=== PATIENT | male | born 1970 | race Caucasian/White ===

== ENCOUNTER 2023-04-01 13:10 | Outpatient (REF) | payer MEDICARE, MEDICAID, SELFPAY ==
[2023-04-01 17:03] LABS: Basophils Percent Auto 0.5 % (0.2-2.0); Eosinophils Absolute Auto 0.5 10^3/uL (0.0-0.7); Eosinophils Percent Auto 8.7 % (0.9-7.0); Hematocrit 44.9 % (42.0-54.0); Hemoglobin 14.5 g/dL (14.0-18.0); Immature Granulocytes Abs Auto 0.01 10^3/uL (0.00-0.03); Immature Granulocytes Pct Auto 0.2 % (0.0-0.5); Lymphocytes Absolute Auto 1.6 10^3/uL (1.2-3.8); Lymphocytes Percent Auto 27.5 % (20.5-60.0); Mean Corpuscular HGB Conc 32.3 g/dL (29.9-35.2); Mean Corpuscular Hemoglobin 29.4 pg (25.9-34.0); Mean Corpuscular Volume 90.9 fL (80.0-94.0); Mean Platelet Volume 11.6 fL (9.5-13.5); Monocytes Absolute Auto 0.4 10^3/uL (0.3-0.8); Monocytes Percent Auto 6.2 % (1.7-12.0); Neutrophils Absolute Auto 3.2 10^3/uL (1.4-6.5); Neutrophils Percent Auto 56.9 % (43.0-75.0); Platelet Count 260 10^3/uL (150-450); Red Blood Count 4.94 10^6/uL (4.70-6.10); Red Cell Distribution Width 13.2 % (11.0-15.0); White Blood Count 5.6 10^3/uL (4.0-11.0)
[2023-04-01 17:04] LABS: C Reactive Protein 0.5 mg/dL (<=1.0); Estimated GFR (African America >60 (>=60); Estimated GFR (Non-African Ame >60 (>=60)
[2023-04-01 17:08] LABS: Erythrocyte Sedimentation Rate 28 mm/hr (<=20)
== END 2023-04-01 13:11 ==
LOC: LAB 13:10
PROVIDERS: PCP Family Medicine
DX: M46.22 Osteomyelitis of vertebra, cervical region (principal); Z79.2 Long term (current) use of antibiotics
CPT/HCPCS: 36415; 82565; 85025; 85652; 86140

== ENCOUNTER 2023-04-08 16:26 | Outpatient (REF) | payer MEDICARE, MEDICAID, SELFPAY ==
[2023-04-08 16:42] LABS: Basophils Percent Auto 0.6 % (0.2-2.0); Eosinophils Absolute Auto 0.3 10^3/uL (0.0-0.7); Eosinophils Percent Auto 4.4 % (0.9-7.0); Hematocrit 41.4 % (42.0-54.0); Hemoglobin 13.7 g/dL (14.0-18.0); Immature Granulocytes Abs Auto 0.02 10^3/uL (0.00-0.03); Immature Granulocytes Pct Auto 0.3 % (0.0-0.5); Lymphocytes Absolute Auto 1.8 10^3/uL (1.2-3.8); Lymphocytes Percent Auto 28.3 % (20.5-60.0); Mean Corpuscular HGB Conc 33.1 g/dL (29.9-35.2); Mean Corpuscular Hemoglobin 29.8 pg (25.9-34.0); Mean Platelet Volume 11.6 fL (9.5-13.5); Monocytes Absolute Auto 0.5 10^3/uL (0.3-0.8); Monocytes Percent Auto 8.5 % (1.7-12.0); Neutrophils Absolute Auto 3.7 10^3/uL (1.4-6.5); Neutrophils Percent Auto 57.9 % (43.0-75.0); Platelet Count 253 10^3/uL (150-450); Red Cell Distribution Width 13.5 % (11.0-15.0); White Blood Count 6.3 10^3/uL (4.0-11.0)
[2023-04-08 16:48] LABS: Erythrocyte Sedimentation Rate 38 mm/hr (<=20)
[2023-04-08 16:50] LABS: C Reactive Protein 0.5 mg/dL (<=1.0); Estimated GFR (African America >60 (>=60); Estimated GFR (Non-African Ame >60 (>=60)
== END 2023-04-08 16:27 ==
LOC: LAB 16:26
PROVIDERS: PCP Family Medicine
DX: M46.22 Osteomyelitis of vertebra, cervical region (principal); Z79.2 Long term (current) use of antibiotics
CPT/HCPCS: 36415; 82565; 85025; 85652; 86140

== ENCOUNTER 2023-07-17 13:29 | Outpatient (OUT) | payer MEDICARE, MEDICAID, SELFPAY ==
--- NOTE | 2023-07-17 13:33 | CT_ITS ---
[address] [address] Patient Name: JOSE HALL MRN: [id number] date: 1970 Sex: M Assigned Patient Location: CT Current Patient Location: Accession/Order Number: [id number] Exam Date: 07/17/2023 13:38 Report Date: 07/18/2023 07:26 At the request of: TRISTON SINGER Procedure: CT lung screening low-dose EXAM: CT lung screening low-dose HISTORY: Cigarette Nicotine Dependence Without Complication EXAMINATION: CT lung screening low-dose HISTORY: Cigarette Nicotine Dependence Without Complication COMPARISON: No relevant comparison available. TECHNIQUE: Axial, Coronal, and Sagittal images were created without the administration of IV contrast material. Dose reduction techniques were achieved by using automated exposure control and/or adjustment of mA and/or kV according to patient size and/or use of iterative reconstruction technique. FINDINGS: LUNGS: Within the right upper lobe near the level of hilum is a collection of approximately 4 tiny 3 mm size nodules with slight haziness of the adjacent parenchyma. PLEURA: No mass, effusion, or pneumothorax. VASCULATURE: No abnormality. CESAR: No mass or pathologic adenopathy. MEDIASTINUM: No mass or pathologic adenopathy. CARDIAC: No enlargement, pericardial thickening, or significant calcification. AORTA: No aneurysm or dissection. CHEST WALL: No mass or axillary adenopathy BONES: No bone lesion or fracture. LIMITED ABDOMEN: No suspicious findings. Limited images of the upper abdomen. OTHER: Negative. CT/CT lung screening low-dose IMPRESSION: 1. Lung-RADS Category 3- Probably benign. Probably benign finding(s)- short term follow up suggested; includes nodules with a low likelihood of becoming a clinically active cancer. Six month LDCT. COMPARISON: None. TECHNIQUE: FINDINGS: IMPRESSION: Electronically authenticated by: MELANIE FOFANA Date: 07/18/2023 07:26
== END 2023-07-17 13:30 | disposition home or self-care (01) ==
LOC: CT 13:29
PROVIDERS: PCP Internal Medicine; Visit Provider Internal Medicine
DX: F17.210 Nicotine dependence, cigarettes, uncomplicated (principal)
CPT/HCPCS: 71271

== ENCOUNTER 2024-02-17 13:42 | Outpatient (OUT) | payer MEDICARE, SELFPAY ==
--- NOTE | 2024-02-17 13:49 | CT_ITS ---
[address] [address] Patient Name: JOSE HALL MRN: [id number] date: 1970 Sex: M Assigned Patient Location: CT Current Patient Location: Accession/Order Number: [id number] Exam Date: 02/17/2024 13:55 Report Date: 02/18/2024 05:55 At the request of: ARNOLD DEL REAL Procedure: CT chest wo con EXAMINATION: CT chest wo con HISTORY: Pulmonary Nodules R91.8 COMPARISON: CT LUNG CANCER SCREENING 07/17/2023 TECHNIQUE: Multi-planar CT images were obtained without and/or with IV contrast as indicated by examination type. Axial, Coronal, and Sagittal images. Dose reduction techniques were achieved by using automated exposure control and/or adjustment of mA and/or kV according to patient size and/or use of iterative reconstruction technique. FINDINGS: LUNGS: A few 3 mm nodules scattered within the lungs, stable. Clearing of previously seen right upper lobe/perihilar nodules and haziness of the parenchyma. No new nodules. PLEURA: No mass, effusion, or pneumothorax. VASCULATURE: No abnormality. CESAR: No mass or adenopathy. MEDIASTINUM: No mass or adenopathy. CARDIAC: No enlargement, pericardial thickening, or significant calcification. AORTA: No aneurysm or dissection. CHEST WALL: No mass or axillary adenopathy. BONES: No bone lesion or fracture. LIMITED ABDOMEN: No suspicious findings Limited images of the upper abdomen. OTHER: Negative. CT/CT chest wo con IMPRESSION: 1. Interval clearing of the suspicious nodules/haziness within right upper lobe perihilar region. 2. Stable appearance of a few 3 mm nodules scattered within the lungs; not overtly suspicious. Consider follow-up CT chest in one year to document stability. Electronically authenticated by: MELANIE FOFANA Date: 02/18/2024 05:55
== END 2024-02-17 13:43 | disposition home or self-care (01) ==
LOC: CT 13:43
PROVIDERS: PCP Internal Medicine; Visit Provider Internal Medicine
DX: R91.8 Other nonspecific abnormal finding of lung field (principal)
CPT/HCPCS: 71250

== ENCOUNTER 2025-01-14 15:07 | Outpatient (OUT) | payer OTHER, SELFPAY ==
--- NOTE | 2025-01-14 15:13 | CT_ITS ---
[address] [address] Patient Name: JOSE HALL MRN: [id number] date: 1970 Sex: M Assigned Patient Location: CT Current Patient Location: CT Accession/Order Number: [id number] Exam Date: 01/14/2025 16:50 Report Date: 01/14/2025 16:53 At the request of: TRISTON SINGER Procedure: CT lung screening low-dose CT CHEST WITHOUT CONTRAST, LOW DOSE SCREENING: CLINICAL DATA: A 54-year old current smoker COMPARISON: None TECHNIQUE: Noncontrast axial CT scan images of the chest were obtained under the low dose screening CT protocol. Coronal and sagittal reconstructed images were also submitted. FINDINGS: Mediastinum : Suboptimal evaluation due to low-dose technique. Thoracic aorta appears normal in caliber. Pulmonary trunk appears nondilated. No pericardial effusion. No lymphadenopathy. The esophagus is grossly unremarkable. Lungs: No focal consolidation, pneumothorax or pleural effusion. Trachea and distal airways appear patent. Diffuse bronchial wall thickening. No suspicious noncalcified pulmonary nodule or mass. Upper abdomen: No acute findings. Bony thorax and chest wall: Soft tissues surrounding the chest wall demonstrate no acute findings. Osseous structures demonstrate degenerative change. CT/CT lung screening low-dose IMPRESSION: NO SUSPICIOUS PULMONARY NODULE ON TODAY'S STUDY. LUNG - RADS Version 1.0 Assessment: Category 1, Negative (No nodules and definitely benign nodules). Management: Continue annual lung screening with LDCT in 12 months. Impression dictated by: Santi Wu Jr., D.O.01/14/2025 4:53 PM Dictation Location: [employer] [employer] Electronically authenticated by: [id number] Y Date: 01/14/2025 16:53
== END 2025-01-14 15:08 | disposition home or self-care (01) ==
LOC: CT 15:09
PROVIDERS: PCP Internal Medicine; Visit Provider Internal Medicine
DX: Z00.00 Encounter for general adult medical examination without abnormal findings (principal); Z87.891 Personal history of nicotine dependence
CPT/HCPCS: 71271

== ENCOUNTER 2025-02-25 21:00 | Observation (INO) | payer OTHER, SELFPAY ==
[2025-02-25] VITALS (17 sets, daily range): BP systolic 112–145; BP diastolic 62–107; PULSE 85–106; TEMP 36.9; O2SAT 91–96; BMI 38.8; BMI 40.2
--- NOTE | 2025-02-25 21:12 | PC.NURSE ---
left arm fro uper arm to hand red swollen and warm to touch, no scratches or open areas to extremity.
--- NOTE | 2025-02-25 21:23 | PC.NURSE ---
complains of left arm swelling onset 2 or 3 days, denies any recent injury, falls, or trauma to cause this swelling. this patient does recall doing yard work 2 or 3 days ago
[2025-02-25] MEDS: ACETAMINOPHEN 325 MG TABLET 650 MG PO (21:29)
--- NOTE | 2025-02-25 21:30 | ED.EXTPRO1 ---
HPI - Extremity Problem General Chief complaint: Extremity Problem, Nontraumatic Stated complaint: PAINFUL AND SWELLING ARM, FEVER Time Seen by Provider: 02/25/25 21:02 Source: patient Mode of arrival: walk-in History of Present Illness HPI Narrative: This 54-year-old male, smoker who is morbidly obese and has a history of diabetes and admits to medication noncompliance presents for evaluation of pain and swelling to the left upper extremity. The patient states that he was sleeping on his couch last Saturday and rolled off of the couch. He does not feel that he injured himself at that time, later that day he went outside and was doing yard work in which he was laying on the ground in the dirt. He thinks he may have scraped his elbow where he has a large callus. Since then he has developed redness and swelling to the medial upper arm that extends down into the forearm associated with swelling and chills. He has not taken his temperature to document a fever. He denies that he feels confused and his corroborates that he has not altered. He states he has not had any appetite today. He has not had any vomiting or diarrhea. He denies any chest pain or shortness of breath. He has chronic lower extremity swelling which is unchanged. Last Tetanus was one year ago Related Data Home Medications ?Medication ?Instructions ?Recorded ?Confirmed gabapentin 600 mg tablet 1,200 mg PO QPM 02/25/25 02/25/25 gabapentin 600 mg tablet 600 mg PO QAM 02/25/25 02/25/25 Allergies Allergy/AdvReac Type Severity Reaction Status Date / Time No Known Drug Allergies Allergy Verified 02/25/25 21:08 Review of Systems ROS Status of ROS 10 or more systems reviewed and unremarkable except as noted in history and below [facility] Social History Little interest or pleasure in doing things: not at all Feeling down, depressed, or hopeless: not at all Exam Narrative Exam Narrative: Vital signs and Nursing Notes reviewed: Patient is afebrile, tachycardic with pulse of 106, blood pressure stable at 130/82, he has not hypoxic with pulse ox of 96% on room air General: Awake, alert, oriented, obese male, no acute distress, lying comfortably on the stretcher HEENT: Normocephalic atraumatic, mucous membranes are dry, no swelling of the tongue, uvula pharyngeal soft tissues Neck: Supple, no meningeal signs, no anterior or posterior cervical lymphadenopathy Chest: Lungs are clear to auscultation with good air entry, there is no wheezing rhonchi or rales appreciated no accessory muscle use, patient is speaking in complete sentences-no chest wall tenderness to palpation CVS: Regular rate and rhythm S1-S2, no murmurs rubs or gallops, pulses are brisk and equal bilaterally ABD: Soft, nondistended, nontender, no rebound guarding or rigidity, bowel sounds are normal, no pulsatile masses appreciated Extremities: There is erythema and tenderness to the medial aspect of the left upper arm, this is not circumferential but does extend down somewhat into the forearm with less redness but moderate swelling. There are several small abrasions on the left forearm and a large callus overlying the left elbow. There is no sign of abscess. Fingers are warm and sensate. Radial pulses brisk. Brachial pulse is brisk. I do not appreciate any significant left, axillary lymphadenopathy. Skin: Redness and swelling to the left upper extremity as described above. Neuro: No focal deficits Constitutional Vital Signs, click to edit/add: Last Vital Signs Temp 98.4 F 02/25/25 21:04 Pulse 99 H 02/25/25 23:10 Resp 15 02/25/25 23:10 BP 145/107 H 02/25/25 23:00 Pulse Ox 94 L 02/25/25 23:10 O2 Del Method Room Air 02/25/25 21:04 Course Vital Signs Vital signs: Vital Signs Temperature 98.4 F 02/25/25 21:04 Pulse Rate 106 H 02/25/25 21:04 Respiratory Rate 18 02/25/25 21:04 Blood Pressure 130/82 02/25/25 21:04 Pulse Oximetry 96 02/25/25 21:04 Oxygen Delivery Method Room Air 02/25/25 21:04 Temperature 98.4 F 02/25/25 21:04 Pulse Rate 99 H 02/25/25 23:10 Respiratory Rate 15 02/25/25 23:10 Blood Pressure 145/107 H 02/25/25 23:00 Pulse Oximetry 94 L 02/25/25 23:10 Oxygen Delivery Method Room Air 02/25/25 21:04 MDM - Extremity (Nontraumatic) MDM Narrative Medical decision making narrative: This 54-year-old male with a history of type 2 diabetes who admits to medical noncompliance and morbid obesity is brought to the emergency department by family member for evaluation of redness and swelling to the left upper extremity. The patient states that he rolled off the couch on Saturday but does not feel that he injured himself at that time. He then went out and did some yard work and was lying on the ground pulling weeds. Since that time he has developed a large area of redness and swelling of the medial aspect of his left upper arm that extends onto his left forearm. His hand is warm and sensate, he has normal pulses, there is no crepitus or sign of compartment syndrome. He does have a large callus overlying his left elbow and some very superficial abrasions of the left forearm. His last tetanus shot was 1 year ago. He has had some chills but did not take his temperature or have a documented fever here. He does appear to be somewhat altered to me but the patient does not feel that he is altered and his family member states he is at his normal baseline mental status. A septic workup was ordered. An IV was established and he was medicated with IV fluids, Tylenol, IV vancomycin and IV Zosyn. Ultrasound of the left upper extremity shows soft tissue edema in the antecubital fossa region with no DVT in the left upper extremity. His white count is elevated at 15.1. He has a normal lactic acid at 1.6. Glucose is elevated at 177 but the remainder of his electrolytes and kidney function is normal. On reevaluation he is feeling much better and stated that he was very hungry after not having eaten earlier in the day. He was given a snack and Gatorade which he tolerated without difficulty. He has remained hemodynamically stable in the emergency department. The case was discussed with the hospitalist and he is excepted for admission to [facility]. Lab Data Labs: Lab Results 02/25/25 Range/Units 21:10 WBC 15.1 H (4.0-11.0) 10^3/uL RBC 5.10 (4.70-6.10) 10^6/uL Hgb 15.8 (14.0-18.0) g/dL Hct 47.0 (42.0-54.0) % MCV 92.2 (80.0-94.0) fL MCH 31.0 (25.9-34.0) pg MCHC 33.6 (29.9-35.2) g/dL RDW 12.0 (11.0-15.0) % Plt Count 203 (150-450) 10^3/uL MPV 11.8 (9.5-13.5) fL Neut % (Auto) 76.3 H (43.0-75.0) % Lymph % (Auto) 14.5 L (20.5-60.0) % Ponce % (Auto) 7.9 (1.7-12.0) % Eos % (Auto) 0.7 L (0.9-7.0) % Baso % (Auto) 0.3 (0.2-2.0) % Neut # (Auto) 11.5 H (1.4-6.5) 10^3/uL Lymph # (Auto) 2.2 (1.2-3.8) 10^3/uL Ponce # (Auto) 1.2 H (0.3-0.8) 10^3/uL Eos # (Auto) 0.1 (0.0-0.7) 10^3/uL Baso # (Auto) 0.0 (0.0-0.1) 10^3/uL Abs Immat Gran (auto) 0.05 H (0.00-0.03) 10^3/uL Imm/Tot Granulo (auto) 0.3 (0.0-0.5) % Sodium 133 L (136-145) mmol/L Potassium 4.1 (3.5-5.1) mmol/L Chloride 94 L (98-107) mmol/L Carbon Dioxide 31.1 (21.0-32.0) mmol/L Anion Gap 12.0 BUN 15.0 (7.0-18.0) mg/dL Creatinine 1.04 (0.70-1.30) mg/dL Est GFR ( Amer) >60 (>=60 mL/min/1.73m^2) Est GFR (Non-Af Amer) >60 (>=60 mL/min/1.73m^2) BUN/Creatinine Ratio 14.4 Glucose 177 H (74-106) mg/dL Lactate 1.6 (0.4-2.0) mmol/L Calcium 9.0 (8.5-10.1) mg/dL Total Bilirubin 0.8 (0.2-1.0) mg/dL AST 21 (15-37) U/L ALT 30 (16-63) U/L Alkaline Phosphatase 107 (46-116) U/L Troponin I High Sens 5.1 (4.0-76.1) pg/mL NT-Pro-B Natriuret Pep 43.0 (<=900.0) pg/mL Total Protein 6.9 (6.4-8.2) g/dL Albumin 3.6 (3.4-5.0) g/dL Globulin 3.3 g/dL Albumin/Globulin Ratio 1.1 Discharge Plan Discharge Chief Complaint: Extremity Problem, Nontraumatic Clinical Impression: Cellulitis of left upper extremity Patient Disposition: Admitted As Inpatient Time of Disposition Decision: 23:43 Condition: Fair
--- NOTE | 2025-02-25 21:34 | ECG_ITS ---
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 Measurements Intervals Jay Rate: 90 P: 69 SD: 172 QRS: 81 QRSD: 102 T: 56 QT: 348 QTc: 395 Interpretive Statements 1100 Sinus rhythm 9110 normal ECG Compared to ECG 02/25/2025 22:23:04 No significant changes Electronically Signed On 02-26-2025 18:41:53 EDT by BIRGIT QUINN M.D.
[2025-02-25 21:41] LABS: Basophils Percent Auto 0.3 % (0.2-2.0); Eosinophils Absolute Auto 0.1 10^3/uL (0.0-0.7); Eosinophils Percent Auto 0.7 % (0.9-7.0); Hemoglobin 15.8 g/dL (14.0-18.0); Immature Granulocytes Abs Auto 0.05 10^3/uL (0.00-0.03); Immature Granulocytes Pct Auto 0.3 % (0.0-0.5); Lymphocytes Absolute Auto 2.2 10^3/uL (1.2-3.8); Lymphocytes Percent Auto 14.5 % (20.5-60.0); Mean Corpuscular HGB Conc 33.6 g/dL (29.9-35.2); Mean Corpuscular Volume 92.2 fL (80.0-94.0); Mean Platelet Volume 11.8 fL (9.5-13.5); Monocytes Absolute Auto 1.2 10^3/uL (0.3-0.8); Monocytes Percent Auto 7.9 % (1.7-12.0); Neutrophils Absolute Auto 11.5 10^3/uL (1.4-6.5); Neutrophils Percent Auto 76.3 % (43.0-75.0); Platelet Count 203 10^3/uL (150-450); White Blood Count 15.1 10^3/uL (4.0-11.0)
[2025-02-25 21:43] LABS: Lactate/Lactic Acid 1.6 mmol/L (0.4-2.0)
[2025-02-25] MEDS: LACTATED RINGER S 684 ML IV (21:44)
[2025-02-25 21:52] LABS: Alanine Aminotransferase 30 U/L (16-63); Albumin Globulin Ratio 1.1; Albumin Level 3.6 g/dL (3.4-5.0); Alkaline Phosphatase 107 U/L (46-116); Aspartate Amino Transferase 21 U/L (15-37); BUN Creatinine Ratio 14.4; Bilirubin Total 0.8 mg/dL (0.2-1.0); Carbon Dioxide 31.1 mmol/L (21.0-32.0); Chloride 94 mmol/L (98-107); Estimated GFR (African America >60 (>=60 mL/min/1.73m^2); Estimated GFR (Non-African Ame >60 (>=60 mL/min/1.73m^2); Globulin 3.3 g/dL; Glucose 177 mg/dL (74-106); Potassium 4.1 mmol/L (3.5-5.1); Sodium 133 mmol/L (136-145); Total Protein 6.9 g/dL (6.4-8.2); Troponin I High Sensitivity 5.1 pg/mL (4.0-76.1)
[2025-02-25] MEDS: PIPERACILLIN SODIUM/TAZOBACTAM 3.375 GM in 0.9 % SODIUM CHLORIDE 50 ML IV (21:56)
[2025-02-25] MEDS: VANCOMYCIN HCL 1,500 MG in 0.9 % SODIUM CHLORIDE 500 ML 250 MG IV (22:33)
--- NOTE | 2025-02-25 23:09 | PC.NURSE ---
this patient awake and alert talking on his cell phone, sitting upright on the bed this patient voices no concerns and shoows no signs of distress
[2025-02-25 23:53] LABS: Estimated Average Glucose 143 mg/dL; Glycohemoglobin A1C 6.6 % (4.5-6.2)
[2025-02-26] VITALS (8 sets, daily range): BP systolic 119–134; BP diastolic 83–89; PULSE 65–100; TEMP 36.4–36.8; O2SAT 91–95
[2025-02-26] MEDS: 0.9 % SODIUM CHLORIDE 1,000 ML 125 ML IV ×2 (00:32→08:39)
[2025-02-26] MEDS: ENOXAPARIN SODIUM 40 MG/0.4 ML SYRINGE SUBQ ×2 (00:32→08:40)
[2025-02-26 06:19] LABS: Basophils Percent Auto 0.2 % (0.2-2.0); Eosinophils Absolute Auto 0.1 10^3/uL (0.0-0.7); Eosinophils Percent Auto 1.1 % (0.9-7.0); Hematocrit 47.4 % (42.0-54.0); Hemoglobin 15.2 g/dL (14.0-18.0); Immature Granulocytes Abs Auto 0.05 10^3/uL (0.00-0.03); Immature Granulocytes Pct Auto 0.4 % (0.0-0.5); Lymphocytes Absolute Auto 2.4 10^3/uL (1.2-3.8); Lymphocytes Percent Auto 18.6 % (20.5-60.0); Mean Corpuscular HGB Conc 32.1 g/dL (29.9-35.2); Mean Corpuscular Hemoglobin 30.2 pg (25.9-34.0); Mean Platelet Volume 11.5 fL (9.5-13.5); Monocytes Absolute Auto 1.3 10^3/uL (0.3-0.8); Monocytes Percent Auto 9.8 % (1.7-12.0); Neutrophils Percent Auto 69.9 % (43.0-75.0); Platelet Count 191 10^3/uL (150-450); Red Blood Count 5.04 10^6/uL (4.70-6.10); Red Cell Distribution Width 11.9 % (11.0-15.0); White Blood Count 12.8 10^3/uL (4.0-11.0)
[2025-02-26 06:34] LABS: Alanine Aminotransferase 28 U/L (16-63); Albumin Globulin Ratio 0.8; Albumin Level 3.3 g/dL (3.4-5.0); Alkaline Phosphatase 101 U/L (46-116); Anion Gap 9.1; Aspartate Amino Transferase 20 U/L (15-37); BUN Creatinine Ratio 13.3; Bilirubin Total 0.8 mg/dL (0.2-1.0); Calcium 9.2 mg/dL (8.5-10.1); Carbon Dioxide 31.8 mmol/L (21.0-32.0); Chloride 96 mmol/L (98-107); Estimated GFR (African America >60 (>=60 mL/min/1.73m^2); Estimated GFR (Non-African Ame >60 (>=60 mL/min/1.73m^2); Glucose 140 mg/dL (74-106); Potassium 3.9 mmol/L (3.5-5.1); Sodium 133 mmol/L (136-145); Total Protein 7.3 g/dL (6.4-8.2)
[2025-02-26 07:59] LABS: Glucometer 155 mg/dL (74-106)
[2025-02-26] MEDS: PIPERACILLIN SODIUM/TAZOBACTAM 3.375 GM in 0.9 % SODIUM CHLORIDE 50 ML IV (08:42)
--- NOTE | 2025-02-26 09:34 | CM.NOTE ---
Rounds made with Dr. Greer. Dr. Greer reviews plan of care. Mr. Cabrera verbalizes understanding.
--- NOTE | 2025-02-26 10:27 | PM.HP ---
HPI H&P: HPI History of Present Illness Chief complaint: UE CELLULITIS Narrative: HPI and Hospital course: 54-year-old male with past medical history of morbid obesity, presented to the ED with 3-day history of left upper extremity swelling, erythema, tenderness. Patient recalls falling over 3 days ago and sustaining a small abrasion around his elbow area. Patient denies fever, chills. Workup in ED was concerning for sepsis with tachycardia, tachypnea and leukocytosis noted upon arrival for which patient was given aggressive IV hydration and started on broad-spectrum antibiotic with IV vancomycin and IV Zosyn. Left upper extremity cellulitis was marked so that it can be followed up for improvement/response to antibiotic and earlier today when I evaluated him, erythema/swelling and pain had considerably improved overnight IV antibiotics. His hemodynamics are also improved with improvement in leukocytosis. Patient is medically stable for discharge and will be discharged home on oral Bactrim and Augmentin. Patient was educated on worrisome signs and symptoms and was instructed to return to ED if you develop worsening erythema/pain or persistent fever. Patient will need to follow-up with PCP in 1 to 2 weeks. Discharge diagnosis: Sepsis secondary to left upper extremity cellulitis Discharge disposition: Home Discharge status: Stable Opioid HPI Opioid Management Most Recent Pain and Opioid Data: Last Pain Scale 2 Today, 01:33 Last Pain Assessment Today, 00:51 Last MAR Pain Assessment 02/25/25, 21:29 Last ORT Total Score 0 02/25/25, 23:43 Last ORT Risk Category Low Risk 02/25/25, 23:43 Review of Systems ROS Status of ROS 10 or more systems reviewed and unremarkable except as noted in history and below [facility] Medical History (Updated 02/26/25 @ 10:30 by Shaikh Zoey MD) Morbid obesity ?E66.01 - Morbid (severe) obesity due to excess calories (ICD-10) SOFIYA (obstructive sleep apnea) ?G47.33 - Obstructive sleep apnea (adult) (pediatric) (ICD-10) Hypercholesteremia ?E78.00 - Pure hypercholesterolemia, unspecified (ICD-10) Diabetes mellitus ?E11.9 - Type 2 diabetes mellitus without complications (ICD-10) Hypertension ?I10 - Essential (primary) hypertension (ICD-10) Family History (Updated 02/26/25 @ 00:15 by Erica Walker RN) Mother Cancer Grandfather Atrial fibrillation Hypercholesteremia Diabetes Grandmother Atrial fibrillation Hypercholesteremia Grandfather No problems noted. Social History (Updated 02/26/25 @ 00:15 by Erica Walker RN) Within the past year, how often did you have a drink containing alcohol: monthly or less Within the past year, how often did you have six or more drinks on one occasion: never Smoking status: Current every day smoker Non-prescribed substance use: denies use Known occupational exposures/hazards: No Highest level of school completed/degree received: high school graduate Do you want help with school or training: No In a typical week, how many times do you talk on the telephone with family, friends, or neighbors: 3 or more times per week How often do you get together with friends or relatives: once per week How often do you attend bahai or scientology services: never Little interest or pleasure in doing things: not at all Feeling down, depressed, or hopeless: not at all Feel stressed/tense/nervous/anxious/difficulty sleeping: only a little Life stressors: other Life stressor details: Due to disability, difficulty making decisions: No Meds Home Medications and Allergies Home Medications ?Medication ?Instructions ?Recorded ?Confirmed ?Type gabapentin 600 mg tablet 1,200 mg PO QPM 02/25/25 02/25/25 History gabapentin 600 mg tablet 600 mg PO QAM 02/25/25 02/25/25 History amoxicillin 875 mg-potassium 1 tab PO BID #10 tabs 02/26/25 Rx clavulanate 125 mg tablet sulfamethoxazole 400 1 tab PO BID 10 days #20 tabs 02/26/25 Rx mg-trimethoprim 80 mg tablet (Bactrim) Allergies Allergy/AdvReac Type Severity Reaction Status Date / Time No Known Drug Allergies Allergy Verified 02/25/25 21:08 Exam Constitutional Vital Signs, click to edit/add: Last Vital Signs Temp 98.3 F 02/26/25 08:00 Pulse 92 H 02/26/25 09:49 Resp 20 02/26/25 08:00 BP 127/89 02/26/25 08:00 Pulse Ox 94 L 02/26/25 08:00 O2 Del Method Nasal Cannula 02/26/25 08:00 O2 Flow Rate 2 02/26/25 08:00 Documenting provider has reviewed patient's vital signs: yes Common normals: no apparent distress and oriented x3 General appearance: cooperative Nutritional appearance: obese HENMT Common normals: normocephalic and head/scalp atraumatic Head and scalp: normocephalic and atraumatic Eye Common normals: conjunctivae normal and no scleral icterus Conjunctiva: conjunctiva(e) normal Respiratory Common normals: normal respiratory effort and clear to auscultation bilaterally Effort & inspection: able to speak in complete sentences Auscultation: clear to auscultation bilaterally Cardio Common normals: regular rate, S1 normal heart sound and S2 normal heart sound Rate: regular rate Heart sounds: S1 normal and S2 normal GI Common normals: Normal to inspection, nondistended, normoactive bowel sounds present, soft to palpation, non-tender and no hepatosplenomegaly Palpation: soft and no hepatosplenomegaly Extremity Other: REENA - erythema/tenderness noted with swelling. Significantly improved overnight with IV abx Neuro Common normals: oriented x3, moves all extremities and no focal motor deficits Psych Common normals: mental status grossly normal, denies hallucinations, denies homicidal ideation and denies suicidal ideation Results Labs Labs: Short CBC 02/25/25 02/26/25 Range/Units 21:10 06:01 WBC 15.1 H 12.8 H (4.0-11.0) 10^3/uL Hgb 15.8 15.2 (14.0-18.0) g/dL Hct 47.0 47.4 (42.0-54.0) % Plt Count 203 191 (150-450) 10^3/uL BMP 02/25/25 02/26/25 21:10 06:01 Sodium 133 L 133 L Potassium 4.1 3.9 Chloride 94 L 96 L Carbon Dioxide 31.1 31.8 BUN 15.0 13.0 Creatinine 1.04 0.98 Glucose 177 H 140 H Calcium 9.0 9.2 Liver Function 02/25/25 02/26/25 Range/Units 21:10 06:01 Total Bilirubin 0.8 0.8 (0.2-1.0) mg/dL AST 21 20 (15-37) U/L ALT 30 28 (16-63) U/L Alkaline Phosphatase 107 101 (46-116) U/L Albumin 3.6 3.3 L (3.4-5.0) g/dL Assessment and Plan Assessment and Plan (1) Sepsis: Assessment and Plan: Met sepsis criteria with leukocytosis/tachycardia and tachypnea upon arrival. Received aggressive IV hydration. Secondary to left upper extremity cellulitis. Stable hemodynamics this morning with improvement in leukocytosis. Was treated with IV vancomycin and Zosyn. Cultures negative so far. Will discharge on oral Bactrim and Augmentin. Qualifiers: Sepsis type: sepsis due to unspecified organism Sepsis acute organ dysfunction status: without acute organ dysfunction Qualified Code(s): A41.9 - Sepsis, unspecified organism (2) Cellulitis of left upper extremity: Assessment and Plan: No evidence of DVT on. Considerably improved overnight with IV antibiotics. Will discharge on oral Bactrim and Augmentin. (3) SOFIYA (obstructive sleep apnea): Assessment and Plan: Patient uses oxygen at night (4) Morbid obesity: Assessment and Plan: Morbidly obese. Recommended weight loss and lifestyle modifications.
--- NOTE | 2025-02-26 10:31 | SWNOTE1 ---
Medicare Outpatient Observation Notice reviewed and discussed with patient. Pt. verbalized understanding and signed the form. Original given to patient and copy placed in patient?s chart. SW did ask if pt had any questions about his discharge, pt voiced no.
[2025-02-27 06:27] LABS: A. calcoaceticus-baumannii Cpx NOT DETECTED (NOT DETECTE); Bacteroides fragilis NOT DETECTED (NOT DETECTE); Candida albicans NOT DETECTED (NOT DETECTE); Candida auris NOT DETECTED (NOT DETECTE); Candida glabrata NOT DETECTED (NOT DETECTE); Candida krusei NOT DETECTED (NOT DETECTE); Enterobacter cloacae complex NOT DETECTED (NOT DETECTE); Enterobacterales NOT DETECTED (NOT DETECTE); Enterococcus faecalis NOT DETECTED (NOT DETECTE); Enterococcus faecium NOT DETECTED (NOT DETECTE); Haemophilus influenzae NOT DETECTED (NOT DETECTE); Klebsiella aerogenes NOT DETECTED (NOT DETECTE); Klebsiella pneumoniae group NOT DETECTED (NOT DETECTE); Listeria monocytogenes NOT DETECTED (NOT DETECTE); Neisseria meningitidis NOT DETECTED (NOT DETECTE); Proteus spp. NOT DETECTED (NOT DETECTE); Pseudomonas aeruginosa NOT DETECTED (NOT DETECTE); Salmonella spp. NOT DETECTED (NOT DETECTE); Serratia marcescens NOT DETECTED (NOT DETECTE); Staphylococcus epidermidis NOT DETECTED (NOT DETECTE); Staphylococcus lugdunensis NOT DETECTED (NOT DETECTE); Staphylococcus spp. NOT DETECTED (NOT DETECTE); Stenotrophomonas maltophilia NOT DETECTED (NOT DETECTE); Streptococcus agalactiae NOT DETECTED (NOT DETECTE); Streptococcus pneumoniae NOT DETECTED (NOT DETECTE); Streptococcus pyogenes NOT DETECTED (NOT DETECTE); Streptococcus spp. NOT DETECTED (NOT DETECTE)
[2025-02-27 06:28] LABS: Candida parapsilosis NOT DETECTED (NOT DETECTE); Candida tropicalis NOT DETECTED (NOT DETECTE); Cryptococcus neoformans/gattii NOT DETECTED (NOT DETECTE)
[2025-02-27 09:12] LABS: Source BLOOD
--- NOTE | 2025-03-01 14:21 | CM.DCFOLLOWU ---
1st attempt 03/01/25, no answer
--- NOTE | 2025-03-04 14:29 | CM.DCFOLLOWU ---
3rd attempt 03/04/25, no answer
== END 2025-02-26 12:30 | disposition home or self-care (01) ==
LOC: ER 21:56 → MS 23:43
PROVIDERS: Registered Nurse; Admitting Provider Internal Medicine; Emergency Provider Emergency Medicine; PCP Internal Medicine; Visit Provider Internal Medicine
DX: A41.9 Sepsis, unspecified organism (principal); L03.114 Cellulitis of left upper limb; E66.01 Morbid (severe) obesity due to excess calories; Z68.41 Body mass index [BMI] 40.0-44.9, adult; F17.200 Nicotine dependence, unspecified, uncomplicated; G47.33 Obstructive sleep apnea (adult) (pediatric); E11.9 Type 2 diabetes mellitus without complications; Z91.148 Patient's other noncompliance with medication regimen for other reason; R22.32 Localized swelling, mass and lump, left upper limb
CPT/HCPCS: 36415; 80053; 83036; 83605; 83880; 84484; 85025; 87040; 87077; 87150; 93005; 93971; 96365; 96366; 96367; 96372; 99285; G0378; J1650; J2543; J3370

== ENCOUNTER 2025-09-06 11:22 | Outpatient (OUT) | payer OTHER, SELFPAY ==
--- OUTSIDE RECORDS SUMMARY | 2025-09-06 11:35 | XMS_ITS | CCD ---
Author Organization [facility] Care Team Providers Care Sales Administration Specialist Name Role Phone GIGI LANDIS Admitting Unavailable GIGI LANDIS Attending Unavailable COURTNEY JACKSON Referring Unavailable SELF, REFERRED Primary Care Unavailable MD [place] Emergency Provider [phone] MD Courtney Jackson Primary Care Provider [phone] DELANO NEWBERRY Referring Unavailable SATINDER, ESTELLAIN Admitting Unavailable FITO PERRY Consulting Unavailable BANDAR PAUL Attending Unavailable COURTNEY JACKSON Primary Care Unavailable JACKIE BROWN Consulting Unavailable DO Renetta Ashton Emergency Provider ERVIN NOVA Consulting Unavailable MANUEL Wasserman, DR VALDEZ Primary Care Unavailable ROHITH Wasserman, DELANO Admitting Unavailable DELANO WEAVER Attending Unavailable MELANIE LARA Consulting Unavailable JUVENTINO COOK Consulting Unavailable ROHITH ., DELANO Consulting Unavailable NINA ROLDAN Consulting Unavailable MANUEL ., DR VALDEZ Admitting Unavailable HOY ., DR VALDEZ Attending Unavailable HOY ., DR VALDEZ Consulting Unavailable HOY ., DR VALDEZ Primary Care Unavailable HOY ., DR VALDEZ Admitting Unavailable HOY ., DR VALDEZ Attending Unavailable HOY ., DR VALDEZ Consulting Unavailable HOY ., DR VALDEZ Primary Care Unavailable GANGAY ., DR VALDEZ Admitting Unavailable HOY ., DR VALDEZ Attending Unavailable GANGAY ., DR VALDEZ Primary Care Unavailable DR MELANIE FOFANA Consulting Unavailable MANUEL ., DR VALDEZ Primary Care Unavailable ALLI SOSA Admitting Unavailable ALLI SOSA Attending Unavailable ALLI SOSA Consulting Unavailable ALLI SOSA Admitting Unavailable CARMEL WEBB Consulting Unavailable MANUEL Wasserman, DR VALDEZ Primary Care Unavailable ALLI SOSA Attending Unavailable ALLI SOSA Consulting Unavailable Courtney Jackson MD Primary Care Provider [phone] MARKIE OLSEN Referring COURTNEY Gilmore Primary Care Unavailable MARKIE OLSEN Referring COURTNEY Gilmore Primary Care Unavailable Courtney Jackson MD Primary Care Provider [phone] CRISTIANO JONES Primary Care Physician James Du Attending Unavailable Cristiano Jones MD Primary Care Provider Poli Fisher DO Emergency Provider Cristiano Jones II Primary Care Provider [phone] Ravinder Pritchett DO Attending Provider [phone] Ravinder Pritchett DO Admit Provider Jose RN, Ebonie Other Provider Unavailable Linsey RN, Ambika Other Provider Unavailable Darrell RN, Gila Other Provider Unavailable Jesús RN, Zena Other Provider Unavailable Johnnie RN, Hetal Other Provider Unavailable Deborah Mathews MD Other Provider Yfn Forrest DO Other Provider Tino Banks MD Other Provider Tom Bernstein DO Other Provider Jennifer BOYKIN, Dane Other Provider Natalya Orozco MD Other Provider Paddy Mcdermott DO Other Provider Jordan Jones MD Other Provider Unavailable Martha Wilson APRN Other Provider Preet Nice MD Other Provider Clement Goncalves MD Other Provider Mayuri Valdes MD Other Provider Michelle Alvarez MD Other Provider Paddy Bennett DO Other Provider [phone] Mali Berg MD Other Provider Minesh Noe MD Other Provider Cl FLIGHT OPERATIONS ENGINEER-C, Carmel J Other Provider Azar CHAMORRO, Anastasia Triplett Other Provider Unavailable Martin BOYKIN, Modesto Child Other Provider Edwardo Vazquez MD Other Provider Harshal BOYKIN, Rolando Other Provider Madhu BOYKIN, Carolyn Other Provider Unavailable Vu Munoz MD Other Provider Eladia Bhat DO Other Provider Chris DOFadi Other Provider Yasmin Sarah APRN Other Provider Cas Padilla DO Other Provider Elan BOYKIN, Richard Triplett Other Provider Kaylin Pena APRN Other Provider Kirsty Mancilla APRN Other Provider Efrain BOYKIN, Nika Other Provider Cristiano Owens MD Other Provider Darell Grvoe DO Other Provider Nuno DO Yabrenna Other Provider Harshal BOYKIN, Alfie Henry Other Provider Humberto Delvalle MD Other Provider Ghada Pedersen APRN Other Provider Mike BOYKIN, Tami Other Provider Glenna BOYKIN, Santiago Other Provider Santi Lu MD Other Provider Jordan Gottlieb MD Other Provider Paul BOYKIN, Yusuf Other Provider Alyssa RN, Katie Other Provider Unavailable Cristiano Jones II Primary Care Provider Mayuri Valdes MD Other Provider Unavailable JONES, CRISTIANO B Attending Unavailable JONES, CRISTIANO B Attending Unavailable JONES, CRISTIANO B Attending Unavailable JONES, CRISTIANO B Attending Unavailable JONES, CRISTIANO B Attending Unavailable KATHE ALLEN Attending Unavailable JONES, CRISTIANO B Attending Unavailable JONES, CRISTIANO B Attending Unavailable JONSE, CRISTIANO B Attending Unavailable Jones, Cristiano Primary Care Unavailable Yarely, Ravinder A Admitting Unavailable Yarely, Ravinder A Attending Unavailable Jones, Cristiano Primary Care Unavailable Yarely, Ravinder A Admitting Unavailable Yarely, Ravinder A Attending Unavailable Yarely, Ravinder A Admitting Unavailable Yarely, Ravinder A Attending Unavailable Jones, Cristiano Primary Care Unavailable Jones, Cristiano Primary Care Unavailable Yarely, Ravinder A Admitting Unavailable Yarely, Ravinder A Attending Unavailable Jones, Cristiano Primary Care Unavailable Yarely, Ravinder A Admitting Unavailable Yarely, Ravinder A Attending Unavailable Ebonie Garcia Consulting Unavailable Ambika Stiles Consulting Unavailable Gila Ramírez Consulting Unavailable Zena Espinosa Consulting Unavailable Hetal Blair Consulting Unavailable Deborah Mathews Consulting Unavailable Yfn Forrest Consulting Unavailable Tino Banks Consulting Unavailable Tom Bernstein Consulting UnavailDane Vickers Consulting Unavailable Natalya Orozco Consulting Unavailable Paddy Mcdermott Consulting Unavailable Jordan Jones Consulting Unavailable Martha Wilson Consulting UnavailPreet Small Consulting Unavailable Clement Goncalves Consulting Unavailable Mayuri Valdes Consulting Unavailable Michelle Alvarez Consulting Unavailable Paddy Bennett Consulting Unavailable Mali Berg Consulting Unavailable Minesh Noe Consulting Unavailable Carmel Smallwood Consulting Unavailable Anastasia Askew Consulting Unavailable Modesto Salazar Consulting UnavailEdwardo Henry Consulting Unavailable Rolando Caputo Consulting Unavailable Carolyn Leung Consulting Unavailable Vu Munoz Consulting Unavailable Eladia Bhat Consulting Unavailable Fadi Perez Consulting Unavailable Yasmin Sarah Consulting Unavailable Cas Padilla Consulting Unavailable TramaineomaRichard lemus Consulting Unavailable Kaylin Pena Consulting Unavailable Kirsty Mancilla Consulting Unavailable Alahmad Alaa Consulting Unavailable Cristiano Owens Consulting Unavailable Darell Grove Consulting Unavailable Loc Reina Consulting Unavailable Alfie Caputo Consulting Unavailable Humberto Delvalle Consulting Ghada Bedoya Consulting Unavailable Tami Mckeon Consulting Unavailable Santiago Manzanares Unavailable Santi Lu Consulting Unavailable Jordan Gottlieb Consulting Unavailable Yusuf Miller Consulting Unavailable Katie Shah Consulting Unavailable Poli Fisher Attending Unavailable Cristiano Jones Primary Care Unavailable Poli Fisher Admitting Unavailable Allergies Allergy ClassificationReported Allergen(s)Allergy TypeDate of OnsetReaction(s) Facility (1 source)No Known Medication Allergies; Translations: [No Known Medication Allergies]Propensity to adverse reactions (disorder)[facility] Medications Current Medications MedicationDrug Class(es)DatesSig (Normalized)Sig (Original)acetaminophen 325 mg oral tablet (20 sources)Start: 52-60-5844yqcw 2 tablets by mouth every six hours acetaminophen (Tylenol) 325 MG tablet Take 650 mg by mouth every 6 (six) hours 03/13/2023 Activealbuterol 0.83 mg/ml inhalation solution (20 sources)beta2-Adrenergic AgonistStart: 06-10-2025 End: 05-87-6830gbpvfggnj (2.5 MG/3ML) 0.083% nebulizer solution Indications: Panlobular emphysema (HCC) Take 3 mL (2.5 mg) by nebulization 4 (four) times a day as needed for wheezing or shortness of breath 150 mL 06/10/2026 ActiveStart: 04-15-2024 End: 93-80-6183wojx 2 puff(s) by inhalation every four hours for wheezing albuterol HFA 90 mcg/act inhaler Indications: Chronic obstructive pulmonary disease, unspecified COPD type (HCC) Inhale 2 puffs every 4 (four) hours if needed for wheezing or shortness of breath 18 g3 03/29/2025 ActiveStart: 39-39-9577Fexkvxyej Sulfate 90 mcg/actuation HFA aerosol inhaler Active 90 MCG INHALATION Four times daily asneeded for Shortness Of Breath February 07, 2023 11:00pmtake 2 puff(s) by inhalation every six hours as needed for wheezing albuterol sulfate HFA (PROVENTIL;VENTOLIN;PROAIR) 108 (90 Base) MCG/ACT inhaler Inhale 2 puffs intothe lungs every 6 hours as needed for Wheezing 0 Active amitriptyline hydrochloride 100 mg oral tablet (20 sources)Tricyclic AntidepressantStart: 09-23-2024 End: 17-85-3353oihy 1 tablet by mouth at bedtimeamitriptyline (Elavil) 100 MG tablet Indications: Moderate episode of recurrent major depressive disorder (HCC) Take 1 tablet (100 mg) by mouth at bedtime 90 tablet 3 06/10/2025 Active aspirin 81 mg delayed release oral tablet (20 sources)Platelet Aggregation Inhibitor, Nonsteroidal Anti-inflammatory Drug Start: 16-82-2326rsaq 1 tablet by mouth twice dailyAspirin 81 mg Tablet,Delayed Release (Dr/Ec) Active 81 MG PO Twice daily 60 September 26, 2024 12:00am ASPIRIN 81 PO Take by mouth 0 Activebaclofen 20 mg oral tablet (3 sources)gamma-Aminobutyric Acid-ergic AgonistStart: 03-02-2023 End: 92-31-3772rysi 1 tablet by mouth in the morning, then take 1 tablet by mouth in the evening, then take 1 tablet by mouth at bedtimebaclofen (Lioresal) 20 MG tablet Take 20 mg by mouth in the morning and 20 mg in the evening and 20 mg before bedtime. 03/02/2023 09/14/2024 DiscontinuedBlood Glucose Monitoring Suppl (ONE TOUCH ULTRA 2) w/Device kit (20 sources)Start: 78-15-1793Fdngy Glucose Monitoring Suppl (ONE TOUCH ULTRA 2) w/Device kit Indications: Type 2 diabetes mellitus with diabetic neuropathy, without long-term current use of insulin ([facility]) 1 each by In Vitro routeDaily 1 kit 03/25/2025 ActiveStart: 71-25-7563Xqesy Glucose Monitoring Suppl (ONE TOUCH ULTRA 2) w/Device kit Indications: Type 2 diabetes mellitus with diabetic neuropathy, without long-term current use of insulin ([facility]) 1 each by In Vitro route Daily 1 kit 03/25/2025 ActiveStart: 03-19-2023 End: 63-54-3472Cjtaf Glucose Monitoring Suppl (ONE TOUCH ULTRA 2) w/Device kit USE TO TEST BLOOD SUGAR DAILY DIRECTED 03/19/2023 03/25/2025 Discontinued (Reorder)Start: 43-02-7372Jxdyi Glucose Monitoring Suppl (ONE TOUCH ULTRA 2) w/Device kit USE TO TEST BLOOD SUGAR DAILY DIRECTED 03/19/2023 Ekfwkl29 actuat budesonide 0.08 mg/actuat / formoterol fumarate 0.0045 mg/actuat metered dose inhaler (20 sources)Corticosteroid, beta2-Adrenergic AgonistStart: 03-25-2025 End: 11-73-3021udmy 1-2 puff(s) by inhalation every four hours for wheezing budesonide-formoterol (Symbicort) 80-4.5 MCG/ACT inhaler Indications: Chronic obstructive pulmonarydisease, unspecified COPD type (HCC) Inhale 1-2 puffs every 4 (four) hours if needed for wheezing or shortness of breath 10.2 g 11 03/29/2025 06/02/2025 DiscontinuedStart: 03-25-2025 End: 89-26-4085zbkr 2 puff(s) by inhalation in the morningbudesonide-formoterol (Symbicort) 160-4.5 MCG/ACT inhaler Indications: Chronic obstructive pulmonary disease, unspecified COPD type (CMS/HCC) Inhale 2 puffs in the morning and 2 puffs before bedtime.Rinse mouth with water after use to reduce aftertaste and incidence of candidiasis. Do not swallow.10.2 g 5 03/25/2025 03/25/2025 DiscontinuedStart: 10-03-2023 End: 56-54-8089euuf 2 puff(s) by inhalation in the morningbudesonide-formoterol (Symbicort) 160-4.5 MCG/ACT inhaler Indications: Chronic obstructive pulmonary disease, unspecified COPD type (CMS/HCC) Inhale 2 puffs in the morning and 2 puffs before bedtime.Rinse mouth with water after use to reduce aftertaste and incidence of candidiasis. Do not swallow.. 10/03/2023 03/25/2025 Discontinued (Reorder)take 2 puff(s) by inhalation twice dailybudesonide-formoterol (SYMBICORT) 160-4.5 MCG/ACT AERO Inhale 2 puffs into the lungs 2 times daily 0 Gowkkb406 actuat budesonide 0.16 mg/actuat / formoterol fumarate 0.0048 mg/actuat / glycopyrrolate 0.009 mg/actuat metered dose inhaler (5 sources)Corticosteroid, beta2-Adrenergic AgonistStart: 21-59-8489hrvq 2 puff(s) by inhalation in the kpdlhbfRfejcfw-Krguuorelsw-Quzikgzvev (Breztri Aerosphere) 160-9-4.8 MCG/ACT aerosol Indications: Panlobular emphysema (HCC) Inhale 2 puffs in the morning and 2 puffs before bedtime. 10.7 g 5 06/10/2025 ActivebuPROPion hydrochloride 75 mg oral tablet (20 sources)Aminoketone End: 93-49-9376pwlp 1 tablet by mouth in the morning, then take 1 tablet by mouth in the evening, then take 1 tablet by mouth at bedtimebuPROPion (Wellbutrin) 75 MG tablet Take 1 tablet by mouth in the morning and 1 tablet in the evening and 1 tablet before bedtime. 07/05/2025 Discontinuedcephalexin 500 mg oral capsule (5 sources)Cephalosporin AntibacterialStart: 06-10-2025 End: 12-02-5829ejyi 1 capsule by mouth in the morning, then take 1 capsule by mouth in the evening, then take 1 capsule by mouth at bedtimecephalexin (Keflex) 500 MG capsule Indications: Cellulitis of left lower leg Take 1 capsule (500 mg) by mouth in the morning and 1 capsule (500 mg) in the evening and 1 capsule (500 mg) before bedtime. Do all this for 7 days. 21 capsule 06/10/2025 06/17/2025 ActiveStart: 03-26-2025 End: 80-23-2953efol 1 capsule by mouth in the morningcephalexin (Keflex) 500 MG capsule Indications: Folliculitis Take 1 capsule (500 mg) by mouth in the morning and 1 capsule (500 mg) before bedtime. Do all this for 10 days. 20 capsule 03/26/2025 04/05/2025 Activeciprofloxacin 250 mg oral tablet (2 sources)Quinolone AntimicrobialStart: 07-05-2025 End: 05-18-5178srjb 1 tablet by mouth in the morningciprofloxacin (Cipro) 250 MG tablet Indications: Acute cystitis without hematuria Take 1 tablet (250 mg) by mouth in the morning and 1 tablet (250 mg) before bedtime. Do all this for 5 days. 10 tablet 07/05/2025 07/10/2025 Activecitalopram 20 mg oral tablet (3 sources)Serotonin Reuptake Inhibitor End: 00-68-0752zqbc 1 tablet by mouth once dailycitalopram (CeleXA) 20 MG tablet Take 1 tablet every day by oral route for 30 days. 09/14/2024 Discontinued cyclobenzaprine hydrochloride 5 mg oral tablet (3 sources)Muscle RelaxantStart: 03-13-2023 End: 35-37-1444fthdsukyzqriqgv (Flexeril) 5 MG tablet 03/13/2023 09/14/2024 Discontinueddiclofenac sodium 75 mg delayed release oral tablet (20 sources)Nonsteroidal Anti-inflammatory DrugStart: 02-08-2023 End: 06-72-8835xvig 1 tablet by mouth in the morningdiclofenac (Voltaren) 75 MG EC tablet Take 75 mg by mouth in the morning and 75 mg before bedtime. 0 06/15/2023 Activedicloxacillin 500 mg oral capsule (3 sources)Penicillin-class Antibacterial End: 04-21-2452nvdilyvovivmf (Dynapen) 500 MG capsule Take 500 mg by mouth in the morning and 500 mg at noon and 500 mg in the evening and 500 mg before bedtime. 09/14/2024 DiscontinuedDULoxetine 60 mg delayed release oral capsule (11 sources)Serotonin and Norepinephrine Reuptake InhibitorStart: 02-08-2023 End: 93-73-9435uruo 1 capsule by mouth twice dailyDuloxetine 60 mg capsule,delayed release(DR/EC) Active 60 MG PO Twice daily February 07, 2023 11:00pmfenofibrate 145 mg oral tablet (3 sources)Peroxisome Proliferator Receptor alpha AgonistStart: 07-16-2024 End: 35-94-3311emyv 1 tablet by mouth in the morningfenofibrate (Tricor) 145 MG tablet Indications: Hypertriglyceridemia (CMS/HCC) TAKE 1 TABLET (145 MG) BY MOUTH IN THE MORNING 90 tablet 3 07/16/2024 09/14/2024 DiscontinuedFLUoxetine 20 mg oral capsule (20 sources)Serotonin Reuptake InhibitorStart: 12-07-2024 End: 96-70-9261ouzw 1 capsule by mouth once dailyFLUoxetine (PROzac) 20 MG capsule Indications: Moderate episode of recurrent major depressive disorder (HCC) Take 1 capsule (20 mg) by mouth Daily 30 capsule 5 01/04/2025 Active furosemide 40 mg oral tablet (20 sources)Loop DiureticStart: 02-08-2023 End: 83-91-2995vbyc 1 tablet by mouth once dailyfurosemide (Lasix) 40 MG tablet Indications: Leg edema Take 1 tablet (40 mg) by mouth Daily 90 tablet 3 03/25/2025 Activegabapentin 600 mg oral tablet (20 sources)Anti-epileptic AgentStart: 02-08-2023 End: 16-11-3199fito 1 tablet by mouth once daily, then take 1 tablet by mouth once daily in the morning, then take2 tablets by mouth once daily at bedtime gabapentin (Neurontin) 600 MG tablet Indications: Lumbar radiculopathy Take 1 tablet (600 mg) by mouth Daily 1 tablet QAM and 2 tablets QHS 270 tablet 3 03/25/2025 ActiveStart: 02-08-2023 End: 62-05-6358btqi 2 tablets by mouth once daily at bedtimeGabapentin 600 mg Tablet Discontinued 1200 MG PO Daily at bedtime February 07, 2023 11:00pm 2023 10:23amStart: 93-03-2816cuyk 1200 mg by mouth once daily at bedtimeGabapentin Active 1200 MG PO Daily at bedtime February 08, 2023 12:00am hydroCHLOROthiazide 12.5 mg / lisinopril 10 mg oral tablet (20 sources)Thiazide Diuretic, Angiotensin Converting Enzyme InhibitorStart: 83-28-9355alkp 2 tablets by mouth once daily in the morninglisinopril- hydroCHLOROthiazide 10-12.5 MG tablet Indications: Essential hypertension, benign TAKE 2TABLETS BY MOUTH EVERY MORNING 180 tablet 3 07/16/2024 Active ibuprofen 800 mg oral tablet (20 sources)Nonsteroidal Anti-inflammatory DrugStart: 36-50-8586lkyx 1 tablet by mouth in the morning, then take 1 tablet by mouth in the evening, then take 1 tablet by mouth at bedtimeibuprofen 800 MG tablet Indications: Lumbar radiculopathy Take 1 tablet (800 mg) by mouth in the morning and 1 tablet (800 mg) in the evening and 1 tablet (800 mg) before bedtime. 300 tablet 2 03/29/2025 ActiveStart: 10-07-2024 End: 57-53-3195isrn 0.5 tablet by mouth at bedtimeibuprofen 800 MG tablet Indications: Lumbar radiculopathy TAKE 1/2 TABLET BY MOUTH IN THE MORNING,AT NOON,IN THE EVENING,AND BEFORE BEDTIME 100 tablet 2 10/07/2024 03/29/2025 Discontinued (Reorder)Start: 33-72-9855nhujwatbo 800 MG tablet Indications: Lumbar radiculopathy Take 0.5 tablets (400 mg) by mouth in themorning and 0.5 tablets (400 mg) at noon and 0.5 tablets (400 mg) in the evening and 0.5 tablets (400 mg) before bedtime. 100 tablet 2 04/15/2024 ActiveStart: 02-08-2023 End: 84-79-8720aqxu 1 tablet by mouth four times daily as neededIbuprofen 800 mg tablet Active 800 MG PO Four times daily as needed December 21, 2024 11:16amtake 1 tablet by mouth every eight hours as needed for painibuprofen (ADVIL;MOTRIN) 800 MG tablet Take 1 tablet by mouth every 8 hours as needed for Pain 0 Active lansoprazole 30 mg delayed release oral capsule (3 sources)Proton Pump Inhibitor End: 38-97-5805qcho 1 capsule by mouth once dailylansoprazole (Prevacid) [address] capsule Take 1 capsule every day by oral route for 30 days. 09/14/2024 DiscontinuedmetFORMIN hydrochloride 500 mg oral tablet (20 sources)BiguanideStart: 07-16-2024 End: 67-93-0135gqal 1 tablet by mouth in the morningmetFORMIN (Glucophage) 500 MG tablet Indications: Type 2 diabetes mellitus with diabetic neuropathy, without long-term current use of insulin (HCC) Take 1 tablet (500 mg) by mouth in the morning and 1 tablet (500 mg) in the evening. Take with meals. 180 tablet 3 03/25/2025 ActiveStart: 50-74-1066yzdo 1 tablet by mouth twice daily at mealtimemetFORMIN (GLUCOPHAGE) 500 MG tablet Take 1 tablet by mouth 2 times daily (with meals) 60 tablet 3 02/06/2023 Activemethocarbamol 500 mg oral tablet (1 source)Muscle RelaxantStart: 05-01-2023 End: 14-83-5965pwyj 1 tablet by mouth three times dailyRobaxin 500 mg Tab 500 mg = 1 tab(s), Oral, TID, X 3 day(s), # 9 tab(s), Refills(s) 0 Start Date: 05/01/23 Stop Date: 05/04/23 Status: Orderedmetoprolol tartrate 50 mg oral tablet (20 sources)beta-Adrenergic BlockerStart: 38-98-0469vjdy 1 tablet by mouth at bedtimemetoprolol tartrate (Lopressor) 50 MG tablet Indications: Essential hypertension, benign TAKE 1 TABLET (50 MG) BY MOUTH IN THE MORNING AND BEFORE BEDTIME 180 tablet 3 07/16/2024 Activenaproxen 500 mg oral tablet (1 source)Nonsteroidal Anti-inflammatory DrugStart: 74-73-0562yvjg 1 tablet by mouth twice daily as needed for painNaprosyn 500 mg Tab 500 mg = 1 tab(s), Oral, BID, PRN for pain, # 20 tab(s), Refills(s) 0 Start Date: 05/01/23 Status: Ordered Ozempic, 0.25 or 0.5 MG/DOSE, 2 MG/3ML solution pen-injector (5 sources)Start: 09-15-2024 End: 32-24-4798eopmqz 0.5 mg by subcutaneous injection every weekOzempic, 0.25 or 0.5 MG/DOSE, 2 MG/3ML solution pen-injector INJECT 0.5MG SUBCUTANEOUSLY ONCE A WEEK 09/15/2024 12/07/2024 Discontinued (Reorder)Start: 24-03-8191hkjncd 0.5 mg by subcutaneous injection every weekOzempic, 0.25 or 0.5 MG/DOSE, 2 MG/3ML solution pen-injector INJECT 0.5MG SUBCUTANEOUSLY ONCE A WEEK 09/15/2024 Active1 mg dose 1.5 ml semaglutide 1.34 mg/ml pen injector (8 sources)Start: 66-35-4634onpxoe 1 mg by subcutaneous injection every week Semaglutide 1 mg/dose (2 mg/1.5 mL) pen injector Active 1 MG SUBCUT every week September 23, 2024 12:00amStart: 02-13-2024 End: 18-25-3021ddwtpd 0.5 mg by subcutaneous injection every weeksemaglutide (Ozempic) 2 MG/1.5ML solution pen-injector Indications: Type 2 diabetes mellitus with diabetic neuropathy, without long-term current use of insulin (CMS/HCC) Inject 0.5 mg under the skin 1 (one) time per week 1 each 02/13/2024 10/15/2024 Discontinued (Other)Semaglutide 1 mg/dose (2 mg/1.5 mL) pen injector (2 sources)Start: 45-33-3176qkopci 1 mg by subcutaneous injection every week Semaglutide 1 mg/dose (2 mg/1.5 mL) pen injector Active 1 MG SUBCUT every week September 23, 2024 12:00amSemaglutide,0.25 or 0.5MG/DOS, (Ozempic, 0.25 or 0.5 MG/DOSE,) 2 MG/3ML solution pen-injector (18 sources)Start: 01-04-2025 End: 64-15-6657Ugnatrghfop,0.25 or 0.5MG/DOS, (Ozempic, 0.25 or 0.5 MG/DOSE,) 2 MG/3ML solution pen-injector Indications: Type 2 diabetes mellitus with diabetic neuropathy, without long-term current use of insulin (HCC) Inject 0.5 mg as directed 1 (one) time per week 3 mL 01/04/2025 06/02/2025 Discontinued (Cost of medication)Start: 16-50-8373Bjyrrghpdxp,0.25 or 0.5MG/DOS, (Ozempic, 0.25 or 0.5 MG/DOSE,) 2 MG/3ML solution pen-injector Indications: Type 2 diabetes mellitus with diabetic neuropathy, without long-term current use of insulin ( HCC) Inject 0.5 mg as directed 1 (one) time per week 3 mL 01/04/2025 Active Start: 11-57-3487Jfbrgqlcwoq,0.25 or 0.5MG/DOS, (Ozempic, 0.25 or 0.5 MG/DOSE,) 2 MG/3ML solution pen-injector Indications: Type 2 diabetes mellitus with diabetic neuropathy, without long-term current use of insulin (CMS/HCC) Inject 0.5 mg as directed 1 (one) time per week 3 mL 01/04/2025 ActiveStart: 12-07-2024 End: 24-90-8015Nzwojklyaus,0.25 or 0.5MG/DOS, (Ozempic, 0.25 or 0.5 MG/DOSE,) 2 MG/3ML solution pen-injector Indications: Type 2 diabetes mellitus with diabetic neuropathy, without long-term current use of insulin (CMS/HCC) Inject 0.5 mg as directed 1 (one) time per week 3 mL 12/07/2024 01/04/2025 Discontinued (Reorder)Start: 60-59-7883Gblzzapjwno,0.25 or 0.5MG/DOS, (Ozempic, 0.25 or 0.5 MG/DOSE,) 2 MG/3ML solution pen-injector Indications: Type 2 diabetes mellitus with diabetic neuropathy, without long-term current use of insulin (CMS/HCC) Inject 0.5 mg as directed 1 (one) time per week 3 mL 12/07/2024 Active spironolactone 50 mg oral tablet (6 sources)Aldosterone AntagonistStart: 82-03-0904cohr 1 tablet by mouth once dailySpironolactone 50 mg tablet Active 50 MG PO Daily February 07, 2023 11:00pm tiZANidine 4 mg oral tablet (3 sources)Central alpha-2 Adrenergic AgonistStart: 02-11-2023 End: 72-44-6712fzdc 2 tablets by mouth once daily in the evening as needed tiZANidine (Zanaflex) 4 MG tablet TAKE 2 TABLETS BY MOUTH EVERY EVENING NEEDED 02/11/2023 09/14/2024 Discontinued Completed/Discontinued Medications MedicationDrug Class(es)DatesSig (Normalized)Sig (Original)acetaminophen 325 mg / HYDROcodone bitartrate 5 mg oral tablet (6 sources)Opioid AgonistStart: 02-08-2023 End: 23-80-6181dpse 1 tablet by mouth every four to six hours as needed for pain Hydrocodone-Acetaminophen 5-325 mg tablet Discontinued 1 - 2 TAB PO EVERY 4-6 HOURS as needed for pain 09 03February 08, 2023 September 23, 2024 10:23am acetaminophen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 MINERALIZATION: Adequate XR/XR knee RT 3V - NOT FOR ER USE IMPRESSION: Stable postsurgical changes. Impression dictated by: Giorgi Cabrera M.D.10/16/2024 3:03 PM Dictation Location: [place] [address] Transcribed By: [facility] 10/16/24 1503 Dictated By: Giorgi Cabrera DO 10/16/24 1501 Signed By: 10/16/24 1503NormH[facility] Physician GroupArterial Blood Gason 09-26-2024 ABG Base Excess4.0 mmol/LHigh-3.0-3.0[facility] Physician GroupComment on above:Performed By: #### HS TROP #### [facility] [address] [place] [address] USAABG Frac Inspired O240%NormalThe [facility] Physician Group Comment on above:Performed By: #### HS TROP #### [facility] [address] [place] [address] USAABG Oxygen Content9.6 mmol/LNormal6.6-9.7The [facility] Physician GroupComment on above:Performed By: #### HS TROP #### [place] [address] USAABG Oxygen Qbrldhrjqy61.6 %Vfqgld33.0-100.0The [facility] Physician GroupComment on above:Performed By: #### HS TROP #### [place] [address] USAABG ANP917.9 mm[Hg]Off scale high35.0-45.0The [facility] Physician GroupComment on above:Performed By: #### HS TROP #### [place] [address] USAABG PH7.29Low7.35-7.45The [facility] Physician GroupComment on above:Performed By: #### HS TROP #### [place] [address] USAABG PU7942.4 mm[Hg]Off scale high80.0-100.0[facility] Physician GroupComment on above:Performed By: #### HS TROP #### [place] [address] USARespiratory CriticalNemours [facility] Phys[facility] Comment on above:Result Comment: Critical Value called on: 09/26/2024 at 05:28 PERFORMED BY: [place] [address] PATHOLOGIST WELDING MACHINE OPERATOR GAS CHARO FATIMA M.D.Performed By: #### HS TROP #### [place] [address] USAVBG Draw SiteRight RadialNoWake Forest Baptist [facility] Physician GroupComment on above:Performed By: #### HS TROP #### [place] [address] USAArterial Blood GasOrdered By: Ravinder Pritchett on 09-26-2024 CO2 [Moles/Vol]35.4 mmol/LHigh23.0-27.0[facility] Medical CenterComment on above:Performed By: #### HS TROP #### [place] [address] USAHCO3 (Bld) [Moles/Vol]33.2 mmol/LHigh23.0-29.0[facility] Medical CenterComment on above:Performed By: #### HS TROP #### [place] [address] USABasic Metabolic Panelon 98-49-5300Krwdr gap [Moles/Vol] 11.8 mmol/LNormal6.0-15.0The [facility] Physician GroupComment on above:Performed By: #### HS TROP #### [place] [address] USACalcium [Mass/Vol]9.1 mg/dLNormal8.6-10.3The [facility] Physician GroupComment on above:Performed By: #### HS TROP #### [place] [address] USAChloride [Moles/Vol]93 mmol/AEib65-681Icd [facility] Physician GroupComment on above:Performed By: #### HS TROP #### [place] [address] USACO2 [Moles/Vol]36.4 mmol/LHigh21.0-31.0The [facility] Physician GroupComment on above:Performed By: #### HS TROP #### [place] [address] USACreatinine [Mass/Vol]1.16 mg/dLNormal0.70-1.30The [facility] Physician GroupComment on above:Performed By: #### HS TROP #### [place] [address] USACreatinine Clr Calc Yxwqkqvs34.28NormalThe [facility] Physician GroupComment on above:Result Comment: PERFORMED BY: [place] [address] PATHOLOGIST WELDING MACHINE OPERATOR GAS CHARO FATIMA M.D.Performed By: #### HS TROP #### [place] [address] USAGFR/1.73 sq M.predicted MDRD (S/P/Bld) [Vol rate/Area] mL/min/{1.73_m2}NormalThe [facility] Physician GroupComment on above:Performed By: #### HS TROP #### [facility] [address] [place] [id number] USAGlucose [Mass/Vol]135 mg/wWNdpu08-525Bba [facility] Physician GroupComment on above:Result Comment: Random Glucose Reference Range is dependent on time and content of last meal. Glucose of more than 200 mg/dL in a nonstressed, ambulatory subject supports the diagnosis of Diabetes Mellitus. ADA recommended reference rangePerformed By: #### HS TROP #### [facility] [address] [place] [address] USAPotassium [Moles/Vol]4.2 mmol/LNormal3.5-5.1The [facility] Physician GroupComment on above:Performed By: #### HS TROP #### [facility] [address] [place] [address] USASodium [Moles/Vol]137 mmol/TYstxjo086-768Ndu [facility] Physician GroupComment on above:Performed By: #### HS TROP #### [facility] [address] [place] [id number] USAUrea nitrogen [Mass/Vol]35 mg/dLHigh7-25The [facility] Physician GroupComment on above:Performed By: #### HS TROP #### [facility] [address] [place] [address] USABasophils Auto (Bld) [#/Vol]Ordered By: Ravinder Pritchett on 69-08-5388Zpchmlkqo (Bld) [#/Vol]Automated basophil count0.0-0.2FRegency Hospital ToledoBasophils/100 WBC Auto (Bld)Ordered By: Ravinder Pritchett on 33-42-6678Ammmdirgi/100 WBC (Bld)Automated basophil %.[facility] Medical CenterCalcium [Mass/volume] in Serum or PlasmaOrdered By: Ravinder Pritchett on 72-30-3079Tbvyoyg [Mass/Vol]Calcium [Mass/volume] in Serum or Plasma8.6-10.3 [facility] Medical CenterCarbon dioxide, total [Moles/volume] in Serum or PlasmaOrdered By: Ravinder Pritchett on 13-79-4192QZ2 [Moles/Vol]Carbon dioxide, total [Moles/volume] in Serum or YirdgeQzji47.0-31.0[facility] Medical CenterChloride [Moles/volume] in Serum or PlasmaOrdered By: Ravinder Pritchett on 17-67-0020Ldepebkh [Moles/Vol]Chloride [Moles/volume] in Serum or PlasmaLow 98-107[facility] Medical CenterComplete Blood Count Auto Diffon 52-54-9919Fwmnsazgs (Bld) [#/Vol]0.0 10*3/uLNormal0.0-0.2The [facility] Physician GroupComment on above:Result Comment: PERFORMED BY: [place] [address] PATHOLOGIST WELDING MACHINE OPERATOR GAS CHARO FATIMA M.D.Performed By: #### HS TROP #### [place] [address] USABasophils/100 WBC (Bld)0.5 %Normal.The [facility] Physician GroupComment on above:Performed By: #### HS TROP #### [facility] [address] [place] [address] USAEosinophils (Bld) [#/Vol]0.3 10*3/uLNormal0.0-0.45The [facility] Physician GroupComment on above:Performed By: #### HS TROP #### [place] [address] USAEosinophils/100 WBC (Bld)2.6 %Normal.The [facility] Physician GroupComment on above:Performed By: #### HS TROP #### [place] [address] USAErythrocyte distribution width (RBC) [Ratio]12.5 %Normal 12.0-14.8The [facility] Physician GroupComment on above:Performed By: #### HS TROP #### [place] [address] USAHematocrit (Bld) [Volume fraction]44.1 %Oymxsd21.8-50.0The [facility] Physician GroupComment on above:Performed By: #### HS TROP #### [place] [address] USAHemoglobin (Bld) [Mass/Vol]14.9 g/mROdyevs84.0-17.0The [facility] Physician GroupComment on above:Performed By: #### HS TROP #### [place] [address] USALymphocytes (Bld) [#/Vol]2.9 10*3/uLNormal1.00-4.8The [facility] Physician GroupComment on above:Performed By: #### HS TROP #### [place] [address] USALymphocytes/100 WBC (Bld)27.6 %Normal.The [facility] Physician GroupComment on above:Performed By: #### HS TROP #### [place] [address] USAMCH (RBC) [Entitic mass]31.6 dfBlbgnl14.5-35.2The [facility] Physician GroupComment on above:Performed By: #### HS TROP #### [place] [address] USAMCV (RBC) [Entitic vol]93.6 jBKsuvhq43.5-101The [facility] Physician GroupComment on above:Performed By: #### HS TROP #### [place] [address] USAMean Corpuscular HGB Conc33.8 g/wVFmgsua23.5-35.6The [facility] Physician GroupComment on above:Performed By: #### HS TROP #### [place] [address] USAMonocytes (Bld) [#/Vol]0.8 10*3/uLNormal0.0-0.8The [facility] Physician GroupComment on above:Performed By: #### HS TROP #### [place] [address] USAMonocytes/100 WBC (Bld)7.1 %Normal.The [facility] Physician GroupComment on above:Performed By: #### HS TROP #### [facility] [address] [place] [address] USANeutrophils (Bld) [#/Vol]6.6 10*3/uLNormal1.8-7.7The [facility] Physician GroupComment on above:Performed By: #### HS TROP #### [place] [address] USANeutrophils/100 WBC (Bld)62.2 %Normal.The [facility] Physician GroupComment on above:Performed By: #### HS TROP #### [place] [address] USANRBC%0.1 /100{WBC}Normal0-0.5The [facility] Comment on above:Performed By: #### HS TROP #### [place] [address] USAPlatelet mean volume (Bld) [Entitic vol]10.0 fLNormal 6.6-10.1The [facility] Physician GroupComment on above:Performed By: #### HS TROP #### [place] [address] USAPlatelets (Bld) [#/Vol]182 10*3/oRRuoaff849-791Kpn [facility] Physician GroupComment on above:Performed By: #### HS TROP #### [place] [address] USARBC (Bld) [#/Vol]4.71 10*6/uLNormal3.90-5.60The [facility] Physician GroupComment on above:Performed By: #### HS TROP #### [place] [address] USAWBC (Bld) [#/Vol]10.6 10*3/uLHigh4.1-10.5The [facility] Physician GroupComment on above:Performed By: #### HS TROP #### [place] [address] USACreatinine [Mass/volume] in Serum or PlasmaOrdered By: Ravinder Pritchett on 24-49-9402Fkeijkkqwb [Mass/Vol]Creatinine [Mass/volume] in Serum or Plasma0.70-1.30[facility] Medical CenterEosinophils Auto (Bld) [#/Vol]Ordered By: Ravinder Pritchett on 26-08-4299Bctiqzvltzn (Bld) [#/Vol]Automated eosinophil count0.0-0.45[facility] Medical CenterEosinophils/100 WBC Auto (Bld)Ordered By: Ravinder Pritchett on 79-53-4011Enjdpnvyrzz/100 WBC (Bld) Automated eosinophil %.[facility] Medical CenterErythrocyte distribution width Auto (RBC) [Ratio]Ordered By: Ravinder Pritchett on 02-55-5059Puksjsugcwi distribution width (RBC) [Ratio]Erythrocyte distribution width [Ratio] by Automated count12.0-14.8[facility] Medical CenterGlucose [Mass/volume] in Serum or PlasmaOrdered By: Ravinder Pritchett on 12-18-6737Rujlowt [Mass/Vol] Glucose [Mass/volume] in Serum or JmtxuhAggh89-397WjoqmtascMetrohealth Main Campus Medical CenterComment on above:ADA recommended reference rangeRandom Glucose Reference Range is dependent on time and content of last meal. Glucose of more than 200 mg/dL in a nonstressed, ambulatory subject supports the diagnosisof Diabetes Mellitus.Hematocrit Auto (Bld) [Volume fraction]Ordered By: Ravinder Pritchett on 70-12-8348Ywiiczfjyr (Bld) [Volume fraction]Hematocrit [Volume Fraction] of Blood by Automated count38.8-50.0[facility] Medical CenterHemoglobin [Mass/volume] in BloodOrdered By: Ravinder Pritchett on 05-16-7995Gzwurmnown (Bld) [Mass/Vol]Hemoglobin [Mass/volume] in Blood13.0-17.0[facility] Medical CenterLeukocytes [#/volume] corrected for nucleated erythrocytes in Blood by Automated counOrdered By: Ravinder Pritchett on 47-29-2900VLK corrected for nucl RBC Auto (Bld) [#/Vol]Leukocytes [#/volume] corrected for nucleated erythrocytes in Blood by Automated counHigh4.1-10.5FRegency Hospital ToledoLymphocytes Auto (Bld) [#/Vol]Ordered By: Ravinder Pritchett on 42-21-9862Vriytjxhsbx (Bld) [#/Vol]Lymphocytes [#/volume] in Blood by Automated count1.00-4.8[facility] Medical CenterLymphocytes/100 WBC Auto (Bld)Ordered By: Ravinder Pritchett on 96-28-4624Wuyeryrslfg/100 WBC (Bld)Lymphocytes/100 leukocytes in Blood by Automated count.[facility] Medical CenterMCH Auto (RBC) [Entitic mass] Ordered By: Ravinder Pritchett on 78-48-9446UDW (RBC) [Entitic mass]MCH [Entitic mass] by Automated count27.5-35.2FRegency Hospital ToledoMCHC Auto (RBC) [Mass/Vol]Ordered By: Ravinder Pritchett on 22-92-8923MBWI (RBC) [Mass/Vol]MCHC [Mass/volume] by Automated count32.5-35.6FRegency Hospital ToledoMCV Auto (RBC) [Entitic vol]Ordered By: Ravinder Pritchett on 91-63-2032LMO (RBC) [Entitic vol]MCV [Entitic volume] by Automated count83.5-101[facility] Medical CenterMonocytes Auto (Bld) [#/Vol]Ordered By: Ravinder Pritchett on 65-16-2824Vufkoqfia (Bld) [#/Vol]Automated blood monocyte count0.0-0.8[facility] Medical CenterMonocytes/100 WBC Auto (Bld)Ordered By: Ravinder Pritchett on 29-46-3103Nhjlobrcz/100 WBC (Bld)Automated monocyte %.[facility] Medical CenterNeutrophils Auto (Bld) [#/Vol]Ordered By: Ravinder Pritchett on 09-26-2024 Neutrophils (Bld) [#/Vol]Neutrophils [#/volume] in Blood by Automated count 1.8-7.7FRegency Hospital ToledoNeutrophils/100 WBC Auto (Bld)Ordered By: Ravinder Pritchett on 78-48-5706Jupichaxeoa/100 WBC (Bld)Automated neutrophil %. [facility] CenterNo Panel InformationOrdered By: Ravinder Pritchett on 03-72-9758Ozbjfphkz GFR (CKD-EPI)> 60.0 mL/MinMetrohealth Main Campus Medical CenterPharmacy Creatinine Clearance (Chem91.28[facility] Arterial Blood Base Excess4.0 mmol/LHigh-3.0-3.0[facility] Medical CenterArterial Blood Oxygen Content9.6 mmol/L6.6-9.7FRegency Hospital ToledoArterial Blood Oxygen Nppgdcxqrz12.6 %95.0-100.0[facility] Medical CenterArterial Blood Partial Pressure CO270.9 mm[Hg]Critically high35.0-45.0 [facility] CenterArterial Blood Partial Pressure O2132.4 mm[Hg] Critically high80.0-100.0[facility] Medical CenterArterial Blood pH7.29 Low7.35-7.45[facility] Medical CenterBlood Gas Critical ValueSee comment [facility] Medical CenterComment on above:Critical Value called on: 09/26/2024 at 05:28Blood Gas Sample SiteRight radialMetrohealth Main Campus Medical CenterFiO240% %[facility] Medical CenterNucleated erythrocytes [Presence] in Blood by Automated countOrdered By: Ravinder Pritchett on 09-26-2024 Nucleated RBC Auto Ql (Bld)Nucleated erythrocytes [Presence] in Blood by Automated count0-0.5FRegency Hospital ToledoPlatelet mean volume Auto (Bld) [Entitic vol]Ordered By: Ravinder Pritchett on 99-57-9886Jjoonjqd mean volume (Bld) [Entitic vol]Platelet mean volume [Entitic volume] in Blood by Automated count6.6-10.1FRegency Hospital ToledoPlatelets Auto (Bld) [#/Vol] Ordered By: Ravinder Pritchett on 15-55-2816Djufyevyi (Bld) [#/Vol]Platelets [#/volume] in Blood by Automated ulmze310-765EwhjemccaMetrohealth Main Campus Medical Center Potassium [Moles/volume] in Serum or PlasmaOrdered By: Ravinder Pritchett on 93-86-3730Tjowznytl [Moles/Vol]Potassium [Moles/volume] in Serum or Plasma 3.5-5.1FRegency Hospital ToledoRBC Auto (Bld) [#/Vol]Ordered By: Ravinder Pritchett on 31-42-4485RBL (Bld) [#/Vol]Erythrocytes [#/volume] in Blood by Automated count3.90-5.60[facility] Hospital at Southwoodserum or plasma anion gap determinationOrdered By: Ravinder Pritchett on 12-78-2983Fkayq gap [Moles/Vol] Serum or plasma anion gap determination6.0-15.0[facility] Sodium [Moles/volume] in Serum or PlasmaOrdered By: Ravinder Pritchett on 09-26-2024 Sodium [Moles/Vol]Sodium [Moles/volume] in Serum or Xmetgp470-964AwtpfgnmfMetrohealth Main Campus Medical CenterUrea nitrogen [Mass/volume] in Serum or PlasmaOrdered By: Ravinder Pritchett on 50-65-0615Bmex nitrogen [Mass/Vol]Urea nitrogen [Mass/volume] in Serum or PlasmaHigh7-25[facility] Medical CenterWBC Auto (Bld) [#/Vol]Ordered By: Ravinder Pritchett on 91-38-8511AJU (Bld) [#/Vol]Leukocytes [#/volume] in Blood by Automated countHigh4.1-10.5FRegency Hospital ToledoArterial Blood Gason 10-70-2526VLS Base Excess4.4 mmol/LHigh-3.0-3.0The [facility] Physician GroupComment on above:Performed By: #### ABG #### Point of Care testing ,ABG Frac Inspired O221 %NormalThe [facility] Physician GroupComment on above: Performed By: #### ABG #### Point of Care testing ,ABG Oxygen Content8.9 mmol/LNormal6.6-9.7The [facility] Physician GroupComment on above:Performed By: #### ABG #### Point of Care testing ,ABG Oxygen Gjhqvrkmvn47.1 %Low95.0-100.0The [facility] Physician GroupComment on above:Performed By: #### ABG #### Point of Care testing ,ABG VBO204.9 mm[Hg]Off scale high35.0-45.0The [facility] Physician GroupComment on above:Performed By: #### ABG #### Point of Care testing ,ABG PH7.34Low7.35-7.45The [facility] Physician GroupComment on above:Performed By: #### ABG #### Point of Care testing ,ABG PO251.5 mm[Hg]Low80.0-100.0The [facility] Physician GroupComment on above: Performed By: #### ABG #### Point of Care testing ,CO2 [Moles/Vol]34.3 mmol/LHigh23.0-27.0The [facility] Physician GroupComment on above:Performed By: #### ABG #### Point of Care testing ,HCO3 (Bld) [Moles/Vol]32.4 mmol/LHigh23.0-29.0[facility]ician Group Comment on above:Performed By: #### ABG #### Point of Care testing ,Respiratory CriticalNemours Children's Clinic Hospital Physician GroupComment on above:Result Comment: Critical Value called on: 09/25/2024 at 17:00 PERFORMED BY: [address] [place] [address] PATHOLOGIST WELDING MACHINE OPERATOR GAS CHARO FATIMA M.D.Performed By: #### ABG #### Point of Care testing ,VBG Draw SiteRight RadialNemours Children's Clinic Hospital Physician GroupComment on above: Performed By: #### ABG #### Point of Care testing ,ABG Base Excess1.9 mmol/LNormal-3.0-3.0[facility] Physician GroupComment on above:Performed By: #### HS TROP #### [place] [address] USAABG Frac Inspired O221 %NormalThe [facility] Physician GroupComment on above:Performed By: #### HS TROP #### [place] [address] USAABG Oxygen Content8.7 mmol/LNormal6.6-9.7The [facility] Physician GroupComment on above:Performed By: #### HS TROP #### [facility] [address] [place] [address] USAABG Oxygen Pgayypgypi71.8 %Low95.0-100.0[facility] Physician GroupComment on above:Performed By: #### HS TROP #### [place] [address] USAABG SXC682.4 mm[Hg]Off scale high35.0-45.0[facility] Physician GroupComment on above:Performed By: #### HS TROP #### [place] [address] USAABG PH7.30Low7.35-7.45[facility] Physician GroupComment on above:Performed By: #### HS TROP #### [place] [address] USAABG PO254.7 mm[Hg]Low80.0-100.0[facility] Physician GroupComment on above:Performed By: #### HS TROP #### [place] [address] USACO2 [Moles/Vol]32.4 mmol/LHigh23.0-27.0[facility] Physician GroupComment on above:Performed By: #### HS TROP #### [place] [address] USAHCO3 (Bld) [Moles/Vol]30.4 mmol/LHigh23.0-29.0[facility] Physician GroupComment on above:Performed By: #### HS TROP #### [place] [address] USARespiratory [facility]ician [facility] Comment on above:Result Comment: Critical Value called on: 09/25/2024 at 00:32 PERFORMED BY: [place] [address] PATHOLOGIST WELDING MACHINE OPERATOR GAS CHARO FATIMA M.D.Performed By: #### HS TROP #### [place] [address] USAVBG Draw SiteLeft RadialNemours Children's Clinic Hospital Physician GroupComment on above:Performed By: #### HS TROP #### [place] [address] USABasic Metabolic Panelon 05-79-8489Fueav gap [Moles/Vol] 14.0 mmol/LNormal6.0-15.0[facility] Physician GroupComment on above:Performed By: #### HS TROP #### [facility] [address] [place] [address] USACalcium [Mass/Vol]9.5 mg/dLNormal8.6-10.3The [facility] Physician GroupComment on above:Performed By: #### HS TROP #### [facility] [address] [place] [address] USAChloride [Moles/Vol]96 mmol/LYkh48-017Axc [facility] Physician GroupComment on above:Performed By: #### HS TROP #### [place] [address] USACO2 [Moles/Vol]32.0 mmol/LHigh21.0-31.0The [facility] Physician GroupComment on above:Performed By: #### HS TROP #### [place] [address] USACreatinine [Mass/Vol]1.12 mg/dLNormal0.70-1.30The [facility] Physician GroupComment on above:Performed By: #### HS TROP #### [place] [address] USACreatinine Clr Calc Wpqrekwf22.89NormalThe [facility] Physician GroupComment on above:Result Comment: PERFORMED BY: [place] [address] PATHOLOGIST WELDING MACHINE OPERATOR GAS CHARO FATIMA M.D.Performed By: #### HS TROP #### [place] [address] USAGFR/1.73 sq M.predicted MDRD (S/P/Bld) [Vol rate/Area] mL/min/{1.73_m2}NormalThe [facility] Physician GroupComment on above:Performed By: #### HS TROP #### [place] [address] USAGlucose [Mass/Vol]191 mg/dEEnwq25-298Csm [facility] Physician GroupComment on above:Result Comment: Random Glucose Reference Range is dependent on time and content of last meal. Glucose of more than 200 mg/dL in a nonstressed, ambulatory subject supports the diagnosis of Diabetes Mellitus. ADA recommended reference rangePerformed By: #### HS TROP #### [place] [address] USAPotassium [Moles/Vol]6.0 mmol/LHigh3.5-5.1The [facility] Physician GroupComment on above:Performed By: #### HS TROP #### [place] [address] USASodium [Moles/Vol]136 mmol/GNfegdo929-919Lbj [facility] Physician GroupComment on above:Performed By: #### HS TROP #### [place] [address] USAUrea nitrogen [Mass/Vol]21 mg/dLNormal7-25The [facility] Physician GroupComment on above:Performed By: #### HS TROP #### [place] [address] USAComplete Blood Count Auto Diffon 60-82-9914Tpnhnfsjq (Bld) [#/Vol]0.0 10*3/uLNormal0.0-0.2The [facility] Physician GroupComment on above: Result Comment: PERFORMED BY: [place] [address] PATHOLOGIST WELDING MACHINE OPERATOR GAS CHARO FATIMA M.D.Performed By: #### HS TROP #### [place] [address] USABasophils/100 WBC (Bld)0.4 %Normal.The [facility] Physician GroupComment on above:Performed By: #### HS TROP #### [place] [address] USAEosinophils (Bld) [#/Vol]0.0 10*3/uLNormal0.0-0.45The [facility] Physician GroupComment on above:Performed By: #### HS TROP #### [place] [address] USAEosinophils/100 WBC (Bld)0.1 %Normal.The [facility] Physician GroupComment on above:Performed By: #### HS TROP #### [place] [address] USAErythrocyte distribution width (RBC) [Ratio]12.8 %Normal 12.0-14.8The [facility] Physician GroupComment on above:Performed By: #### HS TROP #### [place] [address] USAHematocrit (Bld) [Volume fraction]47.6 %Nczobv49.8-50.0The [facility] Physician GroupComment on above:Performed By: #### HS TROP #### [place] [address] USAHemoglobin (Bld) [Mass/Vol]15.8 g/jAWnwicf67.0-17.0The [facility] Physician GroupComment on above:Performed By: #### HS TROP #### [place] [address] USALymphocytes (Bld) [#/Vol]0.8 10*3/uLLow1.00-4.8The [facility] Physician GroupComment on above:Performed By: #### HS TROP #### [place] [id number] USALymphocytes/100 WBC (Bld)8.0 %Normal.The [facility] Physician GroupComment on above:Performed By: #### HS TROP #### [place] [id number] USAMCH (RBC) [Entitic mass]30.9 mmXwpsih11.5-35.2The [facility] Physician GroupComment on above:Performed By: #### HS TROP #### [place] [address] USAMCV (RBC) [Entitic vol]92.9 iZWuzhlw03.5-101The [facility] Physician GroupComment on above:Performed By: #### HS TROP #### [facility] [address] [place] [address] USAMean Corpuscular HGB Conc33.3 g/jZMxbcck78.5-35.6The [facility] Physician GroupComment on above:Performed By: #### HS TROP #### [facility] [address] [place] [address] USAMonocytes (Bld) [#/Vol]0.5 10*3/uLNormal0.0-0.8The [facility] Physician GroupComment on above:Performed By: #### HS TROP #### [facility] [address] [place] [address] USAMonocytes/100 WBC (Bld)4.4 %Normal.The [facility] Physician GroupComment on above:Performed By: #### HS TROP #### [facility] [address] [place] [address] USANeutrophils (Bld) [#/Vol]9.2 10*3/uLHigh1.8-7.7The [facility] Physician GroupComment on above:Performed By: #### HS TROP #### [facility] [address] [place] [address] USANeutrophils/100 WBC (Bld)87.1 %Normal.The [facility] Physician GroupComment on above:Performed By: #### HS TROP #### [facility] [address] [place] [address] USANRBC%0.0 /100{WBC}Normal0-0.5The [facility]ician Group Comment on above:Performed By: #### HS TROP #### [facility] [address] [place] [address] USAPlatelet mean volume (Bld) [Entitic vol]10.1 fLNormal 6.6-10.1The [facility] Physician GroupComment on above:Performed By: #### HS TROP #### [facility] [address] [place] [address] USAPlatelets (Bld) [#/Vol]194 10*3/dIMlfuxb901-946Jwe [facility] Physician GroupComment on above:Performed By: #### HS TROP #### [facility] [address] [place] [address] USARBC (Bld) [#/Vol]5.12 10*6/uLNormal3.90-5.60The [facility] Physician GroupComment on above:Performed By: #### HS TROP #### [facility] [address] [place] [address] USAWBC (Bld) [#/Vol]10.5 10*3/uLNormal4.1-10.5The [facility] Physician GroupComment on above:Performed By: #### HS TROP #### [facility] [address] [place], [place] [id number] USAECG 12 lead ECGon 39-32-0483MYF 12 lead ECGMAGRUDER HOSPITAL Main [place] [address] [place] [address] Electrocardiograph Report Signed Patient: Jose Cabrera III MR#: [id number] 832 : 1970 Acct:[id number] Age/Sex: 54 / M ADM Date: 09/24/24 Loc: Room: [address] [place] [address] Type: DIS INOo Attending Dr: Ravinder Pritchett DO Ordering Provider: Ravinder Pritchett DO Date of Service: 09/25/2404/13/801 ECG/ECG 12 lead ECG: previously taken Copies to: Test Reason : Blood Pressure : */* mmHG Vent. Rate : 95 BPM Atrial Rate : 95 BPM P-R Int : 180 ms QRS Dur : 106 ms QT Int : 352 ms P-R-T Axes : 48 47 41 degrees QTcB Int : 442 ms Normal sinus rhythm Normal ECG When compared with ECG of 25-Sep-2024 07:13, (Unconfirmed) Minimal criteria for Anterior infarct are no longer present T wave inversion no longer evident in Inferior leads Confirmed by GIANCARLO MOSCOSO MD (Caryn) on 09/28/2024 12:02:05 PM Referred By: Electronically Signed By: GIANCARLO MOSCOSO MD Transcribed By: MUS Signed By Giancarlo Moscoso MD 1 11/29/[address] [place] [address] Physician GroupECG 12 lead ECGMAGRUDER HOSPITAL Main [place] [id number] Electrocardiograph Report Signed Patient: Jose Cabrera III MR#: [id number] 832 : 1970 Acct:[id number] Age/Sex: 54 / M ADM Date: 09/24/24 Loc: 4N Room: [address] [place] [address] Type: DIS INOo Attending Dr: Ravinder Pritchett DO Ordering Provider: Tami Mckeon MD Date of Service: 09/25/2404/13/638 ECG/ECG 12 lead ECG: high potassium Copies to: Test Reason : Blood Pressure : */* mmHG Vent. Rate : 92 BPM Atrial Rate : 92 BPM P-R Int : 196 ms QRS Dur : 96 ms QT Int : 354 ms P-R-T Axes : 6 4 7 degrees QTcB Int : 437 ms Normal sinus rhythm Abnormal ECG Confirmed by Yasmin Wiseman ([id number]) on 09/27/2024 10:49:28 PM Referred By: Electronically Signed By: Yasmin Wiseman Transcribed By: MUS Signed By Yasmin Wiseman MD [address] [place] [address] Physician GroupECH echo transthoracicon 02-28-4325SYI echo transthoracicMAGRUDER HOSPITAL Main [place] [id number] Echocardiogram Signed Patient: Jose Cabrera III MR#: [id number] 832 : 1970 Acct:[id number] Age/Sex: 54 / M ADM Date: 09/24/24 Loc: 4N Room: [address] [place] [address] Type: ADM INOo Attending Dr: Ravinder Pritchett DO Ordering Provider: Tami Mckeon MD Date of Service: 09/24/2403/13/1959 ECH/ECH echo transthoracic: chf exacerbation Copies to: MD Tami Fong MD BSA: 2.3 m2 BP: 138/89 mmHg HR: 75 Reason For Study: chf exacerbation History: Hx ND, HTN, emphysema, DM, COPD, apnea Interpretation Summary Ejection Fraction = 60-65%. The left ventricular wall motion is normal. Mild concentric left ventricular hypertrophy. There is left ventricular diastolic dysfunction. The right ventricle is moderately dilated. The right ventricular systolic function is mildly reduced. The left atrium appears mildly dilated. There is trace tricuspid regurgitation. Right ventricular systolic pressure is elevated at 30-40mmHg. Right ventricular systolic pressure is consistent with mild pulmonary hypertension. There is no comparison study available. Procedure/Quality: A two-dimensional transthoracic echocardiogram with color flow, Doppler and injection of contrast agent Definity was performed. The study was technically good in quality. Left Ventricle: The left ventricular size is normal. Mild concentric left ventricular hypertrophy. Ejection Fraction = 60-65%. There is left ventricular diastolic dysfunction. The left ventricular wall motion is normal. Left Atrium: The left atrium appears mildly dilated. Right Atrium: The right atrium appears normal in size. Right Ventricle: The right ventricle is moderately dilated. The right ventricular systolic function is mildly reduced. Aortic Valve: The aortic valve is normal in structure. No hemodynamically significant valvular aortic stenosis. No aortic regurgitation is present. Mitral Valve: The mitral valve is normal in structure. No significant mitral valve stenosis. There is no mitral regurgitation noted. Tricuspid Valve: The tricuspid valve is normal in structure. There is trace tricuspid regurgitation. Right ventricular systolic pressure is elevated at 30-40mmHg. Right ventricular systolic pressure is consistent with mild pulmonary hypertension. Pulmonic Valve: The pulmonic valve is not well visualized. No significant pulmonic regurgitation. Arteries: The aortic root is normal size. Pericardium/Pleura: No pericardial effusion seen. IVC/Hepatic Veins: The inferior vena cava is normal in size, with a normal collapsibility index. Measurements with Normals IVSd: 1.2 cm (0.7-1.1 cm)LVIDd: 5.1 cm (3.7-5.4 cm) LVPWd: 1.4 cm (0.7-1.1 cm)LVIDs: 3.2 cm (2.3-3.6 cm) LA dimension: 4.4 cm (2.3-4.0 cm)Ao root diam: 3.4 cm(2.0-3.6 cm) asc Aorta Diam: 3.6 cm(2.1-3.4cm) Doppler with Normals RVSP(TR): 40.5 mmHg (18-35mmHg) LV V1 max: 109.0 cm/sec (0.7-1.7m/s)MV E max saran: 126.0 cm/sec(0.8-1.3m/s) MV A max saran: 82.6 cm/sec(0.0-0.0m/s) MV E/A: 1.5 (<1.5) MMode/2D Measurements Calculations RVDd: 4.3 cm FS: 37.3 % Ao root area: LVOT diam: 2.0 cm TAPSE: 2.6 cm EDV(Teich): 9.1 cm2 LVOT area: 3.1 cm2 RV S Saran: 123.8 ml 12.6 cm/sec ESV(Teich): 41.0 ml EF(Teich): 66.9 % __ LVLd ap4: 9.4 cm SV(MOD-sp4): LAV(MOD-sp4): LA A2 area: 18.2 cm2 EDV(MOD-sp4): 89.4 ml 82.8 ml 187.0 ml LAV(MOD-sp2): LA A4 area: 25.0 cm2 LVLs ap4: 8.2 cm 50.0 ml LA length (vol): ESV(MOD-sp4): 6.2 cm 97.6 ml LA vol: 62.5 ml EF(MOD-sp4): 47.8 % LA vol index: 27.4 ml/m2 Doppler Measurements Calculations MV dec time: E/E' lat: 16.3 MV dec slope: Ao V2 max: 0.16 sec E/E' med: 16.8 138.0 cm/sec 796.0 cm/sec2 Ao max P.6 mmHg Ao mean P.0 mmHg Ao V2 mean: 102.0 cm/sec Ao V2 VTI: 25.3 cm BRI(I,D): 2.5 cm2 BRI(V,D): 2.5 cm2 __ LV V1 max PG: TV max PG: TR max saran: 4.8 mmHg 32.0 mmHg 285.0 cm/sec LV V1 mean PG: TR max P.5 mmHg 3.0 mmHg RAP systole: 8.0 mmHg LV V1 mean: 80.5 cm/sec LV V1 VTI: 20.2 cm Transcribed By: LANA Performed At: 09/25/24 1115 Signed By: Yasmin Wiseman MD 09/25/24 1525[facility] Physician [facility] HospitalNo Panel InformationOrdered By: Ravinder Pritchett on 19-11-0517Ourqxn Delivery Device Nasal cannulaMetrohealth Main Campus Medical CenterVenous Blood Base Excess2.7 mmol/L -3.0-3.0[facility] Medical CenterVenous Blood Oxygen Content6.4 mmol/L Low6.6-9.7FRegency Hospital ToledoVenous Blood Oxygen Dfukkqtozh98.3 % Low73.0-76.0[facility] Medical CenterVenous Blood Partial Pressure CO2 68.8 mm[Hg]High38.0-50.0[facility] Medical CenterVenous Blood Partial Pressure O232.7 mm[Hg]Low35.0-45.0[facility] Medical CenterVenous Blood pH7.28Low7.32-7.43[facility] Medical CenterPhosphate [Mass/volume] in Serum or PlasmaOrdered By: Santiago Manzanares on 44-63-1758Vjhgtvkss [Mass/Vol] Phosphate [Mass/volume] in Serum or Plasma2.5-4.5FRegency Hospital ToledoPhosphoruson 71-71-6736Ezdgzhhan [Mass/Vol]4.3 mg/dLNormal2.5-4.5The [facility] Physician [facility] HospitalComment on above:Result Comment: PERFORMED BY: [facility] [address] [facility] [place] [address] PATHOLOGIST WELDING MACHINE OPERATOR GAS CHARO FATIMA M.D.Performed By: #### PHOS #### [facility] [address] [place] [address] USAPotassiumon 71-36-0428Iysiflmpp [Moles/Vol]4.8 mmol/L Normal3.5-5.1The [facility] Physician GroupComment on above:Result Comment: PERFORMED BY: [place] [address] PATHOLOGIST WELDING MACHINE OPERATOR GAS CHARO FATIMA M.D.Performed By: #### PHOS #### [place] [address] USAVenous Blood GasOrdered By: Ravinder Pritchett on 54-99-3359GR0 [Moles/Vol]33.9 mmol/LHigh24.0-29.0[facility] Medical CenterComment on above:Performed By: #### VBG #### Point of Care testing ,HCO3 (Bld) [Moles/Vol]31.8 mmol/LHigh23.0-29.0[facility] Comment on above:Performed By: #### VBG #### Point of Care testing ,Venous Blood Gason 26-90-1803Onvbjt DeviceNasal CannulaNoWake Forest [facility] Hospital Physician GroupComment on above:Performed By: #### VBG #### Point of Care testing ,Respiratory CriticalNoWake Forest Baptist Health Davie Hospital Physician GroupComment on above:Result Comment: Critical Value called on: 09/25/2024 at 12:44 PERFORMED BY: [place] [address] PATHOLOGIST WELDING MACHINE OPERATOR GAS CHARO FATIMA M.D.Performed By: #### VBG #### Point of Care testing ,VBG Base Excess2.7 mmol/LNormal-3.0-3.0The [facility] Physician GroupComment on above:Performed By: #### VBG #### Point of Care testing ,VBG Draw SiteVenousNoWake Forest Baptist Health Davie Hospital Physician GroupComment on above: Performed By: #### VBG #### Point of Care testing ,VBG Frac Inspired O240 %NormalThe [facility] Physician GroupComment on above: Performed By: #### VBG #### Point of Care testing ,VBG O2 Content6.4 mmol/LLow6.6-9.7The [facility] Physician GroupComment on above:Performed By: #### VBG #### Point of Care testing ,VBG Oxygen Ccwdnlhvzo82.3 %Low73.0-76.0The [facility] Physician GroupComment on above:Performed By: #### VBG #### Point of Care testing ,VBG BFE558.8 mm[Hg]High38.0-50.0The [facility] Physician GroupComment on above: Performed By: #### VBG #### Point of Care testing ,VBG PH Venous PH7.28Low7.32-7.43The [facility] Physician GroupComment on above: Performed By: #### VBG #### Point of Care testing ,VBG PO232.7 mm[Hg]Low35.0-45.0The [facility] Physician GroupComment on above: Performed By: #### VBG #### Point of Care testing ,Alanine aminotransferase [Enzymatic activity/volume] in Serum or PlasmaOrdered By: Tami Mckeon on 32-05-2897EPI [Catalytic activity/Vol]Alanine aminotransferase [Enzymatic activity/volume] in Serum or Plasma7-52[facility] Medical CenterAlbumin [Mass/volume] in Serum or Plasma by Bromocresol green (BCG) dye binding methoOrdered By: Tami Mckeon on 37-05-8658Pmvkafy BCG dye [Mass/Vol]Albumin [Mass/volume] in Serum or Plasma by Bromocresol green (BCG) dye binding metho3.5-5.7FRegency Hospital ToledoAlkaline phosphatase [Enzymatic activity/volume] in Serum or PlasmaOrdered By: Tami Mckeon 57-12-7323XFM [Catalytic activity/Vol]Alkaline phosphatase [Enzymatic activity/volume] in Serum or Kwhwss41-412EmjbvkmiiMetrohealth Main Campus Medical Center Aspartate aminotransferase [Enzymatic activity/volume] in Serum or PlasmaOrdered By: Tami Mckeon 94-55-6462QBT [Catalytic activity/Vol]Aspartate aminotransferase [Enzymatic activity/volume] in Serum or Bpbewf60-39MasgsuojrMetrohealth Main Campus Medical CenterBilirubin.total [Mass/volume] in Serum or PlasmaOrdered By: Tami Mckeon 76-27-0537Wglwjxoqv [Mass/Vol]Bilirubin.total [Mass/volume] in Serum or Plasma0.3-1.0[facility] Medical CenterComplete Blood Count Auto Diffon 12-52-5187Liudmpavm (Bld) [#/Vol]0.0 10*3/uLNormal0.0-0.2The [facility] Physician GroupComment on above:Result Comment: PERFORMED BY: [place] [address] PATHOLOGIST WELDING MACHINE OPERATOR GAS CHARO FATIMA M.D.Performed By: #### CBC, CMP #### [place] [address] USABasophils/100 WBC (Bld)0.3 %Normal.The [facility] Physician GroupComment on above:Performed By: #### CBC, CMP #### [place] [address] USAEosinophils (Bld) [#/Vol]0.1 10*3/uLNormal0.0-0.45The [facility] Physician GroupComment on above:Performed By: #### CBC, CMP #### [place] [address] USAEosinophils/100 WBC (Bld)0.7 %Normal.The [facility] Physician GroupComment on above:Performed By: #### CBC, CMP #### [place] [address] USAErythrocyte distribution width (RBC) [Ratio]12.7 %Normal 12.0-14.8The [facility] Physician GroupComment on above:Performed By: #### CBC, CMP #### [place] [address] USAHematocrit (Bld) [Volume fraction]46.6 %Hjpqum83.8-50.0The [facility] Physician GroupComment on above:Performed By: #### CBC, CMP #### [place] [address] USAHemoglobin (Bld) [Mass/Vol]15.4 g/mOIkmknn96.0-17.0The [facility] Physician GroupComment on above:Performed By: #### CBC, CMP #### [facility] [address] [place] [address] USALymphocytes (Bld) [#/Vol]0.6 10*3/uLLow1.00-4.8The [facility] Physician GroupComment on above:Performed By: #### CBC, CMP #### [place] [address] USALymphocytes/100 WBC (Bld)7.8 %Normal.The [facility] Physician GroupComment on above:Performed By: #### CBC, CMP #### [place] [address] USAMCH (RBC) [Entitic mass]30.9 jvZpafch02.5-35.2The [facility] Physician GroupComment on above:Performed By: #### CBC, CMP #### [place] [address] USAMCV (RBC) [Entitic vol]93.4 jARxokbe60.5-101The [facility] Physician GroupComment on above:Performed By: #### CBC, CMP #### [place] [address] USAMean Corpuscular HGB Conc33.1 g/iVLlotth89.5-35.6The [facility] Physician GroupComment on above:Performed By: #### CBC, CMP #### [place] [address] USAMonocytes (Bld) [#/Vol]0.2 10*3/uLNormal0.0-0.8The [facility] Physician GroupComment on above:Performed By: #### CBC, CMP #### [place] [address] USAMonocytes/100 WBC (Bld)2.2 %Normal.The [facility] Physician GroupComment on above:Performed By: #### CBC, CMP #### [place] [address] USANeutrophils (Bld) [#/Vol]7.3 10*3/uLNormal1.8-7.7The [facility] Physician GroupComment on above:Performed By: #### CBC, CMP #### [facility] [address] [place] [address] USANeutrophils/100 WBC (Bld)89.0 %Normal.The [facility] Physician GroupComment on above:Performed By: #### CBC, CMP #### [facility] [address] [place] [address] USANRBC%0.0 /100{WBC}Normal0-0.5The [facility] Physician Group Comment on above:Performed By: #### CBC, CMP #### [facility] [address] [place] [address] USAPlatelet mean volume (Bld) [Entitic vol]9.8 fLNormal 6.6-10.1The [facility] Physician GroupComment on above:Performed By: #### CBC, CMP #### [place] [address] USAPlatelets (Bld) [#/Vol]173 10*3/aMDmaqog609-212Lnq [facility] Physician GroupComment on above:Performed By: #### CBC, CMP #### [place] [address] USARBC (Bld) [#/Vol]4.99 10*6/uLNormal3.90-5.60The [facility] Physician GroupComment on above:Performed By: #### CBC, CMP #### [place] [address] USAWBC (Bld) [#/Vol]8.2 10*3/uLNormal4.1-10.5The [facility] Physician GroupComment on above:Performed By: #### CBC, CMP #### [place] [address] USAComprehensive Metabolic Panelon 62-53-7659Tozocww [Mass/Vol]4.0 g/dLNormal3.5-5.7The [facility] Physician GroupComment on above: Performed By: #### CBC, CMP #### [place] [address] USAAlbumin/Globulin [Mass ratio]1.5 {ratio}NormalThe [facility] Physician GroupComment on above:Performed By: #### CBC, CMP #### [place] [address] USAALP [Catalytic activity/Vol]73 U/NApgaom83-178Nuh [facility] Physician GroupComment on above:Performed By: #### CBC, CMP #### [place] [address] USAALT [Catalytic activity/Vol]13 U/LNormal7-52The [facility] Physician GroupComment on above:Performed By: #### CBC, CMP #### [place] [address] USAAnion gap [Moles/Vol]9.6 mmol/LNormal6.0-15.0The [facility] Physician GroupComment on above:Performed By: #### CBC, CMP #### [place] [address] USAAST [Catalytic activity/Vol]15 U/IJgkhvo48-21Psq [facility] Physician GroupComment on above:Performed By: #### CBC, CMP #### [place] [address] USABilirubin [Mass/Vol]0.3 mg/dLNormal0.3-1.0The [facility] Physician GroupComment on above:Performed By: #### CBC, CMP #### [place] [address] USACalcium [Mass/Vol]9.1 mg/dLNormal8.6-10.3The [facility] Physician GroupComment on above:Performed By: #### CBC, CMP #### [place] [address] USAChloride [Moles/Vol]97 mmol/NHwr30-384Ukj [facility] Physician GroupComment on above:Performed By: #### CBC, CMP #### [facility] [address] [place] [address] USACO2 [Moles/Vol]34.6 mmol/LHigh21.0-31.0The [facility] Physician GroupComment on above:Performed By: #### CBC, CMP #### [place] [address] USACreatinine [Mass/Vol]1.06 mg/dLNormal0.70-1.30The [facility] Physician GroupComment on above:Performed By: #### CBC, CMP #### [place] [address] USACreatinine Clr Calc Pjgcsoyc70.09NormHCA Florida Putnam Hospital Physician GroupComment on above:Result Comment: PERFORMED BY: [place] [address] PATHOLOGIST WELDING MACHINE OPERATOR GAS CHARO FATIMA M.D.Performed By: #### CBC, CMP #### [place] [address] USAGFR/1.73 sq M.predicted MDRD (S/P/Bld) [Vol rate/Area] mL/min/{1.73_m2}NormalThe [facility] Physician GroupComment on above:Performed By: #### CBC, CMP #### [place] [address] USAGlobulin (S) [Mass/Vol]2.7 g/dLMahnomen Health CenterComment on above:Performed By: #### CBC, CMP #### [place] [address] USAGlucose [Mass/Vol]190 mg/cVJgvh37-427Wux [facility] Physician GroupComment on above:Result Comment: Random Glucose Reference Range is dependent on time and content of last meal. Glucose of more than 200 mg/dL in a nonstressed, ambulatory subject supports the diagnosis of Diabetes Mellitus. ADA recommended reference rangePerformed By: #### CBC, CMP #### [place] [address] USAPotassium [Moles/Vol]5.2 mmol/LHigh3.5-5.1The [facility] Physician GroupComment on above:Performed By: #### CBC, CMP #### [facility] [address] [place] [address] USAProtein [Mass/Vol]6.7 g/dLNormal6.4-8.9The [facility] Physician GroupComment on above:Performed By: #### CBC, CMP #### [facility] [address] [place] [address] USASodium [Moles/Vol]136 mmol/EAmbiit016-786Xel [facility] Physician GroupComment on above:Performed By: #### CBC, CMP #### [facility] [address] [place] [id number] USAUrea nitrogen [Mass/Vol]17 mg/dLNormal7-25The [facility] Physician GroupComment on above:Performed By: #### CBC, CMP #### [facility] [address] [place] [id number] USAECG 12 lead ECGon 95-77-9248OZA 12 lead ECGMAGRUDER HOSPITAL Main [place] [address] [place] [address] Electrocardiograph Report Signed Patient: Jose Cabrera III MR#: [id number] 832 : 1970 Acct:[id number] Age/Sex: 54 / M ADM Date: 09/24/24 Loc: Room: [address] [place] [address] Type: DIS INOo Attending Dr: Ravinder Pritchett DO Ordering Provider: Tami Mckeon MD Date of Service: 09/24/2403/13/1961 ECG/ECG 12 lead ECG: episode of respiratory distress Copies to: Test Reason : Blood Pressure : */* mmHG Vent. Rate : 90 BPM Atrial Rate : 90 BPM P-R Int : 184 ms QRS Dur : 104 ms QT Int : 366 ms P-R-T Axes : 40 44 40 degrees QTcB Int : 447 ms Normal sinus rhythm Incomplete right bundle branch block Borderline ECG Confirmed by Yasmin Wiseman ([id number]) on 09/26/2024 7:33:53 PM Referred By: Electronically Signed By: Yasmin Wiseman Transcribed By: MUS Signed By Yasmin Wiseman MD 4 1932[facility] Physician GroupGlobulin Calc (S) [Mass/Vol]Ordered By: Tami Mckeon on 30-27-3828Wexlrncz (S) [Mass/Vol]Serum globulin measurement by calculation (mass/volume)[facility] Medical CenterGlucose Glucometer (dC) [Mass/Vol]Ordered By: Ravinder Pritchett on 55-80-5020Ghlqayf [Mass/Vol] Capillary blood glucose measurement by glucometer (mass/volume)[facility] Medical CenterComment on above:Random Glucose Reference Range is dependent on time and content of last meal. Glucose of more than 200 mg/dL in a nonstressed, ambulatory subject supports the diagnosis of Diabetes Mellitus. Glucose Poct Glucometerson 53-90-8306Bdvtysk [Mass/Vol]188 mg/dLNoWake Forest [facility] Physician GroupComment on above:Result Comment: Random Glucose Reference Range is dependent on time and content of last meal. Glucose of more than 200 mg/dL in a nonstressed, ambulatory subject supports the diagnosis of Diabetes Mellitus. PERFORMED BY: [place] [address] PATHOLOGIST WELDING MACHINE OPERATOR GAS CHARO FATIMA M.D.Performed By: #### GLULS #### Point of Care testing ,Ofgqggb3Xpu3: Cleaned MeterNoWake Forest [facility]ie Hospital Physician GroupComment on above: Performed By: #### HS TROP #### [facility] [address] [place] [address] IEDPtclxtu1YPKZ NOTIFY /BoogieWake Forest Baptist Health Davie Hospital Physician GroupComment on above:Result Comment: PERFORMED BY: [place] [address] PATHOLOGIST WELDING MACHINE OPERATOR GAS CHARO FATIMA M.D.Performed By: #### HS TROP #### [facility] [address] [place] [address] USAGlucose [Mass/Vol]145 mg/dLNoWake Forest [facility] Hospital Physician GroupComment on above:Result Comment: Random Glucose Reference Range is dependent on time and content of last meal. Glucose of more than 200 mg/dL in a nonstressed, ambulatory subject supports the diagnosis of Diabetes Mellitus.Performed By: #### HS TROP #### [facility] [address] [place] [address] USANo Panel InformationOrdered By: Ravinder Pritchett on 42-22-7782Keeybfi Glucose #[address]/[facility] HospitalBedside Glucose CommentGlu2: cleaned meterMetrohealth Main Campus Medical CenterProtein [Mass/volume] in Serum or PlasmaOrdered By: Tami Mckeon on 02-30-5666Ehnrdcq [Mass/Vol]Protein [Mass/volume] in Serum or Plasma6.4-8.9 [facility]woodserum or plasma albumin/globulin mass ratio Ordered By: Tami Mcekon on 91-13-3484Tnovyou/Globulin [Mass ratio]Serum or plasma albumin/globulin mass ratioMetrohealth Main Campus Medical CenterTroponin I High Sensitivityon 12-48-2235Xmyubnkw I High Sensitivity3.7 pg/mLNormal0.0-20.0 [facility] Physician GroupComment on above:Result Comment: PERFORMED BY: [place] [address] PATHOLOGIST WELDING MACHINE OPERATOR GAS CHARO FATIMA M.D.Performed By: #### HS TROP #### [facility] [address] [place] [address] USATroponin I.cardiac [Mass/volume] in Serum or Plasma by Detection limit <= 0.01 ng/Ordered By: Tami Mckeon on 73-26-5772Mqtebowt I.cardiac DL <= 0.01 ng/mL [Mass/Vol]Troponin I.cardiac [Mass/volume] in Serum or Plasma by Detection limit <= 0.01 ng/0.0-20.0[facility] Medical CenterXR chest 1V portableon 77-24-4535XK chest 1V portableMAGRUDER [place] [address] XRay Report Signed Patient: Jose Cabrera III MR#: [id number] 832 : 1970 Acct:[id number] Age/Sex: 54 / M ADM Date: 09/24/24 Loc: [place] Room: Type: [facility] Attending Dr: Ravinder Pritcehtt DO Copies to: DO Tami Patel MD Ordering Provider: Tami Mckeon MD Date of Service: 09/24/24 XR/XR chest 1V portable: Desaturation while in PACU XR chest 1V portable 09/24/2024 4:43 PM SIGNS AND SYMPTOMS: O2 desaturation PROTOCOL: Frontal radiograph of the chest COMPARISON: 03/04/2023 FINDINGS: The trachea is midline. There is cardiomegaly. There is perihilar vascular prominence and interstitial prominence with hazy airspace opacities. The ET tube and enteric tube have been removed. The bony thorax is intact. XR/XR chest 1V portable IMPRESSION: Findings suggest congestive heart failure with pulmonary edema. Impression dictated by: Lorenza Quan M.D.09/24/2024 5:13 PM Dictation Location: [place] [address] Transcribed By: [facility] 09/24/241712 Dictated By: Lorenza Quan II, MD 09/24/241709 Signed By: 09/24/24 [facility] HospitalNem[facility] Physician GroupXR knee RT 2Von 06-40-1219CI knee RT 2VMAGRUDER HOSPITAL [place] [address] [place] [address] XRay Report Signed Patient: Jose Cabrera III MR#: [id number] 832 : 1970 Acct:[id number] Age/Sex: 54 / M ADM Date: 09/24/24 Loc: N Room: [address] [place] [address] [place]: [facility] Dr: Ravinder Pritchett DO Copies to: Ravinder Pritchett DO Ordering Provider: Ravinder Pritchett DO Date of Service: 09/24/24 XR/XR knee RT 2V: Total or partial knee, do in PACU XR knee RT 2V 09/24/2024 7:34 AM SIGNS AND SYMPTOMS: Status post hardware fixation of lateral tibial plateau fracture, follow-up PROTOCOL: Frontal and lateral radiographs of the right knee COMPARISON: 09/20/2024 FINDINGS: There is screw fixation of the previous lateral tibial plateau fracture. No hardware complication or malalignment. XR/XR knee RT 2V IMPRESSION: There is screw fixation of the previous lateral tibial plateau fracture. No hardware complication or malalignment. Impression dictated by: Lorenza Quan M.D.09/24/2024 10:03 PM Dictation Location: [facility]IO-PC-17 Transcribed By: [facility] 09/24/242202 Dictated By: Lorenza Quan II, MD 09/24/242201 Signed By: 09/24/242202[facility] Physician GroupXR knee RT 2VMAGRUDER HOSPITAL [place] [address] [place] [address] XRay Report Signed Patient: Jose Cabrera III MR#: [id number] 832 : 1970 Acct:[id number] Age/Sex: 54 / M ADM Date: 09/24/24 Loc: Room: [address] [place] [address] Type: [facility] Attending Dr: Ravinder Pritchett DO Copies to: Ravinder Pritchett DO Ordering Provider: Ravinder Pritchett DO Date of Service: 09/24/24 XR/XR knee RT 2V: . XR knee RT 2V 09/24/2024 3:00 PM SIGNS AND SYMPTOMS: Hardware fixation right tibial plateau PROTOCOL: Intraoperative views of the right knee COMPARISON: 09/20/2024 FINDINGS: Intraoperative views demonstrate screw fixation of the known lateral tibial plateau fracture. Cumulative Air Kerma in mGy: 2.18 mGy XR/XR knee RT 2V IMPRESSION: Intraoperative views demonstrate screw fixation of the known lateral tibial plateau fracture. Impression dictated by: Lorenza Quan M.D.09/24/2024 8:56 PM Dictation Location: RADIO-PC-17 Transcribed By: [facility] 09/24/242055 Dictated By: Lorenza Quan II, MD 09/24/242054 Signed By: 09/24/242055[facility] Physician GroupXR ankle RT min 3V*on 09-23-2024 XR ankle RT min 3V*[facility] [address] [place] [address] XRay Report Signed Patient: Jose Cabrera III MR#: [id number] 832 : 1970 Acct:[id number] Age/Sex: 54 / M ADM Date: 09/23/24 Loc: [facility] [place] Room: Type: [facility] Attending Dr: Ravinder Pritchett DO Copies to: Ravinder Pritchett DO Ordering Provider: Ravinder Pritchett DO Date of Service: 09/23/24 XR/XR ankle RT min 3V*: M25.571 - Pain in right ankle and joints of right foot 3 views right ankle plain film COMPARISON: None HISTORY: Continued right knee and ankle pain ACUTE FINDINGS: None DEGENERATIVE CHANGE: Unremarkable SOFT TISSUE FINDINGS: Soft tissue swelling JOINT EFFUSION: None POSTOP CHANGES: None BONE MINERALIZATION: Adequate XR/XR ankle RT min 3V* IMPRESSION: Soft tissue swelling Impression dictated by: Giorgi Cabrera M.D.09/23/2024 4:01 PM Dictation Location: [place] [address] Transcribed By: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 [id number], [id number] #### [facility] [address] [place], [place] [address]ZV Spine Cervical w/o Contraston 80-52-8436PZ Spine Cervical w/o ContrastExam Date/Time: 05/01/2023 23:06 EDT Reason for Exam: Neck trauma, midline tenderness;Other (please specify) Report IMPRESSION: NO EVIDENCE OF ACUTE FRACTURE OR SUBLUXATION OF THE CERVICAL SPINE. CERVICAL SPONDYLOSIS AT C5-6 AND C6-7. CLINICAL HISTORY: Neck trauma, midline tenderness COMPARISON: NONE. FINDINGS: CT scan of the cervical spine was done without intravenous injection of contrast. There is no loss of cervical lordosis, possibly secondary to muscle spasm. There is ACDF at C3-C4 without evidence of hardware failure. There is a mild to moderate cervical spondylosis at C3 5-6 and C6-C7. Prevertebral soft tissues are unremarkable. There are no acute fracture or subluxation seen. All CT scans at this facility use dose modulation, iterative reconstruction, and/or weight based dosing when appropriate to reduce radiation dose to as low as reasonably achievable. Ordering Provider: James Du FINAL REPORT Dictated: 05/02/2023 7:15 am Vic Berkowitz M.D. Signed (Electronic Signature): 05/02/2023 7:15 am Signed by: Vic Berkowitz M.D. Transcribed by: PAL Technologist: JohnSelect [facility] CincinnatiDischarge Instructionson 01-03-3813Okhzojxhe Instructions [id number]:127NormalSelect Specialty Hospital - [facility]emsak[facility] Clinical Summaryon [id number] Clinical Summary [place] [id number] ED Clinical Summary Person Information Name: SURESH CABRERA/[facility] Age: 52 Years : 1970 Sex: Male Language: Martiniquais PCP: CRISTIANO JONES MD Marital Status: Single Phone: [phone] Visit Id: Visit Reason: Post surgical problem; Neck pain; NECK PAIN/ARM PAIN ( BROKEN NECK APPROX 6-8 WKS AGO) Speciality: Acuity: 3 Enc Type: Emergency Med Service: Emergency Arrival: 05/01/2023 20:59:53 Discharge: 05/01/2023 23:41:52 LOS: 000 02:42 Checkin: 05/01/2023 20:59:53 Checkout: 05/01/2023 23:41:52 Dispo Type: Home (Routine DC) EVENTS: Event Name Event Status Request Date/Time Start Date/Time Complete Date/Time Arrive Complete 05/01/2023 20:59:53 05/01/2023 20:59:53 05/01/2023 20:59:53 Document Home Meds Request 05/01/2023 20:59:53 Triage Complete 05/01/2023 20:59:53 05/01/2023 21:09:50 05/01/2023 21:09:50 Pending Labs Complete 05/01/2023 21:10:28 05/01/2023 21:45:01 Lab Complete 05/01/2023 21:10:28 05/01/2023 21:45:01 Pending Labs Complete 05/01/2023 21:31:30 05/01/2023 21:31:30 05/01/2023 21:45:02 Lab Complete 05/01/2023 21:31:30 05/01/2023 21:31:30 05/01/2023 21:45:02 Pending Labs Complete 05/01/2023 21:37:06 05/01/2023 21:37:06 05/01/2023 21:37:12 Lab Complete 05/01/2023 21:37:06 05/01/2023 21:37:06 05/01/2023 21:37:12 Pending Labs Complete 05/01/2023 21:38:09 05/01/2023 21:38:09 05/01/2023 21:38:09 Pending Labs Complete 05/01/2023 21:38:32 05/01/2023 21:38:32 05/01/2023 21:38:32 Possible SIRS Request 05/01/2023 21:50:26 Pending Labs Complete 05/01/2023 22:09:20 05/01/2023 22:09:20 05/01/2023 22:09:43 Pending Labs Complete 05/01/2023 22:10:22 05/01/2023 22:10:22 05/01/2023 22:26:59 Lab Complete 05/01/2023 22:10:22 05/01/2023 22:10:22 05/01/2023 22:26:59 Pending Labs Complete 05/01/2023 22:10:44 05/01/2023 22:10:44 05/01/2023 22:18:37 Bed Assign Complete 05/01/2023 22:36:05 05/01/2023 22:36:05 05/01/2023 22:36:05 Dr Exam Complete 05/01/2023 22:36:05 05/01/2023 22:44:56 05/01/2023 22:44:56 RN Exam Request 05/01/2023 22:36:06 Registration Complete 05/01/2023 22:44:56 05/01/2023 23:09:43 05/01/2023 23:09:43 CT Complete 05/01/2023 22:52:49 05/01/2023 22:56:36 05/01/2023 23:06:01 Reg Complete Request 05/01/2023 23:09:43 Discharge Complete 05/01/2023 23:36:18 05/01/2023 23:41:57 05/01/2023 23:41:57 Transfer Complete 05/01/2023 23:41:57 05/01/2023 23:41:57 05/01/2023 23:41:57 ADDRESS: [address] [place] [phone] PHYS DOC NOTES: MEDICAL INFORMATION: Prescriptions Given: New Medications Printed Prescriptions methocarbamol (Robaxin 500 mg Tab) 1 Tablets By Mouth 3 times a day for 3 Days. Refills: 0. naproxen (Naprosyn 500 mg Tab) 1 Tablets By Mouth 2 times a day as needed for pain. Refills: 0. PATIENT EDUCATION INFORMATION: Instructions: Musculoskeletal Pain Follow up: With: Address: When: CRISTIANO JONES [address] [place] [address] [place] [address] Business (7) In 3 days 05/04/2023 Comments: You can take the Naprosyn, Robaxin as prescribed as needed for pain. Please follow-up with your primary care doctor in the next 2 to 3 days for further evaluation management. Please follow-up with Dr. Allen for further care. Return to the ED for any new or worsening symptoms. DIAGNOSIS: Neck painNormalFisher César Medical CenterED Note-Nursingon 23-22-8277SK Note-Nursingpt given d/c instructions by Raysa KEITH. pt walked self ambulatory to waiting room in stable condition.[facility] just brought back to room 12 from the waiting room. pt arrived to ed from home via private car with his friend c/o left neck pain after having spinal surgery a couple of months ago. pt states he has hx of infection after the surgery as well. pt stateshe feels pain on and off since the surgery but the last couple of days the pain has increased. pt has no swelling on redness on assessment. pt denies SOB or trouble swallowing. VSS.[facility] CenterED Note-Physicianon [id number] Note-PhysicianBasic Information Time Seen: James Du DO 05/01/2023 22:44 Chief Complaint pt c\o increased neck pain x3 days, NKI. states had surgery on neck 3 months ago and developed boneinfection History of Present Illness Patient is a 52-year-old male with past medical history of a cervical spine fracture secondary to an osteomyelitis presenting to the ED for evaluation of neck pain. Patient states he has had increasing neck pain for the last 2 to 3 days, particularly on the left side of his neck. Patient states 3 to 4 months ago had a cervical spine fusion performed for cervical spine fracture. Patient denies anyfevers, chills, nausea, vomiting. Patient denies any falls or trauma. Review of Systems A 10 point review of systems is negative except as noted above. Medical and Surgical History: Reviewed and noted Social history: Lives at home Tobacco: Denies Physical Exam Vitals & Measurements T: 36.7 ?C(Oral) HR: 100(Peripheral) RR: 18 BP: 103/66 SpO2: 100% HT: 172 cm WT: 107.4 kg BMI: 36.3 General: Well developed, non toxic appearing, no acute distress HEENT: Head atraumatic, Mucosa moist, hearing grossly normal Neck: No JVD, tracheal deviation, paraspinal muscular tenderness noted of the left cervical spine, no midline spinal tenderness or deformities Cardiac: Regular rate, rhythm, no murmurs, or gallops, 2+ radial pulses Respiratory: Lungs clear to auscultation B/L, normal respiratory effort Abdomen: Soft non tender, no rebound or guarding, no peritoneal signs Extremities: No edema noted in the LE B/L, no tenderness to palpation Neurologic: Alert and oriented, speech clear Skin: No rashes or lesions Psych: Appropriate mood and behavior Medical Decision Making MEDICAL DECISION MAKING Number and Complexity of Problems Differential Diagnosis: [] [facility] Data External documents reviewed: [] My EKG interpretation: [] My CT interpretation: [] My X-ray interpretation: [] My Ultrasound interpretation: [] Decision rules/scores evaluated: [] Discussed with: [] Treatment and Disposition ED Course: Patient is a 52-year-old male presenting to the ED for evaluation of neck pain. Patient nontoxic and on arrival, no acute distress. Due to his history basic laboratory evaluation is obtained shows slight leukocytosis of 12.8 however ESR and CRP are negative. CT imaging was obtained whichshows no acute process there is some straightening of the normal cervical lordosis. Due to this I do believe he likely has muscle spasm. He is given a prescription for Naprosyn, Robaxin. He is to follow-up with his spine surgeon for further evaluation management. He is to return to the ED for any new or worsening symptoms. Shared decision making: [] Code status: [] Assessment/Plan Neck pain (M54.2: Cervicalgia) Orders: methocarbamol, 500 mg = 1 tab(s), Oral, TID, X 3 day(s), # 9 tab(s), Refills(s) 0 naproxen, 500 mg = 1 tab(s), Oral, BID, PRN for pain, # 20 tab(s), Refills(s) 0 Add on Test Automated Diff Basic Metabolic Panel C-Reactive Protein CBC w/ Auto Diff CT Spine Cervical w/o Contrast eGFR Extra Blue Tube Extra SST Tube Sedimentation Rate Automated Disposition Plan Discharge Prescription List Prescriptions Naprosyn 500 mg Tab, 500 mg= 1 tab(s), Oral, BID, PRN Robaxin 500 mg Tab, 500 mg= 1 tab(s), Oral, TID Follow-up With When Contact Information CRISTIANO JONES In 3 days 05/04/[address] [place] [id number] [facility](1) Additional Instructions: You can take the Naprosyn, Robaxin as prescribed as needed for pain. Please follow-up with your primary care doctor in the next 2 to 3 days for further evaluation management.Please follow-up with Dr. Allen for further care. Return to the ED for any new or worsening symptoms. Patient Education Musculoskeletal Pain Problem List/Past Medical History Ongoing No qualifying data Historical No qualifying data Medications Inpatient No active inpatient medications Home Naprosyn 500 mg Tab, 500 mg= 1 tab(s), Oral, BID, PRN Robaxin 500 mg Tab, 500 mg= 1 tab(s), Oral, TID Allergies No Known Medication Allergies Lab Results WBC: 12.8 E9/L High (05/01/23 21:28:00) RBC: 5 E12/L (05/01/23 21:28:00) HGB: 15.2 gm/dL (05/01/23 21:28:00) Hct: 44.7 % (05/01/23 21:28:00) MCV: 90 fL (05/01/23 21:28:00) MCH: 30.7 pg (05/01/23:28:00) MCHC: 34.1 gm/dL (05/01/23 21:28:00) RDW: 14.6 % High (05/01/23 21:28:00) Platelet: 245 E9/L (05/01/23 21:28:00) MPV: 9.3 fL (05/01/23:28:00) Neutro Auto: 68.3 % (05/01/23 21:28:00) Lymph Auto: 21.2 % (05/01/23::) [place] Auto: 7.9 % (05/01/23::) Eos Auto: 2 % (05/01/23::) Basophil Auto: 0.6 % (05/01/23::00) Neutro Absolute: 8.7 E9/L High (05/01/23 21:28:00) Lymph Absolute: 2.7 E9/L (05/01/23 21:28:00) [place] Absolute: 1 E9/L (05/01/23 21:28:00) Eos Absolute: 0.3 E9/L (05/01/23:28:00) Basophil Abso (more content not included)...[facility] Comment on above:Result Comment: Electronically Signed By: James Du DO.br\Date and Time Signed: 05/01/23 23:38 EDTED Patient Education Noteon [id number] Patient Education NoteOrthopedics Musculoskeletal Pain Musculoskeletal pain refers to aches and pains in your bones, joints, muscles, and the tissues thatsurround them. This pain can occur in any part of the body. It can last for a short time (acute) ora long time (chronic). A physical exam, lab tests, and imaging studies may be done to find the cause of your musculoskeletal pain. Follow these instructions at home: Lifestyle ? Try to control or lower your stress levels. Stress increases muscle tension and can worsen musculoskeletal pain. It is important to recognize when you are anxious or stressed and learn ways to manage it. This may include: ? Meditation or yoga. ? Cognitive or behavioral therapy. ? Acupuncture or massage therapy. ? You may continue all activities unless the activities cause more pain. When the pain gets better,slowly resume your normal activities. Gradually increase the intensity and duration of your activities or exercise. Managing pain, stiffness, and swelling ? Treatment may include medicines for pain and inflammation that are taken by mouth or applied to the skin. Take uetz-hlx-agvqnfh and prescription medicines only as told by your health care provider. ? When your pain is severe, bed rest may be helpful. Lie or sit in any position that is comfortable, but get out of bed and walk around at least every couple of hours. ? If directed, apply heat to the affected area as often as told by your health care provider. Use the heat source that your health care provider recommends, such as a moist heat pack or a heating pad. ? Place a towel between your skin and the heat source. ? Leave the heat on for 20?30 minutes. ? Remove the heat if your skin turns bright red. This is especially important if you are unable to feel pain, heat, or cold. You may have a greater risk of getting burned. ? If directed, put ice on the painful area. To do this: ? Put ice in a plastic bag. ? Place a towel between your skin and the bag. ? Leave the ice on for 20 minutes, 2?3 times a day. ? Remove the ice if your skin turns bright red. This is very important. If you cannot feel pain, heat, or cold, you have a greater risk of damage to the area. General instructions ? Your health care provider may recommend that you see a physical therapist. This person can help you come up with a safe exercise program. ? If told by your health care provider, do physical therapy exercises to improve movement and strength in the affected area. ? Keep all follow-up visits. This is important. This includes any physical therapy visits. Contact a health care provider if: ? Your pain gets worse. ? Medicines do not help ease your pain. ? You cannot use the part of your body that hurts, such as your arm, leg, or neck. ? You have trouble sleeping. ? You have trouble doing your normal activities. Get help right away if: ? You have a new injury and your pain is worse or different. ? You feel numb or you have tingling in the painful area. Summary ? Musculoskeletal pain refers to aches and pains in your bones, joints, muscles, and the tissues that surround them. ? This pain can occur in any part of the body. ? Your health care provider may recommend that you see a physical therapist. This person can help you come up with a safe exercise program. Do any exercises as told by your physical therapist. ? Lower your stress level. Stress can worsen musculoskeletal pain. Ways to lower stress may includemeditation, yoga, cognitive or behavioral therapy, acupuncture, and massage therapy. This information is not intended to replace advice given to you by your health care provider. Make sure you discuss any questions you have with your health care provider. Document Revised: 02/09/2021 Document Reviewed: 01/18/2021 Elsevier Patient Education ? 2022 [employer] ED Patient Summaryon [id number] Patient Summary [place] [id number] Patient Discharge Instructions Person Information Name: SURESH CABRERA Age: 52 Years Arrival Date: 05/01/2023 20:59:53 Discharge Diagnosis: Neck pain Primary Care Physician: CRISTIANO JONES MD Provider Information Primary Provider: James Du DO Advanced Clinical Nurse Manager:None The exam and treatment you received in the Emergency Department were for an urgent problem and are not intended as complete care. It is important that you follow up with a doctor, nurse practitioner,or physician?s family medicine physician assistant for ongoing care. If your symptoms become worse or you do not improve as expected and you are unable to reach your usual health care provider, you should return to the Emergency Department. We are available 24 hours a day. SURESH CABRERA has been given the following list of patient education materials, prescriptions and follow-up instructions: Follow-up Instructions: With: Address: When: CRISTIANO JONES [address] [place] [phone] Business (1) In 3 days 05/04/2023 Comments: You can take the Naprosyn, Robaxin as prescribed as needed for pain. Please follow-up with your primary care doctor in the next 2 to 3 days for further evaluation management. Please follow-up with Dr. Allen for further care. Return to the ED for any new or worsening symptoms. In the event that this physician does not participate in your insurance network, please consult with your insurance company to find a nearby participating provider. Patient Education Materials: Musculoskeletal Pain A MESSAGE TO ALL PATIENTS REGARDING OPIOIDS PRESCRIPTION OPIOIDS: WHAT YOU NEED TO KNOW Prescription opioids can be used to help relieve iciiqdwr-yk-nkcpbs pain and are often prescribed following a surgery or injury, or for certain health conditions. These medications can be an important part of the treatment but also come with serious risks. It is important to work with your healthcare provider to make sure you are getting the safest, most effective care. WHAT ARE THE RISKS AND SIDE EFFECTS OF OPIOID USE? Prescription opioids carry serious risks of addiction and overdose, especially with prolonged use. An opioid overdose, often marked by slowed breathing, can cause sudden . The use of prescription opioids can have a number of side effects as well, even when taken as directed: ? Tolerance?meaning you might need to take more of the medication for the same pain relief ? Physical dependence?meaning you have symptoms of withdrawal when a medication is stopped ? Increased sensitivity to pain ? Constipation ? Nausea, vomiting, and dry mouth ? Sleepiness and dizziness ? Confusion ? Depression ? Low levels of testosterone that can result in lower sex drive, energy, and strength ? Itching and sweating RISKS ARE GREATER WITH: ? History of drug misuse, substance use disorder, or overdose ? Mental health conditions (such as depression or anxiety) ? Sleep apnea ? Older age (65 years and older) ? Avoid alcohol while taking prescription opioids. Also, unless specifically advised by your health care provider, medications to avoid include: ? Benzodiazepines (such as Xanax or Valium) ? Muscle relaxants (such as Soma or Flexeril) ? Hypnotics (such as Ambien or Lunesta) ? Other prescription opioids KNOW YOUR OPTIONS Talk to your health care provider about ways to manage your pain that don?t involve prescription opioids. Some of these options may actually work better and have fewer risks and side effects. Optionsmay include: ? Pain relievers such as acetaminophen, ibuprofen, and naproxen ? Some medication that are also used for depression or seizures ? Physical therapy and exercise ? Cognitive behavioral therapy, a psychological, goal-directed approach, in which patients learn how to modify physical, behavioral, and emotional triggers of pain and stress. IF YOU ARE PRESCRIBED OPIOIDS FOR PAIN: ? Never take opioids in greater amounts or more often than prescribed. ? Follow up with your primary health care provider. o Work together to create a plan on how to manage your pain. o Talk about ways to help manage your pain that don?t involve prescription opioids. o Talk about any and all concerns and side effects. ? Help prevent misuse and abuse o Never sell or share prescription opioids. o Never use another person?s prescription opioids. ? Store prescription opioids in a secure place and out of reach of others (this may include visitors, children, friends, and family). ? Safely dispose of unused prescription opioids: Find your community drug take- back program or [employer] mail-back program, or flush them down the toilet, following guidance from the Food and Drug Administration (www.fda.gov/Drugs/ResourcesForYou). ? Visit www.cdc.gov/ (more content not included)...NormalSelect Medical Specialty Hospital - CincinnatiRAD - Preliminary Cat Scan Reporton 03-31-7802RHI - Preliminary Cat Scan [id number]#1.00CD:127NormalAvita Health System Bucyrus Hospitaled Rate Automatedon 23-98-7774Ptw Rate Automated9 mm/hrNormal0-19 [facility] - CincinnatiComment on above:Performed By: #### [id number], 7385883, 97676652, 6593696, 5313206, 2129385 #### [facility] [address], [place] [address]Rjaw Diffon 40-38-7727Owdrbwxuy/100 WBC (Bld)0.6 %Normal0.0-2.0 [facility] Hospital - CincinnatiComment on above:Order Comment: Order Added by Discern Expert.Performed By: #### [id number], 0523039, 02399986, 8915280, 4451806, 5224849 #### [facility] [address], [place] [address]Ehxrthmrc/Leukocytes Auto (Bld) [Pure # fraction]0.1 E9/LNormal 0.0-0.2FAultman Alliance Community HospitalComment on above:Order Comment: Order Added by Discern Expert.Performed By: #### [id number], 1217786, 85575879, 6161886, 0028033, 5399933 #### [facility] [address] [place] [address]Eefgzhgkyzt/100 WBC (Bld)2.0 %Normal0.0-8.0[facility] - CincinnatiComment on above:Order Comment: Order Added by Discern Expert.Performed By: #### [id number], 8897636, 94804007, 7660911, 8881582, 4500174 #### [facility] [address] [place] [address]Eywvxtppoei/Leukocytes Auto (Bld) [Pure # fraction]0.3 E9/L Normal0.0-0.5FAultman Alliance Community HospitalComment on above:Order Comment: Order Added by Discern Expert.Performed By: #### [id number], 2943197, 99267997, 9568580, 4781753, 2862992 #### [facility] [address] [place] [address]Fuulijgziju/100 WBC (Bld)21.2 %Jgemsz83.0-50.0[facility] Hospital - CincinnatiComment on above:Order Comment: Order Added by Discern Expert. Performed By: #### [id number], 2978033, 29734171, 1921866, 1607884, 2808758 #### [facility] [address] [place] [address]Isegapasuez/Leukocytes Auto (Bld) [Pure # fraction]2.7 E9/L Normal1.0-4.0[facility] - CincinnatiComment on above:Order Comment: Order Added by Discern Expert.Performed By: #### [id number], 6865916, 98978942, 4207150, 6466767, 9563774 #### [facility] [address] [place] [address]Yerspbdfn/100 WBC (Bld)7.9 %Normal4.0-14.0[facility] Hospital - CincinnatiComment on above:Order Comment: Order Added by Discern Expert.Performed By: #### [id number], 2739534, 91497009, 1621226, 1998628, 6419943 #### [facility] [address], [place] [address]Xitehmjsm/Leukocytes Auto (Bld) [Pure # fraction]1.0 E9/LNormal 0.2-1.0[facility] Hospital - CincinnatiComment on above:Order Comment: Order Added by Discern Expert.Performed By: #### 23832813, 9066329, 27028664, 2750327, 3263645, 0523425 #### [facility] [address], [place] [address]Ztkrpyzfiio/100 WBC (Bld)68.3 %Knorqv10.0-75.0[facility] Hospital - CincinnatiComment on above:Order Comment: Order Added by Discern Expert. Performed By: #### [id number], 9026503, 38655152, 8158947, 4937416, 6914827 #### [facility] [address], [place] [address]Lloizivuzns/Leukocytes Auto (Bld) [Pure # fraction]8.7 E9/LHigh 2.0-7.5FAultman Alliance Community HospitalComment on above:Order Comment: Order Added by Discern Expert.Performed By: #### 53543684, 8770126, 17771143, 8571885, 3876525, 8701203 #### [facility] [address], [place] [address]THPrm 23-46-9923Clkyulihzo [Mass/Vol]1.5 mg/dLHigh0.5-1.3FAultman Alliance Community HospitalComment on above:Performed By: #### 18460134, 2281853, 23074983, 1292167, 9847055, 1002401 #### [facility] [address], [place] [address]Tpyr nitrogen [Mass/Vol]26 mg/dLHigh5-21[facility] Hospital - CincinnatiComment on above:Performed By: #### 81863751, 5282694, 23832943, 0174875, 4164497, 9654929 #### [facility] [address], [place] [address]Sxab nitrogen/Creatinine [Mass ratio]17 No IgwmyZwprha23-79 [facility] Hospital - CincinnatiComment on above:Performed By: #### 63668963, 9502771, 88777726, 8052497, 1055720, 4860695 #### [facility] [address], [place] [address]Vcxqq gap [Moles/Vol]18 mmol/LHigh6-16[facility] Hospital - CincinnatiComment on above:Performed By: #### 30319241, 9078723, 59065552, 1095369, 1768886, 3922304 #### [facility] [address], [place] [address]Pbjnniy [Mass/Vol]9.9 mg/dLNormal8.9-11.1FAultman Alliance Community HospitalComment on above:Performed By: #### 87864078, 3357333, 59235147, 0322972, 7000311, 5555664 #### [facility] [address], [place] [address]Jzfxgvsy [Moles/Vol]92 mmol/BUka647-568BcvsldSelect Medical Specialty Hospital - CincinnatiComment on above:Performed By: #### 74230804, 3924952, 42030172, 1775488, 6084293, 1696539 #### [facility] [address], [place] [address]GE5 [Moles/Vol]30 mmol/ZVgwvrq26-57KcgilhSelect Medical Specialty Hospital - Cincinnati Comment on above:Performed By: #### 89005472, 6132960, 77298025, 8747419, 5105681, 6876411 #### [facility] [address], [place] [address]Toorcsj [Mass/Vol]168 mg/wALimbos87-121LceybuSelect Medical Specialty Hospital - CincinnatiComment on above:Result Comment: If this glucose result represents a fasting glucose, interpretation should refer tothe following reference range: 55-99 mg/dLPerformed By: #### 99696064, 1863934, 23061162, 2639872, 3379067, 5859106 #### [facility] [address], [place] [address]Kpfdqketa [Moles/Vol]4.6 mmol/LNormal3.5-5.3FAultman Alliance Community HospitalComment on above:Performed By: #### 46511854, 2180335, 66952388, 5854197, 4530595, 4483111 #### [facility] [address], [place] [address]Itilig [Moles/Vol]135 mmol/KNoqydq630-811UzablcSelect Medical Specialty Hospital - CincinnatiComment on above:Performed By: #### 79630417, 8533969, 62499428, 4588357, 6939472, 7062651 #### [facility] [address], [place] [address]LQF w/ Auto Diffon 87-58-2017Cwxxkxdugrp distribution width (RBC) [Ratio]14.6 %High10.9-14.2FAultman Alliance Community HospitalComment on above: Performed By: #### 96642186, 8063147, 82800728, 0897209, 2053146, 2659618 #### [facility] [address], [place] [address]Wcadsonhzd (Bld) [Volume fraction]44.7 %Gdzbsp51.7-49.0[facility] Hospital - CincinnatiComment on above:Performed By: #### 18089271, 0426202, 90627780, 1906625, 3465244, 0063972 #### [facility] [address], [place] [address]Jxywsxzgoi (Bld) [Mass/Vol]15.2 g/vUUjdozr62.5-17.5FAultman Alliance Community HospitalComment on above:Performed By: #### 89272387, 4356103, 57548128, 4701382, 8730779, 4983403 #### [facility] [address] [place] [address] (RBC) [Entitic mass]30.7 ipXhbnxo03.0-34.0[facility] - CincinnatiComment on above:Performed By: #### 39413067, 4226554, 51154646, 8177881, 1804443, 8078540 #### [facility] [address] [place] [address] (RBC) [Mass/Vol]34.1 g/sORmcblu69.4-36.0[facility] Hospital - CincinnatiComment on above:Performed By: #### 44587353, 9178790, 48371908, 8895134, 6813870, 7733731 #### [facility] [address] [place], [place] [address]V (RBC) [Entitic vol]90.0 nTUdckno66.0-100.0[facility] Hospital - CincinnatiComment on above:Performed By: #### 84051454, 8588288, 49127735, 5334288, 6378530, 1576147 #### [facility] [address] [place] [address]Pxsojfiq mean volume (Bld) [Entitic vol]9.3 fLNormal6.4-10.8 [facility] - CincinnatiComment on above:Performed By: #### 59106278, 8581935, 12943811, 1307277, 1272408, 0008711 #### [facility] [address] [place] [address]Hkuscjfam (Bld) [#/Vol]245.0 E9/EBumckt502.0-500.0[facility] - CincinnatiComment on above:Performed By: #### 24560687, 4991998, 58114551, 6160348, 4193062, 1981823 #### [facility] [address] [place] [address]CYV (Bld) [#/Vol]5.0 E12/LNormal4.3-5.9[facility] - CincinnatiComment on above:Performed By: #### 55407077, 4024772, 33509042, 9679370, 5136714, 3039907 #### [facility] [address], [place] [address]LRP corrected for nucl RBC Auto (Bld) [#/Vol]12.8 E9/LHigh 4.0-11.0[facility] - CincinnatiComment on above:Performed By: #### 13487290, 7950280, 39549097, 4060973, 5161279, 8693310 #### [facility] [address], [place] [address]QNUKBYZHADanqhal By: SYSTEM SYSTEM on 00-08-5531Pdfhw gap [Moles/Vol]18 mmol/LHigh6 - 16 mEq/LFTMC RemisolCalcium [Mass/Vol]9.9 mg/dL Normal8.9 - 11.1 mg/dLFT RemisolChloride [Moles/Vol]92 mmol/DDpq687 - 111 mmol/LFTMC RemisolCO2 [Moles/Vol]30 mmol/DUigtwc20 - 31 mmol/LFTMC Remisol Creatinine [Mass/Vol]1.5 mg/dLHigh0.5 - 1.3 mg/dLFTMC RemisolCRP [Mass/Vol]1.6 mg/dLNormal<=1.9mg/dLFTMC RemisolGFR/1.73 sq M.predicted among non-blacks MDRD (S/P/Bld) [Vol rate/Area]55 mL/min/1.73 m2Low>=59mL/min/1.73 m2[facility] Chem S Glucose [Mass/Vol]168 mg/nQSqfqqm74 - 199 mg/dLFTMC RemisolPotassium [Moles/Vol] 4.6 mmol/LNormal3.5 - 5.3 mmol/LFTMC RemisolSodium [Moles/Vol]135 mmol/LNormal 135 - 145 mmol/LFTMC RemisolUrea nitrogen [Mass/Vol]26 mg/dLHigh5 - 21 mg/dLHILLCREST MEDICAL [facility] RemisolUrea nitrogen/Creatinine [Mass ratio]17 mg/zmEzstxf10 - 20FT Remisol Consent for Treatmenton [id number] for Treatment [id number]:127[facility] CenterHEMATOLOGYOrdered By: SYSTEM SYSTEM on 84-42-0471Xaazxjmou/100 WBC (Bld) 0.6 %Normal0.0 - 2.0 %[facility] HemeAutoSSBasophils/Leukocytes Auto (Bld) [Pure # fraction]0.1 E9/LNormal0.0 - 0.2 E9/LFTMC HemeAutoSSEosinophils/100 WBC (Bld)2.0 %Normal0.0 - 8.0 %[facility] HemeAutoSSEosinophils/Leukocytes Auto (Bld) [Pure # fraction]0.3 E9/LNormal0.0 - 0.5 E9/LFTMC HemeAutoSSLymphocytes/100 WBC (Bld) 21.2 %Mwumjq53.0 - 50.0 %[facility] HemeAutoSSLymphocytes/Leukocytes Auto (Bld) [Pure # fraction]2.7 E9/LNormal1.0 - 4.0 E9/LFTMC HemeAutoSSMonocytes/100 WBC (Bld)7.9 %Normal4.0 - 14.0 %[facility] HemeAutoSSMonocytes/Leukocytes Auto (Bld) [Pure # fraction]1.0 E9/LNormal0.2 - 1.0 E9/LFTMC HemeAutoSSNeutrophils/100 WBC (Bld) 68.3 %Dqpzdk99.0 - 75.0 %[facility] HemeAutoSSNeutrophils/Leukocytes Auto (Bld) [Pure # fraction]8.7 E9/LHigh2.0 - 7.5 E9/LFTMC HemeAutoSSHEMATOLOGYOrdered By: Tova Bowie on 11-28-2133Zflxhtzswkp distribution width (RBC) [Ratio]14.6 % High10.9 - 14.2 %[facility] HemeAutoSSHematocrit (Bld) [Volume fraction]44.7 %Normal 37.7 - 49.0 %[facility] HemeAutoSSHemoglobin (Bld) [Mass/Vol]15.2 g/wUJqiumw81.5 - 17.5 gm/dLFTMC HemeAutoSSMCH (RBC) [Entitic mass]30.7 wvLmbnvw94.0 - 34.0 pgFTMC HemeAutoSSMCHC (RBC) [Mass/Vol]34.1 g/cAPujoqz74.4 - 36.0 gm/dLFTMC HemeAutoSS MCV (RBC) [Entitic vol]90.0 fZTnbmip20.0 - 100.0 fLFTMC HemeAutoSSPlatelet mean volume (Bld) [Entitic vol]9.3 fLNormal6.4 - 10.8 fLFTMC HemeAutoSSPlatelets (Bld) [#/Vol]245.0 E9/QBzbltx469.0 - 500.0 E9/LFTMC HemeAutoSSRBC (Bld) [#/Vol] 5.0 E12/LNormal4.3 - 5.9 E12/LFTMC HemeAutoSSSed Rate Automated9 mm/hNormal0 - 19 mm/hrFTMC HemeAutoSSWBC corrected for nucl RBC Auto (Bld) [#/Vol]12.8 E9/L High4.0 - 11.0 E9/LFTMC HemeAutoSSeGFRon 35-20-5964EWO/1.73 sq M.predicted among non-blacks MDRD (S/P/Bld) [Vol rate/Area]55 mL/min/1.73 m2Low>=59[facility] - CincinnatiComment on above:Order Comment: Order added by Discern Expert. Result Comment: Chronic kidney disease could be indicated at eGFR's of less than 60 mL/min/1.73m2. Kidney failure is indicated at less than 15 mL/min/1.73m2. Performed By: #### [id number], 7646829, 04896253, 3029836, 8160329, 6047944 #### [facility] [address], [place] [address]I-Ndqwpsoa Proteinon 05-72-0573OZD [Mass/Vol]13.8 mg/LHigh 0.0-5.0Mer Burlington HospitalComment on above:Performed By: #### CRP, CREG, CDP, SED #### [facility] [address] [place] [address] Framing Machine Tender: MARGO Mena High sensitivity method [Mass/Vol]13.8 mg/L High0.0 - 5.0 mg/LBON WRIGHT-PATTERSON MEDICAL CENTERInterpretation and review of laboratory resultsAbnormalBON SECOURS HEALTH SYSTEMCBC with Auto Differentialon 29-86-9731Qxqvclgym (Bld) [#/Vol]0.05 10*3/uLBON WR[facility] Basophils/100 WBC (Bld)1 %0 - 2 %[facility] HEALTH SYSTEMEosinophils (Bld) [#/Vol]0.39 10*3/uLBON WRIGHT-PATTERSON MEDICAL CENTEREosinophils/100 WBC (Bld)6 %High1 - 4 %[facility] HEALTH SYSTEMErythrocyte distribution width (RBC) [Ratio]13.0 %11.8 - 14.4 %[facility] HEALTH SYSTEMHematocrit (Bld) [Volume fraction]42.2 %40.7 - 50.3 %[facility]ALTH SYSTEMHemoglobin (Bld) [Mass/Vol]13.9 g/dL13.0 - 17.0 g/dLBON WRIGHT-PATTERSON MEDICAL CENTERImmature granulocytes (Bld) [#/Vol][facility] CENTERImmature granulocytes/100 WBC (Bld)0 %0B[facility] Interpretation and review of laboratory resultsAbnormHenrico Doctors' [facility] Lymphocytes/100 WBC (Bld)25 %24 - 43 %[facility] HEALTH SYSTEMLymphocytes/100 WBC (Bld)1.63 %[facility] (RBC) [Entitic mass]30.0 pg25.2 - 33.5 pgDOMINION HOSPITALHC (RBC) [Mass/Vol]32.9 g/dL28.4 - 34.8 g/dLBON DAYTON VA MEDICAL CENTERV (RBC) [Entitic vol]90.9 fL82.6 - 102.9 fLBON SECOURS HEALTH SYSTEMMonocytes/100 WBC (Bld)6 %3 - 12 %[facility] Monocytes/100 WBC (Bld)0.42 %[facility]ALTH SYSTEMNeutrophils/100 WBC (Bld)62 %36 - 65 %[facility] HEALTH SYSTEMNRBC Automated0.00.0 per 100 WBCBON SECOURS HEALTH SYSTEMPlatelet mean volume (Bld) [Entitic vol]11.4 fL8.1 - 13.5 fLBON WRIGHT-PATTERSON MEDICAL CENTERPlatelets (Bld) [#/Vol]271 10*3/uLBON [facility] RBC (Bld) [#/Vol]4.64 10*6/uL4.21 - 5.77 m/uLBON SECOURS HEALTH SYSTEMSegmented neutrophils/100 WBC (Bld)4.12 %[facility] HEALTH SYSTEMWBC other (Bld) [#/Vol] 6.6BON BLACK HILL[facility] SURGERY CENTERCBC with Diffon 03-25-2023 Abs. Basophil0.05 k/uLNormal0.00-0.20[facility] HospitalComment on above: Performed By: #### CRP, CREG, CDP, SED #### [address] [place] [address] Framing Machine Tender: Cayetano Mena.Imm.Granulocyte<0.35Clgyii3.00-0.30[facility] HospitalComment on above:Performed By: #### CRP, CREG, CDP, SED #### [address] [place] [address] Framing Machine Tender: Cayetano Mena.Neutrophil (Seg)4.12 k/uLNormal1.50-8.10[facility] HospitalComment on above:Performed By: #### CRP, CREG, CDP, SED #### [address] [place] [address] Framing Machine Tender: Gold Duncan MDBasophils/100 WBC (Bld)1 %Normal0-2[facility] HospitalComment on above:Performed By: #### CRP, CREG, CDP, SED #### [address] [place], [place] [address] Framing Machine Tender: Gold Duncan MDEosinophils (Bld) [#/Vol]0.39 10*3/uLNormal 0.00-0.44[facility] HospitalComment on above:Performed By: #### CRP, CREG, CDP, SED #### [address] [place], [place] [address] Framing Machine Tender: Gold Duncan MDEosinophils/100 WBC (Bld)6 %High1-4[facility] HospitalComment on above:Performed By: #### CRP, CREG, CDP, SED #### [address] [place] [address] Framing Machine Tender: Gold Duncan MDErythrocyte distribution width (RBC) [Ratio]13.0 % Jmytna98.8-14.4MerSelect Medical Specialty Hospital - Cincinnati HospitalComment on above:Performed By: #### CRP, CREG, CDP, SED #### [address] [place] [address] Framing Machine Tender: Gold Duncan MDHematocrit (Bld) [Volume fraction]42.2 %Normal 40.7-50.3[facility] HospitalComment on above:Performed By: #### CRP, CREG, CDP, SED #### [address] [place], [place] [address] Framing Machine Tender: Gold Duncan MDHemoglobin (Bld) [Mass/Vol]13.9 g/dLNormal 13.0-17.0[facility] HospitalComment on above:Performed By: #### CRP, CREG, CDP, SED #### [address] [place], [facility]83 Framing Machine Tender: Gold Duncan MDImmature granulocytes/100 WBC (Bld)0 %Pmutlc3Caybj [facility]iffin HospitalComment on above:Performed By: #### CRP, CREG, CDP, SED #### [address] [place] [address] Framing Machine Tender: Gold Duncan MDLymphocytes (Bld) [#/Vol]1.63 10*3/uLNormal 1.10-3.70[facility] HospitalComment on above:Performed By: #### CRP, CREG, CDP, SED #### [address] [place], [place] [address] Framing Machine Tender: Verna Menamphocytes/100 WBC (Bld)25 %Xqkebl81-46Crgvn [facility] HospitalComment on above:Performed By: #### CRP, CREG, CDP, SED #### [address] [place], [place] [address] Framing Machine Tender: KAREN Mena (RBC) [Entitic mass]30.0 gwLvzvwv37.2-33.5 [facility] HospitalComment on above:Performed By: #### CRP, CREG, CDP, SED #### [address] [place], [facility]83 Framing Machine Tender: KAREN MenaC (RBC) [Mass/Vol]32.9 g/jRZotdzl30.4-34.8[facility] HospitalComment on above:Performed By: #### CRP, CREG, CDP, SED #### [address] [place], [facility]83 Framing Machine Tender: VINNY Mena (RBC) [Entitic vol]90.9 iFDvrvng61.6-102.9 [facility] HospitalComment on above:Performed By: #### CRP, CREG, CDP, SED #### [address] [place], [facility]83 Framing Machine Tender: EDUIN Menaonocytes (Bld) [#/Vol]0.42 10*3/uLNormal0.10-1.20 [facility] HospitalComment on above:Performed By: #### CRP, CREG, CDP, SED #### [address] [place], [facility]83 Framing Machine Tender: EDUIN Menaonocytes/100 WBC (Bld)6 %Normal3-12[facility] HospitalComment on above:Performed By: #### CRP, CREG, CDP, SED #### [address] [place], [place] [address] Framing Machine Tender: Rio Menautrophil (Seg)62 %Siemep29-72MlefcProtestant Deaconess HospitalComment on above:Performed By: #### CRP, CREG, CDP, SED #### [address] [place], [place] [address] Framing Machine Tender: Gold Duncan MDNRBC Automated0.0 per 100 WBCNormal0.0[facility] HospitalComment on above:Performed By: #### CRP, CREG, CDP, SED #### [address] [place], [place] [address] Framing Machine Tender: Stacey Menatelet mean volume (Bld) [Entitic vol]11.4 fL Normal8.1-13.5[facility] HospitalComment on above:Performed By: #### CRP, CREG, CDP, SED #### [address] [place], [place] [address] Framing Machine Tender: ALVARADO Menalatelets (Bld) [#/Vol]271 10*3/rACtyeqg603-157 [facility] HospitalComment on above:Performed By: #### CRP, CREG, CDP, SED #### [address] [place], [place] [id number] Framing Machine Tender: LAST Mena (Bld) [#/Vol]4.64 10*6/uLNormal4.21-5.77[facility] HospitalComment on above:Performed By: #### CRP, CREG, CDP, SED #### [address] [address] [place], [facility]83 Framing Machine Tender: MARY Mena (Bld) [#/Vol]6.6 10*3/uLNormal3.5-11.3[facility] Administration Medical CenterComment on above:Performed By: #### CRP, CREG, CDP, SED #### [address] [place], [facility]83 Framing Machine Tender: DAVID Menareatinineon 98-38-2624Aqqjcdvjek [Mass/Vol]0.97 mg/dL0.70 - 1.20 mg/dLBON WRIGHT-PATTERSON MEDICAL CENTERGFR/1.73 sq M.predicted MDRD (S/P/Bld) [Vol rate/Area]- [facility] CENTERComhutzel women[facility] hospital on above: These results are not intended for use in patients <18 years of age. eGFR results are calculated without a race factor using the 2020 CKD-EPI equation. Careful clinical correlation is recommended, particularly when comparing to results calculated using previous equations. The CKD-EPI equation is less accurate in patients with extremes of muscle mass, extra-renal metabolism of creatine, excessive creatine ingestion, or following therapy that affects renal tubular secretion. Creatinine w/GFRon 14-07-4039Xmcosmskuf [Mass/Vol]0.97 mg/dLNormal0.70-1.20[facility] HospitalComment on above:Performed By: #### CRP, CREG, CDP, SED #### [address] [place] [address] Framing Machine Tender: Gold Duncan MDGFR/1.73 sq M.predicted among non-blacks MDRD (S/P/Bld) [Vol rate/Area]mL/min/{1.73_m2}Normal>60[facility] HospitalComment on above:Result Comment: These results are not intended for use in patients <18 years of age. eGFR results are calculated without a race factor using the 2020 CKD-EPI equation. Careful clinical correlation is recommended, particularly when comparing to results calculated using previous equations. The CKD-EPI equation is less accurate in patients with extremes of muscle mass, extra-renal metabolism of creatine, excessive creatine ingestion, or following therapy that affects renal tubular secretion.Performed By: #### CRP, CREG, CDP, SED #### [address] [place] [address] Framing Machine Tender: Jay Mena Panel Informationon 75-66-0718LWH WRIGHT-PATTERSON MEDICAL CENTERSedimentation Rateon 72-68-6125Kwurloobzdeby Rate42 mm/HrHigh0-20[facility] HospitalComment on above:Performed By: #### CRP, CREG, CDP, SED #### [address] [place] [address] Framing Machine Tender: PRAVEENA MenaR (Bld) [Velocity]42 mm/hHRappahannock General HospitalInterpretation and review of laboratory resultsAbnormalBON BLACK HILLS SURGERY CENTERC-Reactive Proteinon 05-36-1169HPD [Mass/Vol]11.6 mg/LHigh0.0-5.0[facility] HospitalComment on above:Performed By: #### SED, CREG, CDP, CRP #### [address] [place] [address] Framing Machine Tender: MARGO Mena High sensitivity method [Mass/Vol]11.6 mg/L High0.0 - 5.0 mg/LBON WRIGHT-PATTERSON MEDICAL CENTERCBC with Auto Differentialon 17-89-9726Naypmuibj (Bld) [#/Vol]0.05 10*3/uLBON WRIGHT-PATTERSON MEDICAL [facility]ENTER Basophils/100 WBC (Bld)1 %0 - 2 %[facility] HEALTHEosinophils (Bld) [#/Vol]0.32 10*3/uLBON SECOURS MERCY HEALTHEosinophils/100 WBC (Bld)4 %1 - 4 % [facility]ITALY HEALTHErythrocyte distribution width (RBC) [Ratio]12.6 %11.8 - 14.4 %[facility]ITALY HEALTHHematocrit (Bld) [Volume fraction]45.1 %40.7 - 50.3 %[facility]ITALY HEALTHHemoglobin (Bld) [Mass/Vol]15.0 g/dL13.0 - 17.0 g/dLBON SECOURS MERCY HEALTHImmature granulocytes (Bld) [#/Vol][facility]Y HEALTHImmature granulocytes/100 WBC (Bld)0 %0[facility] Lymphocytes/100 WBC (Bld)25 %24 - 43 %[facility]ICAL CENTERLymphocytes/100 WBC (Bld)2.26 %[facility]ITALH (RBC) [Entitic mass]30.1 pg25.2 - 33.5 pgBON SECOURS ADAMS COUNTY HOSPITALHC (RBC) [Mass/Vol]33.3 g/dL28.4 - 34.8 g/dLBON SECOURS ADAMS COUNTY HOSPITALV (RBC) [Entitic vol]90.6 fL82.6 - 102.9 fLBON SECOURS PRE[facility] HEALTHMonocytes/100 WBC (Bld)8 %3 - 12 %[facility] Monocytes/100 WBC (Bld)0.73 %[facility] HEALTHNeutrophils/100 WBC (Bld)62 %36 - 65 %[facility]ITALY HEALTHNRBC Automated0.00.0 per 100 WBCBON SECOURS BARNESVILLE HOSPITALY HEALTHPlatelet mean volume (Bld) [Entitic vol]12.2 fL8.1 - 13.5 fLBON SECOURS MERCY HEALTHPlatelets (Bld) [#/Vol]309 10*3/uLBON SECOURS [facility] HEALTH RBC (Bld) [#/Vol]4.98 10*6/uL4.21 - 5.77 m/uLBON SECOURS COSHOCTON REGIONAL MEDICAL CENTERSegmented neutrophils/100 WBC (Bld)5.84 %[facility]ITALY HEALTHWBC other (Bld) [#/Vol] 9.2BON [facility]-PATTER[facility] MEDICAL CENTERBON SECSUM[facility] with Diffon 03-19-2023 Abs. Basophil0.05 k/uLNormal0.00-0.20MerSelect [facility] - [facility] HospitalComment on above: Performed By: #### SED, CREG, CDP, CRP #### [address] [place], [place] [address] Framing Machine Tender: MDAbs. RajeshImm.Granulocyte<0.18Fppuru1.00-0.30MerSelect [facility] Specialty Hospital - [facility] HospitalComment on above:Performed By: #### SED, CREG, CDP, CRP #### [address] [place], [place] [address] Framing Machine Tender: Cayetano Mena.Neutrophil (Seg)5.84 k/uLNormal1.50-8.10MerSelect [facility]ty Hospital - [facility] HospitalComment on above:Performed By: #### SED, CREG, CDP, CRP #### [address] [place], [place] [address] Framing Machine Tender: Gold Duncan MDBasophils/100 WBC (Bld)1 %Normal0-2[facility]lington HospitalComment on above:Performed By: #### SED, CREG, CDP, CRP #### [address] [place], [place] [address] Framing Machine Tender: Gold Duncan MDEosinophils (Bld) [#/Vol]0.32 10*3/uLNormal 0.00-0.44MerSelect [facility] HospitalComment on above:Performed By: #### SED, CREG, CDP, CRP #### [address] [place], [place] [address] Framing Machine Tender: JOCELYN Menaosinophils/100 WBC (Bld)4 %Normal1-4MerSelect [facility] - [facility] HospitalComment on above:Performed By: #### SED, CREG, CDP, CRP #### [address] [place], [place] [address] Framing Machine Tender: Gold Duncan MDErythrocyte distribution width (RBC) [Ratio]12.6 % Zcrebu33.8-14.4[facility] HospitalComment on above:Performed By: #### SED, CREG, CDP, CRP #### [address] [place] [address] Framing Machine Tender: Gold Duncan MDHematocrit (Bld) [Volume fraction]45.1 %Normal 40.7-50.3[facility] Medical CenterComment on above:Performed By: #### SED, CREG, CDP, CRP #### [address] [place] [address] Framing Machine Tender: Gold Duncan MDHemoglobin (Bld) [Mass/Vol]15.0 g/dLNormal 13.0-17.0[facility] HospitalComment on above:Performed By: #### SED, CREG, CDP, CRP #### [address] [place] [address] Framing Machine Tender: Gold Duncan MDImmature granulocytes/100 WBC (Bld)0 %Xurmyz8PpxhkProtestant Deaconess HospitalComment on above:Performed By: #### SED, CREG, CDP, CRP #### [address] [place], [place] [address] Framing Machine Tender: Gold Duncan MDLymphocytes (Bld) [#/Vol]2.26 10*3/uLNormal 1.10-3.70[facility] HospitalComment on above:Performed By: #### SED, CREG, CDP, CRP #### [address] [place] [id number] Framing Machine Tender: Verna Menamphocytes/100 WBC (Bld)25 %Nlbfrt96-97TuxrsProtestant Deaconess HospitalComment on above:Performed By: #### SED, CREG, CDP, CRP #### [address] [place], [place] [address] Framing Machine Tender: EDUIN MenaCH (RBC) [Entitic mass]30.1 xdHtlkcv03.2-33.5 [facility] HospitalComment on above:Performed By: #### SED, CREG, CDP, CRP #### [address] [place], [place] [address] Framing Machine Tender: KAREN MenaC (RBC) [Mass/Vol]33.3 g/kOAdqzbc74.4-34.8[facility] HospitalComment on above:Performed By: #### SED, CREG, CDP, CRP #### [address] [place], [place] [address] Framing Machine Tender: EDUIN MenaCV (RBC) [Entitic vol]90.6 eGQiklmv74.6-102.9 [facility] HospitalComment on above:Performed By: #### SED, CREG, CDP, CRP #### [address] [place], [place] [address] Framing Machine Tender: EDUIN Menaonocytes (Bld) [#/Vol]0.73 10*3/uLNormal0.10-1.20 [facility] HospitalComment on above:Performed By: #### SED, CREG, CDP, CRP #### [address] [place], [facility]83 Framing Machine Tender: EDUIN Menaonocytes/100 WBC (Bld)8 %Normal3-12[facility] HospitalComment on above:Performed By: #### SED, CREG, CDP, CRP #### [address] [place], [facility]83 Framing Machine Tender: Gold Sturtz, MDNeutrophil (Seg)62 %Rpkyij45-63Rnzgo Tiffin HospitalComment on above:Performed By: #### SED, CREG, CDP, CRP #### [address] [place], [place] [address] Framing Machine Tender: Gold Duncan MDNRBC Automated0.0 per 100 WBCNormal0.0[facility] HospitalComment on above:Performed By: #### SED, CREG, CDP, CRP #### [address] [place], [facility]83 Framing Machine Tender: Oneida Mena mean volume (Bld) [Entitic vol]12.2 fL Normal8.1-13.5[facility] HospitalComment on above:Performed By: #### SED, CREG, CDP, CRP #### [address] [place], [place] [address] Framing Machine Tender: Zayra Mena (Bld) [#/Vol]309 10*3/yWSnjfsk516-315 [facility] HospitalComment on above:Performed By: #### SED, CREG, CDP, CRP #### [address] [place], [facility]83 Framing Machine Tender: LAST Mena (Bld) [#/Vol]4.98 10*6/uLNormal4.21-5.77[facility] HospitalComment on above:Performed By: #### SED, CREG, CDP, CRP #### [address] [place] [address] Framing Machine Tender: MARY Mena (Bld) [#/Vol]9.2 10*3/uLNormal3.5-11.3MMain Campus Medical Center HospitalComment on above:Performed By: #### SED, CREG, CDP, CRP #### [address] [place], [facility]83 Framing Machine Tender: DAVID Menareatinineon 35-25-6851Szzjgampef [Mass/Vol]1.24 mg/dLHigh0.70 - 1.20 mg/dLBON WRIGHT-PATTERSON MEDICAL CENTERGFR/1.73 sq M.predicted MDRD (S/P/Bld) [Vol rate/Area]- PINFBON WRIGHT-PATTERSON MEDICAL CENTERComhutzel women's hospital on above: These results are not intended for use in patients <18 years of age. eGFR results are calculated without a race factor using the 2020 CKD-EPI equation. Careful clinical correlation is recommended, particularly when comparing to results calculated using previous equations. The CKD-EPI equation is less accurate in patients with extremes of muscle mass, extra-renal metabolism of creatine, excessive creatine ingestion, or following therapy that affects renal tubular secretion. Creatinine w/GFRon 33-78-0016Tbnbsqothe [Mass/Vol]1.24 mg/dLHigh0.70-1.20[facility] HospitalComment on above:Performed By: #### SED, CREG, CDP, CRP #### [address] [place] [address] Framing Machine Tender: Gold Duncan MDGFR/1.73 sq M.predicted among non-blacks MDRD (S/P/Bld) [Vol rate/Area]mL/min/{1.73_m2}Normal>60[facility] HospitalComhutzel women's hospital on above:Result Comment: These results are not intended for use in patients <18 years of age. eGFR results are calculated without a race factor using the 2020 CKD-EPI equation. Careful clinical correlation is recommended, particularly when comparing to results calculated using previous equations. The CKD-EPI equation is less accurate in patients with extremes of muscle mass, extra-renal metabolism of creatine, excessive creatine ingestion, or following therapy that affects renal tubular secretion.Performed By: #### SED, CREG, CDP, CRP #### [address] [place] [address] Framing Machine Tender: Gold Duncan MDNo Panel Informationon 66-97-3959Yujctujympwokl and review of laboratory resultsAbnormalSENTARA NORFOLK [facility]ITAL MERCY HEALTHSedimentation Rateon 49-48-3685Ffpcgiqdtgnmg Rate46 mm/HrHigh0-20 [facility] HospitalComment on above:Performed By: #### SED, CREG, CDP, CRP #### [facility] [address] [place] [address] Framing Machine Tender: NIKHIL Mena (Bld) [Velocity]46 mm/hHRappahannock General HospitalInterpretation and review of laboratory resultsAbnormShenandoah Memorial HospitalAlanine aminotransferase [Enzymatic activity/volume] in Serum or PlasmaOrdered By: Rand Mobley on 58-64-8312KFM [Catalytic activity/Vol]17 U/L7-52[facility] CenterAlbumin [Mass/volume] in Serum or Plasma by Bromocresol green (BCG) dye binding metho Ordered By: Rand Valeraore on 88-26-1960Opxwcji BCG dye [Mass/Vol]3.7 g/dL 3.5-5.7FRegency Hospital ToledoAlkaline phosphatase [Enzymatic activity/volume] in Serum or PlasmaOrdered By: Rand Bullimore on 35-11-3188SNT [Catalytic activity/Vol]87 U/D85-873YhugnbtwjMetrohealth Main Campus Medical CenterAspartate aminotransferase [Enzymatic activity/volume] in Serum or PlasmaOrdered By: Rand Martinezimore on 81-98-2121KUN [Catalytic activity/Vol]15 U/U63-25FuwvhjtviMetrohealth Main Campus Medical CenterBasophils Auto (Bld) [#/Vol]Ordered By: Rand Martinezimore on 03-85-6056Widdjmxsf (Bld) [#/Vol]0.1 10*3/uL0.0-0.2FRegency Hospital ToledoBasophils/100 WBC Auto (Bld)Ordered By: Rand Valeraore on 03-04-2023 Basophils/100 WBC (Bld)0.6 %.[facility] Medical CenterBilirubin Test strip Ql (U)Ordered By: Renetta Ashton on 63-49-6814Utcnyejat Ql (U)Negative NegativeMetrohealth Main Campus Medical CenterBilirubin.total [Mass/volume] in Serum or PlasmaOrdered By: Rand Bullimore on 41-88-8888Hxmkmttjj [Mass/Vol]0.6 mg/dL 0.3-1.0[facility] CenterCalcium [Mass/volume] in Serum or Plasma Ordered By: Rand Bullimore on 37-42-3968Xafuotg [Mass/Vol]9.2 mg/dL8.6-10.3 [facility] CenterCarbon dioxide, total [Moles/volume] in Serum or PlasmaOrdered By: Rand Bullimore on 40-25-5287JD8 [Moles/Vol]35.3 mmol/L 21.0-31.0[facility] CenterChloride [Moles/volume] in Serum or PlasmaOrdered By: Rand Bullimore on 08-51-9305Yhsichoi [Moles/Vol]96 mmol/L 98-107[facility] CenterColor Auto (U)Ordered By: Renetta Ashton on 25-87-5198Ycjvy (U)YellowYellowMetrohealth Main Campus Medical Center Creatinine [Mass/volume] in Serum or PlasmaOrdered By: Rand Juanimore on 76-80-7989Uelsgyiptw [Mass/Vol]0.74 mg/dL0.70-1.30[facility] Medical CenterEosinophils Auto (Bld) [#/Vol]Ordered By: [facility] Bullimore on 03-04-2023 Eosinophils (Bld) [#/Vol]0.1 10*3/uL0.0-0.45[facility] Eosinophils/100 WBC Auto (Bld)Ordered By: Rand Bullimore on 03-04-2023 Eosinophils/100 WBC (Bld)0.7 %.[facility] Medical CenterErythrocyte distribution width Auto (RBC) [Ratio]Ordered By: Rand Bullimore on 03-04-2023 Erythrocyte distribution width (RBC) [Ratio]12.6 %12.0-14.8[facility] Medical CenterGlobulin Calc (S) [Mass/Vol]Ordered By: Rand Bullimore on 34-11-0231Sprknort (S) [Mass/Vol]3.6 g/dLMetrohealth Main Campus Medical Center Glucose [Mass/volume] in Serum or PlasmaOrdered By: Rand Mobley on 13-35-4386Dulgnfz [Mass/Vol]132 mg/hQ04-499PpafaccpeMetrohealth Main Campus Medical Center Comment on above:ADA recommended reference rangeRandom Glucose Reference Range is dependent on time and content of last meal. Glucose of more than 200 mg/dL in a nonstressed, ambulatory subject supports the diagnosisof Diabetes Mellitus. Hematocrit Auto (Bld) [Volume fraction]Ordered By: Rand Mobley on 66-09-0270Brrfjyvikl (Bld) [Volume fraction]41.5 %38.8-50.0[facility] Medical CenterHemoglobin [Mass/volume] in BloodOrdered By: Rand Mobley on 28-94-7448Gdxbrlsgve (Bld) [Mass/Vol]13.7 g/dL13.0-17.0[facility] Medical CenterKetones Auto test strip (U) [Mass/Vol]Ordered By: Renetta Ashton on 90-37-4703Pprniiw (U) [Mass/Vol]NegativeNegativeMetrohealth Main Campus Medical CenterLaboratory - Chemistry and Chemistry - challengeOrdered By: Renetta Ashton on 21-08-7491JO2 [Moles/Vol]31.7 mmol/L23.0-27.0[facility] Medical CenterHCO3 (Bld) [Moles/Vol]30.0 mmol/L23.0-29.0[facility] Medical CenterLeukocytes [#/volume] corrected for nucleated erythrocytes in Blood by Automated counOrdered By: Rand Mobley on 11-31-7922NNC corrected for nucl RBC Auto (Bld) [#/Vol]13.7 10*3/uL4.1-10.5FRegency Hospital ToledoLymphocytes Auto (Bld) [#/Vol]Ordered By: Rand Mobley on 03-04-2023 Lymphocytes (Bld) [#/Vol]2.3 10*3/uL1.00-4.8[facility] Lymphocytes/100 WBC Auto (Bld)Ordered By: Rand Mobley on 03-04-2023 Lymphocytes/100 WBC (Bld)16.5 %.[facility] Medical CenterMCH Auto (RBC) [Entitic mass]Ordered By: Rand Bullimore on 03-39-9327XVZ (RBC) [Entitic mass] 29.5 pg27.5-35.2FRegency Hospital ToledoMCHC Auto (RBC) [Mass/Vol] Ordered By: Rand Bullimore on 96-46-7165OODQ (RBC) [Mass/Vol]33.0 g/dL 32.5-35.6FRegency Hospital ToledoMCV Auto (RBC) [Entitic vol]Ordered By: Rand Bullimore on 40-41-6962OGU (RBC) [Entitic vol]89.3 fL83.5-101 [facility] CenterMonocyte distribution width [Entitic volume] in Blood by AutomatedOrdered By: Rand Bullimore on 90-01-1802Ntfrafre distribution width Auto (Bld) [Entitic vol]20.29 %0.00-20.00[facility] CenterComment on above:For adults in ED, MDW > 20.0 may be associated with a higher risk of sepsis during the first 12 hrs of hospital admission Monocytes Auto (Bld) [#/Vol]Ordered By: Rand Bullimore on 25-22-2258Biopdndga (Bld) [#/Vol]1.4 10*3/uL0.0-0.8[facility] CenterMonocytes/100 WBC Auto (Bld)Ordered By: Rand Bullimore on 56-20-5149Jhwrdbjuz/100 WBC (Bld) 10.0 %.[facility] Medical CenterNeutrophils Auto (Bld) [#/Vol]Ordered By: Rand Bullimore on 77-07-3416Lrgsrkatrvw (Bld) [#/Vol]9.9 10*3/uL1.8-7.7 [facility] CenterNeutrophils/100 WBC Auto (Bld)Ordered By: Rand Bullimore on 17-52-7170Xgrrtjoqlwd/100 WBC (Bld)72.2 %.[facility] Medical CenterNitrite Test strip Ql (U)Ordered By: Renetta Ashton on 00-96-3458Awotmaw Ql (U)NegativeNegativeMetrohealth Main Campus Medical CenterNo Panel InformationOrdered By: Renetta Ashton on 26-89-3190Prhmlvun Blood Base Excess2.9 mmol/L-3.0-3.0[facility] Medical CenterArterial Blood Oxygen Content8.9 mmol/L6.6-9.7FRegency Hospital ToledoArterial Blood Oxygen Ikxhxefumh94.5 %95.0-100.0[facility] Medical CenterArterial Blood Partial Pressure CO255.9 mm[Hg]35.0-45.0[facility] Arterial Blood Partial Pressure O2132.2 mm[Hg]80.0-100.0[facility] Medical CenterArterial Blood pH7.357.35-7.45[facility] Blood Gas Critical ValueSee commentMetrohealth Main Campus Medical CenterComment on above:Critical Value called on: 03/04/2023 at 18:49Blood Gas PEEP5 cmH2O [facility] CenterBlchippewa city montevideo hospital Gas Sample SiteRight heelMetrohealth Main Campus Medical CenterBlood Gas Set Respiration Ntup59EabnnxjozMetrohealth Main Campus Medical CenterBlood Gas Tidal Lgjpcx273 mLMetrohealth Main Campus Medical CenterBlood Gas Ventilator ModeAcMetrohealth Main Campus Medical CenterFiO260 %[facility] CenterNo Panel InformationOrdered By: Rand Mobley on 76-78-6202Xsennztay GFR (CKD-EPI)> 60.0 mL/MinMetrohealth Main Campus Medical Center Pharmacy Creatinine Clearance (Tals822.86[facility] Nucleated erythrocytes [Presence] in Blood by Automated countOrdered By: Rand Mobley on 12-34-8501Kpbteeiry RBC Auto Ql (Bld)0.1 /100{WBC}0-0.5FRegency Hospital ToledoPlatelet adequacy [Presence] in Blood by Light microscopy Ordered By: Rand Mobley on 79-83-0690Gvsqcdvjl LM Ql (Bld)NormalNoal [facility] Medical CenterPlatelet mean volume Auto (Bld) [Entitic vol] Ordered By: Rand Mobley on 20-41-7400Lbzsrfhn mean volume (Bld) [Entitic vol]9.1 fL6.6-10.1FRegency Hospital ToledoPlatelet morphology finding [Identifier] in BloodOrdered By: Rand Mobley on 08-96-0154Opjhxeih morphology finding Nom (Bld)NormalNormalMetrohealth Main Campus [facility] Center Platelets Auto (Bld) [#/Vol]Ordered By: Rand Bullimore on 74-26-6887Pjihjafxp (Bld) [#/Vol]337 10*3/eM592-236NhkpurjukMetrohealth Main Campus Medical CenterPotassium [Moles/volume] in Serum or PlasmaOrdered By: Rand Bullimore on 03-04-2023 Potassium [Moles/Vol]3.5 mmol/L3.5-5.1FRegency Hospital ToledoProtein Auto test strip (U) [Mass/Vol]Ordered By: Renetta Ashton on 18-52-5736Picpbgd (U) [Mass/Vol]NegativeNegativeMetrohealth Main Campus Medical CenterProtein [Mass/volume] in Serum or PlasmaOrdered By: Rand Martinezimenrico on 03-04-2023 Protein [Mass/Vol]7.3 g/dL6.4-8.9[facility] Medical CenterRBC Auto (Bld) [#/Vol]Ordered By: Rand Bullimore on 08-54-8051XET (Bld) [#/Vol]4.65 10*6/uL 3.90-5.60[facility] Medical CenterRBC morphologyOrdered By: Rand Bullimore on 65-23-5625IXN morphology finding Nom (Bld)N/AFRegency Hospital ToledoRed blood cell stomatocyte detectionOrdered By: Rand Bullimore on 44-11-2156Kzcneygffptv LM Ql (Bld)SlightMetrohealth Main Campus Medical Center Serum or plasma albumin/globulin mass ratioOrdered By: Rand Bullimore on 59-73-8231Hpotjhb/Globulin [Mass ratio]1.0 {ratio}[facility] at Southwoodserum or plasma anion gap determinationOrdered By: Rand Bullimore on 07-03-2505Owegz gap [Moles/Vol]10.2 mmol/L6.0-15.0[facility] Hospital at Southwoodsodium [Moles/volume] in Serum or PlasmaOrdered By: Rand Bullimore on 03-90-3007Xljzbi [Moles/Vol]138 mmol/H671-869UoxicwcbtMetrohealth Main Campus Medical Center Specific gravity Auto test strip (U) [Rel density]Ordered By: Renetta Ashton on 40-45-5948Uykamoyl gravity (U) [Rel density]1.0081.001-1.030[facility] Medical CenterUrea nitrogen [Mass/volume] in Serum or PlasmaOrdered By: Rand Mobley on 58-12-5855Hfvn nitrogen [Mass/Vol]10 mg/dL7-25[facility] CenterUrine clarity by refractometry automatedOrdered By: Renetta Ashton on 91-89-3448Dswonjh Refractometry automated (U)ClearClear [facility] CenterUrine glucose measurement by automated test strip (mass/volume)Ordered By: Renetta Ashton on 83-58-9860Gzijnpj Auto test strip (U) [Mass/Vol]Normal mg/dLNoProtestant HospitalUrine hemoglobin detection by automated test stripOrdered By: Renetta Ashton on 62-38-2388Jqvufivrnj Auto test strip Ql (U)NegativeNegOhioHealth Van Wert HospitalUrine leukocyte esterase detection by automated test stripOrdered By: Renetta Ashton on 23-93-5012Ijmmcdpag esterase Auto test strip Ql (U) NegativeNegOhioHealth Van Wert HospitalUrobilinogen Auto test strip (U) [Mass/Vol]Ordered By: Renetta Ashton on 94-89-7692Knlbenmapocl (U) [Mass/Vol]Normal mg/dLGeorgetown Behavioral HospitalWBC Auto (Bld) [#/Vol]Ordered By: Rand Mobley on 90-66-0539NVH (Bld) [#/Vol]13.7 10*3/uL 4.1-10.5FRegency Hospital ToledopH Auto test strip (U)Ordered By: Renetta Ashton on 64-01-2238pE (U)7.5 [pH]5.0-9.0[facility] Medical CenterCARDIAC LORENZA ADMITon 80-29-2476UV [Catalytic activity/Vol]60 U/LNormal 39-308The [facility] HospitalComment on above:Performed By: #### CMADM, CMP #### [facility] [address] [place] [place] [address] [address] Dannie Almaraz.MB [Mass/Vol]1.47 ng/mLNormal<=3.60[facility] Comment on above:Performed By: #### CMADM, CMP #### [facility] [address] [place] [address] Dr. Dannie GoodmanHSTROP4.7 pg/mLNormal4.0-76.1[facility] HospitalComment on above:Result Comment: CUT-OFF POINTS HAVE BEEN ESTABLISHED BASED ON THE FOURTH UNIVERSAL DEFINITIONS OF MYOCARDIAL INFARCTION. THE UPPER REFERENCE LIMIT (URL) OF TROPONIN, DEFINED THE 99TH PERCENTILE OF cTnI DISTRIBUTION IN A REFERENCE POPULATION, HAS BEEN CONFIRMED THE DECISION THRESHOLD FOR ND DIAGNOSIS.Performed By: #### CMADM, CMP #### [facility] [address] [place] [address] Dr. Dannie GoodmanMYO44 ng/vNDrixpb19-56RgeMercy Health Kings Mills HospitalComment on above: Performed By: #### CMADM, CMP #### [facility] [address] [place] [address] Dr. Dannie Foster AUTO DIFFon [id number] #0.0 103/ulNormal0.0-0.1The [facility] HospitalComment on above:Performed By: #### SEDR #### [facility] [address] [place] [address] Dr. Dannie GoodmanBasophils/100 WBC (Bld)0.2 %Normal0.2-2.0[facility] Comment on above:Performed By: #### SEDR #### [facility] [address] [place] [address] Dr. Dannie Acosta #0.3 103/ulNormal0.0-0.7The [facility] HospitalComment on above: Performed By: #### SEDR #### [facility] [address] [place] [address] Dr. Dannie Shortosinophils/100 WBC (Bld)4.2 %Normal0.9-7.0[facility] Comment on above:Performed By: #### SEDR #### [facility] [address] [place] [address] Dr. Dannie Shortrythrocyte distribution width (RBC) [Ratio]11.7 %Scqntv82.0-15.0 [facility] HospitalComment on above:Performed By: #### SEDR #### [facility] [address] [place] [address] Dr. Dannie GoodmanHematocrit (Bld) [Volume fraction]39.5 %Critically low42.0-54.0 The [facility] HospitalComment on above:Performed By: #### SEDR #### [facility] [address] [place] [address] Dr. Dannie GoodmanHemoglobin (Bld) [Mass/Vol]12.8 g/dLCritically low14.0-18.0The [facility] HospitalComment on above:Performed By: #### SEDR #### [facility] [address] [place] [address] Dr. Dannie Sarmiento #0.02 10e3/ulNormal0.00-0.03The [facility] HospitalComment on above:Performed By: #### SEDR #### [facility] [address] [place] [address] Dr. Dannie Sarmiento %0.2 %Normal0.0-0.5The [facility] HospitalComment on above: Performed By: #### SEDR #### [facility] [address] [place] [address] Dr. Dannie Castillo #2.3 103/ulNormal1.2-3.8The [facility] HospitalComment on above:Performed By: #### SEDR #### [facility] [address] [place] [address] Dr. Dannie Avendañohocytes/100 WBC (Bld)28.0 %Eedhhl02.5-60.0The [facility] HospitalComment on above:Performed By: #### SEDR #### [facility] [address] [place] [address] Dr. Dannie McgillUAL DIFF REQNONormalThe [facility] HospitalComment on above: Performed By: #### SEDR #### [facility] [address] [place] [address] Dr. Dannie Willard (RBC) [Entitic mass]29.7 wqVbwmbj81.9-34.0The [facility] HospitalComment on above:Performed By: #### SEDR #### [facility] [address] [place] [address] Dr. Dannie Aguilar (RBC) [Mass/Vol]32.4 g/qMIomzta05.9-35.2The [facility] HospitalComment on above:Performed By: #### SEDR #### [facility] [address] [place] [address] Dr. Dannie AguilarV (RBC) [Entitic vol]91.6 sSExmrhw48.0-94.0The [facility] HospitalComment on above:Performed By: #### SEDR #### [facility] [address] [place] [address] Dr. Dannie Mohr #0.9 103/ulCritically high0.3-0.8The [facility] Comment on above:Performed By: #### SEDR #### [facility] [address] [place] [address] Dr. Dannie Da Silvaocytes/100 WBC (Bld)10.8 %Normal1.7-12.0The [facility] Comment on above:Performed By: #### SEDR #### [facility] [address] [place] [address] Dr. Dannie Herrera #4.6 103/ulNormal1.4-6.5The [facility] HospitalComment on above:Performed By: #### SEDR #### [facility] [address] [place] [address] Dr. Dannie Waldroputrophils/100 WBC (Bld)56.6 %Doonaf97.0-75.0The [facility] HospitalComment on above:Performed By: #### SEDR #### [facility] [address] [place] [address] Dr. Dannie Hendersonlet mean volume (Bld) [Entitic vol]11.0 fLNormal9.5-13.5The [facility] HospitalComment on above:Performed By: #### SEDR #### [facility] [address] [place] [address] Dr. Dannie GoodmanPLT246 103/hnWuqcln082-308Rmb [facility] HospitalComment on above: Performed By: #### SEDR #### [facility] [address] [place] [address] Dr. Dannie GoodmanRBC4.31 106/ulCritically low4.70-6.10The [facility] HospitalComment on above:Performed By: #### SEDR #### [facility] [address] [place] [address] Dr. Dannie GoodmanWBC8.1 103/ulNormal4.0-11.0The [facility] HospitalComment on above: Performed By: #### SEDR #### [facility] [address] [place] [address] Dr. Dannie GoodmanLACTATE/LACTIC ACIDon 30-79-1238Eyrquwa [Moles/Vol]1.1 mmol/L Normal0.4-2.0The [facility] HospitalComment on above:Performed By: #### LACT #### [facility] [address] [place] [address] Dr. Dannie GoodmanPROF 14(COMP METB)on 87-92-0349Skbiquo [Mass/Vol]2.7 g/dL Critically low3.4-5.0The [facility] HospitalComment on above:Performed By: #### CMADM, CMP #### [facility] [address] [place] [address] Dr. Dannie GoodmanAlbumin/Globulin [Mass ratio]0.6 {ratio}NormalThe [facility] HospitalComhutzel women's hospital on above:Performed By: #### CMADM, CMP #### [facility] [address] [place] [address] Dr. Dannie GallowayP [Catalytic activity/Vol]90 U/OKdenpb54-340Ldf [facility] HospitalComment on above:Performed By: #### CMADM, CMP #### [facility] [address] [place] [address] Dr. Dannie Sanhcez [Catalytic activity/Vol]21 U/ALqvrpu53-86Qnk [facility] HospitalComment on above:Performed By: #### CMADM, CMP #### [facility] [address] [address] [address] Dannie Fajardoon gap [Moles/Vol]8.9 mmol/LNormalThe [facility] HospitalComment on above:Performed By: #### CMADM, CMP #### [facility] [address] [address] [address] Dannie GoodmanAST [Catalytic activity/Vol]20 U/BErufqb64-99Gdl [facility] HospitalComment on above:Performed By: #### CMADM, CMP #### [facility] [address] [place] [address] Dr. Dannie GoodmanBilirubin [Mass/Vol]0.3 mg/dLNormal0.2-1.0[facility] Comment on above:Performed By: #### CMADM, CMP #### [facility] [address] [place] [address] Dr. Dannie GoodmanCalcium [Mass/Vol]8.8 mg/dLNormal8.5-10.1The [facility] Comment on above:Performed By: #### CMADM, CMP #### [facility] [address] [place] [address] Dr. Dannie GodomanChloride [Moles/Vol]98 mmol/IUdaqbg53-992TanMer[facility] Comment on above:Performed By: #### CMADM, CMP #### [facility] [address] [place] [address] Dr. Dannie GoodmanCO2 [Moles/Vol]29.4 mmol/MMfvkav74.0-32.0The [facility] Comment on above:Performed By: #### CMADM, CMP #### [facility] [address] [place] [address] Dr. Dannie GoodmanCreatinine [Mass/Vol]0.81 mg/dLNormal0.70-1.30The [facility] HospitalComment on above:Performed By: #### CMADM, CMP #### [facility] [address] [place] [address] Dr. Dannie ShortGFR-AF SPANISH>60Normal>=60The [facility] HospitalComment on above:Performed By: #### CMADM, CMP #### [facility] [address] [place] [address] Dr. Dannie ShortGFR-NON AF SPANISH>60Normal>=60The [facility] HospitalComment on above:Performed By: #### CMADM, CMP #### [facility] [address] [place] [address] Dr. Dannie GoodmanGlobulin (S) [Mass/Vol]4.3 g/dLNormalThe [facility] HospitalComment on above:Performed By: #### CMADM, CMP #### [facility] [address] [place] [address] Dr. Dannie GoodmanGlucose [Mass/Vol]134 mg/dLCritically bicq29-386Mtw [facility] HospitalComment on above:Performed By: #### CMADM, CMP #### [facility] [address] [place] [address] Dr. Dannie GoodmanPotassium [Moles/Vol]3.3 mmol/LCritically low3.5-5.1The [facility] HospitalComment on above:Performed By: #### CMADM, CMP #### [facility] [address] [place] [address] Dr. Dannie GoodmanProtein [Mass/Vol]7.0 g/dLNormal6.4-8.2The [facility] Comment on above:Performed By: #### CMADM, CMP #### [facility] [address] [place] [address] Dr. Dannie GoodmanSodium [Moles/Vol]133 mmol/LCritically igl512-825Gmj [facility] HospitalComment on above:Performed By: #### CMADM, CMP #### [facility] [address] [place] [address] Dr. Dannie GoodmanUrea nitrogen [Mass/Vol]11.0 mg/dLNormal7.0-18.0The [facility] HospitalComment on above:Performed By: #### CMADM, CMP #### [facility] [address] [address] [address] Dannie GoodmanUrea nitrogen/Creatinine [Mass ratio]13.6 mg/mgNoProMedica Memorial HospitalComment on above:Performed By: #### SINDHU, CMP #### [facility] [address] [place] [address] Dr. Dannie GoodmanXR CHEST 1 Von [id number] CHEST 1 VEXAMINATION: XR CHEST 1 V HISTORY: COUGH COMPARISON: XR chest 02/03/2023 FINDINGS: LUNGS: No significant pulmonary parenchymal abnormalities. VASCULATURE: No increased pulmonary vasculature. PLEURA: No pneumothorax, effusion, or pleural thickening. CARDIAC: No cardiomegaly or cardiac silhouette abnormality. MEDIASTINUM: No visible mass or adenopathy. BONES: No fracture or visible bone lesion. OTHER: Negative. IMPRESSION: 1. Examination is slightly limited by patient body habitus and portable technique. 2. No appreciable acute cardiopulmonary process. Electronically authenticated by: MELANIE FOFANA Date: 2023-03-02 05:14[facility] AUTO DIFFon [id number] #0.1 103/ulNormal0.0-0.1The [facility] HospitalComment on above:Performed By: #### SINDHU, CMP #### [facility] [address] [place] [address] Dr. Dannie GoodmanBasophils/100 WBC (Bld)0.3 %Normal0.2-2.0The [facility] Comment on above:Performed By: #### SINDHU, CMP #### [facility] [address] [address] [address] Dannie Acosta #0.1 103/ulNormal0.0-0.7The [facility] HospitalComment on above: Performed By: #### SINDHU, CMP #### [facility] [address] [address] [address] Dannie Shortosinophils/100 WBC (Bld)0.8 %Critically low0.9-7.0The [facility] HospitalComment on above:Performed By: #### SINDHU, CMP #### [facility] [address] [address] [address] Dannie Shortrythrocyte distribution width (RBC) [Ratio]11.7 %Qfdktr16.0-15.0 The [facility] HospitalComment on above:Performed By: #### CMADM, CMP #### [facility] [address] [address] [address] Dannie GoodmanHematocrit (Bld) [Volume fraction]50.9 %Rrjeas84.0-54.0The [facility] HospitalComment on above:Performed By: #### CMADM, CMP #### [facility] [address] [address] [address] Dannie GoodmanHemoglobin (Bld) [Mass/Vol]17.1 g/kAAwapwv83.0-18.0The [facility] HospitalComment on above:Performed By: #### CMADM, CMP #### [facility] [address] [address] [address] Dannie Sarmiento #0.06 10e3/ulCritically high0.00-0.03The [facility] Comment on above:Performed By: #### CMADM, CMP #### [facility] [address] [address] [address] Dannie Sarmiento %0.4 %Normal0.0-0.5The [facility] HospitalComment on above: Performed By: #### CMADM, CMP #### [facility] [address] [address] [address] Dannie Castillo #3.7 103/ulNormal1.2-3.8The [facility] HospitalComment on above:Performed By: #### CMADM, CMP #### [facility] [address] [place] [address] Dr. Dannie Avendañohocytes/100 WBC (Bld)25.6 %Clxulx69.5-60.0The [facility] HospitalComment on above:Performed By: #### CMADM, CMP #### [facility] [address] [address] [address] Dannie McgillUAL DIFF REQNONormalThe [facility] HospitalComment on above: Performed By: #### CMADM, CMP #### [facility] [address] [place] [address] Dr. Dannie Aguilar (RBC) [Entitic mass]30.0 dvKbttrb66.9-34.0The [facility] HospitalComment on above:Performed By: #### CMADM, CMP #### [facility] [address] [place] [address] Dr. Dannie Aguilar (RBC) [Mass/Vol]33.6 g/qANaypcg63.9-35.2The [facility] HospitalComment on above:Performed By: #### CMADM, CMP #### [facility] [address] [place] [address] Dr. Dannie Anderson (RBC) [Entitic vol]89.3 pRWqncys96.0-94.0The [facility] HospitalComment on above:Performed By: #### CMADM, CMP #### [facility] [address] [place] [address] Dr. Dannie Mohr #1.2 103/ulCritically high0.3-0.8[facility] Comment on above:Performed By: #### CMADM, CMP #### [facility] [address] [place] [address] Dr. Dannie Da Silvaocytes/100 WBC (Bld)8.5 %Normal1.7-12.0[facility] Comment on above:Performed By: #### CMADM, CMP #### [facility] [address] [place] [address] Dr. Dannie Herrera #9.2 103/ulCritically high1.4-6.5Th[facility] Comment on above:Performed By: #### CMADM, CMP #### [facility] [address] [place] [address] Dr. Dannie Zimmermanophils/100 WBC (Bld)64.4 %Zxmkyy38.0-75.0The [facility] HospitalComment on above:Performed By: #### CMADM, CMP #### [facility] [address] [place] [address] Dr. Dannie Hendersonlet mean volume (Bld) [Entitic vol]11.0 fLNormal9.5-13.5The [facility] HospitalComment on above:Performed By: #### CMADM, CMP #### [facility] [address] [place] [address] Dr. Dannie GoodmanPLT354 103/fbCacbub395-183Ezz [facility] HospitalComment on above: Performed By: #### CMADM, CMP #### [facility] [address] [place] [address] Dr. Dannie GoodmanRBC5.70 106/ulNormal4.70-6.10The [facility] HospitalComment on above:Performed By: #### CMADM, CMP #### [facility] [address] [place] [address] Dr. Dannie GoodmanWBC14.3 103/ulCritically high4.0-11.0The [facility] HospitalComment on above:Performed By: #### CMADM, CMP #### [facility] [address] [place] [address] Dr. Dannie GoodmanGROUP A STREP CULTUREon 02-17-2023S. pyogenes Ag Ql (Unsp spec) Culture Observations: NEGATIVE FOR GROUP A STREPTOCOCCUS.NormalThe [facility] HospitalComment on above: Performed By: #### GRASTCX, SSCRN #### [facility] [address] [place] [address] Dr. Dannie GoodmanPROF 14(COMP METB)on 99-13-2591Yqpgfzg [Mass/Vol]3.9 g/dLNormal 3.4-5.0The [facility] HospitalComment on above:Performed By: #### SEDR #### [facility] [address] [place] [address] Dr. Dannie GoodmanAlbumin/Globulin [Mass ratio]0.8 {ratio}NormalThe [facility] HospitalComment on above:Performed By: #### SEDR #### [facility] [address] [place] [address] Dr. Yilan ChangALP [Catalytic activity/Vol]106 U/UDtevsg24-993Ike [facility] HospitalComment on above:Performed By: #### SEDR #### [facility] [address] [place] [address] Dr. Dannie GallowayT [Catalytic activity/Vol]49 U/CWuoaqp95-65Gmn [facility] HospitalComment on above:Performed By: #### SEDR #### [facility] [address] [place] [address] Dr. Dannie Fowler gap [Moles/Vol]13.6 mmol/LNormalThe [facility] Comment on above:Performed By: #### SEDR #### [facility] [address] [place] [address] Dr. Dannie GoodmanAST [Catalytic activity/Vol]30 U/BWadpdf85-96Lpv [facility] HospitalComment on above:Performed By: #### SEDR #### [facility] [address] [place] [address] Dr. Dannie GoodmanBilirubin [Mass/Vol]0.9 mg/dLNormal0.2-1.0The [facility] Comment on above:Performed By: #### SEDR #### [facility] [address] [place] [address] Dr. Dannie GoodmanCalcium [Mass/Vol]10.4 mg/dLCritically high8.5-10.1The [facility] HospitalComment on above:Performed By: #### SEDR #### [facility] [address] [place] [address] Dr. Dannie GoodmanChloride [Moles/Vol]92 mmol/LCritically aks63-009Ckn [facility] HospitalComment on above:Performed By: #### SEDR #### [facility] [address] [place] [address] Dr. Dannie GoodmanCO2 [Moles/Vol]32.1 mmol/LCritically high21.0-32.0The [facility] HospitalComment on above:Performed By: #### SEDR #### [facility] [address] [place] [address] Dr. Dannie GoodmanCreatinine [Mass/Vol]1.44 mg/dLCritically high0.70-1.30The [facility] HospitalComment on above:Performed By: #### SEDR #### [facility] [address] [place] [address] Dr. Dannie ShortGFR-AF SPANISH>60Normal>=60The [facility] HospitalComment on above:Performed By: #### SEDR #### [facility] [address] [place] [address] Dr. Dannie ShortGFR-NON AF CJLYFRTD64 mL/min/1.27b1Rtjsehyeau low>=60The [facility] HospitalComment on above:Performed By: #### SEDR #### [facility] [address] [place] [address] Dr. Dannie GoodmanGlobulin (S) [Mass/Vol]4.8 g/dLNormalThe [facility] HospitalComment on above:Performed By: #### SEDR #### [facility] [address] [place] [address] Dr. Dannie GoodmanGlucose [Mass/Vol]143 mg/dLCritically jquc86-611Xzx [facility] HospitalComment on above:Performed By: #### SEDR #### [facility] [address] [place] [address] Dr. Dannie GoodmanPotassium [Moles/Vol]3.7 mmol/LNormal3.5-5.1The [facility] Comment on above:Performed By: #### SEDR #### [facility] [address] [place] [address] Dr. Dannie GoodmanProtein [Mass/Vol]8.7 g/dLCritically high6.4-8.2The [facility] HospitalComment on above:Performed By: #### SEDR #### [facility] [address] [place] [address] Dr. Dannie GoodmanSodium [Moles/Vol]134 mmol/LCritically nts835-787Dwh [facility] HospitalComment on above:Performed By: #### SEDR #### [facility] [address] [place] [address] Dr. Yilan ChangUrea nitrogen [Mass/Vol]23.0 mg/dLCritically high7.0-18.0The [facility] Hospitalment on above:Performed By: #### SEDR #### [facility] [address] [address] [address] Dannie Kingston nitrogen/Creatinine [Mass ratio]16.0 mg/mgNormalThe [facility] HospitalComment on above:Performed By: #### SEDR #### [facility] [address] [address] [address] Dannie GoodmanRESPIRATORY PANEL PLUSon 63-13-1012CkgbmguzbzEiz detectedNormal NOT DETECTEDThe [facility] HospitalComment on above:Performed By: #### ABG #### [facility] [address] [place] [address] Dr. Dannie Spangler ParapertusisNot detectedNormalNOT DETECTEDThe [facility] HospitalComment on above:Performed By: #### ABG #### [facility] [address] [place] [address] Dr. Dannie Spangler PertussisNot detectedNormalNOT DETECTEDThe [facility] on above:Performed By: #### ABG #### [facility] [address] [place] [address] Dr. Dannie GoodmanChlamydia PneumoniaeNot detectedNormalNOT DETECTEDThe [facility] HospitalComhutzel women's hospital on above:Performed By: #### ABG #### [facility] [address] [place] [address] Dr. Dannie GoodmanCoronavirus 229ENot detectedNormalNOT DETECTEDThe [facility] HospitalComment on above:Performed By: #### ABG #### [facility] [address] [address] [address] Dannie GoodmanCoronavirus ULL9Xdq detectedNormalNOT DETECTEDThe [facility] HospitalComment on above:Performed By: #### ABG #### [facility] [address] [place] [address] Dr. Dannie GoodmanCoronavirus CD99Vtb detectedNormalNOT DETECTEDThe [facility] HospitalComment on above:Performed By: #### ABG #### [facility] [address] [address] [address] Dannie GoodmanCoronavirus TO51Nej detectedNormalNOT DETECTEDThe [facility] HospitalComment on above:Performed By: #### ABG #### [facility] [address] [address] [address] Dannie Perez A H1Not detectedNormalNOT DETECTEDThe [facility] Comment on above:Performed By: #### ABG #### [facility] [address] [address] [address] Dannie Perez A H1 2009Not detectedNormalNOT DETECTEDThe [facility] HospitalComhutzel women[facility] hospital on above:Performed By: #### ABG #### [facility] [address] [address] [address] Dannie Perez A H3Not detectedNormalNOT DETECTEDThe [facility] Comment on above:Performed By: #### ABG #### [facility] [address] [address] [address] Dannie Perez BNot detectedNormalNOT DETECTEDMer[facility] Comment on above:Performed By: #### ABG #### [facility] [address] [address] [address] Dannie AgostoapneumovirusNot detectedNormalNOT DETECTEDThe [facility] HospitalComhutzel women[facility] hospital on above:Performed By: #### ABG #### [facility] [address] [address] [address] Dannie Plaza. PneumoniaeNot detectedNormalNOT DETECTEDThe [facility] HospitalComhutzel women[facility] hospital on above:Performed By: #### ABG #### [facility] [address] [address] [address] Dannie Hernandez 1Not detectedNormalNOT DETECTEDThe [facility] HospitalComhutzel [facility] hospital on above:Performed By: #### ABG #### [facility] [address] [address] [address] Dannie Hernandez 2Not detectedNormalNOT DETECTEDThe [facility] HospitalComhutzel women[facility] hospital on above:Performed By: #### ABG #### [facility] [address] [place] [address] Dr. Dannie Hernandez 3Not detectedNormalNOT DETECTEDThe [facility] HospitalComment on above:Performed By: #### ABG #### [facility] [address] [place] [address] Dr. Dannie Hernandez 4Not detectedNormalNOT DETECTEDThe [facility] HospitalComment on above:Performed By: #### ABG #### [facility] [address] [place] [address] Dr. Dannie GoodmanRhelias/EnterovirusNot detectedNormalNOT DETECTEDThe [facility] HospitalComment on above:Performed By: #### ABG #### [facility] [address] [place] [address] Dr. Dannie Goddard Header 1RESPIRATORY PANEL: [facility]USESSouthern [facility] on above:Performed By: #### ABG #### [facility] [address] [place] [address] Dr. Dannie Goddard Header 2RESPIRATORY PANEL: BACTERIANoProMedica Memorial HospitalComment on above:Performed By: #### ABG #### [facility] [address] [place] [address] Dr. Dannie ChiangVNot detectedNormalNOT DETECTEDThe [facility] HospitalComhutzel women[facility] hospital on above:Performed By: #### ABG #### [facility] [address] [place] [address] Dr. Dannie Chan-CoV-2 (COVID-19) RNA ELSIE+probe Ql (Unsp spec)Not detected NormalNOT DETECTEDThe [facility] HospitalComhutzel women's hospital on above:Performed By: #### ABG #### [facility] [address] [place] [address] Dr. Dannie PizanoREPT SCREENon 37-20-7003GXUVJ SCREEN ANegativeNormalNEGATIVEThe [facility] HospitalComhutzel [facility] hospital on above:Performed By: #### GRASTCX, SSCRN #### [facility] [address] [place] [address] Dr. Dannie GoodmanActivated partial thromboplastin time (aPTT) in platelet poor plasma by coagulation aOrdered By: Paddy Land on 42-60-2431kCJK Coag (PPP) [Time]34.5 s25.1-36.5FRegency Hospital ToledoAlanine aminotransferase [Enzymatic activity/volume] in Serum or PlasmaOrdered By: Paddy Land on 02-02-7157MPR [Catalytic activity/Vol]35 U/L7-52[facility] CenterAlbumin [Mass/volume] in Serum or Plasma by Bromocresol green (BCG) dye binding methoOrdered By: Paddy Land on 10-22-7617Tuxwuzc BCG dye [Mass/Vol] 3.8 g/dL3.5-5.7FRegency Hospital ToledoAlkaline phosphatase [Enzymatic activity/volume] in Serum or PlasmaOrdered By: Paddy Land on 06-60-5814JZN [Catalytic activity/Vol]79 U/B17-978PfbxqkatdMetrohealth Main Campus Medical CenterAmmonia [Moles/volume] in PlasmaOrdered By: Paddy Land on 85-68-1921Fgthlgi (P) [Moles/Vol]52 umol/D27-19KgrbhyymcMetrohealth Main Campus Medical CenterAmphetamine Screen Ql (U)Ordered By: Paddy Land on 67-29-1925Pejphzleycqs Ql (U)NegativeNegative [facility] CenterAspartate aminotransferase [Enzymatic activity/volume] in Serum or PlasmaOrdered By: Paddy Land on 96-10-0811ZGQ [Catalytic activity/Vol]44 U/F44-62LnpzcehcmMetrohealth Main Campus Medical CenterBarbiturates [Presence] in Urine by Screen methodOrdered By: Paddy Land on 02-08-2023 Barbiturates Screen Ql (U)NegativeNegativeMetrohealth Main Campus Medical Center Basophils Auto (Bld) [#/Vol]Ordered By: Paddy Land on 02-23-5433Rlymwoyzb (Bld) [#/Vol]N/[facility] CenterBasophils/100 WBC Auto (Bld) Ordered By: Paddy Land on 90-42-3607Qynzkszax/100 WBC (Bld)N/[facility] CenterBasophils/100 WBC Manual cnt (Bld)Ordered By: Paddy Land on 10-63-4171Hfeebbqds/100 WBC (Bld)0 %0-2FRegency Hospital ToledoBenzodiazepines Screen Ql (U)Ordered By: Paddy Land on 02-08-2023 Benzodiazepines Ql (U)NegativeNegOhioHealth Van Wert Hospital Benzoylecgonine [Presence] in Urine by Screen methodOrdered By: Paddy Land on 31-58-9844Myzjvxoiwzpesze Screen Ql (U)NegativeNegOhioHealth Van Wert HospitalBilirubin Test strip Ql (U)Ordered By: Paddy Land on 32-90-8947Pidsqoysa Ql (U)NegativeNegativeMetrohealth Main Campus Medical Center Bilirubin.total [Mass/volume] in Serum or PlasmaOrdered By: Paddy Land on 53-27-6147Fciucorpv [Mass/Vol]0.5 mg/dL0.3-1.0[facility] Calcium [Mass/volume] in Serum or PlasmaOrdered By: Paddy Land on 02-08-2023 Calcium [Mass/Vol]8.8 mg/dL8.6-10.3FRegency Hospital ToledoCannabinoids [Presence] in Urine by Screen methodOrdered By: Paddy Land on 02-08-2023 Cannabinoids Screen Ql (U)NegativeNegOhioHealth Van Wert Hospital Comment on above:These are unconfirmed results and should not be used for legal purposes. Drug Cut-Off Concentration: AMPH 1000 ng/mL RUFUS 200 ng/mL EUGENIE 200 ng/mL COCM 300 ng/mL OP 300 ng/mL PCP 25 ng/mL THC 20 ng/mLCarbon dioxide, total [Moles/volume] in Serum or PlasmaOrdered By: Paddy Land on 02-21-0186GX5 [Moles/Vol]33.2 mmol/L21.0-31.0[facility] CenterChloride [Moles/volume] in Serum or PlasmaOrdered By: Paddy Land on 02-08-2023 Chloride [Moles/Vol]93 mmol/L94-986XpgsyytuzMetrohealth Main Campus Medical CenterColor Auto (U)Ordered By: Paddy Land on 14-69-6251Tfjsj (U)YellowYellowMetrohealth Main Campus Medical CenterCreatine kinase [Enzymatic activity/volume] in Serum or PlasmaOrdered By: Paddy Land on 64-59-9509JS [Catalytic activity/Vol]43 U/L 30-223[facility] CenterCreatinine [Mass/volume] in Serum or PlasmaOrdered By: Paddy Land on 48-71-5949Lwdkexcfox [Mass/Vol]0.66 mg/dL 0.70-1.30[facility] CenterEosinophils Auto (Bld) [#/Vol]Ordered By: Paddy Land on 27-10-6932Qzbpvutitjo (Bld) [#/Vol]N/[facility] CenterEosinophils/100 WBC Auto (Bld)Ordered By: Paddy Land on 87-54-1799Yginvivxypg/100 WBC (Bld)N/[facility] Eosinophils/100 WBC Manual cnt (Bld)Ordered By: Paddy Land on 02-08-2023 Eosinophils/100 WBC (Bld)3 %1-3FRegency Hospital ToledoErythrocyte distribution width Auto (RBC) [Ratio]Ordered By: Paddy Land on 02-08-2023 Erythrocyte distribution width (RBC) [Ratio]12.4 %12.0-14.8[facility] CenterGiant platelets/100 leukocytes [Ratio] in Blood by Manual count Ordered By: Paddy Land on 66-07-9934Krphl platelets/100 WBC Manual cnt (Bld) [Ratio]9 /100{WBC}[facility] Medical CenterGlobulin Calc (S) [Mass/Vol] Ordered By: Paddy Land on 43-13-1346Ouwtzlrn (S) [Mass/Vol]3.3 g/dLMetrohealth Main Campus Medical CenterGlucose [Mass/volume] in Serum or PlasmaOrdered By: Paddy Land on 07-97-6120Jjhdryx [Mass/Vol]99 mg/dA93-595LepmmsqylMetrohealth Main Campus Medical CenterComment on above:ADA recommended reference rangeRandom Glucose Reference Range is dependent on time and content of last meal. Glucose of more than 200 mg/dL in a nonstressed, ambulatory subject supports the diagnosisof Diabetes Mellitus.Hematocrit Auto (Bld) [Volume fraction]Ordered By: Paddy Land on 65-60-8367Jopgtueupd (Bld) [Volume fraction]44.8 %38.8-50.0[facility] CenterHemoglobin [Mass/volume] in BloodOrdered By: Paddy Land on 11-66-1011Qxjnzxolns (Bld) [Mass/Vol]14.8 g/dL13.0-17.0[facility] CenterKetones Auto test strip (U) [Mass/Vol]Ordered By: Paddy Land on 94-81-8276Ninhkfu (U) [Mass/Vol]NegativeNegativeMetrohealth Main Campus Medical CenterLaboratory - Chemistry and Chemistry - challengeOrdered By: Paddy Land on 22-71-2068ZA6 [Moles/Vol]36.5 mmol/L23.0-27.0[facility] CenterHCO3 (Bld) [Moles/Vol]34.8 mmol/L23.0-29.0[facility] CenterLaboratory - CoagulationOrdered By: Paddy Land on 71-55-6354HA Coag (PPP) [Time]12.6 s9.0-12.9[facility] Leukocytes [#/volume] corrected for nucleated erythrocytes in Blood by Automated counOrdered By: Paddy Land on 21-77-7204AAG corrected for nucl RBC Auto (Bld) [#/Vol]12.4 10*3/uL4.1-10.5FRegency Hospital ToledoLymphocytes Auto (Bld) [#/Vol]Ordered By: Paddy Land on 74-40-6255Tqoiptjvqgk (Bld) [#/Vol]N/[facility] CenterLymphocytes/100 WBC Auto (Bld)Ordered By: Paddy Land on 48-88-9875Uomeohulwdk/100 WBC (Bld)N/[facility] CenterLymphocytes/100 WBC Manual cnt (Bld)Ordered By: Paddy Land on 16-27-1699Kpafhrqibnb/100 WBC (Bld)18 %18-42[facility] Auto (RBC) [Entitic mass]Ordered By: Paddy Land on 10-62-2792BCR (RBC) [Entitic mass]29.9 pg27.5-35.2FRegency Hospital ToledoMCHC Auto (RBC) [Mass/Vol]Ordered By: Paddy Land on 47-46-7243IUZX (RBC) [Mass/Vol]33.1 g/dL 32.5-35.6FRegency Hospital ToledoMCV Auto (RBC) [Entitic vol]Ordered By: Paddy Land on 10-56-3280UZF (RBC) [Entitic vol]90.3 fL83.5-101[facility] CenterMonocyte distribution width [Entitic volume] in Blood by AutomatedOrdered By: Paddy Land on 43-78-7417Biivqwuk distribution width Auto (Bld) [Entitic vol]21.49 %0.00-20.00[facility] Comment on above:For adults in ED, MDW > 20.0 may be associated with a higher risk of sepsis during the first 12 hrs of hospital admissionMonocytes Auto (Bld) [#/Vol]Ordered By: Paddy Land on 39-24-4721Wqenrzzyt (Bld) [#/Vol]N/A [facility] CenterMonocytes/100 WBC Auto (Bld)Ordered By: Paddy Land on 18-37-7961Aesnpxkwu/100 WBC (Bld)N/[facility] Monocytes/100 WBC Manual cnt (Bld)Ordered By: Paddy Land on 02-08-2023 Monocytes/100 WBC (Bld)6 %2-11[facility] CenterNeutrophils Auto (Bld) [#/Vol]Ordered By: Paddy Land on 50-32-7706Fyrntxqjjwz (Bld) [#/Vol] NProMedica Defiance Regional HospitalNeutrophils/100 WBC Auto (Bld)Ordered By: Paddy Land on 03-85-2536Kwsbtmwdmdb/100 WBC (Bld)N/[facility] CenterNitrite Test strip Ql (U)Ordered By: Paddy Land on 02-08-2023 Nitrite Ql (U)NegativeNegativeMetrohealth Main Campus Medical CenterNo Panel InformationOrdered By: Paddy Land on 78-73-9611Ssmyozvy Blood Base Excess7.6 mmol/L-3.0-3.0[facility] CenterArterial Blood Oxygen Content8.9 mmol/L6.6-9.7FRegency Hospital ToledoArterial Blood Oxygen Saturation 90.9 %95.0-100.0[facility] CenterArterial Blood Partial Pressure CO257.8 mm[Hg]35.0-45.0[facility] CenterArterial Blood Partial Pressure O258.6 mm[Hg]80.0-100.0[facility] CenterArterial Blood pH7.407.35-7.45[facility] CenterBlood Gas Critical ValueSee commentMetrohealth Main Campus Medical CenterComment on above:Critical Value called on: 02/08/2023 at 17:09Blood Gas Sample SiteVenousMetrohealth Main Campus Medical CenterFiO221 %[facility] CenterEstimated GFR (CKD-EPI)> 60.0 mL/MinMetrohealth Main Campus Medical CenterPharmacy Creatinine Clearance (Rjci320.43 [facility] CenterNucleated erythrocytes [Presence] in Blood by Automated countOrdered By: Paddy Land on 31-38-9076Nwjklogml RBC Auto Ql (Bld)N/[facility] CenterOpiates [Presence] in Urine by Screen methodOrdered By: Paddy Land on 44-02-3555Omhcxch Screen Ql (U)Negative NegativeMetrohealth Main Campus Medical CenterPhencyclidine Screen Ql (U)Ordered By: Paddy Land on 67-68-7001Jywxqoaycpxun Ql (U)NegativeNegativeMetrohealth Main Campus Medical CenterPlatelet adequacy [Presence] in Blood by Light microscopy Ordered By: Paddy Land on 06-70-3889Emuxdqmot LM Ql (Bld)NormalNormal [facility] CenterPlatelet mean volume Auto (Bld) [Entitic vol] Ordered By: Paddy Land on 59-70-3915Mpacwcya mean volume (Bld) [Entitic vol] 9.7 fL6.6-10.1FRegency Hospital ToledoPlatelet morphology finding [Identifier] in BloodOrdered By: Paddy Land on 53-07-4179Nyamdwna morphology finding Nom (Bld)N/[facility] CenterPlatelet poor plasma international normalized ratio (INR) by coagulation assay (relatOrdered By: Paddy Land on 19-18-1495LVI Coag (PPP) [Relative time]1.1 {INR}[facility] CenterComment on above:INR Therapeutic Range A) Pre- and Peroperative OAT started two weeks before surgery. NOT HIP SURGERY: 1.5 - 2.5 HIP SURGERY: 2 - 3B) Primary and secondary prevention of venous THROMBOSIS: 2 - 3C) Active venous thrombosis, pulmonary embolismand prevention of recurrent venous thrombosis: 2 - 3D) Prevention of arterial thromboembolismincluding patients with mechanical heart valves: 3 - 4.5Platelets Auto (Bld) [#/Vol] Ordered By: Paddy Land on 06-79-4180Bahxpmqkz (Bld) [#/Vol]240 10*3/uL 150-450[facility] CenterPotassium [Moles/volume] in Serum or PlasmaOrdered By: Paddy Land on 19-17-9802Xesqiklzn [Moles/Vol]4.1 mmol/L 3.5-5.1FRegency Hospital ToledoProtein Auto test strip (U) [Mass/Vol] Ordered By: Paddy Land on 08-20-5695Vjcdgay (U) [Mass/Vol]NegativeNegative [facility] CenterProtein [Mass/volume] in Serum or PlasmaOrdered By: Paddy Land on 06-43-0643Mzhsihd [Mass/Vol]7.1 g/dL6.4-8.9[facility] CenterRBC Auto (Bld) [#/Vol]Ordered By: Paddy Land on 77-99-0055TZG (Bld) [#/Vol]4.96 10*6/uL3.90-5.60[facility] CenterRB morphologyOrdered By: Paddy Land on 21-36-4992WGF morphology finding Nom (Bld)NormalNormalThe Surgical Hospital at Southwoodsegmented neutrophils/100 WBC Manual cnt (Bld)Ordered By: Paddy Land on 02-08-2023 Segmented neutrophils/100 WBC (Bld)73 %50-70[facility] Serum or plasma albumin/globulin mass ratioOrdered By: Paddy Land on 58-73-7337Bgquxsb/Globulin [Mass ratio]1.2 {ratio}[facility] Hospital at Southwoodserum or plasma anion gap determinationOrdered By: Paddy Land on 58-31-2824Zveau gap [Moles/Vol]10.9 mmol/L6.0-15.0[facility] Hospital at Southwoodsodium [Moles/volume] in Serum or PlasmaOrdered By: Paddy Land on 90-91-8378Twtkep [Moles/Vol]133 mmol/W369-335AwchmwanxMetrohealth Main Campus Medical Center Specific gravity Auto test strip (U) [Rel density]Ordered By: Paddy Land on 64-56-8983Vnzsgsuk gravity (U) [Rel density]1.0201.001-1.030[facility] CenterThyrotropin [Units/volume] in Serum or PlasmaOrdered By: Paddy Land on 83-76-8043JRB Qn11.37 m[IU]/L0.45-5.33[facility] CenterThyroxine (T4) free [Mass/volume] in Serum or PlasmaOrdered By: Paddy Land on 05-15-5479Fvcz T4 [Mass/Vol]0.87 ng/dL0.61-1.12[facility] CenterTroponin I.cardiac [Mass/volume] in Serum or Plasma by Detection limit <= 0.01 ng/Ordered By: Paddy Land on 26-66-9079Daochfcr I.cardiac DL <= 0.01 ng/mL [Mass/Vol]5.2 pg/mL0.0-20.0[facility] CenterUrea nitrogen [Mass/volume] in Serum or PlasmaOrdered By: Paddy Land on 73-00-0616Riol nitrogen [Mass/Vol]19 mg/dL7-25[facility] Urine clarity by refractometry automatedOrdered By: Paddy Land on 02-08-2023 Clarity Refractometry automated (U)ClearCleD[facility] Urine glucose measurement by automated test strip (mass/volume)Ordered By: Paddy Land on 23-85-6901Xvqsnsd Auto test strip (U) [Mass/Vol]Normal mg/dL NormalMetrohealth Main Campus Medical CenterUrine hemoglobin detection by automated test stripOrdered By: Paddy Land on 67-82-9801Zncimqoboe Auto test strip Ql (U)NegativeNegativeMetrohealth Main Campus Medical CenterUrine leukocyte esterase detection by automated test stripOrdered By: Paddy Land on 02-08-2023 Leukocyte esterase Auto test strip Ql (U)NegativeNegOhioHealth Van Wert HospitalUrobilinogen Auto test strip (U) [Mass/Vol]Ordered By: Paddy Land on 18-46-0294Updhhfkgcfzy (U) [Mass/Vol]mg/dLNormalMetrohealth Main Campus Medical CenterWBC Auto (Bld) [#/Vol]Ordered By: Paddy Land on 39-30-4904GML (Bld) [#/Vol]12.4 10*3/uL4.1-10.5FRegency Hospital ToledopH Auto test strip (U)Ordered By: Paddy Land on 24-26-6866nH (U)7.0 [pH]5.0-9.0[facility] CenterCBCon 38-44-0454Pjesrbexxhp distribution width (RBC) [Ratio]12.1 %Apalzf34.8-14.4[facility] HospitalComment on above: Performed By: #### MG, CBC, RENP #### [facility] [address] [place] [address] Framing Machine Tender: Guzman Daugherty MDHematocrit (Bld) [Volume fraction]45.0 %Normal 40.7-50.3MSt. Mary Medical CenterComment on above:Performed By: #### MG, CBC, RENP #### [facility] [address] [place] [address] Framing Machine Tender: Guzman Daugherty MDHemoglobin (Bld) [Mass/Vol]14.4 g/dLNormal 13.0-17.0[facility] HospitalComment on above:Performed By: #### MG, CBC, RENP #### [facility] [address] [place] [address] Framing Machine Tender: EDUIN NorthCH (RBC) [Entitic mass]30.1 gvGrcmta38.2-33.5 [facility] HospitalComment on above:Performed By: #### MG, CBC, RENP #### [facility] [address] [place] [address] Framing Machine Tender: EDUIN NorthCHC (RBC) [Mass/Vol]32.0 g/tOYpannm70.4-34.8 [facility] HospitalComment on above:Performed By: #### MG, CBC, RENP #### [facility] [address] [place] [address] Framing Machine Tender: EDUIN NorthCV (RBC) [Entitic vol]93.9 pONaykqf54.6-102.9 [facility] HospitalComment on above:Performed By: #### MG, CBC, RENP #### [facility] [address] [place] [address] Framing Machine Tender: GARY North Automated0.0 per 100 WBCNormal0.0[facility] HospitalComment on above:Performed By: #### MG, CBC, RENP #### [facility] [address] [place] [address] Framing Machine Tender: Stacey Northtelet mean volume (Bld) [Entitic vol]11.2 fL Normal8.1-13.5[facility] HospitalComment on above:Performed By: #### MG, CBC, RENP #### [facility] [address] [place] [address] Framing Machine Tender: ALVARADO Northlatelets (Bld) [#/Vol]191 10*3/pORoiemh674-447 [facility] HospitalComment on above:Performed By: #### MG, CBC, RENP #### [facility] [address] [place] [address] Framing Machine Tender: PREMA NorthBC (Bld) [#/Vol]4.79 10*6/uLNormal4.21-5.77 [facility] HospitalComment on above:Performed By: #### MG, CBC, RENP #### [facility] [address] [place] [address] Framing Machine Tender: MACY NorthBC (Bld) [#/Vol]9.3 10*3/uLNormal3.5-11.3MSt. Mary Medical CenterComment on above:Performed By: #### MG, CBC, RENP #### [facility] [place], [place] [id number] Framing Machine Tender: GURDEEP North BLOODon 64-59-1490Kfeybywagpt examination of blood, cultureCulture Observations: POSITIVE RASHEL AND AERO BOTTLES 02/04/23 Culture Observations: BCID= S. AUREUS CALLED TO CULLEN HALL 02/04/23 @1104 BY DM Isolate 1 Staphylococcus aureus Growth of ORGANISM 1 Staphylococcus aureus ANTIBIOTIC M.I.C RX STATUS Beta-Lactamase Neg NEG F Cefoxitin Screen Neg NEG F Benzylpenicillin <=0.03 S F Oxacillin <=0.25 S F Gentamicin <=0.5 S F Ciprofloxacin <=0.5 S F Levofloxacin <=0.12 S F Moxifloxacin <=0.25 S F Erythromycin <=0.25 S F Clindamycin <=0.25 S F Quinupristin/Dalfopristin <=0.25 S F Linezolid 1 S F Vancomycin 1 S F Tetracycline <=1 S F Rifampicin <=0.5 S F Trimethoprim/Sulfamethoxazole <=10 S FNormalThe [facility] HospitalComment on above:Performed By: #### CMADM, CMP #### [facility] [address] [place] [address] Dr. Dannie Cartergnesiumon 43-48-2316Huxapodbn [Mass/Vol]2.3 mg/dLNormal1.6-2.6 [facility] HospitalComment on above:Performed By: #### MG, CBC, RENP #### [facility] CenterLookSharp (powering [employer]) [address] [place] [id number] Framing Machine Tender: Guzman Daugherty MDRenal Function Panelon 39-30-1109Cikxxnt [Mass/Vol]3.3 g/dLLow3.5-5.2MSt. Mary Medical CenterComment on above: Performed By: #### MG, CBC, RENP #### [facility] [address] [place] [address] [phone] Framing Machine Tender: Guzman Daugherty MDAnion gap [Moles/Vol]11 mmol/LNormal9-17[facility] HospitalComment on above:Performed By: #### MG, CBC, RENP #### [facility] CenterLookSharp (powering [employer]) [address] [place] [address] Framing Machine Tender: DAVID Northalcium [Mass/Vol]9.0 mg/dLNormal8.6-10.4[facility] HospitalComment on above:Performed By: #### MG, CBC, RENP #### [facility] [address] [place] [address] Framing Machine Tender: Guzman Daugherty MDChloride [Moles/Vol]94 mmol/ZFgf27-051KxinmWvumedicine Harrison Community HospitalComment on above:Performed By: #### MG, CBC, RENP #### [facility] CenterLookSharp (powering [employer]) [address] [place] [address] Framing Machine Tender: Guzman Daugherty MDCO2 [Moles/Vol]27 mmol/DOznwcw50-47JcaghWvumedicine Harrison Community HospitalComment on above:Performed By: #### MG, CBC, RENP #### [facility] [address] [place] [address] Framing Machine Tender: DAVID Northreatinine [Mass/Vol]0.70 mg/dLNormal0.70-1.20 [facility] HospitalComment on above:Performed By: #### MG, CBC, RENP #### [facility] [address] [place] [address] Framing Machine Tender: Guzman Daugherty MDGFR/1.73 sq M.predicted among non-blacks MDRD (S/P/Bld) [Vol rate/Area]mL/min/{1.73_m2}Normal>60[facility] HospitalComment on above:Result Comment: These results are not intended for use in patients <18 years of age. eGFR results are calculated without a race factor using the 2020 CKD-EPI equation. Careful clinical correlation is recommended, particularly when comparing to results calculated using previous equations. The CKD-EPI equation is less accurate in patients with extremes of muscle mass, extra-renal metabolism of creatine, excessive creatine ingestion, or following therapy that affects renal tubular secretion.Performed By: #### PHUONG HICKMAN, RENP #### [place] [address] Framing Machine Tender: Guzman Daugherty MDGlucose [Mass/Vol]132 mg/kIGyzb36-84EgumlSt. Mary Medical CenterComment on above:Performed By: #### PHUONG HICKMAN, RENP #### [place] [address] Framing Machine Tender: Becka Northsphoalexandria Inorg.3.8 mg/dLNormal2.5-4.5[facility] HospitalComment on above:Performed By: #### PHUONG HICKMAN, RENP #### [place] [address] Framing Machine Tender: ALVARADO Northotassium [Moles/Vol]4.4 mmol/LNormal3.7-5.3 [facility] HospitalComment on above:Performed By: #### PHUONG HICKMAN, RENP #### [place] [address] Framing Machine Tender: Guzman Daugherty MDSodium [Moles/Vol]132 mmol/YJjt947-305ZhdmoWvumedicine Harrison Community HospitalComment on above:Performed By: #### PHUONG HICKMAN, RENP #### [place] [address] Framing Machine Tender: Guzman Daugherty MDUrea nitrogen [Mass/Vol]22 mg/dLHigh6-20[facility] HospitalComment on above:Performed By: #### PHUONG IHCKMAN, RENP #### [address] [address] Framing Machine Tender: Vin North 22-77-1854OBD Coag (PPP) [Relative time]1.0 {INR}NormalWvumedicine Harrison Community HospitalComment on above:Result Comment: Therapeutic Range: Moderate Anticoagulant Intensity: INR = 2.0-3.0 High Anticoagulant Intensity: INR = 2.5-3.5Performed By: #### PT #### [facility] [address] [place] [address] Framing Machine Tender: GABO North Coag (PPP) [Time]13.3 xHybnln09.7-14.9[facility] HospitalComment on above:Performed By: #### PT #### [facility] [address] [place] [address] Framing Machine Tender: Cesar North Metab w/rfx MGon 34-46-2053Qdyvb gap [Moles/Vol]11 mmol/LNormal9-17[facility] HospitalComment on above: Performed By: #### GLYHGElza CDP, BMPX #### [facility] [address] [place] [address] Framing Machine Tender: DAVID Northalcium [Mass/Vol]9.4 mg/dLNormal8.6-10.4[facility] HospitalComment on above:Performed By: #### PEBBLES CDP, BMPX #### [facility] CenterLookSharp (powering [employer]) [address] [place] [phone] Framing Machine Tender: DAVID Northhloride [Moles/Vol]96 mmol/QLke76-683OqswxWvumedicine Harrison Community HospitalComment on above:Performed By: #### CHERELLEHGElza, CDP, BMPX #### [facility] [address] [place] [address] Framing Machine Tender: Guzman Daugherty MDCO2 [Moles/Vol]24 mmol/AJtwonf00-75GiuspWvumedicine Harrison Community HospitalComment on above:Performed By: #### CHERELLEHGElza, CDP, BMPX #### [facility] CenterLookSharp (powering [employer]) [address] [place] [address] Framing Machine Tender: DAVID Northreatinine [Mass/Vol]0.64 mg/dLLow0.70-1.20[facility] HospitalComment on above:Performed By: #### CHERELLEHGElza CDP, BMPX #### [place] [address] Framing Machine Tender: Guzman Daugherty MDGFR/1.73 sq M.predicted among non-blacks MDRD (S/P/Bld) [Vol rate/Area]mL/min/{1.73_m2}Normal>60[facility] HospitalComment on above:Result Comment: These results are not intended for use in patients <18 years of age. eGFR results are calculated without a race factor using the 2020 CKD-EPI equation. Careful clinical correlation is recommended, particularly when comparing to results calculated using previous equations. The CKD-EPI equation is less accurate in patients with extremes of muscle mass, extra-renal metabolism of creatine, excessive creatine ingestion, or following therapy that affects renal tubular secretion.Performed By: #### CHERELLEHGElza CDP, BMPX #### [facility] [address] [place] [address] Framing Machine Tender: Guzman Daugherty MDGlucose [Mass/Vol]274 mg/xPCjih15-31Al[place] Kindred HospitalComment on above:Performed By: #### CHERELLEHGElza CDP, BMPX #### [facility] CenterLookSharp (powering [employer]) [address] [place] [address] Framing Machine Tender: Guzman Daugherty MDPotassium [Moles/Vol]4.7 mmol/LNormal3.7-5.3 [facility] HospitalComment on above:Performed By: #### GLYHGB, CDP, BMPX #### [facility] [address] [place] [address] Framing Machine Tender: Guzman Daugherty MDSodium [Moles/Vol]131 mmol/BQgj551-107DelghWvumedicine Harrison Community HospitalComment on above:Performed By: #### GLYHGB, CDP, BMPX #### [facility] [address] [place] [address] Framing Machine Tender: Guzman Daugherty MDUrea nitrogen [Mass/Vol]13 mg/dLNormal6-20[facility] HospitalComment on above:Performed By: #### GLYHGB, CDP, BMPX #### [facility] [address] [place] [address] Framing Machine Tender: DAVID North with Diffon [id number]. Basophil<0.03 Normal0.00-0.20[facility] HospitalComment on above:Performed By: #### GLYHGElza, CDP, BMPX #### [facility] [address] [place] [address] Framing Machine Tender: Cayetano North. Eosinophil<0.29Oirasn5.00-0.44[facility] HospitalComment on above:Performed By: #### CHERELLEHGElza, CDP, BMPX #### [facility] [address] [place] [address] Framing Machine Tender: MDAbs. Mary AnneImm.Granulocyte0.07 k/uLNormal0.00-0.30[facility] HospitalComment on above:Performed By: #### CHERELLEHGElza, CDP, BMPX #### [facility] [address] [place] [address] Framing Machine Tender: Cayetano North.Neutrophil (Seg)11.87 k/uLHigh1.50-8.10[facility] HospitalComment on above:Performed By: #### GLYHGB, CDP, BMPX #### [facility] [address] [place] [address] Framing Machine Tender: Guzman Daugherty MDBasophils/100 WBC (Bld)0 %Normal0-2MercSanger General HospitalComment on above:Performed By: #### GLYHGB, CDP, BMPX #### [facility] [address] [address] Framing Machine Tender: Guzman Daugherty MDEosinophils/100 WBC (Bld)0 %Low1-4[facility] HospitalComment on above:Performed By: #### GLYHGB, CDP, BMPX #### [place] [address] Framing Machine Tender: Guzman Daugherty MDErythrocyte distribution width (RBC) [Ratio]11.9 %Sydgjl44.8-14.4[facility] HospitalComment on above:Performed By: #### GLYHGB, CDP, BMPX #### [place] [address] Framing Machine Tender: Guzman Daugherty MDHematocrit (Bld) [Volume fraction]45.1 %Normal 40.7-50.3M[address] hospitaly Kindred HospitalComment on above:Performed By: #### GLYHGElza, CDP, BMPX #### [place] [address] Framing Machine Tender: Guzman Daugherty MDHemoglobin (Bld) [Mass/Vol]14.5 g/dLNormal 13.0-17.0[facility] HospitalComment on above:Performed By: #### GLYHGB, CDP, BMPX #### [place] [address] Framing Machine Tender: Guzman Daugherty MDImmature granulocytes/100 WBC (Bld)1 %Rwum5ZfsxjWvumedicine Harrison Community HospitalComment on above:Performed By: #### GLYHGB, CDP, BMPX #### [place] [address] Framing Machine Tender: Guzman Daugherty MDLymphocytes (Bld) [#/Vol]0.82 10*3/uLLow 1.10-3.70[facility] HospitalComment on above:Performed By: #### GLYHGB, CDP, BMPX #### [facility] [address] [place] [address] Framing Machine Tender: Verna Northmphocytes/100 WBC (Bld)6 %Kvy60-97YrodbWvumedicine Harrison Community HospitalComment on above:Performed By: #### GLYHGB, CDP, BMPX #### [place] [address] Framing Machine Tender: EDUIN NorthCH (RBC) [Entitic mass]30.2 qnUasmjw53.2-33.5 [facility] HospitalComment on above:Performed By: #### GLYHGB, CDP, BMPX #### [place] [address] Framing Machine Tender: EDUIN NorthCHC (RBC) [Mass/Vol]32.2 g/xHKmfvrw76.4-34.8 [facility] HospitalComment on above:Performed By: #### GLYHGElza, CDP, BMPX #### [place] [address] Framing Machine Tender: EDUIN NorthCV (RBC) [Entitic vol]94.0 uQLxifcv47.6-102.9 [facility] HospitalComment on above:Performed By: #### GLYHGB, CDP, BMPX #### [facility] [address] [place] [address] Framing Machine Tender: EDUIN Northonocytes (Bld) [#/Vol]0.50 10*3/uLNormal 0.10-1.20[facility] HospitalComment on above:Performed By: #### GLYHGB, CDP, BMPX #### [facility] [address] [place] [address] Framing Machine Tender: EDUIN Northonocytes/100 WBC (Bld)4 %Normal3-12[facility] HospitalComment on above:Performed By: #### GLYHGB, CDP, BMPX #### [facility] [address] [place] [address] Framing Machine Tender: Ne Northophil (Seg)89 %Gptc71-53DppagWvumedicine Harrison Community HospitalComment on above:Performed By: #### GLYHGB, CDP, BMPX #### [facility] [address] [place] [address] Framing Machine Tender: Guzman Daugherty MDNRBC Automated0.0 per 100 WBCNormal0.0[facility] HospitalComment on above:Performed By: #### GLYHGB, CDP, BMPX #### [facility] [address] [place] [address] Framing Machine Tender: Stacey Northtesherman mean volume (Bld) [Entitic vol]11.7 fL Normal8.1-13.5[facility] HospitalComment on above:Performed By: #### GLYHGB, CDP, BMPX #### [facility] [address] [place] [address] Framing Machine Tender: ALVARADO Northlatelets (Bld) [#/Vol]160 10*3/gYShmrcn034-441 [facility] HospitalComment on above:Performed By: #### GLYHGB, CDP, BMPX #### [facility] [address] [place] [address] Framing Machine Tender: uGzman Daugherty MDRBC (Bld) [#/Vol]4.80 10*6/uLNormal4.21-5.77 [facility] HospitalComment on above:Performed By: #### GLYHGB, CDP, BMPX #### [facility] [address] [place] [address] Framing Machine Tender: MACY NorthBC (Bld) [#/Vol]13.3 10*3/uLHigh3.5-11.3[facility] Kindred HospitalComment on above:Performed By: #### GLYHGB, CDP, BMPX #### [facility] [address] [place] [address] Framing Machine Tender: ANTOINETTE North URINE PROFILEon 41-62-4041Ldknintra Ql (U) NegativeNormalNEGATIVEMercy Health Kings Mills HospitalComment on above:Performed By: #### ABG #### [facility] [address] [place] [address] Dr. Dannie GoodmanClarity (U)CLEARNormalCLEARMercy Health Kings Mills HospitalComment on above: Performed By: #### ABG #### [facility] [address] [place] [address] Dr. Dannie Chiang (U)YELLOWNormalYELLOWMercy Health Kings Mills HospitalComment on above: Performed By: #### ABG #### [facility] [address] [address] [address] Dannie Valdez micrscopic examination will be performed if indicated. NormalMercy Health Kings Mills HospitalComment on above:Performed By: #### ABG #### [facility] [address] [address] [address] Dannie GoodmanGlucose Ql (U)100 mg/dlAbnormalNEGThe [facility] Hospital Comment on above:Performed By: #### ABG #### [facility] [address] [address] [address] Dannie GoodmanHemoglobin Ql (U)NegativeNormalNEGThe [facility] Hospital Comment on above:Performed By: #### ABG #### [facility] [address] [address] [address] Dannie GoodmanKetones Ql (U)TRACEAbnormalNEGATIVEMercy Health Kings Mills HospitalComment on above:Performed By: #### ABG #### [facility] [address] [place] [address] Dr. Yilan ChangLEUKOCYTESNegativeNormalNEGATIVEThe [facility] HospitalComment on above:Performed By: #### ABG #### [facility] [address] [place] [address] Dr. Dannie GoodmanNitrite Ql (U)NegativeNormalNEGATIVEThe [facility] HospitalComment on above:Performed By: #### ABG #### [facility] [address] [place] [address] Dr. Dannie GoodmanpH (U)5.5 [pH]Normal5-9The [facility] HospitalComment on above: Performed By: #### ABG #### [facility] [address] [place] [address] Dr. Dannie GoodmanProtein (U) [Mass/Vol]30 mg/dLAbnormalNEGATIVE/ TRACEThe [facility] HospitalComment on above:Performed By: #### ABG #### [facility] [address] [place] [address] Dr. Dannie GoodmanSPEC GRAVITY1.013Efavbq5.005-<=1.025The [facility] HospitalComment on above:Performed By: #### ABG #### [facility] [address] [place] [address] Dr. Dannie Wolfe MICRO INDNOT INDICATEDNormalThe [facility] HospitalComment on above:Performed By: #### ABG #### [facility] [address] [place] [address] Dr. Dannie Pepebilinogen Qn (U)8 {Tanja'U}/dLAbnormal0.2 - 1.0The [facility] HospitalComment on above:Performed By: #### ABG #### [facility] [address] [place] [address] Dr. Dannie GoodmanHemoglobin A1Con 60-95-4353Wpgybqu [Mass/Vol]166 mg/dLNormalMerWashington HospitalComment on above:Result Comment: The ADA and AACC recommend providing the estimated average glucose result to permit better patient understanding of their HBA1c result.Performed By: #### GLYHGB, CDP, BMPX #### [address] [place] [address] Framing Machine Tender: Guzman Daugherty MDHbA1c (Bld) [Mass fraction]7.4 %High4.0-6.0[facility] HospitalComment on above:Performed By: #### GLYHGB, CDP, BMPX #### [address] [place], [place] [id number] Framing Machine Tender: Guzman Daugherty MDLACTATE/LACTIC ACIDon [id number] [Moles/Vol]0.8 mmol/LNormal0.4-2.0[facility] HospitalComment on above: Performed By: #### ABG #### [facility] [address] [address] [address] Dannie GoodmanXR CHEST 1 Von 62-03-7595UM CHEST 1 VEXAMINATION: XR CHEST 1 V, 02/03/2023 7:43 PM EDT HISTORY: SHORTNESS OF BREATH COMPARISON: None. TECHNIQUE: Chest x-ray: One view. FINDINGS: SUPPORT APPARATUS/POST-SURGICAL CHANGES: None. CARDIOMEDIASTINAL SILHOUETTE: Normal. AIRWAYS/LUNGS: Lung volumes are low. There is possible mild right basilar atelectasis or vascular crowding but there is no focal consolidation. PLEURAL SPACES: No pleural effusion or pneumothorax. BONES AND SOFT TISSUES: No acute abnormality. IMPRESSION: No acute cardiopulmonary process. Electronically authenticated by: MELANIE LARA Date: 2023-02-03 22:58[facility] HospitalBLOOD CULTURE ID PANELon 02-03-2023. baumanniiNot detected NormalNOT DETECTEDThe [facility] HospitalComhutzel women's hospital on above:Performed By: #### CMADM, CMP #### [facility] [address] [address] [address] Dannie Meyer fragilisNot detectedNormalNOT DETECTEDThe [facility] HospitalComhutzel women's hospital on above:Performed By: #### CMADM, CMP #### [facility] [address] [address] [address] Dannie GoodmanBCID CONTROLSPASSEDNormalThe Pradeep HospitalComment on above: Performed By: #### CMADM, CMP #### [facility] [address] [address] [address] Dannie AlmeidaBTHDBLOOD CULTURE BOTTLE [facility] CenterComhutzel women's hospital on above:Performed By: #### CMADM, CMP #### [facility] [address] [address] [address] Dannie AlmeidaEcwxuWTEFBY4BGCPUIFUFDMPN RESISTANCE GENESOur Lady of Mercy Hospital Comment on above:Performed By: #### CMADM, CMP #### [facility] [address] [address] [address] Dannie AlmeidaHD2SEE BELOWOur Lady of Mercy HospitalComhutzel women's hospital on above: Result Comment: Note: Antimicrobial resitance can occur via multiple mechanisms. A Not Detected result for the Film[employer] antomicrobial resistance gene assays does not indicate antimicrobial susceptibility. Subculturing is required for species identification and susceptibility testing of isolates.Performed By: #### CMADM, CMP #### [facility] [address] [place] [address] Dr. aDnnie AlmeidaMjukwGBCBHK7AvmzpogkKdecwxZmy [facility] HospitalComhutzel women's hospital on above: Performed By: #### CMADM, CMP #### [facility] [address] [place] [address] Dr. Dannie FinnAiyddPFQSRG8UkxbgepcWqsoqzDfo [facility] HospitalComhutzel women's hospital on above: Performed By: #### CMADM, CMP #### [facility] [address] [place] [address] Dr. Dannie FinnBzkfqYNILYB9SEWMLBjdhaoHujOur Lady of Mercy HospitalComhutzel women's hospital on above:Performed By: #### CMADM, CMP #### [facility] [address] [place] [address] Dr. Dannie Richards Set:Set 1NormalThe [facility] on above: Performed By: #### CMADM, CMP #### [facility] [address] [place] [address] Dr. Dannie Richards:AnaerobicOur Lady of Mercy HospitalComhutzel women's hospital on above: Performed By: #### CMADM, CMP #### [facility] [address] [address] [address] Dannie Jaramillo. neoformans/gattiiNot detectedNormalNOT DETECTEDThe [facility] HospitalComment on above:Performed By: #### CMADM, CMP #### [facility] [address] [address] [address] Dannie Perez albicansNot detectedNormalNOT DETECTEDThe [facility] HospitalComment on above:Performed By: #### CMADM, CMP #### [facility] [address] [address] [address] Dannie Perez aurisNot detectedNormalNOT DETECTEDThe [facility] Comment on above:Performed By: #### CMADM, CMP #### [facility] [address] [address] [address] Dannie Perez glabrataNot detectedNormalNOT DETECTEDThe [facility] HospitalComment on above:Performed By: #### CMADM, CMP #### [facility] [address] [address] [address] Dannie Perez KruseiNot detectedNormalNOT DETECTEDThe [facility] Comment on above:Performed By: #### CMADM, CMP #### [facility] [address] [address] [address] Dannie Perez ParapsilosisNot detectedNormalNOT DETECTEDThe [facility] HospitalComment on above:Performed By: #### CMADM, CMP #### [facility] [address] [address] [address] Dannie Perez TropicalisNot detectedNormalNOT DETECTEDThe [facility] HospitalComment on above:Performed By: #### CMADM, CMP #### [facility] [address] [address] [address] Dannie SchmidtX-M Resistant GeneNot ApplicableNormalNOT DETECTEDThe [facility] HospitalComment on above:Performed By: #### CMADM, CMP #### [facility] [address] [address] [address] Dannie Jenkins Cloacae complexNot detectedNormalNOT DETECTEDThe [facility] HospitalComment on above:Performed By: #### CMADM, CMP #### [facility] [address] [address] [address] Dannie Short. faecalisNot detectedNormalNOT DETECTEDThe [facility] Comment on above:Performed By: #### CMADM, CMP #### [facility] [address] [address] [address] Dannie Short. faeciumNot detectedNormalNOT DETECTEDThe [facility] Comment on above:Performed By: #### CMADM, CMP #### [facility] [address] [address] [address] Dannie WebererobacteriaceaeNot detectedNormalNOT DETECTEDThe [facility] HospitalComhutzel women's hospital on above:Performed By: #### CMADM, CMP #### [facility] [address] [address] [address] Dannie Roper coliNot detectedNormalNOT DETECTEDThe [facility] HospitalComment on above:Performed By: #### CMADM, CMP #### [facility] [address] [address] [address] Dannie Pelayo. influenzaeNot detectedNormalNOT DETECTEDThe [facility] Comment on above:Performed By: #### CMADM, CMP #### [facility] [address] [address] [address] Dannie Guthrie Resistant GeneNot ApplicableNormalNOT DETECTEDThe [facility] HospitalComment on above:Performed By: #### CMADM, CMP #### [facility] [address] [address] [address] Dannie Powell. oxytocaNot detectedNormalNOT DETECTEDThe [facility] Comment on above:Performed By: #### CMADM, CMP #### [facility] [address] [address] [address] Dannie Powell. pneumoniaeNot detectedNormalNOT DETECTEDThe [facility] Comment on above:Performed By: #### CMADM, CMP #### [facility] [address] [address] [address] Yilan ChangKlebsiella aerogenesNot detectedNormalNOT DETECTEDThe [facility] HospitalComhutzel women's hospital on above:Performed By: #### CMADM, CMP #### [facility] [address] [address] [address] Dannie Martin Resistant GeneNot ApplicableNormalNOT DETECTEDThe [facility] HospitalComhutzel women's hospital on above:Performed By: #### CMADM, CMP #### [facility] [address] [address] [address] Dannie Celestin. monocytogenesNot detectedNormalNOT DETECTEDThe [facility] HospitalComment on above:Performed By: #### CMADM, CMP #### [facility] [address] [address] [address] Dannie Aguilarr-1 Resistant GeneNot ApplicableNormalNOT DETECTEDThe [facility] HospitalComhutzel women's hospital on above:Performed By: #### CMADM, CMP #### [facility] [address] [address] [address] Dannie Spears/CNot ApplicableNormalNOT DETECTEDThe [facility] Comment on above:Performed By: #### CMADM, CMP #### [facility] [address] [address] [address] Dannie Spears/C MREJNot detectedNormalNOT DETECTEDThe [facility] Comment on above:Performed By: #### CMADM, CMP #### [facility] [address] [address] [address] Dannie Deng meningitidisNot detectedNormalNOT DETECTEDThe [facility] HospitalComhutzel women's hospital on above:Performed By: #### CMADM, CMP #### [facility] [address] [address] [address] Dannie Dong Resistant GeneNot ApplicableNormalNOT DETECTEDThe [facility] HospitalComhutzel women's hospital on above:Performed By: #### CMADM, CMP #### [facility] [address] [address] [address] Dannie GallagherGqkwmHtl-82-kvihMhw ApplicableNormalNOT DETECTEDMer[facility] Health [facility] Comment on above:Performed By: #### CMADM, CMP #### [facility] [address] [address] [address] Dannie GoodmanProteusNot detectedNormalNOT DETECTEDThe [facility] HospitalComment on above:Performed By: #### CMADM, CMP #### [facility] [address] [address] [address] Dannie Burch. aeruginosaNot detectedNormalNOT DETECTEDThe [facility] HospitalComment on above:Performed By: #### CMADM, CMP #### [facility] [address] [address] [address] Dannie Rodriguez. maltophiliaNot detectedNormalNOT DETECTEDThe [facility] Comment on above:Performed By: #### CMADM, CMP #### [facility] [address] [address] [address] Dannie GoodmanSalmonellaNot detectedNormalNOT DETECTEDThe [facility] Comment on above:Performed By: #### CMADM, CMP #### [facility] [address] [address] [address] Dannie Hernandez marcescensNot detectedNormalNOT DETECTEDThe [facility] HospitalComhutzel women's hospital on above:Performed By: #### CMADM, CMP #### [facility] [address] [address] [address] Dannie De Dios:R A/CNormalThe [facility] HospitalComhutzel women's hospital on above:Performed By: #### CMADM, CMP #### [facility] [address] [address] [address] Dannie Milner. aureusDetectedCritically abnormalNOT DETECTEDThe [facility] HospitalComhutzel women's hospital on above:Performed By: #### CMADM, CMP #### [facility] [address] [address] [address] Dannie Milner. epidermidisNot detectedNormalNOT DETECTEDThe [facility] HospitalComhutzel women's hospital on above:Performed By: #### CMADM, CMP #### [facility] [address] [address] [address] Dannie Milner[address] lugdunensisNot detectedNormalNOT DETECTEDThe [facility] HospitalComhutzel women's hospital on above:Performed By: #### CMADM, CMP #### [facility] [address] [address] [address] Dannie CoxococcusDetectedCritically abnormalNOT DETECTEDThe [facility] HospitalComment on above:Performed By: #### CMADM, CMP #### [facility] [address] [address] [address] Dannie Brody. agalactiaeNot detectedNormalNOT DETECTEDThe [facility] HospitalComment on above:Performed By: #### CMADM, CMP #### [facility] [address] [address] [address] Dannie Brody. pneumoniaeNot detectedNormalNOT DETECTEDThe [facility] HospitalComhutzel women's hospital on above:Performed By: #### CMADM, CMP #### [facility] [address] [address] [address] Dannie Brody[address] pyogenesNot detectedNormalNOT DETECTEDThe [facility] HospitalComhutzel women's hospital on above:Performed By: #### CMADM, CMP #### [facility] [address] [address] [address] Dannie BrodytococcusNot detectedNormalNOT DETECTEDThe [facility] Comment on above:Performed By: #### CMADM, CMP #### [facility] [address] [address] [address] Dannie Callejas Resist. GeneNot ApplicableNormalNOT DETECTEDThe [facility] HospitalComhutzel women's hospital on above:Performed By: #### CMADM, CMP #### [facility] [address] [address] [address] Dannie Brito Resistant GeneNot ApplicableNormalNOT DETECTEDThe [facility] HospitalComhutzel women's hospital on above:Performed By: #### CMADM, CMP #### [facility] [address] [address] [address] Dannie LARSEN BTYon MODENASAL CANNULANoProMedica Memorial HospitalComment on above:Performed By: #### ABG #### [facility] [address] [address] [address] Dannie Wilson TESTPositiveOur Lady of Mercy HospitalComment on above: Performed By: #### ABG #### [facility] [address] [address] [address] Dannie GoodmanBase excess Calc (Bld) [Moles/Vol]5.3 mmol/LCritically high -2.0-2.0The [facility] on above:Performed By: #### ABG #### [facility] [address] [address] [address] Dannie KulkarniP [facility] HospitalComhutzel women[facility] hospital on above: Performed By: #### ABG #### [facility] [address] [place] [address] Dr. Dannie GoodmanCPAPWooster Community Hospital on above:Performed By: #### ABG #### [facility] [address] [place] [address] Dr. Dannie GoodmanNzdjmUBR4IuefsgMpsWooster Community Hospital on above:Performed By: #### ABG #### [facility] [address] [address] [address] Dannie WrightO3 (Bld) [Moles/Vol]29.9 mmol/LCritically high22.0-26.0The [facility] on above:Performed By: #### ABG #### [facility] [address] [place] [address] Dr. Dannie GoodmanVadfyPSK8DbrjnnOncWooster Community Hospital on above:Performed By: #### ABG #### [facility] [address] [place] [address] Dr. Dannie GoodmanMINUTE VOLUMEOur Lady of Mercy HospitalComhutzel women's hospital on above: Performed By: #### ABG #### [facility] [address] [place] [address] Dr. Dannie GoodmanOxygen (Bld) [Partial pressure]63.9 mm[Hg]Critically low 80.0-100.0The [facility] on above:Performed By: #### ABG #### [facility] [address] [place] [address] Dr. Dannie GoodmanOxygen saturation in Blood93.7 %Critically low95.0-100.0The [facility] HospitalComh[facility] on above:Performed By: #### ABG #### [facility] [address] [address] [address] Dannie GoodmanPCO247.0 mmHgCritically high35.0-45.0The [facility] HospitalComment on above:Performed By: #### ABG #### [facility] [address] [place] [address] Dr. Dannie GoodmanCity HospitalComhutzel [facility] on above:Performed By: #### ABG #### [facility] [address] [place] [address] Dr. Dannie Huff (Bld)7.412 [pH]Normal7.350-7.450The [facility] HospitalComment on above:Performed By: #### ABG #### [facility] [address] [place] [address] Dr. Dannie BarrowPremier Health Miami [facility] SouthComhutzel women[facility] hospital on above:Performed By: #### ABG #### [facility] [address] [place] [address] Dr. Dannie GoodmanSumma Health on above:Performed By: #### ABG #### [facility] [address] [place] [address] Dr. Dannie Mauro [facility]Com[facility] on above: Performed By: #### ABG #### [facility] [address] [place] [address] Dr. Dannie MonteiroPremier Health Miami [facility] Hospital SouthComhutzel women[facility] hospital on above:Performed By: #### ABG #### [facility] [address] [place] [address] Dr. Dannie GoodmanHolzer HospitalComhutzel women's hospital on above:Performed By: #### ABG #### [facility] [address] [place] [address] Dr. Dannie GoodmanFostoria City HospitalComhutzel women's hospital on above:Performed By: #### ABG #### [facility] [address] [place] [address] Dr. Dannie Gooden 23-25-7457Hulvgwdwwde peptide B (Bld) [Mass/Vol]200.0 pg/mL Normal<=900.0The [facility] HospitalComment on above:Performed By: #### CMADM, CMP #### [facility] [address] [place] [address] Dr. Dannie Cha LORENZA ADMITon 27-19-7595LN [Catalytic activity/Vol]124 U/L Ssjqsl46-734Uuy [facility] HospitalComment on above:Performed By: #### CMADM, CMP #### [facility] [address] [place] [address] Dr. Dannie Almaraz.MB [Mass/Vol]0.51 ng/mLNormal<=3.60The [facility] Comment on above:Performed By: #### CMADM, CMP #### [facility] [address] [place] [address] Dr. Dannie AriasTROP9.5 pg/mLNormal4.0-76.1The [facility] HospitalComment on above:Result Comment: CUT-OFF POINTS HAVE BEEN ESTABLISHED BASED ON THE FOURTH UNIVERSAL DEFINITIONS OF MYOCARDIAL INFARCTION. THE UPPER REFERENCE LIMIT (URL) OF TROPONIN, DEFINED THE 99TH PERCENTILE OF cTnI DISTRIBUTION IN A REFERENCE POPULATION, HAS BEEN CONFIRMED THE DECISION THRESHOLD FOR ND DIAGNOSIS.Performed By: #### CMADM, CMP #### [facility] [address] [place] [address] Dr. Dannie ZamudioO56 ng/cABalwbp26-22Mqp [facility] HospitalComment on above: Performed By: #### CMADM, CMP #### [facility] [address] [place] [address] Dr. Dannie Foster AUTO DIFFon 64-21-6064AVSC #0.0 103/ulNormal0.0-0.1The [facility] HospitalComment on above:Performed By: #### SEDR #### [facility] [address] [place] [address] Dr. Yilan ChangBasophils/100 WBC (Bld)0.2 %Normal0.2-2.0The [facility] Comment on above:Performed By: #### SEDR #### [facility] [address] [place] [address] Dr. Dannie Acosta #0.0 103/ulNormal0.0-0.7The [facility] HospitalComment on above: Performed By: #### SEDR #### [facility] [address] [place] [address] Dr. Dannie Shortosinophils/100 WBC (Bld)0.2 %Critically low0.9-7.0The [facility] HospitalComment on above:Performed By: #### SEDR #### [facility] [address] [place] [address] Dr. Dannie Shortrythrocyte distribution width (RBC) [Ratio]12.1 %Jleove02.0-15.0 The [facility] HospitalComment on above:Performed By: #### SEDR #### [facility] [address] [place] [address] Dr. Dannie GoodmanHematocrit (Bld) [Volume fraction]44.9 %Zpkxfl44.0-54.0The [facility] HospitalComment on above:Performed By: #### SEDR #### [facility] [address] [place] [address] Dr. Dannie GoodmanHemoglobin (Bld) [Mass/Vol]15.0 g/cJRwfmsm69.0-18.0The [facility] HospitalComment on above:Performed By: #### SEDR #### [facility] [address] [place] [address] Dr. Dannie Sarmiento #0.07 10e3/ulCritically high0.00-0.03The [facility] Comment on above:Performed By: #### SEDR #### [facility] [address] [place] [address] Dr. Dannie Sarmiento %0.5 %Normal0.0-0.5The [facility] HospitalComment on above: Performed By: #### SEDR #### [facility] [address] [address] [address] Dannie Castillo #0.9 103/ulCritically low1.2-3.8ThTrumbull [facility] Comment on above:Performed By: #### SEDR #### [facility] [address] [place] [address] Dr. Dannie Gomphocytes/100 WBC (Bld)6.5 %Critically low20.5-60.0[facility] HospitalComment on above:Performed By: #### SEDR #### [facility] [address] [place] [address] Dr. Dannie Mendez DIFF REQNONormalThe [facility] HospitalComment on above: Performed By: #### SEDR #### [facility] [address] [place] [address] Dr. Dannie Aguilar (RBC) [Entitic mass]30.1 lpFmlxwk12.9-34.0The [facility] HospitalComment on above:Performed By: #### SEDR #### [facility] [address] [place] [address] Dr. Dannie Aguilar (RBC) [Mass/Vol]33.4 g/jVJujxyq36.9-35.2[facility] HospitalComment on above:Performed By: #### SEDR #### [facility] [address] [place] [address] Dr. Dannie Aguilar (RBC) [Entitic vol]90.2 sXSrdrro53.0-94.0The [facility] HospitalComment on above:Performed By: #### SEDR #### [facility] [address] [place] [address] Dr. Dannie Mohr #1.1 103/ulCritically high0.3-0.8ThTrumbull Regional Medical Center Comment on above:Performed By: #### SEDR #### [facility] [address] [place] [address] Dr. Dannie D aSilvaocytes/100 WBC (Bld)8.1 %Normal1.7-12.0[facility] Comment on above:Performed By: #### SEDR #### [facility] [address] [place] [address] Dr. Dannie Herrera #11.2 103/ulCritically high1.4-6.5The [facility] Comment on above:Performed By: #### SEDR #### [facility] [address] [place] [address] Dr. Dannie Waldroputrophils/100 WBC (Bld)84.5 %Critically high43.0-75.0The [facility] HospitalComment on above:Performed By: #### SEDR #### [facility] [address] [place] [address] Dr. Dannie Hendersonlet mean volume (Bld) [Entitic vol]11.6 fLNormal9.5-13.5The [facility] HospitalComment on above:Performed By: #### SEDR #### [facility] [address] [place] [address] Dr. Dannie GoodmanPLT181 103/guFiyodm900-363Uwa [facility] HospitalComment on above: Performed By: #### SEDR #### [facility] [address] [place] [address] Dr. Dannie GoodmanRBC4.98 106/ulNormal4.70-6.10The [facility] HospitalComment on above:Performed By: #### SEDR #### [facility] [address] [place] [address] Dr. Dannie GoodmanWBC13.3 103/ulCritically high4.0-11.0The [facility] HospitalComment on above:Performed By: #### SEDR #### [facility] [address] [place] [address] Dr. Dannie Vergara 54-38-8273XAN76.6 mg/dLCritically high<=1.0The [facility] HospitalComment on above:Result Comment: Previously reported as: 5.4 On 02/03/2023 20:42 By JAWPerformed By: #### CMADM, CMP #### [facility] [address] [place] [address] Dr. D[address] Schmidt NECK [address] WO W CONon 80-13-8362CH NECK ST WO W CONEXAMINATION: CT NECK ST WO W CON HISTORY: Pain COMPARISON: None. TECHNIQUE: Pre and postcontrast axial CT images obtained through the neck. Reconstructions obtained in the sagittal and coronal planes. Dose reduction techniques were achieved by using automated exposure control and/or adjustment of mA and/or kV according to patient size and/or use of iterative reconstruction technique. FINDINGS: Visualized intracranial contents are remarkable. Paranasal sinuses clear. Mastoid air cells clear. Skull base intact. Orbital contents normal. 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 Parotid glands unremarkable. Submandibular gland is normal. The tongue and floor of the mouth normal. Nasopharynx normal. There is some mucosal edema and enhancement in the oropharynx. There is some edema in the retropharyngeal space. No fluid collection in the retropharyngeal space. No abscess identified. Epiglottis appears normal. No laryngeal edema. Vocal cords are symmetric. No laryngeal mass. Thyroid gland normal. Trachea and visualized portion of the esophagus unremarkable. No lymphadenopathy in the neck. No neck masses. Moderate degenerative disc disease in the cervical spine at the C6-C7 level. No cervical spine fracture identified. No CT evidence of significant cervical spinal canal stenosis. There is some edema in the prevertebral space is more prominent toward the left side extending along the scalene muscles on the left side. Superior mediastinum unremarkable. Lung apices are clear. IMPRESSION: 1. Nonspecific swelling and edema in the retropharyngeal space as well as the prevertebral space. There is some edema and swelling along the scalene musculature, left greater the right. These findings may be inflammatory. There is no loculated fluid collection. No abscess. 2. No moderate degenerative disc disease at C6-C7. No CT evidence of discitis. No CT evidence of significant spinal canal stenosis. 3. There is some swelling and enhancement of the mucosa of the oropharynx. This may indicate pharyngitis. There is no abscess appreciated. Electronically authenticated by: JUVENTINO COOK Date: 2023-02-03 21:53[facility] HospitalCULTURE BLOODon 76-06-3282Dgjybjmnlfx examination of blood, cultureCulture Observations: POSITIVE ANAEROBE AND AEROBIC BOTTLE 02/04/23 Culture Observations: Please refer to accession #[id number] for susceptibilities. Isolate 1 Staphylococcus aureus Growth ofOur Lady of Mercy HospitalComment on above:Performed By: #### CMADM, CMP #### [facility] [address] [place] [address] Dr. Dannie GoodmanCovid-19 PCR ([facility])on 86-64-7959KSYS-CoV-2 (COVID-19) RNA ELSIE+probe Ql (Unsp spec)Not detectedNormalNOT DETECTEDThe [facility] Comment on above:Result Comment: This test is not yet approved or cleared by the [place] FDA. When there are no FDA-approved or cleared tests available, and other criteria are met, FDA can make tests available under an emergency access mechanism called an Emergency Use Authorization (EUA). The EUA for this test is supported by the [place] of Health and Human Service's (HHS's) declaration that circumstances exist to justify the emergency use of in vitro diagnostics for the detection and/or diagnosis of the virus that causes COVID- 19. This EUA will remain in effect (meaning this test can be used) for the duration of the COVID-19 declaration justifying emergency of IVDs, unless it is terminated or revoked by FDA (after which the test may no longer be used). When diagnostic testing is negative, the possibility of a false negative should be considered in the context of a patient's recent exposures and the presence of clinical signs and symptoms consistent with SARS-CoV-2.Performed By: #### ABG #### [facility] [address] [place] [address] Dr. Dannie GoodmanLACTATE/LACTIC ACIDon 09-39-9082Lpkfgof [Moles/Vol]1.5 mmol/L Normal0.4-2.0[facility] HospitalComment on above:Performed By: #### ABG #### [facility] [address] [place] [address] Dr. Dannie GoodmanPOINT OF CARE GLUCOSEon 14-48-4795Hdoqwzl [Mass/Vol]179 mg/dL Critically kcge67-934Giw [facility] HospitalComment on above:Performed By: #### ABG #### [facility] [address] [place] [address] Dr. Dannie Connors 14(COMP METB)on 65-08-2011Fzmnepj [Mass/Vol]3.5 g/dLNormal 3.4-5.0The [facility] on above:Performed By: #### CMADM, CMP #### [facility] [address] [address] [address] Dannie GoodmanAlbumin/Globulin [Mass ratio]1.0 {ratio}NormalThe [facility] HospitalComment on above:Performed By: #### CMADM, CMP #### [facility] [address] [address] [address] Dannie Taylor [Catalytic activity/Vol]110 U/XGthlep66-983Bmq [facility] Hospitalment on above:Performed By: #### CMADM, CMP #### [facility] [address] [address] [address] Dannie GallowayT [Catalytic activity/Vol]41 U/ZMmpoqe58-87Xdu [facility] HospitalComment on above:Performed By: #### CMADM, CMP #### [facility] [address] [address] [address] Dannie Fowler gap [Moles/Vol]14.0 mmol/LNormalThe [facility] Comment on above:Performed By: #### CMADM, CMP #### [facility] [address] [address] [address] Dannie GoodmanAST [Catalytic activity/Vol]41 U/LCritically qhxz05-12Pik [facility] Hospitalment on above:Performed By: #### CMADM, CMP #### [facility] [address] [address] [address] Dannie GoodmanBilirubin [Mass/Vol]0.9 mg/dLNormal0.2-1.0The [facility] Comment on above:Performed By: #### CMADM, CMP #### [facility] [address] [address] [address] Dannie GoodmanCalcium [Mass/Vol]8.9 mg/dLNormal8.5-10.1[facility] Comment on above:Performed By: #### CMADM, CMP #### [facility] [address] [address] [address] Dannie GoodmanChloride [Moles/Vol]97 mmol/LCritically vdr44-500Eiy [facility] HospitalComment on above:Performed By: #### CMADM, CMP #### [facility] [address] [address] [address] Dannie GoodmanCO2 [Moles/Vol]29.1 mmol/WQwnkyd88.0-32.0The [facility] Comment on above:Performed By: #### CMADM, CMP #### [facility] [address] [address] [address] Dannie GoodmanCreatinine [Mass/Vol]0.92 mg/dLNormal0.70-1.30The [facility] HospitalComment on above:Performed By: #### CMADM, CMP #### [facility] [address] [address] [address] Dannie ShortGFR-AF SPANISH>60Normal>=60The [facility] HospitalComment on above:Performed By: #### CMADM, CMP #### [facility] [address] [address] [address] Dannie Chavez-NON AF SPANISH>60Normal>=60The [facility] HospitalComment on above:Performed By: #### CMADM, CMP #### [facility] [address] [address] [address] Dannie GoodmanGlobulin (S) [Mass/Vol]3.5 g/dLNormalThe [facility] HospitalComment on above:Performed By: #### CMADM, CMP #### [facility] [address] [address] [address] Dannie GoodmanGlucose [Mass/Vol]169 mg/dLCritically tqck91-109Vfl [facility] HospitalComment on above:Performed By: #### CMADM, CMP #### [facility] [address] [address] [address] Dannie GoodmanPotassium [Moles/Vol]4.1 mmol/LNormal3.5-5.1The [facility] Comment on above:Performed By: #### CMADM, CMP #### [facility] [address] [place] [address] Dr. Dannie GoodmanProtein [Mass/Vol]7.0 g/dLNormal6.4-8.2[facility] Comment on above:Performed By: #### CMADM, CMP #### [facility] [address] [place] [address] Dr. Dannie GoodmanSodium [Moles/Vol]136 mmol/QFwituv095-629EfpMercy Health Kings Mills Hospital Comment on above:Performed By: #### CMADM, CMP #### [facility] [address] [place] [address] Dr. Dannie GoodmanUrea nitrogen [Mass/Vol]13.0 mg/dLNormal7.0-18.0[facility] HospitalComment on above:Performed By: #### CMADM, CMP #### [facility] [address] [place] [address] Dr. Dannie Kingston nitrogen/Creatinine [Mass ratio]14.1 mg/mgNormalThTrumbull Regional Medical CenterComment on above:Performed By: #### CMADM, CMP #### [facility] [address] [place] [address] Dr. Dannie Day 25-69-7830GEC Coag (PPP) [Relative time]0.98 {INR} NormalMercy Health Kings Mills HospitalComment on above:Performed By: #### PTT, PT #### [facility] [address] [place] [address] Dr. Dannie Hamilton GUIDELINESSEE BELOWNoProMedica Memorial HospitalComment on above:Result Comment: DESIRED INR: 2.0 - 3.0 CONDITIONS NOT LISTED BELOW 2.5 - 3.5 FOR PROSTHETIC HEART VALVE REPLACEMENT 2.5 - 3.5 RECURRENT THROMBOSIS Performed By: #### PTT, PT #### [facility] [address] [place] [address] Dr. Dannie GoodmanPT Coag (PPP) [Time]10.4 sNormal9.0-11.6ThTrumbull Regional Medical Center Comment on above:Performed By: #### PTT, PT #### [facility] [address] [place] [address] Dr. Dannie Mcdaniel 84-91-3224gMEW Coag (Bld) [Time]33.9 jScdecg88.3-36.2The [facility] HospitalComment on above:Performed By: #### PTT, PT #### [facility] [address] [place] [address] Dr. Dannie GoodmanSED RATE WESTERGRENon 72-68-5738YJC RATE74 mm/hrCritically high <=20The [facility] HospitalComment on above:Performed By: #### SEDR #### [facility] [address] [place] [address] Dr. Dannie GoodmanSYMPTOMATIC COVID-19 ANTIGENon 48-04-6659CFA StatementSEE BELOW NormalThe [facility] HospitalComment on above:Result Comment: This test has not been FDA cleared or approved, but has been authorized by the FDA under an Emergency Use Authorization (EUA) for use by authorized laboratories certified under CLIA that meet the requirements to perform moderate or high complexity testing. This test has been authorized only for the detection of proteins from SARS-CoV-2, not for any other viruses or pathogens. The emergency use of this test is authorized for the duration of the declaration that circumstances exist justifying the authorization of emergency use of in vitro diagnostic tests for detection and/or diagnosis of Covid-19 under section 564(b)(1) of the Act, 21 U.S.C. 360bbb-3(b)(1), unless the declaration is terminated or authorization is revoked sooner.Performed By: #### SEDR #### [facility] [address] [place] [address] Dr. Dannie Chan-CoV-2 (COVID-19) RNA ELSIE+probe Ql (Unsp spec)NegativeNormal NEGATIVEThe [facility] HospitalComment on above:Performed By: #### SEDR #### [facility] [address] [place] [address] Dr. Dannie GoodmanXR FOOT LT MIN 3 VIEWSon 57-61-1368FQ FOOT LT MIN 3 VIEWSEXAM: XR FOOT LT MIN 3 VIEWS HISTORY: Osteomyelitis COMPARISON: None. TECHNIQUE: 3 view study FINDINGS: Overall bony architecture is normal. Joint spaces are well maintained. Forefoot soft tissue swelling is noted. IMPRESSION: Forefoot soft tissue swelling. No acute bone or joint abnormality is identified. No convincing plain film evidence for osteomyelitis. Electronically authenticated by: Homer ROLDAN Date: 2023-02-03 21:27NoProMedica Memorial HospitalBNPon 30-42-0484Calsunwoyui peptide B (Bld) [Mass/Vol]26.0 pg/mLNormal <=900.0The [facility] HospitalComment on above:Performed By: #### SEDR #### [facility] [address] [place] [address] Dr. Dannie Foster AUTO DIFFon 50-69-4584CPAR #0.0 103/ulNormal0.0-0.1[facility] HospitalComment on above:Performed By: #### CBC #### [facility] [address] [place] [address] Dr. Dannie GoodmanBasophils/100 WBC (Bld)0.5 %Normal0.2-2.0[facility] Comment on above:Performed By: #### CBC #### [facility] [address] [place] [address] Dr. Dannie Acosta #0.4 103/ulNormal0.0-0.7The [facility] HospitalComment on above: Performed By: #### CBC #### [facility] [address] [place] [address] Dr. Dannie Shortosinophils/100 WBC (Bld)4.7 %Normal0.9-7.0[facility] Comment on above:Performed By: #### CBC #### [facility] [address] [place] [address] Dr. Dannie Shortrythrocyte distribution width (RBC) [Ratio]11.8 %Labhbz39.0-15.0 The [facility] HospitalComment on above:Performed By: #### CBC #### [facility] [address] [place] [address] Dr. Dannie GoodmanHematocrit (Bld) [Volume fraction]46.1 %Fehlln31.0-54.0The [facility] HospitalComment on above:Performed By: #### CBC #### [facility] [address] [place] [address] Dr. Dannie GoodmanHemoglobin (Bld) [Mass/Vol]15.6 g/bBFuydfc94.0-18.0The [facility] HospitalComment on above:Performed By: #### CBC #### [facility] [address] [place] [address] Dr. Dannie GoodmanIG #0.02 10e3/ulNormal0.00-0.03The [facility] HospitalComment on above:Performed By: #### CBC #### [facility] [address] [place] [address] Dr. Dannie GoodmanIG %0.3 %Normal0.0-0.5The [facility] HospitalComment on above: Performed By: #### CBC #### [facility] [address] [place] [address] Dr. Dannie Castillo #2.2 103/ulNormal1.2-3.8The [facility] HospitalComment on above:Performed By: #### CBC #### [facility] [address] [place] [address] Dr. Dannie Gomphocytes/100 WBC (Bld)29.2 %Vslnct40.5-60.0The [facility] HospitalComment on above:Performed By: #### CBC #### [facility] [address] [place] [address] Dr. Dannie GoodmanMANUAL DIFF REQNONormalThe [facility] HospitalComment on above: Performed By: #### CBC #### [facility] [address] [place] [address] Dr. Dannie Willard (RBC) [Entitic mass]30.9 zhGuawzd65.9-34.0The [facility] HospitalComment on above:Performed By: #### CBC #### [facility] [address] [place] [address] Dr. Dannie AguilarHC (RBC) [Mass/Vol]33.8 g/hPFdugeo25.9-35.2The [facility] HospitalComment on above:Performed By: #### CBC #### [facility] [address] [address] [address] Dannie AguilarV (RBC) [Entitic vol]91.3 nCMrvqwm40.0-94.0The [facility] HospitalComment on above:Performed By: #### CBC #### [facility] [address] [address] [address] Dannie Mohr #0.6 103/ulNormal0.3-0.8The [facility] HospitalComment on above:Performed By: #### CBC #### [facility] [address] [place] [address] Dr. Dannie Da Silvaocytes/100 WBC (Bld)7.9 %Normal1.7-12.0The [facility] Comment on above:Performed By: #### CBC #### [facility] [address] [place] [address] Dr. Dannie Herrera #4.3 103/ulNormal1.4-6.5The [facility] HospitalComment on above:Performed By: #### CBC #### [facility] [address] [place] [address] Dr. Dannie Waldroputrophils/100 WBC (Bld)57.4 %Rewyew51.0-75.0The [facility] HospitalComment on above:Performed By: #### CBC #### [facility] [address] [address] [address] Dannie Hendersonlet mean volume (Bld) [Entitic vol]11.5 fLNormal9.5-13.5The [facility] HospitalComment on above:Performed By: #### CBC #### [facility] [address] [place] [address] Dr. Dannie GoodmanPLT212 103/awGpybyr052-122Scj [facility] HospitalComment on above: Performed By: #### CBC #### [facility] [address] [address] [address] Dannie GoodmanRBC5.05 106/ulNormal4.70-6.10The [facility] HospitalComment on above:Performed By: #### CBC #### [facility] [address] [address] [address] Dannie GoodmanWBC7.5 103/ulNormal4.0-11.0The [facility] HospitalComment on above: Performed By: #### CBC #### [facility] [address] [place] [address] Dr. Dannie Borges THYROXINE INDEX T7on 39-98-9332VEX0.64Tzvsja5.30-4.50The [facility] HospitalComment on above:Performed By: #### SEDR #### [facility] [address] [place] [address] Dr. Dannie GoodmanT3U32.0 %Critically low33.0-40.0The [facility] HospitalComment on above:Performed By: #### SEDR #### [facility] [address] [place] [address] Dr. Dannie GoodmanT4 [Mass/Vol]6.80 ug/dLNormal4.50-12.10The [facility] Comment on above:Performed By: #### SEDR #### [facility] [address] [place] [address] Dr. Dannie GoodmanPROKatie 14(COMP METB)on 37-72-3969Geelogh [Mass/Vol]3.9 g/dLNormal 3.4-5.0The [facility] HospitalComment on above:Performed By: #### SEDR #### [facility] [address] [place] [address] Dr. Dannie GoodmanAlbumin/Globulin [Mass ratio]1.2 {ratio}NormalThe [facility] HospitalComment on above:Performed By: #### SEDR #### [facility] [address] [place] [address] Dr. Dannie GallowayP [Catalytic activity/Vol]74 U/NRvsbin87-908Vsf Pradeep HospitalComment on above:Performed By: #### SEDR #### [facility] [address] [address] [address] Dannie GallowayT [Catalytic activity/Vol]37 U/UFwsozf77-69Xym [facility] HospitalComment on above:Performed By: #### SEDR #### [facility] [address] [address] [address] Dannie Fajardoon gap [Moles/Vol]10.2 mmol/LNormalThe [facility] Comment on above:Performed By: #### SEDR #### [facility] [address] [address] [address] Dannie GoodmanAST [Catalytic activity/Vol]33 U/BIylxsk09-22Gsd [facility] HospitalComhutzel [facility] on above:Performed By: #### SEDR #### [facility] [address] [place] [address] Dr. Dannie GoodmanBilirubin [Mass/Vol]0.4 mg/dLNormal0.2-1.0[facility] Comment on above:Performed By: #### SEDR #### [facility] [address] [place] [address] Dr. Dannie GoodmanCalcium [Mass/Vol]9.0 mg/dLNormal8.5-10.1[facility] Comment on above:Performed By: #### SEDR #### [facility] [address] [place] [address] Dr. Dannie GoodmanChloride [Moles/Vol]100 mmol/KJeeptb36-705Qxu [facility] Comment on above:Performed By: #### SEDR #### [facility] [address] [address] [address] Dannie GoodmanCO2 [Moles/Vol]31.1 mmol/ZXnvisz68.0-32.0The [facility] Comment on above:Performed By: #### SEDR #### [facility] [address] [place] [address] Dr. Dannie GoodmanCreatinine [Mass/Vol]0.87 mg/dLNormal0.70-1.30The [facility]adeep HospitalComment on above:Performed By: #### SEDR #### [facility] [address] [address] [address] Dannie ShortGFR-AF SPANISH>60Normal>=60The [facility] HospitalComment on above:Performed By: #### SEDR #### [facility] [address] [address] [address] Dannie ShortGFR-NON AF SPANISH>60Normal>=60The [facility] HospitalComment on above:Performed By: #### SEDR #### [facility] [address] [address] [address] Dannie GoodmanGlobulin (S) [Mass/Vol]3.3 g/dLNormalThe [facility] HospitalComment on above:Performed By: #### SEDR #### [facility] [address] [address] [address] Dannie GoodmanGlucose [Mass/Vol]150 mg/dLCritically aran49-502Ute [facility] HospitalComment on above:Performed By: #### SEDR #### [facility] [address] [address] [address] Dannie GoodmanPotassium [Moles/Vol]4.3 mmol/LNormal3.5-5.1The [facility] Comment on above:Performed By: #### SEDR #### [facility] [address] [address] [address] Dannie GoodmanProtein [Mass/Vol]7.2 g/dLNormal6.4-8.2The [facility] Comment on above:Performed By: #### SEDR #### [facility] [address] [address] [address] Dannie GoodmanSodium [Moles/Vol]137 mmol/TPiwstr238-500Jji [facility] Comment on above:Performed By: #### SEDR #### [facility] [address] [address] [address] Dannie GoodmanUrea nitrogen [Mass/Vol]13.0 mg/dLNormal7.0-18.0The [facility] HospitalComment on above:Performed By: #### SEDR #### [facility] [address] [place] [address] Dr. Dannie GoodmanUrea nitrogen/Creatinine [Mass ratio]14.9 mg/mgNormalThe [facility] HospitalComment on above:Performed By: #### SEDR #### [facility] [address] [place] [address] Dr. Dannie RazoHoerma 40-51-7348BCT2.616 uIU/mLNormal0.358-3.740The [facility] HospitalComment on above:Performed By: #### SEDR #### [facility] [address] [place] [address] Dr. Dannie GoodmanCovid-19 PCR ([facility])on 97-76-3662UPOG-CoV-2 (COVID-19) RNA ELSIE+probe Ql (Unsp spec)Not detectedNormalNOT DETECTEDThe [facility] Comment on above:Result Comment: This test is not yet approved or cleared by the [place] FDA. When there are no FDA-approved or cleared tests available, and other criteria are met, FDA can make tests available under an emergency access mechanism called an Emergency Use Authorization (EUA). The EUA for this test is supported by the [place] of Health and Human Service's (HHS's) declaration that circumstances exist to justify the emergency use of in vitro diagnostics for the detection and/or diagnosis of the virus that causes COVID- 19. This EUA will remain in effect (meaning this test can be used) for the duration of the COVID-19 declaration justifying emergency of IVDs, unless it is terminated or revoked by FDA (after which the test may no longer be used). When diagnostic testing is negative, the possibility of a false negative should be considered in the context of a patient's recent exposures and the presence of clinical signs and symptoms consistent with SARS-CoV-2.Performed By: #### ABG #### [facility] [address] [place] [address] Dr. Dannie GoodmanSYMPTOMATIC COVID-19 ANTIGENon 02-14-8237XHK StatementSEE BELOW NormalThe [facility] HospitalComhutzel women's hospital on above:Result Comment: This test has not been FDA cleared or approved, but has been authorized by the FDA under an Emergency Use Authorization (EUA) for use by authorized laboratories certified under CLIA that meet the requirements to perform moderate or high complexity testing. This test has been authorized only for the detection of proteins from SARS-CoV-2, not for any other viruses or pathogens. The emergency use of this test is authorized for the duration of the declaration that circumstances exist justifying the authorization of emergency use of in vitro diagnostic tests for detection and/or diagnosis of Covid-19 under section 564(b)(1) of the Act, 21 U.S.C. 360bbb-3(b)(1), unless the declaration is terminated or authorization is revoked sooner.Performed By: #### ABG #### [facility] [address] [place] [address] Dr. Dannie Chan-CoV-2 (COVID-19) RNA ELSIE+probe Ql (Unsp spec)NegativeNormal NEGATIVEThe [facility] HospitalComment on above:Performed By: #### ABG #### [facility] [address] [place] [address] Dr. Dannie Brink METABOLIC PANELon 19-71-0235Mcnbioi [Mass/Vol]9.1 mg/dL Normal8.6-10.3The [facility] CenterComment on above:Order Comment: No: Do not add to previous drawPerformed By: #### [id number] #### [facility] [address] [place] [address], USAChloride [Moles/Vol]97 mmol/YKkb93-100Aum [facility] CenterComment on above:Order Comment: No: Do not add to previous drawPerformed By: #### [id number] #### [facility] [address] [place] [address], USACO2 [Moles/Vol]31 mmol/JIeekgj05-44Cwj [facility] CenterComment on above:Order Comment: No: Do not add to previous draw Performed By: #### 09921 #### [facility] [address] [place] [address], USACreatinine [Mass/Vol]1.25 mg/dLNormal0.70-1.30The [facility] CenterComment on above:Order Comment: No: Do not add to previous drawPerformed By: #### [id number] #### [facility] [address] [place] [address], USAGFR/1.73 sq M predicted among blacks MDRD (S/P/Bld) [Vol rate/Area]mL/min/{1.73_m2}Normal>60The [facility] Comment on above:Order Comment: No: Do not add to previous drawPerformed By: #### 77562 #### [facility] [address] [place] [address], USAGFR/1.73 sq M predicted among non-blacks MDRD (S/P/Bld) [Vol rate/Area]mL/min/{1.73_m2}Normal>60The [facility] Comment on above:Order Comment: No: Do not add to previous drawPerformed By: #### [id number] #### [facility] [address] [place] [address], USAGlucose [Mass/Vol]120 mg/pFVzzu51-707Jzn [facility] CenterComment on above:Order Comment: No: Do not add to previous drawPerformed By: #### [id number] #### [facility] [address] [place] [address], USAPotassium [Moles/Vol]4.5 mmol/LNormal3.5-5.1The [facility] CenterComment on above:Order Comment: No: Do not add to previous drawPerformed By: #### [id number] #### [facility] [address] [place] [address], USASodium [Moles/Vol]136 mmol/ZQbmyfy173-207Xzh [facility] CenterComment on above:Order Comment: No: Do not add to previous drawPerformed By: #### 13855 #### [facility] [address] [place] [address], USAUrea nitrogen [Mass/Vol]26 mg/dLHigh7-25The [facility] CenterComment on above:Order Comment: No: Do not add to previous drawPerformed By: #### [id number] #### [facility] [address] [place] [address], USACBC COMPLETE BLOOD COUNTon 19-86-7982Juzkrwzxvvj distribution width (RBC) [Ratio]12.8 %Jojhvq22.5-15.0The [facility] CenterComment on above:Order Comment: No: Do not add to previous draw Performed By: #### [id number] #### [facility] [address] [place] [address], USAHematocrit (Bld) [Volume fraction]42.8 %Ybazrk77.0-50.0The [facility] CenterComment on above:Order Comment: No: Do not add to previous drawPerformed By: #### [id number] #### [facility] [address] [place] [address], USAHemoglobin (Bld) [Mass/Vol]13.6 g/qEVqhhco22.0-17.0The [facility] CenterComment on above:Order Comment: No: Do not add to previous drawPerformed By: #### [id number] #### [facility] [address] [place] [address], [facility]ITALMCH (RBC) [Entitic mass]30.1 laRsfhmt42.0-33.0The [facility] CenterComment on above:Order Comment: No: Do not add to previous drawPerformed By: #### 25999 #### [facility] [address] [place] [address], [facility]ITALMCHC (RBC) [Mass/Vol]31.8 g/dLLow32.0-35.0The [facility] CenterComment on above:Order Comment: No: Do not add to previous drawPerformed By: #### [id number] #### [facility] [address] [place] [address], USAMCV (RBC) [Entitic vol]94.7 dQEqgboc77.0-98.0The [facility] CenterComment on above:Order Comment: No: Do not add to previous drawPerformed By: #### 15325 #### [facility] [address] [place] [address], USANucleated RBC/100 WBC (Bld) [Ratio]0 %Normal0-0The [facility] CenterComment on above:Order Comment: No: Do not add to previous drawPerformed By: #### 80860 #### [facility] [address] [place] [address], USAPLAT AGP429 10*3/xKZoptso428-299Weu [facility] CenterComment on above:Order Comment: No: Do not add to previous draw Performed By: #### 78747 #### [facility] [address] [place] [address], USARBC (Bld) [#/Vol]4.52 10*6/uLNormal4.20-5.70The [facility] CenterComment on above:Order Comment: No: Do not add to previous drawPerformed By: #### [id number] #### [facility] [address] [place] [address], USAWBC (Bld) [#/Vol]10.06 10*3/uLNormal4.00-10.60The [facility] CenterComment on above:Order Comment: No: Do not add to previous drawPerformed By: #### 01762 #### [facility] [address] [place] [address], USACardiovascular Lab Reporton [id number] Lab ReportUnCleveland Clinic [facility] MR #: [id number] Physician: Laurence Cutler Abd Department of MD [facility] Service Date: 07/08/2019 Division of Birthdate: 1970 Cardiology Room #: [id number] Adult Cardiovascular Services [facility] [address] [place] [address] Cardiovascular Laboratory Report FINAL IMPRESSION: 1. Mild atherosclerotic disease of the left anterior descending artery and the right coronary artery. 2. Mild pulmonary hypertension with normal pulmonary capillary wedge pressure. 3. Normal cardiac output and normal cardiac index. RECOMMENDATION: 1. Aggressive cardiovascular risk factor modifications. 2. Optimization of the medical management including aspirin and high dose statin. 3. The patient needs to be treated for sleep apnea. He has claustrophobia from the CPAP mask. Needs a new sleep study referral with probable nasal mask for better tolerance. Lifestyle modifications include weight loss. PROCEDURES: Right heart catheterization, bilateral selective coronary angiography. METHODS: After risks, benefits, and alternatives were explained, written informed consent was obtained. The patient was prepped and draped in the usual sterile fashion over both groins as well as the right cubital area. Using 1% lidocaine solution, local infiltration anesthesia was achieved. Using a modified Seldinger technique, an access was obtained to the right cubital vein and a 5-Montserratian 11 cm sheath was placed. Then, we used the Mailman wire, which was passed to the wedge position. Then over the Mailman wire, we passed a Batista catheter to wedge position and we recorded the pulmonary capillary wedge pressure, the PA pressure, right ventricular pressure, and RA pressure. We also obtained O2 saturation for cardiac output and cardiac index calculation by the Guille principle. Then, we proceeded with getting access to the right radial artery and a 6-Montserratian sheath was inserted. A bilateral selective coronary angiography was performed using JL4 and JR4 catheters. After reviewing the images, it was elected to conclude the procedure. Overall, the patient tolerated the procedure very well. Excellent hemostasis was obtained by the TR band. There was no overt complications. He was to be transferred to the medical floor in stable condition. FINDINGS: Hemodynamics: RA pressure is 18/16 mmHg. RV pressure 44/7 mmHg. Pulmonary capillary wedge 14, PAP 54/16. Aortic pressure 96/66 mmHg. Cardiac output 5.6 ml/min with cardiac index of 2.39ml/min/m2. CORONARY ARTERIES: Left main coronary artery: This arises from the left coronary cusp. It bifurcates into the left anterior descending and left circumflex coronary artery, and has 0% stenosis. Left anterior descending coronary artery: This is moderate-sized vessel that gave rise to 1st and 2nd diagonal branch. There was 40% stenosis in the mid left anterior descending artery. Left circumflex artery: Moderate-sized vessel that gave rise to 1st and 2nd obtuse marginal branch. There was no evidence of atherosclerotic disease in the left circumflex artery or its branches. Right coronary artery: This is a large voluminous dominant vessel giving rise to the posterior descending and posterolateral branches. There was 10% stenosis in the proximal right coronary artery. INDICATION: The patient is a 48-year-old male with history of severe sleep apnea, smoking, depression, anxiety, hypertension, presented with weakness, fatigue, and shortness of breath. 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 He described severe fatigue as well as worsening swelling of his lower extremities. He is also being short of breath for at least a year, but worsening, and swelling is more recent phenomena. Denied chest pain or chest pressure. Echo at the outside facility was normal with mildly elevated CK. He was seen by Dr. Delaney, who recommended bilateral heart catheterization due to mildly elevated troponin. Findings and management strategies as outlined above. Electronically Signed by: Laurence Cespedes MD 07/09/2019 10:36 A Laurence Cespedes MD Date Dict: 07/08/2019/03:47 P/Laurence Cespedes MD Date Trans: 07/09/2019 07:07 A/garry DN_JN:[id number] cc: Courtney Jackson M.D. [id number] [facility] [place] [address]EsubbgShyUC HealthBASIC METABOLIC PANELon 45-90-7826Ebpopbx [Mass/Vol]9.4 mg/dLNormal8.6-10.3The [facility] CenterComment on above:Order Comment: No: Do not add to previous drawPerformed By: #### 38627, 72396 #### [facility] [address] [place] [address], USAChloride [Moles/Vol]97 mmol/MGnl53-844Iif [facility] CenterComment on above:Order Comment: No: Do not add to previous drawPerformed By: #### 95794, 20479 #### [facility] [address] [place] [address], USACO2 [Moles/Vol]31 mmol/GBaegth19-62Owx [facility] CenterComment on above:Order Comment: No: Do not add to previous draw Performed By: #### 82997, 82908 #### [facility] [address] [place] [address], USACreatinine [Mass/Vol]1.00 mg/dLNormal0.70-1.30The [facility] CenterComment on above:Order Comment: No: Do not add to previous drawPerformed By: #### 23843, 67324 #### [facility] [address] [place] [address], USAGFR/1.73 sq M predicted among blacks MDRD (S/P/Bld) [Vol rate/Area]mL/min/{1.73_m2}Normal>60The [facility] Comment on above:Order Comment: No: Do not add to previous drawPerformed By: #### 74487, 92516 #### [facility] [address] [place] [address], USAGFR/1.73 sq M predicted among non-blacks MDRD (S/P/Bld) [Vol rate/Area]mL/min/{1.73_m2}Normal>60The [facility] Comment on above:Order Comment: No: Do not add to previous drawPerformed By: #### 20776, 84486 #### [facility] [address] [place] [address], USAGlucose [Mass/Vol]118 mg/vTJzuo70-402Oxn [facility] CenterComment on above:Order Comment: No: Do not add to previous drawPerformed By: #### 11372, 61412 #### [facility] [address] [place] [address], USAPotassium [Moles/Vol]4.5 mmol/LNormal3.5-5.1The [facility] CenterComment on above:Order Comment: No: Do not add to previous drawPerformed By: #### 27314, 49912 #### [facility] [address] [place] [address], USASodium [Moles/Vol]137 mmol/MVabsbh289-730Cks [facility] CenterComment on above:Order Comment: No: Do not add to previous drawPerformed By: #### 65710, 40063 #### [facility] [address] [place] [address], USAUrea nitrogen [Mass/Vol]16 mg/dLNormal7-25The [facility] CenterComment on above:Order Comment: No: Do not add to previous drawPerformed By: #### 12711, 25401 #### [facility] [address] [facility] [place] [address], USACBC COMPLETE BLOOD COUNTon 07-84-4667Pebvdhxkcie distribution width (RBC) [Ratio]12.7 %Cbpllw17.5-15.0The [facility] CenterComment on above:Order Comment: No: Do not add to previous draw Performed By: #### 72323 #### [facility] [address] [facility] [place] [address], USAHematocrit (Bld) [Volume fraction]44.5 %Lwihlk82.0-50.0The [facility] CenterComment on above:Order Comment: No: Do not add to previous drawPerformed By: #### 61496 #### [facility] [address] [address], [facility] HOSPITALHemoglobin (Bld) [Mass/Vol]14.1 g/wQAufbsu81.0-17.0The [facility] CenterComment on above:Order Comment: No: Do not add to previous drawPerformed By: #### 98149 #### [facility] [address] [place] [address], [facility] (RBC) [Entitic mass]29.6 yqXauzow19.0-33.0The [facility] CenterComment on above:Order Comment: No: Do not add to previous drawPerformed By: #### 49213 #### [facility] [address] [address], [facility]OSPITALMCHC (RBC) [Mass/Vol]31.7 g/dLLow32.0-35.0The [facility] CenterComment on above:Order Comment: No: Do not add to previous drawPerformed By: #### 91128 #### [facility] [address] [address], [facility] (RBC) [Entitic vol]93.5 eYTgmlsz36.0-98.0The [facility] CenterComment on above:Order Comment: No: Do not add to previous drawPerformed By: #### 71345 #### [facility] [address] [place] [address], USANucleated RBC/100 WBC (Bld) [Ratio]0 %Normal0-0The [facility] CenterComment on above:Order Comment: No: Do not add to previous drawPerformed By: #### 79819 #### [facility] [address] [facility] [place] [address], USAPLAT MMJ018 10*3/rDUxpqbx035-406Lge [facility] CenterComment on above:Order Comment: No: Do not add to previous draw Performed By: #### [id number] #### [facility] [address] [facility] [place] [address], USARBC (Bld) [#/Vol]4.76 10*6/uLNormal4.20-5.70The [facility] CenterComment on above:Order Comment: No: Do not add to previous drawPerformed By: #### 97306 #### [facility] [address] [place] [address], USAWBC (Bld) [#/Vol]12.29 10*3/uLHigh4.00-10.60The [facility] CenterComment on above:Order Comment: No: Do not add to previous drawPerformed By: #### 01839 #### [facility] [address] [place] [address], USAHistory and Physicalon 98-42-0945Itwmruw and PhysicalMR#: [id number] [facility] Pt. Name: Suresh Cabrera Admitted: 07/08/2019 Date of : 1970 Attending Physician: Harleen Aguilar MD Room #: [id number] Discharge Date: HISTORY AND PHYSICAL HISTORY OF PRESENT ILLNESS: The patient is a 48-year-old male basically was transferred from [facility] for possible cardiac catheterization. The patient during interview extremely sleepy and unable to get much history. The patient on 2 L nasal cannula and he does not seem in any acute distress, and he denies any chest pain or shortness of breath. At [facility] reviewing the records, I was able to see that the patient had 2 troponins were negative, just I see the CK-MB slightly elevated of 2.72. The patient again in bed with vital signs of heart rate 90, saturating 98% on 2 L, respirations 18, blood pressure 137/74. The patient again was transferred for possible cardiac cath by Cardiology request. PAST MEDICAL HISTORY: Significant for morbid obesity, severe sleep apnea, intolerant to CPAP, hypertension, PTSD, anxiety, COPD, and insomnia. MEDICATIONS: The patient was getting outside amitriptyline 100 mg in the evening, bupropion 75 three times a day, lisinopril/hydrochlorothiazide 10/12.5 daily, Symbicort inhaler 2 inhalations every 12 hours, clindamycin 600 mg q.6 hours as well as Cipro 400 mg IV q.12 hours. The patient also started on Lopressor 25 twice a day. The patient also was getting orphenadrine citrate 60 mg per 2 mL q.12 hours as well as hyoscyamine sulfate 0.125 mg sublingual q.i.d. p.r.n., also MiraLax and some other p.r.n. medications. ALLERGIES: No known drug allergies. SOCIAL HISTORY: Unable to obtain at this moment. SURGICAL HISTORY: Unable to obtain at this moment. FAMILY HISTORY: Unable to obtain at this moment. REVIEW OF SYSTEMS: Again, the patient comfortable in bed, snoring, on 2 L nasal cannula, but he has been in no acute distress. PHYSICAL EXAMINATION: HEENT: Eyes, extraocular muscles intact. NECK: Supple. No JVD or lymphadenopathy. LUNGS: Diminished breath sounds at the bases. HEART: S1 and S2. ABDOMEN: Soft. Positive bowel sounds. EXTREMITIES: Positive pulses with some erythema in anterior aspect of the left leg. LABORATORY DATA: What we have available, sodium 139, potassium 3.7, chloride 100, CO2 of 31.4, BUN 14, creatinine 1.18. WBC 9.1, hemoglobin 14.0, hematocrit 42.4, platelet of 210. Again, troponins were less than 0.017, CK-MB 2.72, mildly elevated. ProBNP 34. UA was negative. Chest x-ray showed no acute process. Echo showed moderate LVH. X-ray, bilateral feet showed right subacute to chronic comminuted minimally displaced fracture 1st phalanx. Venous Doppler bilateral lower extremities was negative for DVT. ASSESSMENT AND PLAN: 1. Episode of chest pain at [facility] that resolved with CK-MB of 2.72 with negative troponins. The patient will be placed on telemetry. I will repeat one more set of troponin. The patient will be kept n.p.o. for now for possible cardiac cath in the morning per Dr. Delaney's recommendations. The patient will continue on his Lisinopril and Lopressor for now, and I will add aspirin to his regimen. I will hold off on his hydrochlorothiazide for now. 2. Cellulitis, left leg. I will hold off on clindamycin and Cipro, and I will start vancomycin, pharmacy to dose. Rest of his medications will be resumed. Electronically Signed by: Harleen Aguilar MD 07/09/2019 02:54 A Harleen Aguilar MD Date Dict: 07/08/2019/02:52 A/Harleen Aguilar MD Date Trans: 07/08/2019 03:12 Anahy/garry DN_JN:[id number] Hospital LimaPROTHROMBIN TIMEon [id number] Coag (PPP) [Relative time]0.95 {INR}Normal0.91-1.16The [facility] CenterComment on above:Order Comment: No: Do not add to previous drawResult Comment: ACCCP RECOMMENDED INR FOR WARFARIN THERAPY ------- CONDITION INR PROPHYLAXIS OF VENOUS THROMBOSIS 2-3 (HIGH-RISK SURGERY) TREATMENT OF VENOUS THROMBOSIS 2-3 TREATMENT OF PULMONARY EMBOLISM 2-3 PREVENTION OF SYSTEMIC EMBOLISM: 2-3 ACUTE MYOCARDIAL INFARCTION TISSUE HEART VALVES VALVULAR HEART DISEASE ATRIAL FIBRILLATION RECURRENT SYSTEMIC EMBOLISM MECHANICAL HEART VALVE 2.5-3.5 FROM: ORAL ANTICOAGULANTS. MECHANISM OF ACTION, CLINICAL EFFECTIVENESS, AND OPTIMAL THERAPEUTIC RANGE. CHEST 1995;108:231S-246S.Performed By: #### [id number] #### [facility] [address] [place] [address], [place] Coag (PPP) [Time]12.7 kQsveqa39.3-14.8The [facility] Medical CenterComment on above:Order Comment: No: Do not add to previous drawResult Comment: ALL RESULTS MUST BE INTERPRETED WITH RESPECT TO BLOOD DRAWING ARTIFACT OR DILUTION ERROR OF ANTICOAGULANT AT THE TIME OF SAMPLING.Performed By: #### [id number] #### [facility] [address] [facility] [place] [address], [facility] HOSPITALTROPONIN-Ion 48-69-2396Vyfczrxp I.cardiac [Mass/Vol]0.00 ng/mLNormal0.00-0.04The [facility] CenterComment on above: Order Comment: No: Do not add to previous drawResult Comment: REFERENCE RANGES: 0.00 - 0.14 ng/ml NEGATIVE 0.15 - 0.25 ng/ml INDETERMINATE > 0.25 ng/ml INDICATIVE OF AN M.I.Performed By: #### [id number], [id number] #### [facility] [address] [facility] [place] [address], [facility] Vital Signs Date TimeVital SignValuePerforming MxvwqgcjmEgusfyvi73-47-1349 10:230400Body amctqr673 cmDanohemy Jones MD Work Phone: [phone] CenterAdrhbiwzdr39-09-3220 10:23-0400Body mass index (BMI) [Ratio]40.16 kg/v7Fnkfmwnohemy Jones MD Work Phone: [phone] CenterPviovqehtp58-09-3904 10:23-0400Body yksutz837.56 kgDanohemy Jones MD Work Phone: [phone] CenterCcjlpjdfqv62-59-0673 10:230400Diastolic blood lijmeahr16 mm[Hg]Cristiano Jones MD Work Phone: [phone] [place], [place] [address]Khtlbbihjz73-71-0911 10:23-0400Heart rate90 /min Cristiano Jones MD Work Phone: [phone] CenterMkeqzdkzle69-32-0956 10:234469RgV5% (BldA) [Mass fraction]94 %Cristiano Jones MD Work Phone: [facility] CenterMpyreudflk59-71-8158 10:23-0400Systolic blood mm[Hg]Cristiano Jones MD Work Phone: [phone] Psychiatric CenterQxnmjqavyx53-05-5432 09:04-0400Body nyultf568 cm Kathe Hemmer PA Work Phone: [facility]enterPo[facility] HospitalQdlunovovo80-43-1000 09:04-0400Body mass index (BMI) [Ratio]40.19 kg/f2Ecnxj Hemmer PA Work Phone: [facility] CenterFrphqycfpu76-88-4610 09:04-0400Body .66 kgKaren Hemmer PA Work Phone: [phone])[facility]-[address] [place], [place] [address]Lsdjgiybvi52-67-0568 09:04-0400Heart rate72 /min Kathe Hemmer PA Work Phone: [facility] CenterLxovvahprk53-34-8442 09:04-0400Respiratory rate16 /minKaren Hemmer PA Work Phone: [phone]-[address] [place], [place] [address]Hgjyeuzadx51-21-6891 09:04-8078ItY4% (BldA) [Mass fraction]93 %Kathe Hemmer PA Work Phone: [phone]-2996[facility] HealthcareComment on above:walk test 90% 06-02-2025 11:01-0400Body zuudud004 cmCristiano Jones MD Work Phone: [phone])[facility]-[address] [place], [place] [address]Mpnbrsfqzd92-32-2335 11:01-0400Body mass index (BMI) [Ratio]40.61 kg/p8HxmrhpCristiano Jones MD Work Phone: [phone] [place], [place] [address]Samhswdbgu37-65-4880 11:01-0400Body jojlsb605.92 kgCristiano Jones MD Work Phone: [phone])[facility]-[address] [place], [place] [address]Ampllhykum66-96-0639 11:01-0400Diastolic blood munbjqgr17 mm[Hg]Cristiano Jones MD Work Phone: [phone] [place], [place] [address]Edgnmefrns36-94-9006 11:01-0400Heart rate88 /min Cristiano Jones MD Work Phone: [phone])[facility]-[address] [place], [place] [address]Bwddnezkie92-51-6628 11:01-6055QgZ8% (BldA) [Mass fraction]96 %Cristiano Jones MD Work Phone: [phone]-9500[facility] CenterQiyuzdhthg78-44-1032 11:01-0400Systolic blood lloyccux976 mm[Hg]Cristiano Jones MD Work Phone: [facility] HospitalYpgqhusawp89-53-5609 10:36-0400Body mktpaf077 cm Cristiano Jones MD Work Phone: [facility] CenterAfseutfjnu39-58-2917 10:36-0400Body mass index (BMI) [Ratio]39.26 kg/y8ZuxdxgCristiano Jones MD Work Phone: [facility] CenterKbsxtvwqlz40-38-9842 10:36-0400Body ixngkf206.84 kgCristiano Jones MD Work Phone: [facility] CenterEizlbrwnfj50-86-8074 10:36-0400Diastolic blood rgljokzr64 mm[Hg]Cristiano Jones MD Work Phone: [facility] CenterNbjuoqkvqv01-01-1126 10:36-0400Heart rate95 /min Cristiano Jones MD Work Phone: [facility] CenterLamyqlpuqi07-60-5836 10:36-0400Respiratory rate18 /minDlisa Jones MD Work Phone: [facility] CenterAfdnhzslof57-27-7940 10:36-8989XjY6% (BldA) [Mass fraction]97 %Cristiano Jones MD Work Phone: [facility] CenterCidubqbbdl69-08-4795 10:36-0400Systolic blood tedveqzw222 mm[Hg]Cristiano Jones MD Work Phone: [facility] HospitalGucjiijcyj49-22-6240 10:11-0400Body nynlnx239 cm Cristiano Jones MD Work Phone: [facility] CenterHgisffykvl92-58-4596 10:11-0400Body mass index (BMI) [Ratio]39.71 kg/h6XvwzglCristiano Jones MD Work Phone: [facility] HospitalLsrfzhybaw37-29-3385 10:11-0400Body dzmxii562.2 kgCristiano Jones MD Work Phone: [facility] CenterQtyvtaidix47-64-6822 10:11-0400Diastolic blood qylktqkn75 mm[Hg]Cristiano Jones MD Work Phone: [facility] HospitalVmodjvyclq22-11-9993 10:11-0400Heart rate89 /min Cristiano Jones MD Work Phone: [facility] HospitalArxenfzvtu22-80-3161 10:11-0633IhB0% (BldA) [Mass fraction]93 %Cristiano Jones MD Work Phone: [facility] HospitalNrbkoilalc96-86-9458 10:11-0400Systolic blood pdlelkra939 mm[Hg]Cristiano Jones MD Work Phone: [facility] HospitalGovocxxove01-93-6154 10:20-0400Body cm Cristiano Jones MD Work Phone: [facility] HospitalNrxxdncnwp97-37-3003 10:20-0400Body mass index (BMI) [Ratio]38.81 kg/g4SoridjCristiano Jones MD Work Phone: [facility] HospitalUbrizkzhmo99-56-2352 10:20-0400Body wdbikl292.48 kgCristiano Jones MD Work Phone: [facility] HospitalEsldgkxmzb47-27-0566 10:20-0400Diastolic blood ozkxmula67 mm[Hg]Cristiano Jones MD Work Phone: [facility] HospitalLoxgxfhniu15-47-8246 10:20-0400Heart rate90 /min Cristiano Jones MD Work Phone: [facility] HospitalPqcgatjwpf82-37-2309 10:20-0995BhZ3% (BldA) [Mass fraction]94 %Cristiano Jones MD Work Phone: [facility] HospitalZwbvkshqyd93-42-7051 10:20-0400Systolic blood qlyvrwri123 mm[Hg]Cristiano Jones MD Work Phone: [facility] HospitalCdtxymozwl97-76-5338 11:12-0500Body mass index (BMI) [Ratio]40.04 kg/d1CmfdpkCristiano Jones MD Work Phone: [facility] HospitalWxsrudxuiq84-68-9049 11:12-0500Body .2 kgCristiano Jones MD Work Phone: [facility] HospitalItdvyszmee13-49-6475 11:12-0500Diastolic blood kahjixyg58 mm[Hg]Cristiano Jones MD Work Phone: [phone] [place], [place] [address]Rfrzxgvsnn35-78-3313 11:12-0500Heart rate84 /min Cristiano Jones MD Work Phone: [facility] CenterBicdeoqtpa53-79-8262 11:12-0500Respiratory rate17 /minDlisa Jones MD Work Phone: [facility] CenterPcbhcqltmk52-33-9078 11:12-3279YvS1% (BldA) [Mass fraction]97 %Cristiano Jones MD Work Phone: [facility] CenterLkutqontyt48-97-3768 11:12-0500Systolic blood bqfwslox051 mm[Hg]Cristiano Jones MD Work Phone: [phone])[facility]-[address] [place], [place] [address]Ecxqpiopts86-74-9534 11:05-0500Body cm Cristiano Jones MD Work Phone: [facility] CenterAsymjbpkwu47-00-3829 11:05-0500Body mass index (BMI) [Ratio]40.01 kg/b5LgztpxCristiano Jones MD Work Phone: 1(040)772-[address] [place], [place] [address]Bszqxlkhmn17-00-7788 11:05-0500Body hxjxva928.11 kgCristiano Jones MD Work Phone: [facility] CenterJmemydjufw36-47-1599 11:05-0500Diastolic blood aicyqczw97 mm[Hg]Cristiano Jones MD Work Phone: [facility] CenterOpwfxzwyiy78-82-9914 11:05-0500Heart rate83 /min Cristiano Jones MD Work Phone: [facility] CenterAmkhkwxlwv31-04-4892 11:05-9695ZwD5% (BldA) [Mass fraction]96 %Cristiano Jones MD Work Phone: [facility] CenterNdowjknqpe44-59-9927 11:05-0500Systolic blood bqchaspg673 mm[Hg]Cristiano Jones MD Work Phone: [facility] CenterGkonskdytb19-19-2163 18:00-0500Inhaled oxygen flow rate2 L/minAlexander Keister DO Work Phone: [facility]12-07-2024 18:00-0500 Respiratory rate18 /minAlexander Keister DO Work Phone: [phone] [place], [place] 2586212-07-2024 15:47-0500 SaO2% (BldA) [Mass fraction]94 %Poli [place] DO Work Phone: 1(838)454-[address] [place], [place] 2586212-07-2024 15:45-0500 Body mjhpsnjkkfo67.4 [degF]Poli [place] DO Work Phone: [phone] [place], [place] 2586212-07-2024 15:45-0500 Diastolic blood ntpqwlxu62 mm[Hg]Poli [place] DO Work Phone: [phone] [place], [place] 7173012-07-2024 15:45-0500 Heart rate70 /minAlemary lounder Aroldoister DO Work Phone: [phone])[address]12-07-2024 15:45-0500 Systolic blood muoikfed601 mm[Hg]Poli [place] DO Work Phone: 1(989)[address] [place], [place] 3307312-07-2024 12:00-0500 Inhaled oxygen uwcizezhzjqge32 %Poli Fisher DO Work Phone: 1(285)[address] [place], [place] 3307312-07-2024 06:00-0500 Body pwscie752.3 kgAleval [place] DO Work Phone: [phone])[address]12-06-2024 11:27-0500 Body hcvrmo933.72 cmAlexnolvia [place] DO Work Phone: [phone])[address] [place], [place] 2586212-01-2024 18:50-0500 Diastolic blood ijdwdjpw701 mm[Hg]Poli [place] DO Work Phone: 1(959)521-[address] [place], [place] 2586212-01-2024 18:50-0500 Heart rate82 /minAlemary louradha Aroldoister DO Work Phone: [phone])812-[address] [place], [place] 2586212-01-2024 18:50-0500 Respiratory rate17 /minAlexandsakina Kendrickister DO Work Phone: [phone])009-[address] [place], [place] 2586212-01-2024 18:50-0500 SaO2% (BldA) [Mass fraction]97 %Poli [place] DO Work Phone: [facility]12-01-2024 18:50-0500 Systolic blood fnldgbwa876 mm[Hg]Poli [place] DO Work Phone: [facility]12-01-2024 17:36-0500 Body .9 [degF]Poli [place] DO Work Phone: [facility]12-01-2024 17:28-0500 Body uwzelf092.72 cmAlexnolvia [place] DO Work Phone: [facility]12-01-2024 17:28-0500 Body .3 kgAlexaradha [place] DO Work Phone: [facility]11-25-2024 09:38-0500 Body cilbxb815 cmDanohemy Jones MD Work Phone: [facility] CenterPtawikplvh26-05-1707 09:38-0500Body mass index (BMI) [Ratio]40.01 kg/v6HwwkfrCristiano Jones MD Work Phone: [phone] CenterJaxcdpwiux18-49-0247 09:38-0500Body siyuyq047.11 kgCristiano Jones MD Work Phone: [facility] CenterLxduwlrioh87-02-9060 09:38-0500Diastolic blood cpwfvmvu17 mm[Hg]Cristiano Jones MD Work Phone: [facility] CenterDucpfibtjw44-01-4005 09:38-0500Heart rate86 /min Cristiano Jones MD Work Phone: [facility] CenterHnqjkccoot98-08-2615 09:38-6117LsN3% (BldA) [Mass fraction]93 %Cristiano Jones MD Work Phone: [facility] CenterHjhuvqndhr94-82-3372 09:38-0500Systolic blood nzugpuxk118 mm[Hg]Cristiano Jones MD Work Phone: [facility] CenterQefzfnurke64-78-5187 23:41-0400Diastolic blood lvdiqvps48 mm[Hg]James Dokken [address] [place], [place] 5463007-12-2023 23:41-0400Heart rate92 /minKaylinn Dokken [address] [place], [place] 5463007-12-2023 23:41-0400 Respiratory rate20 /minKaylinn Dokken [address] [place], [place] 5463007-12-2023 23:41-8985ChW3% (BldA) [Mass fraction]97 %Kaylinn Dokken [address] [place], [place] 5463007-12-2023 23:41-0400 Systolic blood dukmlgdf891 mm[Hg]Kaylinn Dokken [address] [place], [place] 5463007-12-2023 23:30-0400Body ugembsjockr73.88 [degF]Kaylinn Dokken [address] [place], [place] 5463007-12-2023 23:30-0400 Diastolic blood oobqlznw07 mm[Hg]Kaylinn Dokken [address] [place], [place] 5463007-12-2023 23:30-0400Heart rate78 /minKaylinn Dokken [address] [place], [place] 5463007-12-2023 23:30-0400Mean blood roiufmlw05 mm[Hg]Kaylinn Dokken [address] [place], [place] 5463007-12-2023 23:30-0400 Respiratory rate18 /minKaylinn Dokken [address] [place], [place] 5463007-12-2023 23:30-3849VlB9% (BldA) [Mass fraction]99 %Kaylinn Dokken [address] [place], [place] 5463007-12-2023 23:30-0400 Systolic blood tmsnhpma874 mm[Hg]Kaylinn Dokken [facility]07-12-2023 23:00-0400Body dqkvymqqcct19.24 [degF]James Du [address] [place], [place] 1135107-12-2023 22:00-0400 Diastolic blood mm[Hg]James Du [address]07-12-2023 22:00-0400Heart rate95 /minJames Du [address] [place], [place] 5463007-12-2023 22:00-0400Mean blood nwrggrea99 mm[Hg]James Du [address]07-12-2023 22:00-0400 Systolic blood ykyljryg621 mm[Hg]James Du [address] [place], [place] 5463005-15-2023 21:30-0400 Diastolic blood atcoxcav52 mm[Hg]MD Paddy Land Work Phone: [facility]05-15-2023 21:30-0400 Heart rate87 /minMD Paddy Land Work Phone: [facility]05-15-2023 21:30-0400 Inhaled oxygen qdwsdpfmomcpp94 %MD Paddy Land Work Phone: [facility]05-15-2023 21:30-0400 Respiratory rate18 /minMD Paddy Land Work Phone: [facility]05-15-2023 21:30-0400 SaO2% (BldA) [Mass fraction]96 %MD Paddy Land Work Phone: [facility]05-15-2023 21:30-0400 Systolic blood yancjbqc314 mm[Hg]MD Paddy Land Work Phone: [facility]05-15-2023 21:08-0400 Body oyiaotprmlk05.8 [degF]MD Paddy Land Work Phone: [phone]05-15-2023 13:58-0400 Body yehvyq275.72 cmMD Paddy Land Work Phone: [phone]05-15-2023 13:58-0400 Body izlogz875.79 kgMD Paddy Land Work Phone: 1(398)439-[address] [place], [place] 2586204-21-2023 19:46-0400 Diastolic blood bdavmuaw07 mm[Hg]MD Paddy Land Work Phone: 1(277)[address]04-21-2023 19:46-0400 Heart rate78 /minMD Paddy Land Work Phone: 1(335)[address]04-21-2023 19:46-0400 Inhaled oxygen flow rate2 L/minMD Paddy Land Work Phone: 1(200)523-[address] [place], [place] 2586204-21-2023 19:46-0400 Respiratory rate22 /minMD Paddy Land Work Phone: 1(441)540-[address] [place], [place] 2586204-21-2023 19:46-0400 SaO2% (BldA) [Mass fraction]94 %MD Paddy Land Work Phone: 1(126)961-[address] [place], [place] 2586204-21-2023 19:46-0400 Systolic blood kuiarsxa684 mm[Hg]MD Paddy Land Work Phone: [phone]04-21-2023 15:55-0400 Body szpylk569.18 cmMD Paddy Land Work Phone: [phone]04-21-2023 15:55-0400 Body znmhccnuxkr08.8 [degF]MD Paddy Land Work Phone: 1(124)474-[address] [place], [place] 2586204-21-2023 15:55-0400 Body qzcafi181.46 kgMD Paddy Land Work Phone: [phone] Encounters Encounter DateEncounter TypeCare ProviderFacilityStart: 07-05-2025 End: 83-90-8840Yqetzz Verito Jones MD Work Phone: [facility] MedinceStart: 07-05-2025 End: 91-47-8603Nslalq Verito Jones MD Work Phone: [facility] MedinceStart: 07-05-2025 End: 80-50-4637Kihldi outpatient visit 25 minutesCristiano Jones MD Work Phone: [facility] Kwong MedinceComment on above:Type 2 diabetes mellitus with other specified complication, with long-term current use of insulin (HCC) (Primary Dx); Panlobular emphysema (HCC); Nocturnal hypoxia; Obstructive sleep apnea; Acute cystitis without hematuriaStart: 07-05-2025 End: 51-65-7931oxnqmpwlvbLQHNEJ B BERRYNot AvailableStart: 06-10-2025 End: 63-01-8826Zwzvcd Bryant RIOS Work Phone: [facility] MedinceStart: 06-10-2025 End: 12-19-4888Brxral Bryant RIOS Work Phone: [facility] MedinceStart: 06-10-2025 End: 24-89-0219Gdmgdr outpatient visit 25 minutesKathe RIOS Work Phone: [facility] Kw[facility] MedinceComment on above:Cellulitis of left lower leg (Primary Dx); Obstructive sleep apnea; Primary insomnia; Panlobular emphysema (HCC); Moderate episode of recurrent major depressive disorder (HCC); Nocturnal hypoxia; Cigarette smokerStart: 06-10-2025 End: 30-72-0084jcdomxtwwzOKBYVAnnette Rivas AvailableStart: 06-02-2025 End: 45-81-1796Xbigdvroberto Jones MD Work Phone: [facility] MedinceStart: 06-02-2025 End: 45-01-0469Vlfebnlaury Jones MD Work Phone: [facility] MedinceStart: 06-02-2025 End: 01-51-3048Rwfdoj outpatient visit 15 minutesCristiano Jones MD Work Phone: [facility] MedinceComment on above:Type 2 diabetes mellitus with diabetic neuropathy, without long-term current use of insulin (HCC) (Primary Dx)Start: 06-02-2025 End: 28-62-9255phkvdkhnwxTWRUNO B BERRYNot AvailableStart: 03-29-2025 End: 00-25-9231Nqpzaz flowsJimy Jones MD Work Phone: [facility] CI FMStart: 03-29-2025 End: 75-64-7914Kfdxel Verito Jones MD Work Phone: [facility] CI FMStart: 03-29-2025 End: 49-97-5899Tysqhw outpatient visit 25 minutesCristiano Jonse MD Work Phone: [facility] CI FMComment on above:Type 2 diabetes mellitus with other specified complication, with long-term current use of insulin (P rimary Dx); Chronic obstructive pulmonary disease, unspecified COPD type (CMS/HCC); Lumbar radiculopathy; FolliculitisStart: 03-29-2025 End: 44-55-4390vfjrcnvjbgYOVTSX B BERRYNot AvailableStart: 03-24-2025 End: 86-31-4618Tkmhbo Verito Jones MD Work Phone: [facility] CI FMStart: 03-24-2025 End: 50-80-5017Jtakin Verito Jones MD Work Phone: [facility] CI FMStart: 03-24-2025 End: 85-21-8105qgyfqtapudVGRAAV B BERRYNot AvailableStart: 03-24-2025 End: 53-20-0244Wteekz outpatient visit 25 minutesCristiano Jones MD Work Phone: [facility] CI FMComment on above:Type 2 diabetes mellitus with diabetic neuropathy, without long-term current use of insulin (CMS/HCC) (Primary Dx); Chronic obstructive pulmonary disease, unspecified COPD type ([facility]); Leg edema; Lumbar radiculopathy; FolliculitisStart: 02-25-2025 End: 22-43-2092Lmfexifat Result EncounterGeneric External Data ProviderNOMS External Department UnsolicitedStart: 02-25-2025 End: 17-71-1315Dslatcifl Result EncounterGeneric External Data ProviderNOMS External Department UnsolicitedStart: 01-14-2025 End: 22-75-0036Wihfzpvgu Result EncounterCristiano Jones MD Work Phone: [facility] External Department UnsolicitedStart: 01-14-2025 End: 37-48-5010Lrkrcqzkd Result EncounterCristiano Jones MD Work Phone: [facility] External Department UnsolicitedStart: 01-04-2025 End: 19-41-8977Htbsey flowsJimy Jones MD Work Phone: [facility] CI FMStart: 01-04-2025 End: 58-46-4032Ekxuud Verito Jones MD Work Phone: [facility] CI FMStart: 01-04-2025 End: 54-99-8175Gzjqnp outpatient visit 25 minutesDanohemy Jones MD Work Phone: [facility] CI FMComment on above:Moderate episode of recurrent major depressive disorder ([facility]); Type 2 diabetes mellitus with diabetic neuropathy, without long-term current use of insulin ([facility])Start: 01-04-2025 End: 31-32-7144jplmnruqpsLTSPCP B BERRYNot AvailableStart: 12-21-2024 End: 43-33-2049qwzdfgyhujUhjjyj Berry II Work Phone: [facility] Work Phone: Start: 12-21-2024 End: 88-96-3231Bcwyhzd encounter procedureCristiano Jones II Work Phone: [facility] Work Phone: Start: 12-21-2024 End: 16-53-0653Qrevyqx encounter procedureCristiano Jones II Work Phone: [facility] Start: 12-21-2024 End: 25-82-9013nuqoxtdjzvCvmqrm Berry II Work Phone: [facility] Work Phone: Start: 12-07-2024 End: 64-59-9239Kcksqq Verito Jones MD Work Phone: [facility] CI FMStart: 12-07-2024 End: 68-83-3361Rvyess Verito Jones MD Work Phone: [facility] CI FMStart: 12-07-2024 End: 83-81-3299Eabhh of hemosiderin, quantCristiano Jones MD Work Phone: [facility] HealthcareStart: 12-07-2024 End: 05-15-9831Ioqguvx encounter procedureCristiano Jones MD Work Phone: [facility] CI FMComment on above:Routine general medical examination at health care facility (Primary Dx); Type 2 diabetes mellitus with diabetic neuropathy, without long-term current use of insulin (CMS/HCC); Medicare annual wellness visit, subsequent; Personal history of nicotine dependence; Type 2 diabetes mellitus with other specified complication (CMS/HCC); Hyperlipidemia, unspecified (CMS/HCC); Panlobular emphysema (CMS/HCC); Morbid (severe) obesity due to excess calories (CMS/HCC); Atherosclerotic heart disease of [place] coronary artery with unspecified angina pectoris (CMS/HCC); Body mass index (BMI) 39.0-39.9, adult; Moderate episode of recurrent major depressive disorder (CMS/HCC); Lumbar radiculopathyStart: 12-07-2024 End: [id number] B BERRYNot AvailableStart: 11-09-2024 End: 05-30-5178klbrmggemrPdczayuau A Keister DO Work Phone: [facility] Work Phone: Start: 11-09-2024 End: 64-17-3093Ebdgxtu encounter procedureAlexander Keister DO Work Phone: [facility] Center Physician [facility] Work Phone: Start: 10-16-2024 End: 23-61-4508Ygxgjsd encounter procedureAlexander Keister DO Work Phone: [facility] Physician [facility] Work Phone: Start: 10-16-2024 End: 76-80-5898Nnekpqt encounter procedureAlexander Keister DO Work Phone: [facility] [place] Start: 10-16-2024 End: 80-23-3875ryhrjcrwpxUtjbsz BerryFacility:[facility] Start: 10-15-2024 End: 41-80-6419Gcxwxy outpatient visit 25 minutesCristiano Jones MD Work Phone: noMS CI FMComment on above:Closed fracture of right tibial plateau with routine healing (Primary Dx); Acute respiratory failure, unspecified whether with hypoxia or hypercapnia (CMS/HCC); Panlobular emphysema (CMS/HCC)Start: 10-15-2024 End: 37-63-9301vvmvzfkrizMDVOIZ B BERRYNot AvailableStart: 10-05-2024 End: 36-23-2534Agjmavmnh encounterCristiano Jones MD Work Phone: [facility] CI FMStart: 62-80-5340Kgx-patient / Non-visit Poli Keister DO Work Phone: [facility] Physician [facility] Work Phone: Start: 47-69-9640Fyp-patient / Non-visitAlexander Keister DO Work Phone: [facility] Physician [facility] Work Phone: Start: 09-24-2024 End: 02-29-1072gdckpettuyTrepzp BerryFacility:[facility] Start: 09-24-2024 End: 52-80-1244Txheyuazyz and management of inpatientAlexander Keister DO Work Phone: [facility] Work Phone: Start: 53-49-2572Svh-patient / Non-visitAlexander Keister DO Work Phone: [facility] Work Phone: Start: 09-23-2024 End: 32-43-8704usvvwpespmHuittq BerryFacility:[facility] Start: 36-78-1345Wpynsdc encounter statusAlexander Keister DO Work Phone: [facility]: 09-23-2024 End: 04-42-7351Yjdudnihb for other preprocedural examinationAlexander Keister DO Work Phone: [facility]: 09-23-2024 End: 96-30-1604Fzggrln encounter procedureAlexander Keister DO Work Phone: [facility] Physician [facility] Work Phone: Start: 09-20-2024 End: 96-67-7127Jomuwlyuo department patient visitAlexander Keister DO Work Phone: [facility] Work Phone: Start: 09-14-2024 End: 25-98-6171Ugdigz flowsheetCristiano Jones MD Work Phone: [facility] CI FMStart: 09-14-2024 End: 27-72-2603Hfkamx flowsJimy Jones MD Work Phone: noms CI FMStart: 09-14-2024 End: 65-93-1473Bhxfco outpatient visit 25 minutesDanohemy Jones MD Work Phone: NOMS FMComment on above:Atherosclerosis of [place] coronary artery of [place] heart with angina pectoris (CMS/HCC) (Primary Dx); Type 2 diabetes mellitus with diabetic neuropathy, without long-term current use of insulin (CMS/HCC); Lumbar radiculopathy; Hypertriglyceridemia (CMS/HCC); Prostate cancer screening; Morbid (severe) obesity due to excess calories (CMS/HCC); Essential (primary) hypertension (CMS/HCC); Body mass index (BMI) 38.0-38.9, adult; Major depressive disorder, recurrent, unspecified (CMS/HCC)Start: 09-14-2024 End: 38-83-3367xybgexdwbdWCGIVA B BERRYNot AvailableStart: 02-18-2024 End: 28-38-7959Zxqsbplmr Result EncounterGeneric External Data ProviderNOMS External Department UnsolicitedStart: 02-18-2024 End: 81-67-4992Zofdhxkbn Result EncounterGeneric External Data ProviderNOMS External Department UnsolicitedStart: 05-01-2023 End: 57-39-9832Ezrqevvtp department patient visitJames DuFacility:[facility] Start: 05-01-2023 End: 48-23-5883Meytmowhq department patient visitJames Du [facility] Start: 03-25-2023 End: 97-13-0836uvaucimjhuFMWPHB BAKARI [facility]ITALJOHNMet[facility] HospitalStart: 03-25-2023 End: 42-11-6792Mxfqmndrfk hospital visit by Johnny Jackson MD Work Phone: mthz LaboratoryStart: 03-19-2023 End: 99-30-5934seaxnhjfhaMLDCYW BAKARI OLSENMetrohealth [facility] HospitalStart: 03-19-2023 End: 68-60-9519Zwmbmucnzx hospital visit by Johnny Jackson MD Work Phone: mthz LaboratoryStart: 03-04-2023 End: 46-38-3363Umhiqmflm department patient visitMD Paddy Land Work Phone: [facility] Work Phone: Start: 03-02-2023 End: 16-27-0222wubhocvkcpSO MELANIE Ephraim CARRANZAEBERFacility:Z5Fmwdc: 02-19-2023 ambulatoryDR COURTNEY JACKSON .Facility:L2Wuptf: 02-17-2023 End: 53-76-8036icawidczdjPLIGW PARKERFacility:C0Zbyhd: 02-08-2023 End: 51-98-9231Mgmwmcadl department patient visitMD Paddy Land Work Phone: [facility] Work Phone: Start: 02-04-2023 End: 17-62-5012Udmhwuzblx and management of inpatientINGRID [facility] Centertart: 02-03-2023 End: 90-20-8782gfyuxvpcjsYVEPFZT D KATKOFacility:Q7Skasv: 08-15-2022 End: 84-90-1956ttcgaoeiscWC DOUGLAS HOY .Facility:Y2Jijzq: 04-06-2022 End: 97-37-0245feaupwgyvuWV DOUGLAS HOY .Facility:I6Dvukg: 07-08-2019 End: 57-93-1295Prawjop encounter procedureANAS RENNOFacility:[facility] Procedures DateProcedureProcedure DetailPerforming ClinicianStart: 80-93-8608Frcxx dip stick/tablet rgnt non-auto w/o micrscpDlisa Jones MD Work Phone: Start: 27-77-9156Pjfkiewagf glycosylated w7eHgadeaCristiano Jones MD Work Phone: Start: 80-69-3746VFCWQ CULTURE 1Generic External Data ProviderStart: 55-00-1445ME LUNG SCREENING LOW DOSEDlisa Jones MD Work Phone: Start: 61-83-5344E-ray of right knee, three views Cristiano Jones II Work Phone: Start: 78-95-0648Fihhodudmx glycosylated b7xHeilghnohemy Jones MD Work Phone: Start: 37-26-3962Z-ray of right knee, three views Poli Keister DO Work Phone: Start: 01-76-3849Z-ray of right knee, three views Poli Keister DO Work Phone: start: 11-33-4357Jezgt chest X-rayAlexander Keister DO Work Phone: Start: 35-78-5053Asyh reduction of fracture of proximal tibia with internal fixationAlexander Keister DO Work Phone: start: 14-30-8118V-ray of right knee, two views Poli Keister DO Work Phone: start: 66-30-7414N-ray of right knee, two views Poli Keister DO Work Phone: start: 23-72-4350Z-ray of right ankleAlexander Keister DO Work Phone: start: 04-60-7622Qdspenth Kevin JonesComment on above:Result Comment: PERFORMED BY: [facility] [address] PATHOLOGIST WELDING MACHINE OPERATOR GAS CHARO FATIMA M.D.Start: 81-85-6654KF of right kneeAlexander Keister DO Work Phone: Start: 28-27-3113Xyorovir tomography of abdomen and pelvis with contrastAlexander Keister DO Work Phone: start: 74-94-5261KD cervical spine without contrast Poli Keister DO Work Phone: start: 15-83-5980FA of head without contrastAlexander Keister DO Work Phone: start: 69-34-3471OF of thorax with contrastAlexander Keister DO Work Phone: start: 60-32-1784S-ray of right knee, two views Poli Fisher DO Work Phone: Start: 21-27-3409Qjxnxfexjy glycosylated y6fUijlwwnohemy Jones MD Work Phone: Start: 16-02-3081SJ CHEST WO CONGeneric External Data ProviderStart: 54-28-4583L-reactive proteinRobert Bakari Olsen MD Work Phone: Start: 37-55-6455Zwirwlvjus bloodRobert Bakari Olsen MD Work Phone: [phone]: 71-42-3153K-reactive proteinRobert Bakari Olsen MD Work Phone: Start: 87-17-3812Jnlzidtnur bloodRobert Bakari Olsen MD Work Phone: Start: 97-12-2116Jneya chest X-rayMD [place] Work Phone: Start: 33-52-0260WM cervical spine without contrastMD [place] Work Phone: Start: 96-19-4445G-ray of cervical spineMD [place] Work Phone: Start: 63-84-4456IN cervical spine without contrastMD [place] Work Phone: Start: 47-73-0217PG of head without contrastMD [place] Work Phone: Start: 81-01-5693Kragk chest X-rayMD [place] Work Phone: Start: 90-79-9378IquunhnwevwEvfznq Berry MD Work Phone: Plan of Treatment DateCare ActivityDetailAuthorStart: 56-15-0317YIjX/Tdap/Td vaccine (7 - Td or Tdap)DTaP/Tdap/Td vaccine (7 - Td or Tdap)[facility] SYSTEMStart: 94-86-3507VSdO/Tdap/Td Vaccines (6 - Td or Tdap)DTaP/Tdap/Td Vaccines (6 - Td or Tdap)[facility] HealthcareStart: 71-89-8311Ydpvjhmam for malignant neoplasm of colon NOM HealthcareStart: 02-49-5352Gyojxtrj screeningDiabetes: Retinopathy ScreeningNOGA HealthcareStart: 02-17-2026Medicare Annual Wellness (AWV)Medicare Annual Wellness (AWV)NOM HealthcareStart: 23-80-7514Okgqz screening for protein Diabetes: Urine Protein ScreeningNOGA HealthcareStart: 09-06-2025 End: 41-47-1758Bsvquyc encounter izuzbpsjj30/17/2025 10:00 AM EST Office Visit [facility] [place] [facility] [address] [place] [address] Cristiano Jones MD [address] [place] [address] [facility] [place] [facility] HospitalnceStart: 07-05-2025 End: 21-05-4855Agfzrsk encounter procedureNOMS CI FMComment on above:Arrived Start: 77-80-4733Zpbnhqfpfz A1c measurementDiabetes: Hemoglobin T2NRDQX HealthcareStart: 50-03-0695ALUCV-19 Vaccine ( season)COVID-19 Vaccine ( season)[facility] HealthcareStart: 74-16-2558Hbhkrwyud vaccinationNOGA HealthcareStart: 06-10-2025 End: 55-61-8153TO Chest for screening WO contrastCT lung screening low dose Imaging Routine Cigarette smoker Expected: 06/10/2025 (Approximate), Expires: 06/10/2026[facility] Work Phone: Comment on above:Expected: 06/10/2025 (Approximate), Expires: 06/10/2026Start: 06-10-2025 End: 18-34-7867Bhfrvjs encounter dagqawbqr75/21/2025 9:00 AM EDT Office Visit N[facility] [place] [facility] [address] [place] [address] Kathe Allen PA [address] [place] [address] ArrivedNOMS [place] MedinceComment on above:ArrivedStart: 06-02-2025 End: 47-38-6089Eaazlot encounter /13/2025 11:00 AM EDT Office Visit N[facility] [place] Batesncmarguerite [address] [place] [address] Cristiano Jones MD [address] [place] [address] ArrivedNOMS [place] MedinceComment on above:ArrivedStart: 03-29-2025 End: 33-29-3798Ztnhnad encounter procedureNOMS CI FMComment on above:Arrived Start: 03-24-2025 End: 94-45-1235Nfejcum encounter bjwffwisz21/04/2025 10:00 AM EDT Office Visit [facility] CI [facility] [address] [place] [address] Cristiano Jones MD [address] [place] [address] NOMS CI FMStart: 03-12-2025 End: 92-26-5133Kmbwmgg encounter utzyyviyd68/23/2025 10:30 AM EDT Office Visit [facility] [address] [place] [address] Cristiano Jones MD [address] [place] [address] NOMS CI FMStart: 75-74-5702Idhnciwoun A1c measurementDiabetes: Hemoglobin K9NPTUP HealthcareStart: 01-04-2025 End: 85-20-9058Fbnxzmd encounter procedureNOMS CI FMComment on above:Arrived Start: 24-43-5058V-ray of right knee, three viewsXR knee RT 3V - NOT FOR ER USE [facility]start: 49-81-1909MH Knee - right 3 Views [facility]start: 33-04-2387Nfghaqybkm A1c measurement Diabetes: Hemoglobin N3TVCDK HealthcareStart: 12-07-2024 End: 18-26-3432OD Chest for screening WO contrastCT lung screening low dose Imaging Routine Medicare annual wellness visit, subsequent Personal history of nicotine dependence Expected: 12/07/2024, Expires: 12/07/2025NOGA Healthcare Work Phone: Comment on above:Expected: 12/07/2024, Expires: 12/07/2025Start: 12-07-2024 End: 00-35-7411Wiwdyik encounter prcxcceqq31/17/2025 11:00 AM EST Office Visit [facility] CI [facility] [address] [facility] [address] [place] [address] Cristiano Jones MD [address] [facility] [address] [place] [address] ArrivedNOGA CI FMComment on above:ArrivedStart: 11-16-2024 End: 49-82-2664Jmspvyi encounter iucdkcutl87/27/2025 10:00 AM EST Office Visit [facility] FM [address] [facility] [address] [place] [address] Cristiano Jones MD [address] [facility] [address] [place] [address] NOMS CI FMStart: 84-97-1192U-ray of right knee, three viewsXR knee RT 3V - NOT FOR ER USEThe Surgical Hospital at Southwoodstart: 82-40-0190JZ Knee - right 3 ViewsThe Surgical Hospital at Southwoodstart: 10-15-2024 End: 48-87-7932Doinzna encounter eawtkwbmr11/26/2024 11:00 AM EST Office Visit [facility] [address] [facility] [address] [place] [address] Cristiano Jones MD [address] [facility] [address] [place] [address] NOMS CI FMStart: 11-82-5297Kuiei screening for protein Diabetes: Urine Protein ScreeningResearch Psychiatric CenterStart: 81-35-4669Izvvajxu to clinical allergistThe [facility] Hospital at [facility]woodstart: 79-54-4494WgqpwzpqnThe [facility] Hospital at Southwoodstart: 93-27-1433Otwohjcs admissionThe [facility] Hospital [facility] Southwoodstart: 09-14-2024 End: 61-09-4025Ebqybsrseixqi metabolic 2000 panel - Serum or PlasmaComprehensive metabolic panel Lab Routine Atherosclerosis of [place] coronary artery of [place] heartwith angina pectoris (CMS/HCC) Expected: 09/14/2024 (Approximate), Expires: 09/14/2025NOGA HealthcareComment on above:Expected: 09/14/2024 (Approximate), Expires: 09/14/2025Start: 09-14-2024 End: 38-37-4815Qdjrk 1996 panel - Serum or PlasmaLipid panel Lab Routine Hypertriglyceridemia (CMS/HCC) Expected: 09/14/2024 (Approximate), Expires: 09/14/2025NOGA HealthcareComment on above:Expected: 09/14/2024 (Approximate), Expires: 09/14/2025Start: 09-14-2024 End: 68-35-4818IGU W/REFLEX TO FT4TSH W/REFLEX TO FT4 Lab Routine Morbid (severe) obesity due to excess calories (CMS/HCC) Body mass index (BMI) 38.0- 38.9, adult Expected: 09/14/2024 (Approximate), Expires: 09/14/2025NOGA HealthcareComment on above:Expected: 09/14/2024 (Approximate), Expires: 09/14/2025Start: 09-14-2024 End: 57-74-5494Fixyyoi encounter hcjzlcawg44/25/2024 10:00 AM EST Office Visit [facility] [address] [facility] [address] [place] [address] Cristiano Jones MD [address] [facility] [address] [place] [address] ArrivedNOMS CI FMComment on above:ArrivedStart: 09-05-2024 Hemoglobin A1c measurementDiabetes: Hemoglobin O1SLDQH HealthcareStart: 56-64-1176Drbjoxawz vaccinationInfluenza Vaccine (#1)NOMS HealthcareStart: 16-25-9471Zgguybqmy vaccinationFlu vaccine (Season Ended)[facility] SYSTEMStart: 00-07-9664Tkkkscjnlb procedureMetrohealth [facility] Start: 96-29-7501Nigvdvaptd radiography of abdomenXR abdomen 1VThe [facility] Hospital [facility]woodstart: 05-69-0976VU Abdomen Single viewThe Surgical Hospital at Southwoodstart: 70-57-1962SFAIK-19 Vaccine (4 - Booster for Pfizer series) COVID-19 Vaccine (4 - Booster for Pfizer series)[facility] SYSTEMStart: 94-10-4013Hkdktkgnn B Vaccines (1 of 3 - 19+ 3-dose series)Hepatitis B Vaccines (1 of 3 - 19+ 3-dose series)[facility] CenterStart: 32-98-8854Hyqhqvxdwpge Vaccine: Pediatrics (0 to 5 Years) and At-Risk Patients (6 to 64 Years) (1 of 2 - PCV)Pneumococcal Vaccine: Pediatrics (0 to 5 Years) and At-Risk Patients (6 to 64 Years) (1 of 2 - PCV)[facility] CenterStart: 89-03-2718Mlgpgmql screening Diabetes: Retinopathy ScreeningHUNTSMAN MENTAL [facility]ALTH [facility] HealthcareStart: 1968Medicare Annual Wellness (AWV)Medicare Annual Wellness (AWV)[facility] CenterStart: 1968 Screening for malignant neoplasm of colonHUNTSMAN MENTAL HEALTH INSTITUTE HealthcareStart: 1968 Screening for malignant neoplasm of lungLung Cancer Screening Shared Decision MakingResearch Psychiatric CenterBLOOD CULTURE 1BLOOD CULTURE 1 Lab Routine 02/25/2025 9:30 PM EDTResearch Psychiatric CenterCBC W Auto Differential panel - BloodCBC and differential Lab Routine Atherosclerosis of [place] coronary artery of [place] heart with sanya na pectoris (CMS/HCC) Ordered: 09/14/2024[facility] Work Phone: Comment on above:Ordered: 09/14/2024 Microalbumin/Creatinine panel in random UrineMicroalbumin / creatinine urine ratio Lab Routine Type 2 diabetes mellitus with diabetic neuropathy, without long-term current use of insulin (CMS/HCC) Ordered: 09/14/2024[facility] Comment on above:Ordered: 09/14/2024atient [facility] Work Phone: [facility] Work Phone: Prostate specific Ag [Mass/volume] in Serum or Plasma PSA Lab Routine Prostate cancer screening Ordered: 09/14/2024[facility] Comment on above:Ordered: 09/14/2024[facility] Immunizations Immunization DateImmunizationNotesCare EgfalixhBvxabauf49-42-9948uboombo toxoid, reduced diphtheria toxoid, and acellular pertussis vaccine, adsorbedCristiano Jones MD Work Phone: [facility] CenterBlcybxfikl52-95-0403zxlwo fnlgrlhkx-I0B9-90, preservative-free, injectableCristiano Jones MD Work Phone: [phone] Psychiatric CenterLpxklsgdwb38-74-5769ujnbzynbkr, tetanus toxoids and acellular pertussis vaccine, unspecified formulationCristiano Jones MD Work Phone: [phone] Psychiatric CenterSvixksswql23-19-8151oaxugty, mumps and rubella virus vaccineCristiano Joens MD Work Phone: [phone] Psychiatric CenterDrpjsnynys83-12-9227gfhkwahfl poliovirus vaccine, live, oralCristiano Jones MD Work Phone: [phone] Psychiatric CenterXnouppvbai86-54-3824rvywgqoixs, tetanus toxoids and acellular pertussis vaccine, unspecified formulationCristiano Jones MD Work Phone: [facility] CenterAqzfxdjyen15-09-4042nsyyecoxcnw influenzae type b vaccine, conjugate unspecified formulationCristiano Jones MD Work Phone: [phone] Psychiatric CenterQohrjqsnzl60-32-0747oytooavrq B vaccine, pediatric or pediatric/adolescent dosageCristiano Jones MD Work Phone: [phone] Psychiatric CenterActzqkziss60-72-3655kgsxdyl, mumps and rubella virus Martha Jones MD Work Phone: [phone] Psychiatric CenterVxuodrtvda45-12-5691rlxthaunw poliovirus vaccine, live, oralCristiano Jones MD Work Phone: [phone] Psychiatric CenterCvougdllso12-36-8777gwnikxaqou, tetanus toxoids and pertussis vaccineCristiano Jones MD Work Phone: [phone] [place], [place] [address]Indlsfrgwr79-63-9933tcahcyxhrvg influenzae type b vaccine, conjugate unspecified formulationCristiano Jones MD Work Phone: [facility] CenterFdlowcgpoq63-61-4184aokvpnbqcp, tetanus toxoids and pertussis vaccineCristiano Jones MD Work Phone: [facility] CenterTsviobdfkz98-30-4415juwcuwtttbq influenzae type b vaccine, conjugate unspecified formulationCristiano Jones MD Work Phone: [facility] CenterLuyannitzp63-34-0396qkqgqbxwx B vaccine, pediatric or pediatric/adolescent dosageCristiano Jones MD Work Phone: [facility] CenterCarxtgawhl06-42-0987zfkxmzdpq poliovirus vaccine, live, oralCristiano Jones MD Work Phone: [phone] [place], [place] [address]Wbxslrbcdh66-00-6825okmqplujeb, tetanus toxoids and pertussis vaccineCristiano Jones MD Work Phone: [facility] CenterRmuqaqkngc32-11-7700ywfbrjezzhn influenzae type b vaccine, conjugate unspecified formulationCristiano Jones MD Work Phone: [facility] CenterVlahnriuba64-25-3792nuxbhabzj B vaccine, pediatric or pediatric/adolescent dosageCristiano Jones MD Work Phone: [facility] CenterAjyedqxled13-69-7006gibranyji poliovirus vaccine, live, oralCristiano Jones MD Work Phone: [phone] [place] [address] Payers DatePayer CategoryPayerPolicy [id number]-[id number] 2024Medicare (Managed Care)[id number] [id number] [id number] 2..840.1.042199.3.579.[id number] 2.16.840.1.488020.3.57[id number] 2.16.840.1.170919.3.579.2.88926-82-0685Msptqxx3807591 2.16.840.1.695293.3.57[id number] 2.16.840.1.309369.3.579.2.77597-36-5408Ppyrthu9882905 2..840.1.148648.3.579.2.45825-26-0343Auomrml1798527 2.16.840.1.581314.3.57[id number] 2.0.1.851004.3.579.2.[id number] 2.840.1.109261.3.579.2.36594-79-4163Aknuoxv59707432 2.0.1.721282.3.579.2.93131-83-1541Xscugmo39889959 2.840.1.005511.3.57[id number] 2.840.1.502389.3.579.2.110597-95-8503Fjkssnq19752135 2.840.1.097153.3.579.[id number] 2.840.1.982979.3.579.2.748271-79-5027Ccokmlt83567633 2.840.1.681174.3.579.2.156192-95-7930Hcvrkbb34453817 2.840.1.689717.3.579.2.184247-41-2417Crkkdqa8362091 2.840.1.721573.3.579.2.551904-48-9429Rpcbiqn6993445 2.840.1.606632.3.579.2.179724-26-1713Gzlxosr7366294 2.0.1.022135.3.579.2.645925-23-0030Gfhlfxn9519026 2.840.1.638453.3.579.2.1259 [id number] 2ogi8l5r-s8i9-75a7-kkt0-ak53m0k87c4418-17-2338Bulzfzh160520872988Bjqfhal30681509 2.16.840.1.270754.3.579.2.634Vrkjhnq27479154 2.16.840.1.100558.3.579.2.531 [id number] 2.840.1.497032.3.579.2.081Bwjmsfq41766244 2.840.1.072524.3.579.2.115Jomtijp87624291 2.16840.1.268163.3.579.2.531 Tdtlvyh54925285 2.0.1.716712.3.579.2.531 Social History DateTypeDetailFacilityStart: 02-08-2023 End: 20-46-3070Cabatyh smoking status NHISSmoker (finding)[facility]start: 59-25-7864Ojj Assigned At BirthCleveland Clinic Mercy Hospitaltart: 48-49-5872Nicnnso smoking status NHISEx-smoker (finding) [facility]start: 10-21-1985 End: 15-94-6946Ubsornd smoking status NHISSmokes tobacco dailyBON HONORHEALTH S[facility] MEDICAL CENTERyoonew Phone: start: 31-30-8598Uczeiyh of tobacco useCigarette SmokerABRAZO SCOTTSD[facility] Phone: start: 02-04-2023 End: 42-25-8533Oaaatxvdku smoked current (pack per day) - Sgjlrbcl9MBM [place] Phone: start: 02-04-2023 End: 58-49-9476Wggrpyg use and exposureSmokeless tobacco non-userBON [place] Phone: start: 02-05-2023 End: 31-37-1280Gajpvpl intakeEx-drinker (finding)BON [place] Phone: start: 60-10-5737Kxu Assigned At BirthNot on fileBON [place] Phone: Tobacco smoking statusNo Smoking Status EnteredOhioHealth Grady Memorial Hospitaltart: 06-05-2024 End: 53-23-4512Qsd Assigned At BirthMalUC Medical Centertart: 11-09-2024 End: 77-66-3824BcrVfyf (finding)[facility]start: 37-24-5585PleOhfiCZRX Healthcare Medical Equipment Procedure CodeEquipment CodeEquipment Original TextEquipment IdentifierDates [id number], [id number]: 03-19-2023 End: 02-94-4610Npxypmlfzkv bone screw, non-bioabsorbable, non-sterile ()[id number] FDAStart: 61-24-0650Wtebulzkpch bone screw, non- bioabsorbable, non-sterile()[id number] FDAStart: 09-24-2024 Goals DatePatient GoalDesired Activity/State Functional Status VaooTcnxsnzekzTrauwiRecmvsje81-39-1079Yfmjsaw Health Questionnaire 2 item (PHQ- 2) [Reported][facility] CenterRfugwndqor49-72-4349Ydzqfou Health Questionnaire 2 item (PHQ- 2) [Reported][facility]iatric CenterLrtkqwefwj04-75-7258Smyqjev Health Questionnaire 2 item (PHQ- 2) [Reported][facility]iatric CenterGmjcfgqsoo33-56-1365Hrhiouz Health Questionnaire 2 item (PHQ- 2) [Reported][facility] CenterSsmbnxczyn19-84-7489Fifbflt Health Questionnaire 2 item (PHQ- 2) [Reported][facility] CenterDbcjxdtfqs96-69-5058Egkyvlmvmi statusPatient is Progressing Toward BaselineAultman Alliance Community Hospital Work Phone: [phone]ck StatusN/[facility] Mental Status CtgkWpnybjmyqrFfhdptIluaroqo91-03-0963Qtcbgsbvr functionCognitive Status Patient at BaselineAultman Alliance Community Hospital Work Phone: Clinical Notes 05-01-2023 to 07-05-2025 Note Date & EirvRoaiGdumjvuj56-43-3575 History of Present illness Narrative* Cristiano Jones MD - 07/05/2025 10:30 AM EDT Images from the original note were not included. HPI Results Additional comments: Sleep study-- sched 07/28/25 Pt ? If he needs the CT scan he had LDCT 12/2024 Last edited by Elena Perdue LPN on 07/05/2025 10:33 AM. Subjective Patient ID: Jose Cabrera III is a 54 y.o. male who presents for Results (Sleep study-- sched 07/28/25//Pt ? If he needs the CT scan he had LDCT 12/2024 ), COPD, and Back Pain. Hypertension Patient is here for follow-up of elevated blood pressure. Blood pressure is well controlled at home. Cardiac symptoms: none. Patient denies chest pain, irregular heart beat, near-syncope, orthopnea, palpitations, paroxysmal nocturnal dyspnea, syncope, and tachypnea. Cardiovascular risk factors: diabetes mellitus, hypertension, male gender, and obesity (BMI >= 30 kg/m2). Pt states right lower back pain and mild dysuria started 3 days ago Using breztri samples pt states seems to help with his breathing Back Pain Diabetes Med Refill Hypertension Current Outpatient Medications on File Prior to Visit Medication Sig Dispense Refill acetaminophen (Tylenol) 325 MG tablet Take 650 mg by mouth every 6 (six) hours albuterol (2.5 MG/3ML) 0.083% nebulizer solution Take 3 mL (2.5 mg) by nebulization 4 (four) times a day as needed for wheezing or shortness of breath 150 mL 3 albuterol HFA 90 mcg/act inhaler Inhale 2 puffs every 4 (four) hours if needed for wheezing or shortness of breath 18 g 3 amitriptyline (Elavil) 100 MG tablet Take 1 tablet (100 mg) by mouth at bedtime 90 tablet 3 aspirin 81 MG EC tablet Take 81 mg by mouth in the morning. Blood Glucose Monitoring Suppl (ONE TOUCH ULTRA 2) w/Device kit 1 each by In Vitro route Daily 1 kit 0 Jwajnbq-Syoupwcejbj-Vdnclfzbpd (Breztri Aerosphere) 160-9-4.8 MCG/ACT aerosol Inhale 2 puffs in themorning and 2 puffs before bedtime. 10.7 g 5 diclofenac (Voltaren) 75 MG EC tablet Take 75 mg by mouth in the morning and 75 mg before bedtime. FLUoxetine (PROzac) 20 MG capsule Take 1 capsule (20 mg) by mouth Daily 30 capsule 5 furosemide (Lasix) 40 MG tablet Take 1 tablet (40 mg) by mouth Daily 90 tablet 3 gabapentin (Neurontin) 600 MG tablet Take 1 tablet (600 mg) by mouth Daily 1 tablet QAM and 2 tablets QHS 270 tablet 3 glucose blood (KibinTouch Ultra) test strip Use 1 daily 100 strip 3 ibuprofen 800 MG tablet Take 1 tablet (800 mg) by mouth in the morning and 1 tablet (800 mg) in theevening and 1 tablet (800 mg) before bedtime. 300 tablet 2 lisinopril-hydroCHLOROthiazide 10-12.5 MG tablet TAKE 2 TABLETS BY MOUTH EVERY MORNING 180 tablet 3 metFORMIN (Glucophage) 500 MG tablet Take 1 tablet (500 mg) by mouth in the morning and 1 tablet (500 mg) in the evening. Take with meals. 180 tablet 3 metoprolol tartrate (Lopressor) 50 MG tablet TAKE 1 TABLET (50 MG) BY MOUTH IN THE MORNING AND BEFORE BEDTIME 180 tablet 3 [DISCONTINUED] buPROPion (Wellbutrin) 75 MG tablet Take 1 tablet by mouth in the morning and 1 tablet in the evening and 1 tablet before bedtime. (Patient not taking: Reported on 06/10/2025) No current facility-administered medications on file prior to visit. I have reviewed and reconciled the history and medication list with the patient today. No Known Allergies Social History Tobacco Use Smoking status: Every Day Current packs/day: 1.00 Average packs/day: 1 pack/day for 39.7 years (39.7 ttl pk-yrs) Types: Cigarettes Start date: 1985 Smokeless tobacco: Never Vaping Use Vaping status: Never Used Substance Use Topics Alcohol use: Not Currently Drug use: Defer Family History Problem Relation Name Age of Onset Cancer Maternal Grandmother Past Medical History: Diagnosis Date Atherosclerosis of coronary artery of [place] heart with angina pectoris 04/19/2023 Chest pain 09/07/2016 Closed displaced fracture of third cervical vertebra (HCC) 03/04/2023 Depressive disorder 09/07/2016 Dizziness 09/07/2016 Dyspnea 09/07/2016 Essential hypertension, benign 04/19/2023 History of being hospitalized 09/24/2024 Rt Tibia Fracture, Acute Hypoxic Resp. Failure, CHF Exacerbation Hypertriglyceridemia 04/19/2023 Insomnia 04/19/2023 Interstitial emphysema (HCC) 04/19/2023 Leg edema 04/19/2023 Lumbar radiculopathy 04/19/2023 Neuropathy 02/04/2023 Nocturia 04/19/2023 Nocturnal hypoxia 04/19/2023 Noncompliance with CPAP treatment 02/04/2023 Obstructive sleep apnea 04/19/2023 Pharyngeal edema 02/04/2023 PTSD (post-traumatic stress disorder) 02/04/2023 Recurrent major depressive disorder 04/19/2023 Sensorineural hearing loss, bilateral 03/04/2023 Superficial thrombosis of lower extremity 04/19/2023 Type 2 diabetes mellitus with diabetic neuropathy, without long-term current use of insulin ([facility]) 04/19/2023 Unsteady gait 03/12/2023 Past Surgical History: Procedure Laterality Date CT ANGIOGRAM NECK 03/04/2023 CT ANGIOGRAM NECK 03/04/2023 HERNIA REPAIR 2012 ORIF TIBIA FRACTURE Left 09/24/2024 Visit Vitals BP 138/84 Pulse 90 Ht 5' 8.5 Wt 268 lb SpO2 94% BMI 40.16 kg/m Smoking Status Every Day BSA 2.43 m Review of Systems Musculoskeletal: Positive for back pain. Objective Physical Exam Constitutional: General: He is not in acute distress. Appearance: He is obese. HENT: Head: Normocephalic and atraumatic. Eyes: General: No scleral icterus. Cardiovascular: Rate and Rhythm: Normal rate and regular rhythm. Heart sounds: No murmur heard. Pulmonary: Effort: Pulmonary effort is normal. No respiratory distress. Breath sounds: Decreased air movement present. No wheezing, rhonchi (Soft) or rales. Musculoskeletal: Right lower leg: Edema present. Left lower leg: Edema present. Skin: General: Skin is warm and dry. Findings: No erythema. Neurological: General: No focal deficit present. Mental Status: He is alert and oriented to person, place, and time. Psychiatric: Mood and Affect: Mood normal. Behavior: Behavior normal. Comments: Speech difficult to understand at times, mumbled speech. No visits with results within 1 Day(s) from this visit. Latest known visit with results is: Office Visit on 03/24/2025 Component Date Value Ref Range Status Hemoglobin A1C 03/24/2025 7.1 Final Assessment/Plan Diagnoses and all orders for this visit: Type 2 diabetes mellitus with other specified complication, with long-term current use of insulin (HCC) - FSBS log shows good control, most recent A1C is at or near goal. Continue current treatment plan as previously outlined without changes. Panlobular emphysema (HCC) Nocturnal hypoxia - On nightime O2. Has upcoming Pulmonary consult and Sleep Study. Obstructive sleep apnea Acute cystitis without hematuria - POCT Urinalysis dipstick - ciprofloxacin (Cipro) 250 MG tablet; Take 1 tablet (250 mg) by mouth in the morning and 1 tablet (250 mg) before bedtime. Do all this for 5 days. Follow up in about 2 months (around 09/04/2025) for Test/Lab Review. documented in this encounterResearch Psychiatric [id number] History of Present illness Narrative* BLANCA Emanuel - 06/10/2025 9:00 AM EDT Images from the original note were not included. HPI Med Refill Additional comments: Amatriptyline, handicap placard Results Additional comments: CT low dose Shortness of Breath Additional comments: States he got a letter from the O2 company that they want to take back his O2 but states he uses it at night. Did a walk test on him and PO went down to 90% Last edited by Torri Lewis LPN on 06/10/2025 9:11 AM. Subjective Patient ID: Jose Cabrera III is a 54 y.o. male who presents for skin infection. Jose is present today for evaluation of possible skin infection. Admits it is in his lower left legthat started about 3 days ago. Leg is swollen, itchy, hot, burning and tightness in the lower leg. He had some left over Amoxicillin 875 and has been taking that for 2 days (he only had 5 pills left in an old bottle). Over the past 2 weeks, how often have you been bothered by any of the following problems? Little interest or pleasure in doing things: Not at all (currently on medication) Feeling down, depressed, or hopeless: Not at all (currently on medication) Patient Health Questionnaire-2 Score: 0 Current Outpatient Medications on File Prior to Visit Medication Sig Dispense Refill acetaminophen (Tylenol) 325 MG tablet Take 650 mg by mouth every 6 (six) hours albuterol HFA 90 mcg/act inhaler Inhale 2 puffs every 4 (four) hours if needed for wheezing or shortness of breath 18 g 3 amitriptyline (Elavil) 100 MG tablet Take 1 tablet every day by oral route for 30 days. (Patient not taking: Reported on 06/10/2025) aspirin 81 MG EC tablet Take 81 mg by mouth in the morning. Blood Glucose Monitoring Suppl (ONE TOUCH ULTRA 2) w/Device kit 1 each by In Vitro route Daily 1 kit 0 buPROPion (Wellbutrin) 75 MG tablet Take 1 tablet by mouth in the morning and 1 tablet in the evening and 1 tablet before bedtime. (Patient not taking: Reported on 06/10/2025) diclofenac (Voltaren) 75 MG EC tablet Take 75 mg by mouth in the morning and 75 mg before bedtime. FLUoxetine (PROzac) 20 MG capsule Take 1 capsule (20 mg) by mouth Daily 30 capsule 5 furosemide (Lasix) 40 MG tablet Take 1 tablet (40 mg) by mouth Daily 90 tablet 3 gabapentin (Neurontin) 600 MG tablet Take 1 tablet (600 mg) by mouth Daily 1 tablet QAM and 2 tablets QHS 270 tablet 3 glucose blood (PageBitesuch Ultra) test strip Use 1 daily 100 strip 3 ibuprofen 800 MG tablet Take 1 tablet (800 mg) by mouth in the morning and 1 tablet (800 mg) in theevening and 1 tablet (800 mg) before bedtime. 300 tablet 2 lisinopril-hydroCHLOROthiazide 10-12.5 MG tablet TAKE 2 TABLETS BY MOUTH EVERY MORNING 180 tablet 3 metFORMIN (Glucophage) 500 MG tablet Take 1 tablet (500 mg) by mouth in the morning and 1 tablet (500 mg) in the evening. Take with meals. 180 tablet 3 metoprolol tartrate (Lopressor) 50 MG tablet TAKE 1 TABLET (50 MG) BY MOUTH IN THE MORNING AND BEFORE BEDTIME 180 tablet 3 No current facility-administered medications on file prior to visit. I have reviewed and reconciled the history and medication list with the patient today. No Known Allergies Social History Tobacco Use Smoking status: Every Day Current packs/day: 1.00 Average packs/day: 1 pack/day for 39.6 years (39.6 ttl pk-yrs) Types: Cigarettes Start date: 1985 Smokeless tobacco: Never Vaping Use Vaping status: Never Used Substance Use Topics Alcohol use: Not Currently Drug use: Defer Family History Problem Relation Name Age of Onset Cancer Maternal Grandmother Past Medical History: Diagnosis Date Atherosclerosis of coronary artery of [place] heart with angina pectoris 04/19/2023 Chest pain 09/07/2016 Closed displaced fracture of third cervical vertebra (HCC) 03/04/2023 Depressive disorder 09/07/2016 Dizziness 09/07/2016 Dyspnea 09/07/2016 Essential hypertension, benign 04/19/2023 History of being hospitalized 09/24/2024 Rt Tibia Fracture, Acute Hypoxic Resp. Failure, CHF Exacerbation Hypertriglyceridemia 04/19/2023 Insomnia 04/19/2023 Interstitial emphysema (HCC) 04/19/2023 Leg edema 04/19/2023 Lumbar radiculopathy 04/19/2023 Neuropathy 02/04/2023 Nocturia 04/19/2023 Nocturnal hypoxia 04/19/2023 Noncompliance with CPAP treatment 02/04/2023 Obstructive sleep apnea 04/19/2023 Pharyngeal edema 02/04/2023 PTSD (post-traumatic stress disorder) 02/04/2023 Recurrent major depressive disorder 04/19/2023 Sensorineural hearing loss, bilateral 03/04/2023 Superficial thrombosis of lower extremity 04/19/2023 Type 2 diabetes mellitus with diabetic neuropathy, without long-term current use of insulin (HCC) 04/19/2023 Unsteady gait 03/12/2023 Past Surgical History: Procedure Laterality Date CT ANGIOGRAM NECK 03/04/2023 CT ANGIOGRAM NECK 03/04/2023 HERNIA REPAIR 2012 ORIF TIBIA FRACTURE Left 09/24/2024 Visit Vitals Pulse 72 Resp 16 Ht 5' 8.5 Wt 268 lb 3.2 oz SpO2 93% Comment: walk test 90% BMI 40.19 kg/m Smoking Status Every Day BSA 2.43 m Review of Systems Constitutional: Positive for fatigue. Negative for chills and fever. Respiratory: Positive for shortness of breath and wheezing. Negative for cough. Cardiovascular: Negative for chest pain, palpitations and leg swelling. Gastrointestinal: Negative for abdominal pain, constipation, diarrhea, nausea and vomiting. Skin: Positive for rash. Psychiatric/Behavioral: Positive for sleep disturbance. Objective Physical Exam Constitutional: General: He is not in acute distress. Appearance: He is obese. HENT: Head: Normocephalic and atraumatic. Eyes: General: No scleral icterus. Cardiovascular: Rate and Rhythm: Normal rate and regular rhythm. Heart sounds: No murmur heard. Pulmonary: Effort: Pulmonary effort is normal. No respiratory distress. Breath sounds: Decreased air movement present. Examination of the right-lower field reveals rhonchi. Examination of the left-lower field reveals rhonchi. Rhonchi (Soft) present. No wheezing or rales. Musculoskeletal: Right lower leg: Edema present. Left lower leg: Edema present. Skin: General: Skin is warm and dry. Findings: Erythema present. Comments: Confluent erythema with abnormal warmth to touch left lower leg Neurological: General: No focal deficit present. Mental Status: He is alert and oriented to person, place, and time. Psychiatric: Mood and Affect: Mood normal. Behavior: Behavior normal. Comments: Speech difficult to understand at times, mumbled speech. Assessment/Plan Diagnoses and all orders for this visit: Cellulitis of left lower leg - cephalexin (Keflex) 500 MG capsule; Take 1 capsule (500 mg) by mouth in the morning and 1 capsule(500 mg) in the evening and 1 capsule (500 mg) before bedtime. Do all this for 7 days. Start Keflex as prescribed. He has been on it in the past for a skin infection on his arm. He is tocontact the office if symptoms do not improve over the next week. Obstructive sleep apnea - Ambulatory referral to Sleep Medicine; Future Provided pt with referral to Sleep Medicine for further evaluation/discussion. Pt will wear either his oxygen or his CPAP, but not both. He has chronic fatigue, and likely not having restorative sleep. Advised him that they should be in touch to get him scheduled. He is referred to the [facility]. Primary insomnia See above. Panlobular emphysema (HCC) - Handicap Placard Lifetime - Shnaoix-Ohhxkevrlrz-Xjrmimuorh (Breztri Aerosphere) 160-9-4.8 MCG/ACT aerosol; Inhale 2 puffs in the morning and 2 puffs before bedtime. - albuterol (2.5 MG/3ML) 0.083% nebulizer solution; Take 3 mL (2.5 mg) by nebulization 4 (four) times a day as needed for wheezing or shortness of breath Breathing not controlled. Will try to get pt a maintenance inhaler. Breztri sent in for pt and samples provided. Symbicort did not work for pt. Reminded pt to rinse his mouth after each use to decrease risk of thrush. Nebulizer solution provided, he can use his nebulizer and albuterol inhaler as needed for acute symptoms. Moderate episode of recurrent major depressive disorder (HCC) - amitriptyline (Elavil) 100 MG tablet; Take 1 tablet (100 mg) by mouth at bedtime Refill provided on the above. He does feel that the Amitriptyline helps with his depression symptoms. Nocturnal hypoxia - Ambulatory referral to Sleep Medicine; Future See above discussion. Cigarette smoker - CT lung screening low dose; Future Will obtain updated low dose CT screening for further evaluation. Discussed smoking cessation with the patient. Encouraged patient to cut back and soon quit smoking.Health risks of smoking, and benefits of quitting reviewed with the patient. Follow up for Appointment As Scheduled. documented in this encounterResearch Psychiatric [id number] History of Present illness Narrative* Cristiano Jones MD - 06/02/2025 11:00 AM EDT Images from the original note were not included. Subjective Patient ID: Jose Cabrera III is a 54 y.o. male who presents for discuss VA disability . Pt is trying to apply again to get disability through the [employer] He was denied in past but would like to try to apply again Believes many of his chronic conditions steam from time in Over the past 2 weeks, how often have you been bothered by any of the following problems? Little interest or pleasure in doing things: Not at all Feeling down, depressed, or hopeless: Not at all Patient Health Questionnaire-2 Score: 0 Current Outpatient Medications on File Prior to Visit Medication Sig Dispense Refill acetaminophen (Tylenol) 325 MG tablet Take 650 mg by mouth every 6 (six) hours albuterol HFA 90 mcg/act inhaler Inhale 2 puffs every 4 (four) hours if needed for wheezing or shortness of breath 18 g 3 amitriptyline (Elavil) 100 MG tablet Take 1 tablet every day by oral route for 30 days. aspirin 81 MG EC tablet Take 81 mg by mouth in the morning. Blood Glucose Monitoring Suppl ([employer] ULTRA 2) w/Device kit 1 each by In Vitro route Daily 1 kit 0 buPROPion (Wellbutrin) 75 MG tablet Take 1 tablet by mouth in the morning and 1 tablet in the evening and 1 tablet before bedtime. diclofenac (Voltaren) 75 MG EC tablet Take 75 mg by mouth in the morning and 75 mg before bedtime. FLUoxetine (PROzac) 20 MG capsule Take 1 capsule (20 mg) by mouth Daily 30 capsule 5 furosemide (Lasix) 40 MG tablet Take 1 tablet (40 mg) by mouth Daily 90 tablet 3 gabapentin (Neurontin) 600 MG tablet Take 1 tablet (600 mg) by mouth Daily 1 tablet QAM and 2 tablets QHS 270 tablet 3 glucose blood (PageBitesuch Ultra) test strip Use 1 daily 100 strip 3 ibuprofen 800 MG tablet Take 1 tablet (800 mg) by mouth in the morning and 1 tablet (800 mg) in theevening and 1 tablet (800 mg) before bedtime. 300 tablet 2 lisinopril-hydroCHLOROthiazide 10-12.5 MG tablet TAKE 2 TABLETS BY MOUTH EVERY MORNING 180 tablet 3 metFORMIN (Glucophage) 500 MG tablet Take 1 tablet (500 mg) by mouth in the morning and 1 tablet (500 mg) in the evening. Take with meals. 180 tablet 3 metoprolol tartrate (Lopressor) 50 MG tablet TAKE 1 TABLET (50 MG) BY MOUTH IN THE MORNING AND BEFORE BEDTIME 180 tablet 3 [DISCONTINUED] Semaglutide,0.25 or 0.5MG/DOS, (Ozempic, 0.25 or 0.5 MG/DOSE,) 2 MG/3ML solution pen-injector Inject 0.5 mg as directed 1 (one) time per week 3 mL 11 [DISCONTINUED] budesonide-formoterol (Symbicort) 80-4.5 MCG/ACT inhaler Inhale 1-2 puffs every 4 (four) hours if needed for wheezing or shortness of breath 10.2 g 11 No current facility-administered medications on file prior to visit. I have reviewed and reconciled the history and medication list with the patient today. No Known Allergies Social History Tobacco Use Smoking status: Every Day Current packs/day: 1.00 Average packs/day: 1 pack/day for 39.6 years (39.6 ttl pk-yrs) Types: Cigarettes Start date: 1985 Smokeless tobacco: Never Vaping Use Vaping status: Never Used Substance Use Topics Alcohol use: Not Currently Drug use: Defer Family History Problem Relation Name Age of Onset Cancer Maternal Grandmother Past Medical History: Diagnosis Date Atherosclerosis of coronary artery of [place] heart with angina pectoris 04/19/2023 Chest pain 09/07/2016 Closed displaced fracture of third cervical vertebra (HCC) 03/04/2023 Depressive disorder 09/07/2016 Dizziness 09/07/2016 Dyspnea 09/07/2016 Essential hypertension, benign 04/19/2023 History of being hospitalized 09/24/2024 Rt Tibia Fracture, Acute Hypoxic Resp. Failure, CHF Exacerbation Hypertriglyceridemia 04/19/2023 Insomnia 04/19/2023 Interstitial emphysema (HCC) 04/19/2023 Leg edema 04/19/2023 Lumbar radiculopathy 04/19/2023 Neuropathy 02/04/2023 Nocturia 04/19/2023 Nocturnal hypoxia 04/19/2023 Noncompliance with CPAP treatment 02/04/2023 Obstructive sleep apnea 04/19/2023 Pharyngeal edema 02/04/2023 PTSD (post-traumatic stress disorder) 02/04/2023 Recurrent major depressive disorder 04/19/2023 Sensorineural hearing loss, bilateral 03/04/2023 Superficial thrombosis of lower extremity 04/19/2023 Type 2 diabetes mellitus with diabetic neuropathy, without long-term current use of insulin (HCC) 04/19/2023 Unsteady gait 03/12/2023 Past Surgical History: Procedure Laterality Date CT ANGIOGRAM NECK 03/04/2023 CT ANGIOGRAM NECK 03/04/2023 HERNIA REPAIR 2012 ORIF TIBIA FRACTURE Left 09/24/2024 Visit Vitals BP 134/80 Pulse 88 Ht 5' 8.5 Wt 271 lb SpO2 96% BMI 40.61 kg/m Smoking Status Every Day BSA 2.44 m Review of Systems Objective Physical Exam Constitutional: General: He is not in acute distress. Appearance: He is normal weight. He is not ill-appearing. HENT: Head: Normocephalic. Cardiovascular: Rate and Rhythm: Normal rate and regular rhythm. Heart sounds: Normal heart sounds. No murmur heard. Pulmonary: Effort: Pulmonary effort is normal. No respiratory distress. Breath sounds: Normal breath sounds. No wheezing or rhonchi. Musculoskeletal: General: No swelling. Cervical back: Tenderness present. Decreased range of motion. Right knee: Swelling present. No effusion or erythema. Tenderness present. Right lower leg: No edema. Left lower leg: No edema. Neurological: Mental Status: He is alert. Psychiatric: Mood and Affect: Mood is depressed. Thought Content: Thought content normal. Judgment: Judgment normal. Assessment/Plan Diagnoses and all orders for this visit: Type 2 diabetes mellitus with diabetic neuropathy, without long-term current use of insulin (HCC) - Patient requests a letter stating his service time exposures caused this and other disabilities. I advised him to see a AL provider as they are the experts on this. Follow up for As Previously Scheduled. documented in this encounterResearch Psychiatric [id number] History of Present illness Narrative* Cristiano Jones MD - 03/29/2025 10:45 AM EDT Images from the original note were not included. Subjective Patient ID: Jose Cabrera III is a 54 y.o. male who presents for No chief complaint on file.. Jose presents today for a 1 wk F/U for left arm cellulitis He did get the antibiotic, which did help the arm and elbow. He also is having RT knee pain from a brake in September. Current Outpatient Medications on File Prior to Visit Medication Sig Dispense Refill acetaminophen (Tylenol) 325 MG tablet Take 650 mg by mouth every 6 (six) hours amitriptyline (Elavil) 100 MG tablet Take 1 tablet every day by oral route for 30 days. aspirin 81 MG EC tablet Take 81 mg by mouth in the morning. Blood Glucose Monitoring Suppl (ONE TOUCH ULTRA 2) w/Device kit 1 each by In Vitro route Daily 1 kit 0 buPROPion (Wellbutrin) 75 MG tablet Take 1 tablet by mouth in the morning and 1 tablet in the evening and 1 tablet before bedtime. cephalexin (Keflex) 500 MG capsule Take 1 capsule (500 mg) by mouth in the morning and 1 capsule (500 mg) before bedtime. Do all this for 10 days. 20 capsule 0 diclofenac (Voltaren) 75 MG EC tablet Take 75 mg by mouth in the morning and 75 mg before bedtime. FLUoxetine (PROzac) 20 MG capsule Take 1 capsule (20 mg) by mouth Daily 30 capsule 5 furosemide (Lasix) 40 MG tablet Take 1 tablet (40 mg) by mouth Daily 90 tablet 3 gabapentin (Neurontin) 600 MG tablet Take 1 tablet (600 mg) by mouth Daily 1 tablet QAM and 2 tablets QHS 270 tablet 3 glucose blood (PageBitesuch Ultra) test strip Use 1 daily 100 strip 3 lisinopril-hydroCHLOROthiazide 10-12.5 MG tablet TAKE 2 TABLETS BY MOUTH EVERY MORNING 180 tablet 3 metFORMIN (Glucophage) 500 MG tablet Take 1 tablet (500 mg) by mouth in the morning and 1 tablet (500 mg) in the evening. Take with meals. 180 tablet 3 metoprolol tartrate (Lopressor) 50 MG tablet TAKE 1 TABLET (50 MG) BY MOUTH IN THE MORNING AND BEFORE BEDTIME 180 tablet 3 Semaglutide,0.25 or 0.5MG/DOS, (Ozempic, 0.25 or 0.5 MG/DOSE,) 2 MG/3ML solution pen-injector Inject 0.5 mg as directed 1 (one) time per week 3 mL 11 [DISCONTINUED] albuterol HFA 90 mcg/act inhaler Inhale 2 puffs every 4 (four) hours if needed for wheezing or shortness of breath 18 g 3 [DISCONTINUED] Blood Glucose Monitoring Suppl (ONE TOUCH ULTRA 2) w/Device kit USE TO TEST BLOOD SUGAR DAILY DIRECTED [DISCONTINUED] budesonide-formoterol (Symbicort) 160-4.5 MCG/ACT inhaler Inhale 2 puffs in the morning and 2 puffs before bedtime. Rinse mouth with water after use to reduce aftertaste and incidence of candidiasis. Do not swallow.. [DISCONTINUED] budesonide-formoterol (Symbicort) 160-4.5 MCG/ACT inhaler Inhale 2 puffs in the morning and 2 puffs before bedtime. Rinse mouth with water after use to reduce aftertaste and incidence of candidiasis. Do not swallow. 10.2 g 5 [DISCONTINUED] budesonide-formoterol (Symbicort) 80-4.5 MCG/ACT inhaler Inhale 1-2 puffs every 4 (four) hours if needed for wheezing or shortness of breath 10.2 g 2 [DISCONTINUED] furosemide (Lasix) 40 MG tablet Take 1 tablet (40 mg) by mouth in the morning. 90 tablet 3 [DISCONTINUED] gabapentin (Neurontin) 600 MG tablet Take 1 tablet (600 mg) by mouth Daily 1 tablet QAM and 2 tablets QHS 270 tablet 3 [DISCONTINUED] glucose blood (OneTouch Ultra) test strip Use as instructed 100 each 3 [DISCONTINUED] ibuprofen 800 MG tablet TAKE 1/2 TABLET BY MOUTH IN THE MORNING,AT NOON,IN THE EVENING,AND BEFORE BEDTIME 100 tablet 2 [DISCONTINUED] metFORMIN (Glucophage) 500 MG tablet TAKE 1 TABLET (500 MG) BY MOUTH IN THE MORNING AND IN THE EVENING WITH MEALS 180 tablet 3 [DISCONTINUED] OneTouch Ultra test strip TEST ONCE DAILY DIRECTED E11.9 No current facility-administered medications on file prior to visit. I have reviewed and reconciled the history and medication list with the patient today. No Known Allergies Social History Tobacco Use Smoking status: Every Day Current packs/day: 1.00 Average packs/day: 1 pack/day for 39.4 years (39.4 ttl pk-yrs) Types: Cigarettes Start date: 1985 Smokeless tobacco: Never Vaping Use Vaping status: Never Used Substance Use Topics Alcohol use: Not Currently Drug use: Defer Family History Problem Relation Name Age of Onset Cancer Maternal Grandmother Past Medical History: Diagnosis Date Atherosclerosis of coronary artery of [place] heart with angina pectoris ([facility]) 04/19/2023 Chest pain 09/07/2016 Closed displaced fracture of third cervical vertebra ([facility]) 03/04/2023 Depressive disorder ([facility]) 09/07/2016 Dizziness 09/07/2016 Dyspnea 09/07/2016 Essential hypertension, benign ([facility]/HCC) 04/19/2023 History of being hospitalized 09/24/2024 Rt Tibia Fracture, Acute Hypoxic Resp. Failure, CHF Exacerbation Hypertriglyceridemia ([facility]) 04/19/2023 Insomnia 04/19/2023 Interstitial emphysema ([facility]) 04/19/2023 Leg edema 04/19/2023 Lumbar radiculopathy 04/19/2023 Neuropathy 02/04/2023 Nocturia 04/19/2023 Nocturnal hypoxia 04/19/2023 Noncompliance with CPAP treatment 02/04/2023 Obstructive sleep apnea 04/19/2023 Pharyngeal edema 02/04/2023 PTSD (post-traumatic stress disorder) ([facility]) 02/04/2023 Recurrent major depressive disorder (HCC) ([facility]) 04/19/2023 Sensorineural hearing loss, bilateral 03/04/2023 Superficial thrombosis of lower extremity 04/19/2023 Type 2 diabetes mellitus with diabetic neuropathy, without long-term current use of insulin ([facility]) 04/19/2023 Unsteady gait 03/12/2023 Past Surgical History: Procedure Laterality Date CT ANGIOGRAM NECK 03/04/2023 CT ANGIOGRAM NECK 03/04/2023 HERNIA REPAIR 2012 ORIF TIBIA FRACTURE Left 09/24/2024 Visit Vitals BP 138/86 Pulse 95 Resp 18 Ht 5' 8.5 Wt 262 lb SpO2 97% BMI 39.26 kg/m Smoking Status Every Day BSA 2.4 m Review of Systems Objective Physical Exam Constitutional: General: He is not in acute distress. Appearance: He is normal weight. He is not ill-appearing. HENT: Head: Normocephalic. Cardiovascular: Rate and Rhythm: Normal rate and regular rhythm. Heart sounds: Normal heart sounds. No murmur heard. Pulmonary: Effort: Pulmonary effort is normal. No respiratory distress. Breath sounds: Normal breath sounds. No wheezing or rhonchi. Musculoskeletal: General: No swelling. Cervical back: Tenderness present. Decreased range of motion. Right knee: Swelling present. No effusion or erythema. Tenderness present. Right lower leg: No edema. Left lower leg: No edema. Neurological: Mental Status: He is alert. Psychiatric: Mood and Affect: Mood is depressed. Thought Content: Thought content normal. Judgment: Judgment normal. Assessment/Plan Diagnoses and all orders for this visit: Type 2 diabetes mellitus with other specified complication, with long-term current use of insulin - Fill Rx for Ozempic when able. Chronic obstructive pulmonary disease, unspecified COPD type ([facility]) - albuterol HFA 90 mcg/act inhaler; Inhale 2 puffs every 4 (four) hours if needed for wheezing or shortness of breath - budesonide-formoterol (Symbicort) 80-4.5 MCG/ACT inhaler; Inhale 1-2 puffs every 4 (four) hours if needed for wheezing or shortness of breath Lumbar radiculopathy - ibuprofen 800 MG tablet; Take 1 tablet (800 mg) by mouth in the morning and 1 tablet (800 mg) in the evening and 1 tablet (800 mg) before bedtime. Folliculitis Follow up in about 2 months (around 05/29/2025) for DM- A1C. documented in this encounterResearch Psychiatric [id number] History of Present illness Narrative* Cristiano Jones MD - 03/24/2025 10:00 AM EDT Images from the original note were not included. HPI recheck left arm cellulitis Additional comments: Pt finished abx from treatment for cellulitis states he felt it was improving but now it seems to be coming back Med Refill Additional comments: Gabapentin, metformin,lasix,symbicort,glucometer and test strips --[facility] Results Additional comments: LDCT result Last edited by Elena Perdue LPN on 03/24/2025 10:25 AM. Subjective Patient ID: Jose Cabrera III is a 54 y.o. male who presents for Diabetes, Depression, recheck left arm cellulitis (Pt finished abx from treatment for cellulitis states he felt it was improving but nowit seems to be coming back), Med Refill (Gabapentin, metformin,lasix,symbicort,glucometer and test strips --[facility]/), and Results (LDCT result). Results LDCT Diabetes Mellitus Patient presents for follow up of diabetes. Patient denies hypoglycemia and polydipsia. Evaluation to date has included: fasting blood sugar, fasting lipid panel, and hemoglobin A1C. Home sugars: pt not checking sugars at home--glucometer is broken Hypertension Patient is here for follow-up of elevated blood pressure. Blood pressure is well controlled at home. Cardiac symptoms: none. Patient denies chest pain, irregular heart beat, near-syncope, orthopnea, palpitations, paroxysmal nocturnal dyspnea, syncope, and tachypnea. Cardiovascular risk factors: diabetes mellitus, hypertension, male gender, and obesity (BMI >= 30 kg/m2). Pt states he has been out of almost all of his meds for a month the pharmacy did not have any refills available for him so he has not taken anything except the fluoxetine Pt does feel the fluoxetine is helping Swelling has returned in left forearm since finishing abx Diabetes Med Refill Hypertension Current Outpatient Medications on File Prior to Visit Medication Sig Dispense Refill acetaminophen (Tylenol) 325 MG tablet Take 650 mg by mouth every 6 (six) hours albuterol HFA 90 mcg/act inhaler Inhale 2 puffs every 4 (four) hours if needed for wheezing or shortness of breath 18 g 3 amitriptyline (Elavil) 100 MG tablet Take 1 tablet every day by oral route for 30 days. aspirin 81 MG EC tablet Take 81 mg by mouth in the morning. buPROPion (Wellbutrin) 75 MG tablet Take 1 tablet by mouth in the morning and 1 tablet in the evening and 1 tablet before bedtime. diclofenac (Voltaren) 75 MG EC tablet Take 75 mg by mouth in the morning and 75 mg before bedtime. FLUoxetine (PROzac) 20 MG capsule Take 1 capsule (20 mg) by mouth Daily 30 capsule 5 ibuprofen 800 MG tablet TAKE 1/2 TABLET BY MOUTH IN THE MORNING,AT NOON,IN THE EVENING,AND BEFORE BEDTIME 100 tablet 2 lisinopril-hydroCHLOROthiazide 10-12.5 MG tablet TAKE 2 TABLETS BY MOUTH EVERY MORNING 180 tablet 3 metoprolol tartrate (Lopressor) 50 MG tablet TAKE 1 TABLET (50 MG) BY MOUTH IN THE MORNING AND BEFORE BEDTIME 180 tablet 3 Semaglutide,0.25 or 0.5MG/DOS, (Ozempic, 0.25 or 0.5 MG/DOSE,) 2 MG/3ML solution pen-injector Inject 0.5 mg as directed 1 (one) time per week 3 mL 11 [DISCONTINUED] Blood Glucose Monitoring Suppl (ONE TOUCH ULTRA 2) w/Device kit USE TO TEST BLOOD SUGAR DAILY DIRECTED [DISCONTINUED] budesonide-formoterol (Symbicort) 160-4.5 MCG/ACT inhaler Inhale 2 puffs in the morning and 2 puffs before bedtime. Rinse mouth with water after use to reduce aftertaste and incidence of candidiasis. Do not swallow.. [DISCONTINUED] furosemide (Lasix) 40 MG tablet Take 1 tablet (40 mg) by mouth in the morning. 90 tablet 3 [DISCONTINUED] gabapentin (Neurontin) 600 MG tablet Take 1 tablet (600 mg) by mouth Daily 1 tablet QAM and 2 tablets QHS 270 tablet 3 [DISCONTINUED] metFORMIN (Glucophage) 500 MG tablet TAKE 1 TABLET (500 MG) BY MOUTH IN THE MORNING AND IN THE EVENING WITH MEALS 180 tablet 3 [DISCONTINUED] OneTouch Ultra test strip TEST ONCE DAILY DIRECTED E11.9 No current facility-administered medications on file prior to visit. I have reviewed and reconciled the history and medication list with the patient today. No Known Allergies Social History Tobacco Use Smoking status: Every Day Current packs/day: 1.00 Average packs/day: 1 pack/day for 39.4 years (39.4 ttl pk-yrs) Types: Cigarettes Start date: 1985 Smokeless tobacco: Never Vaping Use Vaping status: Never Used Substance Use Topics Alcohol use: Not Currently Family History Problem Relation Name Age of Onset Cancer Maternal Grandmother Past Medical History: Diagnosis Date Atherosclerosis of coronary artery of [place] heart with angina pectoris ([facility]) 04/19/2023 Chest pain 09/07/2016 Closed displaced fracture of third cervical vertebra ([facility]) 03/04/2023 Depressive disorder ([facility]) 09/07/2016 Dizziness 09/07/2016 Dyspnea 09/07/2016 Essential hypertension, benign ([facility]) 04/19/2023 History of being hospitalized 09/24/2024 Rt Tibia Fracture, Acute Hypoxic Resp. Failure, CHF Exacerbation Hypertriglyceridemia ([facility]) 04/19/2023 Insomnia 04/19/2023 Interstitial emphysema ([facility]) 04/19/2023 Leg edema 04/19/2023 Lumbar radiculopathy 04/19/2023 Neuropathy 02/04/2023 Nocturia 04/19/2023 Nocturnal hypoxia 04/19/2023 Noncompliance with CPAP treatment 02/04/2023 Obstructive sleep apnea 04/19/2023 Pharyngeal edema 02/04/2023 PTSD (post-traumatic stress disorder) ([facility]) 02/04/2023 Recurrent major depressive disorder (HCC) ([facility]) 04/19/2023 Sensorineural hearing loss, bilateral 03/04/2023 Superficial thrombosis of lower extremity 04/19/2023 Type 2 diabetes mellitus with diabetic neuropathy, without long-term current use of insulin ([facility]) 04/19/2023 Unsteady gait 03/12/2023 Past Surgical History: Procedure Laterality Date CT ANGIOGRAM NECK 03/04/2023 CT ANGIOGRAM NECK 03/04/2023 HERNIA REPAIR 2012 ORIF TIBIA FRACTURE Left 09/24/2024 Visit Vitals BP 136/84 Pulse 89 Ht 5' 8.5 Wt 265 lb SpO2 93% BMI 39.71 kg/m Smoking Status Every Day BSA 2.41 m Review of Systems Objective Physical Exam Constitutional: General: He is not in acute distress. Appearance: He is normal weight. He is not ill-appearing. HENT: Head: Normocephalic. Cardiovascular: Rate and Rhythm: Normal rate and regular rhythm. Heart sounds: Normal heart sounds. No murmur heard. Pulmonary: Effort: Pulmonary effort is normal. No respiratory distress. Breath sounds: Normal breath sounds. No wheezing or rhonchi. Musculoskeletal: General: No swelling. Cervical back: Tenderness present. Decreased range of motion. Right knee: Swelling present. No effusion or erythema. Tenderness present. Right lower leg: No edema. Left lower leg: No edema. Neurological: Mental Status: He is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
[2025-09-06 12:32] LABS: Alanine Aminotransferase 18 U/L (16-63); Albumin Globulin Ratio 1.1; Albumin Level 3.8 g/dL (3.4-5.0); Alkaline Phosphatase 109 U/L (46-116); Anion Gap 11.6; Blood Urea Nitrogen 11.0 mg/dL (7.0-18.0); Calcium 9.3 mg/dL (8.5-10.1); Carbon Dioxide 34.9 mmol/L (21.0-32.0); Chloride 97 mmol/L (98-107); Cholesterol 250 mg/dL (<=200); Estimated GFR (African America >60 (>=60 mL/min/1.73m^2); Estimated GFR (Non-African Ame >60 (>=60 mL/min/1.73m^2); Globulin 3.4 g/dL; Glucose 210 mg/dL (74-106); HDL Cholesterol 46 mg/dL (40-60); Potassium 4.5 mmol/L (3.5-5.1); Sodium 139 mmol/L (136-145); Total Protein 7.2 g/dL (6.4-8.2); Triglycerides 289 mg/dL (<=150); VLDL CHOLESTEROL 57.8 mg/dL
[2025-09-06 12:34] LABS: Aspartate Amino Transferase 42 U/L (15-37)
[2025-09-06 13:15] LABS: Microalbum Creatinine Ratio Ur 14.1 mg/g (0.0-29.9)
== END 2025-09-06 11:23 | disposition home or self-care (01) ==
LOC: LAB 11:23
PROVIDERS: PCP Internal Medicine; Visit Provider Internal Medicine
DX: E11.40 Type 2 diabetes mellitus with diabetic neuropathy, unspecified (principal); Z12.5 Encounter for screening for malignant neoplasm of prostate
CPT/HCPCS: 36415; 80053; 80061; 82043; 82570; G0103